=== PATIENT | female | born 1985 | race Caucasian/White ===

== ENCOUNTER 2016-10-17 20:14 | Emergency (ER) | payer OTHER ==
[~2016-10-17] VITALS: Ht 160 cm; Wt 82.0 kg
[~2016-10-17 20:14] MED LIST: ALBU1.25 NEB; DIGO0.25 PO; DUONI INH; FIORINAL2 PO; IBUP-232 PO; LORA-474 PO; MONT10TA2 PO; NORC5TAB PO; OMEP20TA PO; OXYC15TA PO; ZYRT10CA PO
[2016-10-17] MEDS ORDERED: SODIUM CHLOR 0.9% 1000 ML INJ 1,000 ML IV ONE (20:17)
[2016-10-17] MEDS ORDERED: MONT10TA2 PO (20:24)
[2016-10-17] MEDS ORDERED: LORA-474 PO (20:24)
[2016-10-17] MEDS ORDERED: ALBU1.25 NEB (20:24)
[2016-10-17] MEDS ORDERED: ZANA4CAP PO (20:25)
[2016-10-17 20:30] VITALS: BP 140/74; PULSE 115; RESP 16; TEMP 98.2; O2SAT 96
[2016-10-17] MEDS ORDERED: SODIUM CHLORIDE 0.9% FLUSH 5 ML FLUSH IVF PRN ×2 (20:30)
[2016-10-17] MEDS ORDERED: ONDANSETRON HCL 4 MG/2 ML VIAL IV PUSH ONE (20:30)
[2016-10-17] MEDS ORDERED: ACETAMINOPHEN 325 MG TAB PO ONE (20:30)
--- NOTE | 2016-10-17 21:04 | PD ---
HPI Chief Complaint: Head Injury Time Seen by Provider: 20:17 Travel History International Travel<30 days: No Contact w/Intl Traveler<30days: No History of Present Illness HPI The patient is 31 years old. She suffers with history of SVT evidently a TIA, endometriosis with ablations, thoracic outlet syndrome of the left first rib, asthma as well as anxiety. Patient has a history of left knee meniscus surgery. Earlier today in the morning she experienced a "buckle" type mechanism and fell striking her left temporoparietal scalp against a railway a stairway. She did not fall to the ground or lose consciousness. Throughout the course of the day she states she felt somewhat weak. While walking home tonight she experienced a another "buckle" type mechanism and again fell forward striking her left temporoparietal scalp against the same railway. No loss of consciousness occurred. She then ambulated down 3 flights of stairs. On scene EMS was advised by the patient that she had neck pain and they applied a cervical collar. In the ER the patient complains of cephalgia along the left jose-convexity as well as midline spinal pain. She reports feeling somewhat lightheaded. She endorses a history of tachycardia and has worn a Holter monitor previously. She has no chest pain or shortness of breath ER. PFSH Past Medical History Asthma: Yes Anxiety: Yes Heart Rhythm Problems: Yes (SVT) Cardiovascular Problems: Yes (SVT) Cerebrovascular Accident: Yes (TIA) Diabetes: Yes (HYPO) Endocrine: Yes (HYPERPARATHYROID) GERD: Yes Reproductive: Yes (endometriosis) Respiratory: Yes (ASTHMA) Migraines: Yes Past Surgical History Abdominal Surgery: Yes Appendectomy: Yes Cardiac Surgery: Yes (ATRIAL SEPTIAL DEFECT REPAIR) Cholecystectomy: Yes Genitourinary Surgery: Yes ("2-3 ABLASIONS RELATED TO ENDOMETRIOSIS") Gynecologic Surgery: Yes (LAP ) Thoracic Surgery: Yes (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) Social History Alcohol Use: Yes (RARE) Tobacco Use: No Substance Use: No Allergies-Medications (Allergen,Severity, Reaction): Coded Allergies: Compazine (Verified Allergy, Severe, Shortness of Breath, 10/17/16) Contrast Media (Verified Allergy, Severe, Anaphylaxis, 10/17/16) Dilaudid (Verified Allergy, Severe, Itching, 10/17/16) Latex (Verified Allergy, Severe, Anaphylaxis, 10/17/16) Reglan (Verified Allergy, Severe, Shortness of Breath, 10/17/16) Succinylcholine (Verified Allergy, Severe, 10/17/16) Cephalosporins (Verified Allergy, Mild, HIVES, 10/17/16) Reported Meds & Prescriptions Reported Meds & Active Scripts Active Ibuprofen 600 Mg Tab 600 Mg PO Q6H PRN Reported Zanaflex (Tizanidine HCl) 4 Mg Cap 4 Mg PO QID Singulair (Montelukast Sodium) 10 Mg Tab 10 Mg PO HS Ativan (Lorazepam) 1 Mg Tab 1 Mg PO DAILY PRN Albuterol Neb (Albuterol Sulfate) 1.25 Mg/3 Ml Neb 1.25 Mg NEB Q4HR NEB PRN Digoxin 0.25 Mg Tab 0.25 Mg PO DAILY Fiorinal (Butalbital/Aspirin/Caffeine) 50-325-40 Mg Cap 1 Cap PO Q4H PRN Do not exceed 6 capsules/day. Zyrtec Allergy (Cetirizine HCl) 10 Mg Cap 10 Mg PO DAILY Oxycodone (Oxycodone HCl) 15 Mg Tab 15 Mg PO Q6H PRN Omeprazole 20 Mg Tab 20 Mg PO BID Review of Systems Except as stated in HPI: all other systems reviewed are Neg General / Constitutional: No: Fever, Chills Gastrointestinal: No: Nausea, Vomiting Physical Exam Narrative GENERAL: 31 yo F, WNWD, C-collar present, AOx3 SKIN: Warm and dry. HEAD: Atraumatic. Normocephalic. No evidence of trauma about the left jose- convexity. No evidence skull base fracture. EYES: Pupils equal and round. No scleral icterus. No injection or drainage. ENT: No nasal bleeding or discharge. Mucous membranes pink and moist. NECK: Trachea midline. No JVD. CARDIOVASCULAR: Regular rate and rhythm. No murmur appreciated. RESPIRATORY: No accessory muscle use. Clear to auscultation. Breath sounds equal bilaterally. GASTROINTESTINAL: Abdomen soft, non-tender, nondistended. Hepatic and splenic margins not palpable. MUSCULOSKELETAL: No obvious deformities. No clubbing. No cyanosis. No edema. NEUROLOGICAL: Awake and alert. No obvious cranial nerve deficits. Motor grossly within normal limits. Normal speech. PSYCHIATRIC: Appropriate mood and affect; insight and judgment normal. Data Data Last Documented VS Vital Signs Date Time Temp Pulse Resp B/P Pulse Ox O2 Delivery O2 Flow Rate FiO2 10/17/16 20:30 98.2 115 16 140/74 96 10/17/16 20:25 Nasal Cannula 2 Orders Electrocardiogram (10/17/16 20:17) Basic Metabolic Panel (Bmp) (10/17/16 20:17) Complete Blood Count With Diff (10/17/16 20:17) Ecg Monitoring (10/17/16 20:17) Iv Access Insert/Monitor (10/17/16 20:17) Oximetry (10/17/16 20:17) Oxygen Administration (10/17/16 20:17) Sodium Chloride 0.9% Flush (Ns Flush) (10/17/16 20:30) Ct Brain W/O Iv Contrast(Rout) (10/17/16 20:17) Sodium Chloride 0.9% Flush (Ns Flush) (10/17/16 20:30) Acetaminophen (Tylenol) (10/17/16 20:30) Sodium Chlor 0.9% 1000 Ml Inj (Ns 1000 M (10/17/16 20:17) Ct Cerv Spine W/O Contrast (10/17/16 20:17) Ondansetron Inj (Zofran Inj) (10/17/16 20:30) Magnesium (Mg) (10/17/16 20:17) B-Type Natriuretic Peptide (10/17/16 21:27) Troponin I (10/17/16 21:27) Promethazine Inj (Phenergan Inj) (10/17/16 22:15) Ventilation & Perfusion Scan (10/17/16 ) Ed Urine Pregnancytest Poc (10/17/16 22:21) Chest, Single Ap (10/17/16 ) Labs Laboratory Tests Test 10/17/16 10/17/16 21:07 21:35 Sodium Level 136 MEQ/L Potassium Level 4.6 MEQ/L Chloride Level 104 MEQ/L Carbon Dioxide Level 20.8 MEQ/L Anion Gap 11 MEQ/L Blood Urea Nitrogen 18 MG/DL Creatinine 1.18 MG/DL Estimat Glomerular Filtration 54 ML/MIN Rate Random Glucose 109 MG/DL Calcium Level 9.6 MG/DL Magnesium Level 2.3 MG/DL White Blood Count 15.7 TH/MM3 Red Blood Count 4.38 MIL/MM3 Hemoglobin 12.1 GM/DL Hematocrit 36.3 % Mean Corpuscular Volume 82.8 FL Mean Corpuscular Hemoglobin 27.6 PG Mean Corpuscular Hemoglobin 33.3 % Concent Red Cell Distribution Width 14.9 % Platelet Count 272 TH/MM3 Mean Platelet Volume 8.5 FL Neutrophils (%) (Auto) 91.9 % Lymphocytes (%) (Auto) 6.0 % Monocytes (%) (Auto) 1.8 % Eosinophils (%) (Auto) 0.0 % Basophils (%) (Auto) 0.3 % Neutrophils # (Auto) 14.4 TH/MM3 Lymphocytes # (Auto) 0.9 TH/MM3 Monocytes # (Auto) 0.3 TH/MM3 Eosinophils # (Auto) 0.0 TH/MM3 Basophils # (Auto) 0.0 TH/MM3 CBC Comment DIFF FINAL Differential Comment Troponin I LESS THAN 0.02 NG/ML B-Type Natriuretic Peptide 9 PG/ML MDM Medical Decision Making Medical Screen Exam Complete: Yes Emergency Medical Condition: Yes Medical Record Reviewed: Yes Differential Diagnosis Intracranial hemorrhage, contusion, skull fracture Narrative Course EKG reveals a sinus tachycardia with a rate of 121. Right axis deviation and Q waves. Last [address] 10/17/162016 Signed Impressions: Service Date/Time: Monday, October 17, 2016 23:02 - CONCLUSION: Normal examination. Jhon Monahan MD Cervical Spine CT 10/17/162016 Signed Impressions: Service Date/Time: Monday, October 17, 2016 23:02 - CONCLUSION: Normal examination. Jhon Monahan MD CBC & BMP Diagram 10/17/16 21:07 10/17/16 21:35 Troponin is undetectable BNP 9 VQ scan: No PE The pulse has improved to about the 90s. The patient received a liter of saline. No evidence of PE. Much of her initial presentation seemed to be vague constellation of somatic apparent signs including falling asleep during the initial interview which seemed to be fairly obviously intentional. Nonetheless in the setting of tachycardia a thorough workup was initiated. In this scenario the leukocytosis is considered nonspecific. She reports feeling much better upon reassessment at 12:45 AM. Phenergan and Zofran helped with the initial nausea complains. The patient has agreed to follow up with her primary care provider and [facility] on Wednesday. Return precautions were discussed. She is ready for discharge. Diagnosis Primary Impression: CHI (closed head injury) Qualified Code: S09.90XA - CHI (closed head injury), initial encounter Additional Impression: Nausea & vomiting Qualified Code: R11.2 - Nausea and vomiting, intractability of vomiting not specified, unspecified vomiting type Referrals: Primary Care Physician call for appointment Additional Instructions: You have a choice when it comes to health care, and we are glad that you chose [facility]. Hopefully, we have met your expectations on today's visit. You are welcome to return to [facility] at any time, as we are committed to meeting the health care needs of our community. Med/Other Pt SpecificInfo: Prescription(s) given Scripts Promethazine (Phenergan)25 Mg Tab25 Mg PO Q6H PRN (Nausea/Vomiting) #10 TAB Ref 0 Prov:Willard Cotto MD 10/18/16 Disposition: 01 DISCHARGE HOME Condition: Stable Willard Cotto MD Oct 17, 2016 21:04
[2016-10-17 21:47] LABS: BICARBONATE 20.8 MEQ/L (21.0-32.0); MAGNESIUM 2.3 MG/DL (1.5-2.5)
[2016-10-17 21:50] LABS: POTASSIUM 4.6 MEQ/L (3.5-5.1)
[2016-10-17 22:03] LABS: AUTOMATED NEUTROPHIL # 14.4 TH/MM3 (1.8-7.7); BASOPHIL % 0.3 % (0.0-2.0); HEMATOCRIT 36.3 % (35.0-46.0); HEMO FLAGS DIFF FINAL; LYMPHOCYTE # 0.9 TH/MM3 (1.0-4.8); MEAN CELL VOLUME 82.8 FL (80.0-100.0); MEAN CORPUSCULAR HEMOGLOBIN 27.6 PG (27.0-34.0); MEAN CORPUSCULAR HGB CONC 33.3 % (32.0-36.0); MONO % 1.8 % (0.0-8.0); NEUT % 91.9 % (16.0-70.0); PLATELET COUNT 272 TH/MM3 (150-450); RED BLOOD COUNT 4.38 MIL/MM3 (4.00-5.30); RED CELL DISTRIBUTION WIDTH 14.9 % (11.6-17.2); WHITE BLOOD COUNT 15.7 TH/MM3 (4.0-11.0)
[2016-10-17] MEDS ORDERED: PROMETHAZINE INJ 25 MG/ML VIAL IM ONE (22:15)
--- NOTE | 2016-10-17 23:24 | RADRPT ---
EXAM DATE/TIME: 10/17/2016 23:02 [facility] COMPARISON: No previous studies available for comparison. INDICATIONS : Trauma; fall. RADIATION DOSE: 32.84 CTDIvol (mGy) MEDICAL HISTORY : Cardiovascular disease. Gastroesophageal reflux disease. SURGICAL HISTORY : Appendectomy. Cholecystectomy. ENCOUNTER: Initial ACUITY: 1 day PAIN SCALE: 3/10 LOCATION: cranial TECHNIQUE: Multiple contiguous axial images were obtained of the head. Using automated exposure control and adj ustment of the mA and/or kV according to patient size, radiation dose was kept as low as reasonably a chievable to obtain optimal diagnostic quality images. FINDINGS: CEREBRUM: The ventricles are normal for age. No evidence of midline shift, mass lesion, hemorrhage or acute in farction. No extra-axial fluid collections are seen. POSTERIOR FOSSA: The cerebellum and brainstem are intact. The 4th ventricle is midline. The cerebellopontine angle i s unremarkable. EXTRACRANIAL: The visualized portion of the orbits is intact. SKULL: The calvaria is intact. No evidence of skull fracture. CONCLUSION: Normal examination. Jhon Monahan MD on October 17, 2016 at 23:22 Board Certified Radiologist. This report was verified electronically.
--- NOTE | 2016-10-17 23:27 | RADRPT ---
EXAM DATE/TIME: 10/17/2016 23:02 [facility] COMPARISON: No previous studies available for comparison. INDICATIONS : Trauma; fall. RADIATION DOSE: 32.84CTDIvol (mGy) MEDICAL HISTORY : Cardiovascular disease. Gastroesophageal reflux disease. SURGICAL HISTORY : Appendectomy. Cholecystectomy. ENCOUNTER: Initial ACUITY: 1 day PAIN SCALE: 2/10 LOCATION: neck TECHNIQUE: Volumetric scanning of the cervical spine was performed. Multiplanar reconstructions in the sagittal, coronal and oblique axial planes were performed. Using automated exposure control and adjustment o f the mA and/or kV according to patient size, radiation dose was kept as low as reasonably achievable to obtain optimal diagnostic quality images. FINDINGS: VERTEBRAE: Normal vertebral body height. ALIGNMENT: No evidence of subluxation. C2-C3: The bony spinal canal is normal in size. No evidence of disc bulge or herniation. The neural forami na are bilaterally patent. C3-C4: The bony spinal canal is normal in size. No evidence of disc bulge or herniation. The neural forami na are bilaterally patent. C4-C5: The bony spinal canal is normal in size. No evidence of disc bulge or herniation. The neural forami na are bilaterally patent. C5-C6: The bony spinal canal is normal in size. No evidence of disc bulge or herniation. The neural forami na are bilaterally patent. C6-C7: The bony spinal canal is normal in size. No evidence of disc bulge or herniation. The neural forami na are bilaterally patent. C7-T1: The bony spinal canal is normal in size. No evidence of disc bulge or herniation. The neural forami na are bilaterally patent. CONCLUSION: Normal examination. Jhon Monahan MD on October 17, 2016 at 23:24 Board Certified Radiologist. This report was verified electronically.
[2016-10-18] VITALS: BP 138/78; PULSE 70; RESP 16; O2SAT 98
--- NOTE | 2016-10-18 00:32 | RADRPT ---
EXAM DATE/TIME: 10/17/2016 23:57 [facility] COMPARISON: No previous studies available for comparison. INDICATIONS : Shortness of breath and weakness for one day. DOSE: 8.7 mCi Tc99m MAA IV 1.2 mCi Tc99m DTPA aerosol MEDICAL HISTORY : Stroke. Asthma. SURGICAL HISTORY : Appendectomy. Cholecystectomy. ENCOUNTER: Initial ACUITY: 1 day PAIN SCALE: 1/10 LOCATION: chest TECHNIQUE: Following five minutes of tidal breathing of DTPA aerosol, planar images of the lungs were performed in eight projections. The patient was then injected with MAA, and eight-view perfusion scan was perf ormed. FINDINGS: There is a homogeneous pattern of aerosol delivery to the periphery of both lungs. No focal ventilat ory defects are seen. The perfusion lung scan demonstrates a homogenous pattern of uptake in both lungs. No segmental or s ubsegmental defects are seen. CONCLUSION: Normal examination. Jhon Monahan MD on October 18, 2016 at 0:31 Board Certified Radiologist. This report was verified electronically.
[2016-10-18] MEDS ORDERED: PROM25TA5 PO (01:01)
--- NOTE | 2016-10-18 01:20 | RADRPT ---
EXAM DATE/TIME: 10/18/2016 00:21 [facility] COMPARISON: CHEST PA & LAT, July 02, 2016, 10:07. INDICATIONS : Fall. Palpitations. Shortness of breath. MEDICAL HISTORY : None. SURGICAL HISTORY : CABG. Left chest tube. ENCOUNTER: Initial ACUITY: 1 day PAIN SCORE: 110 LOCATION: Bilateral chest FINDINGS: A single view of the chest demonstrates the lungs to be symmetrically aerated without evidence of mas s, infiltrate or effusion. The cardiomediastinal contours are unremarkable. Osseous structures are intact. Numerous sternal wires. Left hemidiaphragm remains tented laterally CONCLUSION: Normal examination. Left first rib has been resected Jhon Monahan MD on October 18, 2016 at 1:18 Board Certified Radiologist. This report was verified electronically.
--- NOTE | 2016-10-18 13:38 | EKG ---
Date Performed: 10/17/2016 Time Performed: 20:40:55 PTAGE: 31 years EKG: SINUS TACHYCARDIA MARKED RIGHT AXIS DEVIATION POSSIBLE ANTERIOR MYOCARDIAL INFARCTION ABNOR MAL ECG Compared to PREVIOUS TRACING , sinus tachycardia is new. There has been some loss of lateral R-wave f orces but that is a nonspecific finding. Clinical correlation is advised. PREVIOUS TRACIN 6 02.56 DOCTOR: Caroline Plata Interpretating Date/Time 10/18/2016 13:34:35
[2017-01-27] MEDS ORDERED: ORPH100T PO (17:24)
== END 2016-10-18 02:07 | disposition home or self-care (01) ==
LOC: NEPC 20:14
DX: S09.90XA Unspecified injury of head, initial encounter (principal); M54.2 Cervicalgia; E21.3 Hyperparathyroidism, unspecified; J45.909 Unspecified asthma, uncomplicated; R11.2 Nausea with vomiting, unspecified; D72.829 Elevated white blood cell count, unspecified; R00.0 Tachycardia, unspecified; W19.XXXA Unspecified fall, initial encounter; Z86.73 Personal history of transient ischemic attack (TIA), and cerebral infarction without residual deficits
CPT/HCPCS: 70450; 71010; 72125; 78582; 80048; 83735; 83880; 84484; 84703; 85025; 93005; 96372; 96374; 99284; A9540; A9567; J2405; J2550; J7030

== ENCOUNTER 2016-11-11 23:33 | Emergency (ER) | payer OTHER ==
[~2016-11-11 23:33] MED LIST changes: -DUONI INH; -NORC5TAB PO; +PROM25TA5 PO; +ZANA4CAP PO
[2016-11-11 23:34] VITALS: BP 139/76; PULSE 115; RESP 16; TEMP 97.3; O2SAT 97
[2016-11-12] MEDS ORDERED: XOPEAER4 INH ×2 (01:23)
[2016-11-12] MEDS ORDERED: LEVA.63I NEB ×2 (01:23)
== END 2016-11-11 23:48 | disposition left against medical advice (07) ==
LOC: NED 23:33
DX: R10.2 Pelvic and perineal pain (principal); N83.209 Unspecified ovarian cyst, unspecified side
CPT/HCPCS: 99281

== ENCOUNTER 2016-11-12 01:03 | Inpatient (IN) | payer OTHER ==
[~2016-11-12] VITALS: Ht 157.5 cm; Wt 79.0 kg
[2016-11-12] VITALS (12 sets, daily range): BP systolic 114–147; BP diastolic 61–93; PULSE 65–120; RESP 16–26; TEMP 96.9–98.3; O2SAT 95–98
[2016-11-12] MEDS ORDERED: LEVA.63I NEB (01:23)
[2016-11-12] MEDS ORDERED: XOPEAER4 INH (01:23)
[2016-11-12 02:03] LABS: BLOOD, URINE LARGE (NEG); GLUCOSE,URINE NEG (NEG); KETONE, URINE TRACE mg/dL (NEG); NITRITE,URINE NEG (NEG); PH, URINE 5.5 (5.0-8.5)
[2016-11-12 02:05] LABS: URINE COLOR YELLOW (YELLW/STRAW)
[2016-11-12 02:08] LABS: BACTERIA, URINE FEW /hpf; COMMENT (UR) CULTURE INDICATED; CULTURE IF INDICATED CULTURE INDICATED; SQUAMOUS EPITHELIAL CELL URINE > 8 /hpf (0-5)
--- NOTE | 2016-11-12 02:35 | PD ---
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 She does have nausea and vomiting. She states she gets alternating Depo-Provera and Lupron on an alternating yearly basis. She gets this because she has stage IV endometriosis. She has a doctor in [place] but states she has a hard time making an appointment with her and has not seen her in approximately one year. She saw her one year ago and got a Pap smear at that time. She denies any fever, dysuria, frequency or urgency. The patient had some initial vaginal bleeding when her problems started at 6:30 but this has resolved. PFSH Past Medical History Asthma: Yes Anxiety: Yes Heart Rhythm Problems: Yes (SVT) Cardiovascular Problems: Yes Cerebrovascular Accident: Yes (TIA) Diminished Hearing: No Endocrine: Yes (HYPERPARATHYROID) GERD: Yes Reproductive: Yes (endometriosis) Respiratory: Yes Immunizations Current: Yes Migraines: Yes Tetanus Vaccination: > 5 Years Influenza Vaccination: No ?: Not LMP: 2 YEARS ON DEPO SHOT Past Surgical History Abdominal Surgery: Yes Appendectomy: Yes Cardiac Surgery: Yes (ATRIAL SEPTIAL DEFECT REPAIR) Cholecystectomy: Yes Genitourinary Surgery: Yes ("2-3 ABLASIONS RELATED TO ENDOMETRIOSIS") Gynecologic Surgery: Yes (LAP ) Thoracic Surgery: Yes (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) Social History Alcohol Use: Yes (RARE) Tobacco Use: No Substance Use: No Allergies-Medications (Allergen,Severity, Reaction): Coded Allergies: Compazine (Verified Allergy, Severe, Shortness of Breath, 11/12/16) Contrast Media (Verified Allergy, Severe, Anaphylaxis, 11/12/16) Dilaudid (Verified Allergy, Severe, Itching, 11/12/16) Latex (Verified Allergy, Severe, Anaphylaxis, 11/12/16) Reglan (Verified Allergy, Severe, Shortness of Breath, 11/12/16) Succinylcholine (Verified Allergy, Severe, 11/12/16) Cephalosporins (Verified Allergy, Mild, HIVES, 11/12/16) Reported Meds & Prescriptions Reported Meds & Active Scripts Active Phenergan (Promethazine HCl) 25 Mg Tab 25 Mg PO Q6H PRN Ibuprofen 600 Mg Tab 600 Mg PO Q6H PRN Reported Xopenex Neb (Levalbuterol HCl) 0.63 Mg/3 Ml Neb 0.63 Mg NEB QID Xopenex Hfa 15 GM Inh (Levalbuterol 15 GM Inh) 45 Mcg/Act Aer 45 Mcg INH Q4HR Shake well before using. (1 puff = 45 mcg) Zanaflex (Tizanidine HCl) 4 Mg Cap 4 Mg PO QID Singulair (Montelukast Sodium) 10 Mg Tab 10 Mg PO HS Ativan (Lorazepam) 1 Mg Tab 1 Mg PO DAILY PRN Digoxin 0.25 Mg Tab 0.25 Mg PO DAILY Fiorinal (Butalbital/Aspirin/Caffeine) 50-325-40 Mg Cap 1 Cap PO Q4H PRN Do not exceed 6 capsules/day. Omeprazole 20 Mg Tab 20 Mg PO BID Review of Systems Except as stated in HPI: all other systems reviewed are Neg Physical Exam Narrative GENERAL: The patient is obese, alert, oriented 3 in moderate to severe distress with her bilateral pelvic pain. Her vital signs repeated show blood pressure 136/93 with heart rate of 110 but the rest the vital signs are normal. SKIN: Warm and dry. HEAD: Atraumatic. Normocephalic. EYES: Pupils equal and round. No scleral icterus. No injection or drainage. ENT: No nasal bleeding or discharge. Mucous membranes pink and moist. NECK: Trachea midline. No JVD. CARDIOVASCULAR: Regular rate and rhythm. No murmur appreciated. RESPIRATORY: No accessory muscle use. Clear to auscultation. Breath sounds equal bilaterally. GASTROINTESTINAL: Abdomen soft, non-tender, nondistended. Hepatic and splenic margins not palpable. MUSCULOSKELETAL: No obvious deformities. No clubbing. No cyanosis. No edema. NEUROLOGICAL: Awake and alert. No obvious cranial nerve deficits. Motor grossly within normal limits. Normal speech. PSYCHIATRIC: Appropriate mood and affect; insight and judgment normal. GENITOURINARY: Normal external genitalia without lesions or erythema. Vaginal vault without blood or drainage. Cervical os was open with a protruding mass that may be a polyp versus a uterine cast. There is exquisite cervical motion tenderness. Uterus tender and nonenlarged. Bilateral adnexa nontender without masses. Data Data Last Documented VS Vital Signs Date Time Temp Pulse Resp B/P Pulse Ox O2 Delivery O2 Flow Rate FiO2 11/12/16 04:19 100 18 139/73 96 Room Air 11/12/16 01:10 98.3 Orders Urinalysis - C+S If Indicated (11/12/16 01:53) Ed Urine Pregnancytest Poc (11/12/16 01:53) Urine Culture (11/12/16 01:55) Beta Hcg (Quant/Titer) (11/12/16 02:45) Complete Blood Count With Diff (11/12/16 02:45) Basic Metabolic Panel (Bmp) (11/12/16 02:45) Sodium Chloride 0.9% Flush (Ns Flush) (11/12/16 02:45) Ondansetron Inj (Zofran Inj) (11/12/16 02:45) Morphine Inj (Morphine Inj) (11/12/16 02:45) Us Pelvis Comp W Dop Transvag (11/12/16 ) Labs Laboratory Tests Test 11/12/16 11/12/16 01:55 03:45 Urine Color YELLOW Urine Turbidity CLEAR Urine pH 5.5 Urine Specific [place] 1.026 Urine Protein TRACE mg/dL Urine Glucose (UA) NEG mg/dL Urine Ketones TRACE mg/dL Urine Occult Blood LARGE Urine Nitrite NEG Urine Bilirubin NEG Urine Leukocyte Esterase SMALL Urine RBC 4-9 /hpf Urine WBC 25-49 /hpf Urine Squamous Epithelial > 8 /hpf Cells Urine Bacteria FEW /hpf Microscopic Urinalysis Comment CULTURE INDICATED White Blood Count 14.4 TH/MM3 Red Blood Count 4.99 MIL/MM3 Hemoglobin 13.5 GM/DL Hematocrit 42.5 % Mean Corpuscular Volume 85.0 FL Mean Corpuscular Hemoglobin 27.1 PG Mean Corpuscular Hemoglobin 31.9 % Concent Red Cell Distribution Width 15.3 % Platelet Count 253 TH/MM3 Mean Platelet Volume 8.4 FL Neutrophils (%) (Auto) 92.3 % Lymphocytes (%) (Auto) 5.9 % Monocytes (%) (Auto) 0.9 % Eosinophils (%) (Auto) 0.1 % Basophils (%) (Auto) 0.8 % Neutrophils # (Auto) 13.4 TH/MM3 Lymphocytes # (Auto) 0.8 TH/MM3 Monocytes # (Auto) 0.1 TH/MM3 Eosinophils # (Auto) 0.0 TH/MM3 Basophils # (Auto) 0.1 TH/MM3 CBC Comment DIFF FINAL Differential Comment Sodium Level 143 MEQ/L Potassium Level 4.1 MEQ/L Chloride Level 111 MEQ/L Carbon Dioxide Level 22.1 MEQ/L Anion Gap 10 MEQ/L Blood Urea Nitrogen 21 MG/DL Creatinine 1.20 MG/DL Estimat Glomerular Filtration 53 ML/MIN Rate Random Glucose 111 MG/DL Calcium Level 9.7 MG/DL Human Chorionic Gonadotropin, LESS THAN 1 Quant MIU/ML MDM Medical Decision Making Medical Screen Exam Complete: Yes Emergency Medical Condition: Yes Medical Record Reviewed: Yes Differential Diagnosis Cervical polyp, uterine cast, endometriosis, pelvic pain etiology undetermined. Narrative Course The patient has pelvic pain etiology undetermined. I discussed the patient with Dr. Lloyd and she wants to examine the patient at [facility] under anesthesia. The patient is in excruciating pain. For morphine did not touch her pain and I am giving [address] Lloyd will come in around 6:30 in the morning to meet the patient in the emergency department. Procedures EKG Prior to Arrival: No EKG Not Completed: EKG Not Medically Necessary Physician Communication Physician Communication I discussed the patient with Dr. Lloyd. Diagnosis Primary Impression: Pelvic pain in female Kermit Diaz MD Nov 12, 2016 02:35
[2016-11-12] MEDS ORDERED: MORPHINE SULFATE 4 MG/ML INJ IV PUSH ONE ×2 (02:45→06:45)
[2016-11-12] MEDS ORDERED: ONDANSETRON HCL 4 MG/2 ML VIAL IVP ONE (02:45)
[2016-11-12] MEDS: SODIUM CHLORIDE 0.9% FLUSH 5 ML FLUSH IVF PRN ×2 (03:50→06:48)
[2016-11-12 03:51] LABS: AUTOMATED NEUTROPHIL # 13.4 TH/MM3 (1.8-7.7); BASOPHIL # 0.1 TH/MM3 (0-0.2); BASOPHIL % 0.8 % (0.0-2.0); EOSINOPHIL % 0.1 % (0.0-4.0); HEMATOCRIT 42.5 % (35.0-46.0); LYMPH % 5.9 % (9.0-44.0); LYMPHOCYTE # 0.8 TH/MM3 (1.0-4.8); MEAN CORPUSCULAR HEMOGLOBIN 27.1 PG (27.0-34.0); MEAN CORPUSCULAR HGB CONC 31.9 % (32.0-36.0); MONO % 0.9 % (0.0-8.0); NEUT % 92.3 % (16.0-70.0); PLATELET COUNT 253 TH/MM3 (150-450); RED BLOOD COUNT 4.99 MIL/MM3 (4.00-5.30); RED CELL DISTRIBUTION WIDTH 15.3 % (11.6-17.2); WHITE BLOOD COUNT 14.4 TH/MM3 (4.0-11.0)
[2016-11-12 03:54] LABS: HEMO FLAGS DIFF FINAL
[2016-11-12 03:57] LABS: CHLORIDE 111 MEQ/L (98-107); POTASSIUM 4.1 MEQ/L (3.5-5.1); SODIUM (NA) 143 MEQ/L (136-145)
[2016-11-12 04:00] LABS: ANION GAP 10 MEQ/L (5-15); BICARBONATE 22.1 MEQ/L (21.0-32.0); BLOOD UREA NITROGEN 21 MG/DL (7-18)
[2016-11-12 04:03] LABS: GLOMERULAR FILTRATION RATE 53 ML/MIN (>89)
[2016-11-12 04:08] LABS: BETA HCG QUANT LESS THAN 1 MIU/ML (0-5)
--- NOTE | 2016-11-12 04:08 | RADHPO ---
EXAM DATE/TIME: 11/12/2016 03:17 [facility] COMPARISON: No previous studies available for comparison. INDICATIONS : Pelvic pain. MEDICAL HISTORY : Hyperparathyroidism. TIA. Migriane. Thoracic outlet syndrome. Endometriosis. SURGICAL HISTORY : Appendectomy. Cholecystectomy. Atrial septal defect repair. Rib resection. Ablations. Left knee mariam dolores. ENCOUNTER: Initial ACUITY: 1 day PAIN SCORE: 10/10 LOCATION: Bilateral pelvis MEASUREMENTS: UTERUS: 5.7 x 2.7 x 3.7 cm ENDOMETRIAL STRIPE: 6 mm RIGHT OVARY: 2.8 x 1.6 x 2.0 cm LEFT OVARY: Non-visualized. FINDINGS: UTERUS: The myometrium has homogeneous echotexture without mass.There is a small amount of fluid in the endom etrial cavity. There is echogenic foci in the endometrium. RIGHT OVARY: Ovary contains no mass or significant cystic lesion. There is evidence of blood flow. LEFT OVARY: Left ovary was not visualized. MISCELLANEOUS: There is a trace of fluid in the cul-de-sac. CONCLUSION: 1. There is some echogenic foci in the endometrial cavity along with some fluid. This may be related to patient's menstrual cycle. 2. There is a trace of fluid in the cul-de-sac. 3. The right ovary is unremarkable. The left ovary was not visualized. Matthew Osman MD on November 12, 2016 at 3:49 Board Certified Radiologist. This report was verified electronically.
[2016-11-12] MEDS ORDERED: MORPHINE SULFATE 8 MG/ML INJ IV PUSH ONE (04:45)
[2016-11-12] MEDS ORDERED: ONDANSETRON HCL 4 MG/2 ML VIAL IV ONE ×2 (04:45→06:45)
[2016-11-12] MEDS ORDERED: LACTATED RINGER'S 1000 ML INJ 1,000 ML IV ONE (09:54)
--- NOTE | 2016-11-12 09:54 | PD.CONS ---
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 Sates 10/10. Mild bleeding. severl Lscope and "ablation of endometriosis" reported. TOld by her critical care cns she needs to get pregant. Her mom who is present states it is stage 4 but ultrasound fairly benign exept for echogeniv foci in endometrium. She is in semi flowlers and visibly distressed. Has had GB out Has had heart surgery. appendectomy Nothing to eat since yesterday. Para: 0 : 0 Allergies-Medications (Allergen,Severity, Reaction): Coded Allergies: Compazine (Verified Allergy, Severe, Shortness of Breath, 11/12/16) Contrast Media (Verified Allergy, Severe, Anaphylaxis, 11/12/16) Dilaudid (Verified Allergy, Severe, Itching, 11/12/16) Latex (Verified Allergy, Severe, Anaphylaxis, 11/12/16) Reglan (Verified Allergy, Severe, Shortness of Breath, 11/12/16) Succinylcholine (Verified Allergy, Severe, 11/12/16) Cephalosporins (Verified Allergy, Mild, HIVES, 11/12/16) Home Meds Active Scripts Promethazine (Phenergan)25 Mg Tab25 Mg PO Q6H PRN (Nausea/Vomiting) #10 TAB Ref 0 Prov:Willard Cotto MD 10/18/16 Ibuprofen 600 Mg [id number] Mg PO Q6H PRN (Pain/Inflammation) #20 TAB Ref 0 Prov:Michel Reynoso MD 09/03/16 Reported Medications Levalbuterol Neb (Xopenex Neb)0.63 Mg/3 Ml Neb0.63 Mg NEB QID #120 NEBULE Ref 0 11/12/16 Levalbuterol 15 GM Inh (Xopenex Hfa 15 GM Inh)45 Mcg/Act Aer45 Mcg INH Q4HR #1 INHALER Ref 0 Shake well before using. (1 puff = 45 mcg) 11/12/16 Tizanidine (Zanaflex)4 Mg Cap4 Mg PO QID Ref 0 10/17/16 Montelukast (Singulair)10 Mg Tab10 Mg PO HS #30 TAB Ref 0 10/17/16 Lorazepam (Ativan)1 Mg Tab1 Mg PO DAILY PRN (ANXIETY AND/OR AGITATION) Ref 0 10/17/16 Digoxin 0.25 Mg Tab0.25 Mg PO DAILY #30 TAB Ref 0 09/03/16 Olfaobgols-Scztvdt-Ugwfwwqi (Fiorinal)50-325-40 Mg Cap1 Cap PO Q4H PRN (HEADACHE ) Ref 0 Do not exceed 6 capsules/day. 09/03/16 Omeprazole 20 Mg Tab20 Mg PO BID #30 TAB Ref 0 09/03/16 Discontinued Reported Medications Albuterol Neb 1.25 Mg/3 Ml Neb1.25 Mg NEB Q4HR NEB PRN (SHORTNESS OF BREATH) # 50 NEBULE Ref 0 10/17/16 Cetirizine (Zyrtec Allergy)10 Mg Cap10 Mg PO DAILY Ref 0 09/03/16 Oxycodone 15 Mg Tab15 Mg PO Q6H PRN (pain) Ref 0 09/03/16 Physical Exam Narrative GENERAL: Well-nourished, well-developed patient. appears in pain SKIN: Warm and dry. HEAD: Normocephalic and atraumatic. EYES: No scleral icterus. No injection or drainage. ENT: No nasal drainage noted. Mucous membranes pink. Airway patent. NECK: Supple, trachea midline. No JVD. CARDIOVASCULAR: Regular rate and rhythm without murmurs, gallops, or rubs. RESPIRATORY: Breath sounds equal bilaterally. No accessory muscle use. BREASTS: Bilateral exam showed no masses , no retractions, no nipple discharge. ABDOMEN/GI: Abdomen soft, non-tender, bowel sounds present, no rebound, no guarding Gravid to [-] weeks size Fundal Height: [-] GENITOURINARY: abdomen without guarding or rebound pelvic exam-spec deferred irregular tissue at os exquisitely painful. Narrow virginal introitus and highly painful EXTREMITIES: No cyanosis or edema. BACK: Nontender without obvious deformity. No CVA tenderness. NEUROLOGICAL: Awake and alert. Motor and sensory grossly within normal limits. Five out of 5 muscle strength in all muscle groups. Normal speech. Data Data Orders Urinalysis - C+S If Indicated (11/12/16 01:53) Ed Urine Pregnancytest Poc (11/12/16 01:53) Urine Culture (11/12/16 01:55) Beta Hcg (Quant/Titer) (11/12/16 02:45) Complete Blood Count With Diff (11/12/16 02:45) Basic Metabolic Panel (Bmp) (11/12/16 02:45) Sodium Chloride 0.9% Flush (Ns Flush) (11/12/16 02:45) Ondansetron Inj (Zofran Inj) (11/12/16 02:45) Morphine Inj (Morphine Inj) (11/12/16 02:45) Us Pelvis Comp W Dop Transvag (11/12/16 ) Morphine Inj (Morphine Inj) (11/12/16 04:45) Ondansetron Inj (Zofran Inj) (11/12/16 04:45) Admit Order (Ed Use Only) (11/12/16 04:48) Morphine Inj (Morphine Inj) (11/12/16 06:45) Ondansetron Inj (Zofran Inj) (11/12/16 06:45) Labs Laboratory Tests Test 11/12/16 11/12/16 01:55 03:45 Urine Color YELLOW Urine Turbidity CLEAR Urine pH 5.5 Urine Specific [place] 1.026 Urine Protein TRACE Urine Glucose (UA) NEG Urine Ketones TRACE Urine Occult Blood LARGE Urine Nitrite NEG Urine Bilirubin NEG Urine Leukocyte Esterase SMALL Urine RBC 4-9 Urine WBC 25-49 Urine Squamous Epithelial > 8 Cells Urine Bacteria FEW Microscopic Urinalysis Comment CULTURE INDICATED White Blood Count 14.4 Red Blood Count 4.99 Hemoglobin 13.5 Hematocrit 42.5 Mean Corpuscular Volume 85.0 Mean Corpuscular Hemoglobin 27.1 Mean Corpuscular Hemoglobin 31.9 Concent Red Cell Distribution Width 15.3 Platelet Count 253 Mean Platelet Volume 8.4 Neutrophils (%) (Auto) 92.3 Lymphocytes (%) (Auto) 5.9 Monocytes (%) (Auto) 0.9 Eosinophils (%) (Auto) 0.1 Basophils (%) (Auto) 0.8 Neutrophils # (Auto) 13.4 Lymphocytes # (Auto) 0.8 Monocytes # (Auto) 0.1 Eosinophils # (Auto) 0.0 Basophils # (Auto) 0.1 CBC Comment DIFF FINAL Differential Comment Sodium Level 143 Potassium Level 4.1 Chloride Level 111 Carbon Dioxide Level 22.1 Anion Gap 10 Blood Urea Nitrogen 21 Creatinine 1.20 Estimat Glomerular Filtration 53 Rate Random Glucose 111 Calcium Level 9.7 Human Chorionic Gonadotropin, LESS THAN 1 Quant Date/Time Procedure Status Source Growth 11/12/16 01:55 Urine Culture Received Urine Clean Catch Pending MDM Interpretation(s) need EUA with HScope and Lscope will schedule at end day. Admitting diagnosis: intractable pelvic pain Tiffanie Lloyd MD Nov 12, 2016 09:54
[2016-11-12] MEDS ORDERED: CLINDAMYCIN PHOS 900 MG/6 ML VIAL IM ONE (10:00)
[2016-11-12] MEDS ORDERED: diphenhydrAMINE HCL 50 MG/ML VIAL IV PUSH PRN ×2 (10:15→17:11)
[2016-11-12] MEDS ORDERED: ONDANSETRON HCL 4 MG/2 ML VIAL IV PUSH PRN (10:15)
[2016-11-12] MEDS: HYDROmorphone HCL PF 1 MG/ML VIAL IV PUSH PRN ×2 (11:05→14:58)
[2016-11-12] MEDS: LACTATED RINGER'S 1000 ML INJ 1,000 ML IV SCH ×3 (11:05→23:44)
[2016-11-12] MEDS ORDERED: CITRIC ACID-SODIUM CITRATE LIQ 30 ML UDC PO SCH (11:30)
[2016-11-12 11:34] LABS: AUTOMATED NEUTROPHIL # 12.8 TH/MM3 (1.8-7.7); BASOPHIL % 0.2 % (0.0-2.0); HEMO FLAGS DIFF FINAL; LYMPH % 10.9 % (9.0-44.0); LYMPHOCYTE # 1.6 TH/MM3 (1.0-4.8); MEAN CELL VOLUME 85.2 FL (80.0-100.0); MEAN CORPUSCULAR HEMOGLOBIN 28.1 PG (27.0-34.0); MONO % 4.5 % (0.0-8.0); NEUT % 84.4 % (16.0-70.0); PLATELET COUNT 260 TH/MM3 (150-450); RED BLOOD COUNT 4.34 MIL/MM3 (4.00-5.30); RED CELL DISTRIBUTION WIDTH 15.7 % (11.6-17.2); WHITE BLOOD COUNT 15.2 TH/MM3 (4.0-11.0)
--- NOTE | 2016-11-12 14:25 | MH ---
cc: JAYMIE LLOYD DATE OF ADMISSION: 11/12/2016 E59. HISTORY OF PRESENT ILLNESS She is a patient who was transported from [place] to [place] ED early this morning about 4 or 5 o'clock for intractable lower pelvic pain 10 out of 10 since the previous night at 06:30. 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 Babb. She and her mother state that she has been told she has stage IV endometriosis. She was in her normal state of health until 06:30 when she developed acute unremitting lower quadrant pain that almost sounds as if it was a torsion. She is in semi-Crook's position and cannot do straight leg. She has no rebound or guarding and she basically wants definitive therapy. She has no fever, chills, nausea, vomiting or diarrhea. She has had multiple surgical procedures include an appendectomy, a cholecystectomy, several laparoscopies where apparently endometriosis had been identified and ablated. She has also had cardiac surgery for an atrial septal defect. She is single, nulliparous, in fact she has never had intercourse and has a virginal introitus. She does not smoke, drink or use illicit drugs. She is in the emergency room with her mom. REVIEW OF SYSTEMS Review of systems is otherwise negative. FAMILY HISTORY Family history is essentially noncontributory. PHYSICAL EXAMINATION GENERAL: On physical she is a moderately overweight white female who is in obvious distress in semi-Crook's position. NECK: She has no thyroid enlargement. LUNGS: Lungs are clear. HEART: Heart is regular. ABDOMEN: Abdomen is soft. There is no hepatosplenomegaly. No CVA tenderness. I do not get rebound or guarding but she feels better in a curled up position and cannot lay flat or sit up straight. A speculum exam performed by Dr. España suggests that there was some type of polypoid material extruding from the cervical os. It was exceptionally painful for her and I did not repeat the speculum exam but did careful digital exam and do feel some unusual tissue at the os. She has a deep narrow virginal introitus. She has cervical motion tenderness that is exquisite. An ultrasound showed some material in the intrauterine cavity, some fluid in the cul-de-sac but the ovaries appear unremarkable and the uterus is of normal size and contour. There is no obvious endometrioma seen. EXTREMITIES: Unremarkable. IMPRESSION Impression at this point is a severe pelvic pain with a history of endometriosis, multiple laparoscopies, possible adhesions, possible torsion of an ovary that is intermittent, possible endometrioma, possible pathology inside the intrauterine cavity that needs to be evaluated. I do not feel that this can be done with the patient awake and so she is scheduled for an EUA, hysteroscopy and laparoscopy at the end of today. She and her mom have asked that I do a hysterectomy and remove ovaries if I find any pathology at all. At 31 I really would like to avoid that if possible, so I told them that I would consider it should there be serious pathology that looks like it needs that degree of intervention. She has been told about the risks, benefits, expectations including perforation of bowel, bladder, blood vessels, complications of medication, anesthesia up to and including and she will be signing consents and is scheduled for at the end of the day. Jaymie Lloyd MD PPC/TLL /1:17 PM /2:16 PM
[2016-11-12] MEDS ORDERED: HEPARIN SODIUM - SQ 10,000 UNITS/ML VIAL ONE (20:51)
[2016-11-12] MEDS ORDERED: HEPARIN SODIUM - IV 10,000 UNITS/10 ML VIAL ONE (20:51)
[2016-11-12] MEDS ORDERED: METHYLENE BLUE 10 MG/ML VIAL ONE (20:51)
[2016-11-12] MEDS ORDERED: KETAMINE HCL 500 MG/5 ML VIAL ONE (21:11)
--- NOTE | 2016-11-12 21:49 | PD.CONS ---
HPI Chief Complaint severe pelvic pain with known endometriosis and vaginal mass Date Seen: Nov 12, 2016 Time Seen: 21:45 Travel History International Travel<30 Days: No Contact w/Intl Traveler<30Days: No Known Affected Area: No History of Present Illness HPI 31 yo swf G0 virginal femal with known endometriosis per picker in [place] transferring care to our area began intractable pain around 6 :30 last night not touched by significant opioids and analgesics. Sates 10/10. Mild bleeding. severl Lscope and "ablation of endometriosis" reported. 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 Her mom who is present states it is stage 4 but ultrasound fairly benign exept for echogeniv foci in endometrium. She is in semi flowlers and visibly distressed. Has had GB out Has had heart surgery. appendectomy Nothing to eat since yesterday. AT 9;30 PM ANESTHESIA EVALUATION IN [facility] HISTORY OF SEVERE REACTION TO SUCCINYLCHOLINE AND RISK FOR MH. RECORDS FROM [facility] AND DISCUSSION WITH PATIENT REVEAL DIFFICULT AIRWAY. THIS HAS BEEN DISCUSSED IN DETAIL WITH ROSALBA, HER MOM AND THE POST OFFICE MANAGER OR ANESTHESIA TEAM. ALL IN AGREEMENT THAT PAIN SHOULD BE MANAGED TONIGHT AND CASE POSTPONED UNTIL TOMORROW WITH FULL TEAM AVAILABLE. Patient re examined and she does not have signs or torsion, incarceration, rupture or sepsis. She rates her pain as 8/10 but she also would "rather be safe than sorry" and opts for am surgery with aggressive pain control tonight. She reiterates she wants a hysterectomy if warranted, despite nulliparity. Case has been postponed until morning. Allergies-Medications (Allergen,Severity, Reaction): Coded Allergies: Compazine (Verified Allergy, Severe, Shortness of Breath, 11/12/16) Contrast Media (Verified Allergy, Severe, Anaphylaxis, 11/12/16) Dilaudid (Verified Allergy, Severe, Itching, 11/12/16) Latex (Verified Allergy, Severe, Anaphylaxis, 11/12/16) Reglan (Verified Allergy, Severe, Shortness of Breath, 11/12/16) Succinylcholine (Verified Allergy, Severe, 11/12/16) Cephalosporins (Verified Allergy, Mild, HIVES, 11/12/16) Home Meds Active Scripts Promethazine (Phenergan)25 Mg Tab25 Mg PO Q6H PRN (Nausea/Vomiting) #10 TAB Ref 0 Prov:Willard Cotto MD 10/18/16 Ibuprofen 600 Mg [id number] Mg PO Q6H PRN (Pain/Inflammation) #20 TAB Ref 0 Prov:Michel Reynoso MD 09/03/16 Reported Medications Levalbuterol Neb (Xopenex Neb)0.63 Mg/3 Ml Neb0.63 Mg NEB QID #120 NEBULE Ref 0 11/12/16 Levalbuterol 15 GM Inh (Xopenex Hfa 15 GM Inh)45 Mcg/Act Aer45 Mcg INH Q4HR #1 INHALER Ref 0 Shake well before using. (1 puff = 45 mcg) 11/12/16 Tizanidine (Zanaflex)4 Mg Cap4 Mg PO QID Ref 0 10/17/16 Montelukast (Singulair)10 Mg Tab10 Mg PO HS #30 TAB Ref 0 10/17/16 Lorazepam (Ativan)1 Mg Tab1 Mg PO DAILY PRN (ANXIETY AND/OR AGITATION) Ref 0 10/17/16 Digoxin 0.25 Mg Tab0.25 Mg PO DAILY #30 TAB Ref 0 09/03/16 Jqqublneql-Yxwowwm-Clmpfawp (Fiorinal)50-325-40 Mg Cap1 Cap PO Q4H PRN (HEADACHE ) Ref 0 Do not exceed 6 capsules/day. 09/03/16 Omeprazole 20 Mg Tab20 Mg PO BID #30 TAB Ref 0 09/03/16 Discontinued Reported Medications Albuterol Neb 1.25 Mg/3 Ml Neb1.25 Mg NEB Q4HR NEB PRN (SHORTNESS OF BREATH) # 50 NEBULE Ref 0 10/17/16 Cetirizine (Zyrtec Allergy)10 Mg Cap10 Mg PO DAILY Ref 0 09/03/16 Oxycodone 15 Mg Tab15 Mg PO Q6H PRN (pain) Ref 0 09/03/16 Physical Exam Narrative GENERAL: Well-nourished, well-developed patient. SKIN: Warm and dry. HEAD: Normocephalic and atraumatic. EYES: No scleral icterus. No injection or drainage. ENT: No nasal drainage noted. Mucous membranes pink. Airway patent. NECK: Supple, trachea midline. No JVD. CARDIOVASCULAR: Regular rate and rhythm without murmurs, gallops, or rubs. RESPIRATORY: Breath sounds equal bilaterally. No accessory muscle use. BREASTS: Bilateral exam showed no masses , no retractions, no nipple discharge. ABDOMEN/GI: Abdomen soft, non-tender, bowel sounds present, no rebound, no guarding Gravid to [-] weeks size Fundal Height: [-] GENITOURINARY: External Genitalia: intact and normal in appearance BUS glands: [-] Cervix: [-] Dilatation: [-] Effacement: [-] Station: [-] Presentation: [-] Membranes: [intact or ruptured] Uterine Contractions: [-] FHT's: Category: [-] Baseline: [-] Reactive: [-] Variability: [-] Decels: [-] EXTREMITIES: No cyanosis or edema. BACK: Nontender without obvious deformity. No CVA tenderness. NEUROLOGICAL: Awake and alert. Motor and sensory grossly within normal limits. Five out of 5 muscle strength in all muscle groups. Normal speech. Data Data Orders Urinalysis - C+S If Indicated (11/12/16 01:53) Ed Urine Pregnancytest Poc (11/12/16 01:53) Urine Culture (11/12/16 01:55) Beta Hcg (Quant/Titer) (11/12/16 02:45) Complete Blood Count With Diff (11/12/16 02:45) Basic Metabolic Panel (Bmp) (11/12/16 02:45) Sodium Chloride 0.9% Flush (Ns Flush) (11/12/16 02:45) Ondansetron Inj (Zofran Inj) (11/12/16 02:45) Morphine Inj (Morphine Inj) (11/12/16 02:45) Us Pelvis Comp W Dop Transvag (11/12/16 ) Morphine Inj (Morphine Inj) (11/12/16 04:45) Ondansetron Inj (Zofran Inj) (11/12/16 04:45) Admit Order (Ed Use Only) (11/12/16 04:48) Morphine Inj (Morphine Inj) (11/12/16 06:45) Ondansetron Inj (Zofran Inj) (11/12/16 06:45) Admit To Inpatient (11/12/16 ) Code Status (11/12/16 09:54) Vital Signs (Adult) .ON ADMISSION (11/12/16 09:54) Activity Oob Ad Marry (11/12/16 09:54) ^ Heart (11/12/16 09:54) Urinary Catheter Management GASPER.Q8H (11/12/16 09:54) ^ Preps (11/12/16 09:54) Scd / Dale / Foot Pump GASPER.QSHIFT (11/12/16 09:54) Diet Npo (11/12/16 Breakfast) Lactated Ringer's 1000 Ml Inj (Lr 1000 M (11/12/16 09:54) Lactated Ringer's 1000 Ml Inj (Lr 1000 M (11/12/16 10:24) Citric Acid-Sodium Citrate Liq (Bicitra (11/12/16 11:30) Type And Screen (11/12/16 09:54) Complete Blood Count With Diff (11/12/16 09:54) Inpatient Certification (11/12/16 ) Clindamycin Inj (Cleocin Inj) (11/12/16 10:00) ^ Other Nursing Orders (11/12/16 09:57) Ondansetron Inj (Zofran Inj) (11/12/16 10:15) Hydromorphone Pf Inj (Dilaudid Pf Inj) (11/12/16 10:15) Diphenhydramine Inj (Benadryl Inj) (11/12/16 10:15) Diphenhydramine Inj (Benadryl Inj) (11/12/16 17:11) Ondansetron Inj (Zofran Inj) (11/12/16 17:11) Heparin Inj (Heparin Inj) (11/12/16 20:51) Methylene Blue Inj (Methylene Blue Inj) (11/12/16 20:51) Heparin Inj (Heparin Inj) (11/12/16 20:51) Ketamine Inj (Ketalar Inj) (11/12/16 21:11) Labs Laboratory Tests Test 11/12/16 11/12/16 11/12/16 01:55 03:45 11:10 Urine Color YELLOW Urine Turbidity CLEAR Urine pH 5.5 Urine Specific [place] 1.026 Urine Protein TRACE Urine Glucose (UA) NEG Urine Ketones TRACE Urine Occult Blood LARGE Urine Nitrite NEG Urine Bilirubin NEG Urine Leukocyte Esterase SMALL Urine RBC 4-9 Urine WBC 25-49 Urine Squamous Epithelial > 8 Cells Urine Bacteria FEW Microscopic Urinalysis Comment CULTURE INDICATED White Blood Count 14.4 15.2 Red Blood Count 4.99 4.34 Hemoglobin 13.5 12.2 Hematocrit 42.5 37.0 Mean Corpuscular Volume 85.0 85.2 Mean Corpuscular Hemoglobin 27.1 28.1 Mean Corpuscular Hemoglobin 31.9 33.0 Concent Red Cell Distribution Width 15.3 15.7 Platelet Count 253 260 Mean Platelet Volume 8.4 8.2 Neutrophils (%) (Auto) 92.3 84.4 Lymphocytes (%) (Auto) 5.9 10.9 Monocytes (%) (Auto) 0.9 4.5 Eosinophils (%) (Auto) 0.1 0.0 Basophils (%) (Auto) 0.8 0.2 Neutrophils # (Auto) 13.4 12.8 Lymphocytes # (Auto) 0.8 1.6 Monocytes # (Auto) 0.1 0.7 Eosinophils # (Auto) 0.0 0.0 Basophils # (Auto) 0.1 0.0 CBC Comment DIFF FINAL DIFF FINAL Differential Comment Sodium Level 143 Potassium Level 4.1 Chloride Level 111 Carbon Dioxide Level 22.1 Anion Gap 10 Blood Urea Nitrogen 21 Creatinine 1.20 Estimat Glomerular Filtration 53 Rate Random Glucose 111 Calcium Level 9.7 Human Chorionic Gonadotropin, LESS THAN 1 Quant Blood Type A POSITIVE Antibody Screen NEGATIVE Blood Bank Comment Date/Time Procedure Status Source Growth 11/12/16 01:55 Urine Culture Received Urine Clean Catch Pending MDM Admitting diagnosis: intractable pelvic pain Tiffanie Lloyd MD Nov 12, 2016 21:49
[2016-11-12] MEDS ORDERED: HYDROmorphone HCL PCA 6 MG/30 ML IV SCH (22:00)
[2016-11-12] MEDS: PCA - TOTAL MG DILAUDID DELIVERED PER SHIFT OTHER SCH (22:00)
[2016-11-12] MEDS ORDERED: NALOXONE HCL 0.4 MG/ML AMP IV PRN (22:00)
[2016-11-12] MEDS: diphenhydrAMINE HCL 25 MG CAP PO PRN (22:14)
[2016-11-12] MEDS: ONDANSETRON HCL 4 MG/2 ML VIAL IV PUSH PRN (23:36)
[2016-11-12] MEDS: LORazepam 2 MG/ML VIAL IV PUSH PRN (23:39)
[2016-11-13] VITALS (7 sets, daily range): BP systolic 100–116; BP diastolic 55–83; PULSE 80–95; RESP 16–20; TEMP 96.3–97.2; O2SAT 98–100
[2016-11-13] MEDS: diphenhydrAMINE HCL 25 MG CAP PO PRN ×3 (02:58→15:43)
[2016-11-13] MEDS: ONDANSETRON HCL 4 MG/2 ML VIAL IV PUSH PRN ×2 (05:50→10:50)
[2016-11-13] MEDS: LORazepam 2 MG/ML VIAL IV PUSH PRN (05:50)
[2016-11-13] MEDS: PCA - TOTAL MG DILAUDID DELIVERED PER SHIFT OTHER SCH (05:55)
[2016-11-13] MEDS ORDERED: SUGAMMADEX SODIUM 200 MG/2 ML VIAL IV PUSH ONE ×4 (06:58→08:43)
[2016-11-13] MEDS ORDERED: KETAMINE HCL 500 MG/5 ML VIAL ONE (06:58)
[2016-11-13] MEDS ORDERED: SUFentanil INJ 250 MCG/5 ML AMP ONE (07:05)
[2016-11-13] MEDS ORDERED: RESP: IPRATROPIUM 0.5 MG/2.5 ML NEB ONE (07:15)
[2016-11-13] MEDS ORDERED: BUPIVACAINE/EPINEPHRINE 0.25% PF 10 ML VIAL INFIL ONE (08:03)
[2016-11-13] MEDS ORDERED: ONDANSETRON HCL 4 MG/2 ML VIAL IV PUSH ONE (08:11)
[2016-11-13] MEDS ORDERED: PROPOFOL 200 MG/20 ML AMP IV ONE (08:11)
[2016-11-13] MEDS ORDERED: HYDROmorphone HCL 2 MG TAB PO PRN (09:30)
[2016-11-13] MEDS ORDERED: ONDANSETRON ODT 4 MG TAB PO PRN (09:30)
[2016-11-13] MEDS ORDERED: IBUPROFEN 600 MG TAB PO PRN (09:30)
[2016-11-13] MEDS ORDERED: *morphine SULFATE 8 MG/ML PERIprocedure ONLY ONE (10:04)
[2016-11-13] MEDS: HYDROmorphone HCL 2 MG TAB PO PRN ×3 (10:50→19:54)
[2016-11-13 13:21] LABS: AUTOMATED NEUTROPHIL # 9.7 TH/MM3 (1.8-7.7); BASOPHIL # 0.1 TH/MM3 (0-0.2); BASOPHIL % 0.5 % (0.0-2.0); EOSINOPHIL # 0.1 TH/MM3 (0-0.4); EOSINOPHIL % 0.9 % (0.0-4.0); HEMO FLAGS DIFF FINAL; LYMPH % 20.2 % (9.0-44.0); LYMPHOCYTE # 2.6 TH/MM3 (1.0-4.8); MEAN CELL VOLUME 85.9 FL (80.0-100.0); MEAN CORPUSCULAR HGB CONC 32.6 % (32.0-36.0); MONO % 4.5 % (0.0-8.0); NEUT % 73.9 % (16.0-70.0); PLATELET COUNT 214 TH/MM3 (150-450); RED BLOOD COUNT 4.19 MIL/MM3 (4.00-5.30); RED CELL DISTRIBUTION WIDTH 16.1 % (11.6-17.2); WHITE BLOOD COUNT 13.1 TH/MM3 (4.0-11.0)
--- NOTE | 2016-11-13 14:16 | HHI.DCPOC ---
Discharge Care Plan Report Symptoms to Your Doctor -Temperate above 100.5 degrees -Redness, of incision or excessive or foul smelling drainage -Unusual pain or calf pain -Increased vaginal bleeding -Painful or difficulty urinating -Feelings of extreme sadness or anxiety after 2 weeks Goals to Promote Your Health * To prevent worsening of your condition and complications * To maintain your health at the optimal level Directions to Meet Your Goals Take your medications as prescribed Follow your dietary instruction Follow activity as directed Ensure plenty of rest for recovery Drink fluids for hydration Keep your appointments as scheduled Take your immunizations and boosters as scheduled If your symptoms worsen call your PCP, if no PCP go to Urgent Care Center or Emergency Room Smoking is Dangerous to Your Health. Avoid second hand smoke Call the 24-hour crisis hotline for domestic abuse at Tiffanie Lloyd MD Nov 13, 2016 14:16
[2016-11-13] MEDS: LACTATED RINGER'S 1000 ML INJ 1,000 ML IV SCH (19:44)
[2016-11-14] VITALS: BP 116/60; PULSE 95; RESP 18; TEMP 96.2; O2SAT 95
[2016-11-14] MEDS: HYDROmorphone HCL 2 MG TAB PO PRN ×3 (02:17→12:19)
[2016-11-14] MEDS: LACTATED RINGER'S 1000 ML INJ 1,000 ML IV SCH ×2 (02:24→09:04)
[2016-11-14 04:00] VITALS: BP 113/59; PULSE 88; RESP 17; TEMP 96.4; O2SAT 95
[2016-11-14 08:00] VITALS: BP 107/62; PULSE 91; RESP 20; TEMP 96.5; O2SAT 97
--- NOTE | 2016-11-14 09:35 | HHI.PR ---
Subjective Remarks Doing well, pain is controlled objectively, eating well. states it was sharp around her belly button last night denies uterine cramping Objective Vital Signs Vital Signs Date Time Temp Pulse Resp B/P Pulse Ox O2 Delivery O2 Flow Rate FiO2 11/14/16 08:00 96.5 91 20 107/62 97 11/14/16 04:00 96.4 88 17 113/59 95 11/14/16 03:17 16 11/14/16 00:00 96.2 95 18 116/60 95 11/13/16 20:00 96.3 95 18 105/55 100 11/13/16 16:00 96.8 83 16 100/60 98 11/13/16 12:00 96.7 82 16 116/80 100 11/13/16 11:15 Nasal Cannula 2.00 11/13/16 10:40 96.5 80 20 114/83 100 11/13/16 10:15 97.8 71 15 104/68 96 Nasal Cannula 3 11/13/16 10:00 71 15 122/65 97 Nasal Cannula 3 11/13/16 09:45 68 14 110/68 96 Nasal Cannula 3 11/13/16 09:30 74 14 117/65 95 Nasal Cannula 4 I/O 11/13/16 11/13/16 11/13/16 11/14/16 11/14/16 11/14/16 07:00 15:00 23:00 07:00 15:00 23:00 Intake Total 1250 ml 720 ml 480 ml Output Total 650 ml 1525 ml 650 ml Balance -650 ml -275 ml 70 ml 480 ml Intake Oral 0 ml 720 ml 480 ml IV Total 250 ml Other 1000 ml Output Urine Total 650 ml 1475 ml 650 ml Estimated Blood Loss 50 ml # Voids 1 # Bowel Movements 0 Result Diagram: 11/13/16 1255 11/12/16 0345 Objective Remarks Chest is clear, regular rate and rhythm. Abdomen is soft and non-distended. Incisions clean and dry. Ext no CCE. A/P Assessment and Plan Post Op Day 1 Her general health is not completely clear to me at this time Her creatinine is 1.2 she may have an unrealistic expectation of being pain free. or have some secondary gain from frequent assessments for pain. Contrary to her family's description, she does not have stage IV endometriosis. I only saw a minimal amount and some fibrosis in cul de sac (tho this can cause severe pain) Despite her multiple surgeries, she is remarkable free of adhesions and those found were lysed with no difficulty. We have discussed non opioid pain regimens. I don't want to use opioids or NSAID (her creatinine) so will begin gabapentin and duloxetine. She has used gabapentin before. She will come to office after Nov 23 for lupron discussion. Counsled on watching for signs of infection, or late lscope complications. home today Tiffanie Lloyd MD Nov 14, 2016 09:35
[2016-11-14] MEDS ORDERED: DULO1CAP2 PO (09:36)
[2016-11-14] MEDS ORDERED: GABA300C5 PO (09:37)
--- NOTE | 2016-11-14 09:37 | HHI.DCPOC ---
Discharge Care Plan Report Symptoms to Your Doctor -Temperate above 100.5 degrees -Redness, of incision or excessive or foul smelling drainage -Unusual pain or calf pain -Increased vaginal bleeding -Painful or difficulty urinating -Feelings of extreme sadness or anxiety after 2 weeks Goals to Promote Your Health * To prevent worsening of your condition and complications * To maintain your health at the optimal level Directions to Meet Your Goals Take your medications as prescribed Follow your dietary instruction Follow activity as directed Ensure plenty of rest for recovery Drink fluids for hydration Keep your appointments as scheduled Take your immunizations and boosters as scheduled If your symptoms worsen call your PCP, if no PCP go to Urgent Care Center or Emergency Room Smoking is Dangerous to Your Health. Avoid second hand smoke Call the 24-hour crisis hotline for domestic abuse at Tiffanie Lloyd MD Nov 14, 2016 09:37
[2016-11-14 11:50] VITALS: BP 101/72; PULSE 94; RESP 20; TEMP 97; O2SAT 97
--- NOTE | 2016-11-18 13:19 | MP ---
cc: PRASADTIFFANIE DATE OF SURGERY 11/13/2016 DATE OF 1985 PREOPERATIVE DIAGNOSIS Intractable lower pelvic pain, history of documented endometriosis, multiple laparoscopies and abdominal procedures. A question of cervical mass. SECONDARY DIAGNOSES A difficult airway, severe asthma, questionable history of succinylcholine allergy and malignant hyperthermia POSTOPERATIVE DIAGNOSIS Significant amount of tissue in the intrauterine cavity, rule out endometrial hyperplasia or cancer, minimal to mild endometriosis on laparoscopy, mild pelvic adhesions as addressed with enterolysis and incidental perforation of the uterus during D&C that was not bleeding at the time of the end of the case. PROCEDURE Fractional D&C, examination under anesthesia, diagnostic laparoscopy, enterolysis. SURGEON Tiffanie Lloyd MD IRONER OR PRESSER OR staff ANESTHESIA General endotracheal, very difficult intubation. This needs to be noted for any future procedures that should be planned ahead of time with the [facility]. FINDINGS A copious amount of tissue from the endometrial cavity appearing both necrotic and viable. She was inspected and confirmed perforation of the fundus. Upon evaluation laparoscopically, the liver edge appeared unremarkable. There was a significant degree of filmy pelvic adhesion likely due to her previous surgery. The uterus itself was hypoplastic, had two small areas of perforation right in the midline with no bleeding. The tubes appeared unremarkable. Ovaries were normal. There was what appeared to be fibrous scarring and some blue domed classic endometriosis mild to moderate, minimal to mild in staging. There was no evidence of neoplasm, other iatrogenic injury or other intrinsic pathology. ESTIMATED BLOOD LOSS Minimal COUNTS Sponge, instrument, needle count were correct. CONDITION She tolerated the procedure well and went to te recovery room stable. PROCEDURE The patient was identified as Iris Alfaro. Her permit was reviewed with her in holding. She was given an asthma treatment prior to going back. She was intubated by Dr. Berry with significant difficulty, trismus possible, but succinylcholine was avoided and overall it was an uneventful intubation and induction. Time-out was performed with all in attendance. She received 2 grams of Ancef. Please note that most of the chart recorded no Ancef allergy, yet in one plus Ancef allergy was documented. This was not found until after she had been given the two grams of Ancef. She showed no allergic reaction. She was prepped and draped in the usual sterile fashion. A latex Pryor catheter was placed. As mentioned, a time-out was done with all in attendance. Examination under anesthesia found a very narrowed virginal introitus with a friable cervix with a visible ectropion, but this was not a mass extruding from the cervix as described by the ER physician. An endocervical curettage was done and then the uterus was carefully dilated and curetted rigorously with a small banjo curette. It was apparent that the curettes extended father than the sounding and there was likely perforation. There was no excessive bleeding. The instrumentation was removed vaginally and attention was directed the abdominally. A 5 mm incision was made above the umbilicus and the trocar and sleeve were placed under direct visualization. The correct placement and then pneumoperitoneum was created with carbon dioxide and then systematic evaluation of the abdominal and pelvic contents was performed with the findings as noted above. This was utilizing two additional 5-mm trocar and sleeve placements in the right and left lower quadrants with care to avoid the branches of the inferior epigastric. Adhesions were noted that was taken down with scissors. The areas of perforation of the uterus were completely hemostatic, but Coco was placed against this. The tubes and ovaries were carefully evaluated. The cul-de-sacs was evaluated. Minimal to mild endometriosis was noted. She is good candidate for Lupron. The pneumoperitoneum was released. No bleeding was seen from the uterus. The incisions were closed with a single Monocryl at all three incisions. The vaginal instrumentation was removed. She was placed in the dorsal supine position, awoken and taken to the recovery room in stable condition. Due to her complicated history, we will watch her throughout the abdomen and repeat a CA-125 and CBC. MD ABHILASH Rosales/JONELLE /9:02 AM /1:07 PM
[2017-01-27] MEDS ORDERED: ORPH100T PO (17:24)
== END 2016-11-14 13:56 | disposition home or self-care (01) | DRG 744 ==
LOC: PHED 01:03 → PHEDA 04:51 → NEDA 06:39 → OBSVTOIN 09:57 → HOCB 12:40
PROVIDERS: ADMIT Obstetrics & Gynecology; ATTEND Obstetrics & Gynecology
PROC: 0WJJ4ZZ Inspection of Pelvic Cavity, Percutaneous Endoscopic Approach (ICD-10-PCS; 2016-11-13)
PROC: 0UDB7ZX Extraction of Endometrium, Via Natural or Artificial Opening, Diagnostic (ICD-10-PCS; principal; 2016-11-13 07:31)
DX: N85.8 Other specified noninflammatory disorders of uterus (principal); N99.71 Accidental puncture and laceration of a genitourinary system organ or structure during a genitourinary system procedure; E21.3 Hyperparathyroidism, unspecified; J45.909 Unspecified asthma, uncomplicated; K21.9 Gastro-esophageal reflux disease without esophagitis; Z86.73 Personal history of transient ischemic attack (TIA), and cerebral infarction without residual deficits; Y83.9 Surgical procedure, unspecified as the cause of abnormal reaction of the patient, or of later complication, without mention of misadventure at the time of the procedure; Y76.8 Miscellaneous obstetric and gynecological devices associated with adverse incidents, not elsewhere classified; Y92.234 Operating room of hospital as the place of occurrence of the external cause
CPT/HCPCS: 76830; 76856; 80048; 81001; 84702; 84703; 85025; 86304; 86850; 86900; 86901; 87086; 88305; 93975; 94664; 94762; 96374; 96375; 96376; J1170; J1200; J1644; J2060; J2270; J2405; J7120; J7644

== ENCOUNTER 2016-11-24 20:18 | Emergency (ER) | payer OTHER ==
[~2016-11-24] VITALS: Ht 157.5 cm; Wt 79.0 kg
[~2016-11-24 20:18] MED LIST changes: -ALBU1.25 NEB; +DULO1CAP2 PO; +GABA300C5 PO; +LEVA.63I NEB; -OXYC15TA PO; +XOPEAER4 INH; -ZYRT10CA PO
[2016-11-24 20:20] VITALS: BP 117/59; PULSE 108; RESP 16; TEMP 97.8; O2SAT 97
[2017-01-27] MEDS ORDERED: ORPH100T PO (17:24)
== END 2016-11-24 22:26 | disposition left against medical advice (07) ==
LOC: NED 20:18
DX: Z09 Encounter for follow-up examination after completed treatment for conditions other than malignant neoplasm (principal)
CPT/HCPCS: 99281

== ENCOUNTER 2016-11-26 19:15 | Emergency (ER) | payer OTHER ==
[~2016-11-26] VITALS: Ht 157.5 cm; Wt 78.2 kg
[2016-11-26 19:16] VITALS: BP 135/75; PULSE 98; RESP 16; TEMP 98.2; O2SAT 96
[2016-11-26] MEDS ORDERED: SODIUM CHLOR 0.9% 1000 ML INJ 1,000 ML IV SCH (19:27)
[2016-11-26] MEDS ORDERED: MORPHINE SULFATE 4 MG/ML INJ IV PUSH ONE ×2 (19:30→21:15)
[2016-11-26] MEDS ORDERED: ONDANSETRON HCL 4 MG/2 ML VIAL IVP ONE (19:30)
--- NOTE | 2016-11-26 19:57 | PD ---
HPI Chief Complaint: Bleeding Time Seen by Provider: 19:52 Travel History International Travel<30 days: No Contact w/Intl Traveler<30days: No Traveled to known affect area: No History of Present Illness HPI 31-year-old female that presents to the ED for evaluation of pain and discharge from surgical wound. Per patient she had surgery on 13 November for endometriosis. Patient was admitted during that time at this hospital for evaluation of intractable pelvic pain. Patient had laparoscopic surgery done help remove some of the endometriosis. Patient states that ever since she's been having some discomfort and she is having some bleeding/discharge coming from the surgical site on the umbilicus. Per patient she went to see her surgeon Dr. Deleon today who was not too concerned about it and cauterize the wound. She denies any fevers chills or sweats. Per patient the pain is 8 out of 10 and gets worse with touch. She believes that there is something growing in the same area. She denies any chest pain or shortness of breath. She states been compliant with postop care of the wound. She denies any vaginal discharge. The possibility of . No radiation of the pain. Per patient the bleeding and the drainage had been worsening for the past 2 days. Discharge is brown in color. She does tell me that she feels somewhat weak. PFSH Past Medical History Asthma: Yes Anxiety: Yes Heart Rhythm Problems: Yes (SVT) Cardiovascular Problems: Yes (SVT) Cerebrovascular Accident: Yes (TIA) Diminished Hearing: No Endocrine: Yes (HYPERPARATHYROID) GERD: Yes Reproductive: Yes (endometriosis) Respiratory: Yes (ASTHMA) Immunizations Current: Yes Migraines: Yes Tetanus Vaccination: > 5 Years Influenza Vaccination: Yes ?: Not Past Surgical History Abdominal Surgery: Yes Appendectomy: Yes Cardiac Surgery: Yes (ATRIAL SEPTIAL DEFECT REPAIR) Cholecystectomy: Yes Genitourinary Surgery: Yes ("2-3 ABLASIONS RELATED TO ENDOMETRIOSIS") Gynecologic Surgery: Yes (LAP ) Thoracic Surgery: Yes (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) Social History Alcohol Use: Yes (RARE) Tobacco Use: No Substance Use: No Allergies-Medications (Allergen,Severity, Reaction): Coded Allergies: Compazine (Verified Allergy, Severe, Shortness of Breath, 11/26/16) Contrast Media (Verified Allergy, Severe, Anaphylaxis, 11/26/16) Dilaudid (Verified Allergy, Severe, Itching, 11/26/16) Latex (Verified Allergy, Severe, Anaphylaxis, 11/26/16) Reglan (Verified Allergy, Severe, Shortness of Breath, 11/26/16) Succinylcholine (Verified Allergy, Severe, 11/26/16) Cephalosporins (Verified Allergy, Mild, HIVES, 11/26/16) Reported Meds & Prescriptions Reported Meds & Active Scripts Active Percocet (Oxycodone-Acetaminophen) 5-325 mg Tab 1 Tab PO Q6H PRN Clindamycin (Clindamycin HCl) 150 Mg Cap 300 Mg PO Q6H 10 Days Gabapentin 300 Mg Cap 300 Mg PO TID Duloxetine DR (Duloxetine HCl) 30 Mg Capdr 30 Mg PO DAILY Phenergan (Promethazine HCl) 25 Mg Tab 25 Mg PO Q6H PRN Ibuprofen 600 Mg Tab 600 Mg PO Q6H PRN Reported Xopenex Neb (Levalbuterol HCl) 0.63 Mg/3 Ml Neb 0.63 Mg NEB QID Xopenex Hfa 15 GM Inh (Levalbuterol 15 GM Inh) 45 Mcg/Act Aer 45 Mcg INH Q4HR Shake well before using. (1 puff = 45 mcg) Zanaflex (Tizanidine HCl) 4 Mg Cap 4 Mg PO QID Singulair (Montelukast Sodium) 10 Mg Tab 10 Mg PO HS Ativan (Lorazepam) 1 Mg Tab 1 Mg PO DAILY PRN Digoxin 0.25 Mg Tab 0.25 Mg PO DAILY Fiorinal (Butalbital/Aspirin/Caffeine) 50-325-40 Mg Cap 1 Cap PO Q4H PRN Do not exceed 6 capsules/day. Omeprazole 20 Mg Tab 20 Mg PO BID Review of Systems General / Constitutional: No: Fever, Chills, Weight Gain, Weight Loss, Other Eyes: No: Diploplia, Blurred Vision, Photophobia, Drainage, Redness, Foreign Body Sensation, Pain, Tearing, Blind Spots, Visual changes, Blindness, Other HENT: No: Headaches, Vertigo, Lightheadedness, Sore Throat, Rhinitis, Rhinorrhea, Congestion, Nosebleed, Neck Stiffness, Neck Pain, Masses, Gingival Bleeding, Dental Difficulties, Ear Discharge, Earache, Other Cardiovascular: No: Chest Pain or Discomfort, Palpitations, Irregular Rhythm, Tachycardia, Diaphoresis, Syncope, Dyspnea on exertion, Varicosities, Edema, Cyanosis, Varicosities, Phlebitis, Claudication, Other Respiratory: No: Cough, Shortness of Breath, Wheezing, Sneezing, Orthopnea, Hemoptysis, Stridor, Night Sweats, Pleuritic Pain, Other Gastrointestinal: Positive: Abdominal Pain, Other (surgical scar), No: Nausea , Vomiting, Diarrhea, Hematemesis, Hematochezia, Constipation, Changes in Bowel Habits, Indigestion, Dysphagia, Loss of Appetite Genitourinary: No: Urgency, Frequency, Dysuria, Nocturia, Hematuria, Decreased Urinary Output, Oliguria, Hesitancy, Dribbling, Incontinence, Pelvic Pain, Flank Pain, Dyspareunia, Discharge, Dysmenorrhea, Menorrhagia, Metorrhagia, Vaginal Bleeding, Other Musculoskeletal: No: Myalgias, Arthralgias, Limited ROM, Weakness, Cramping, Edema, Pain, Atrophy, Other Skin: Positive Rash, Positive Lesions, No Itching, No Dryness, No Lumps, No Hives, No Change in Pigmentation, No Change in nails, No Alopecia, No Breast Lumps, No Breast Tenderness, No Breast Swelling, No Other Neurologic: Positive: Weakness, No: Dizziness, Syncope, Focal Abnormalities, Coordination Problem, Tremor, Ataxia, Headache, Change in Mentation, Slurred Speech, Paresthesia, Incontinence, Seizures, Sensory Disturbance, Other Psychiatric: No: Anxiety, Depression, Suicidal Ideations, Disorder of Thought, Mood Disorder, Substance Abuse, Homicidal Ideation, Other Endocrine: No: Heat Intolerance, Cold Intolerance, Polyuria, Polydipsia, Other Physical Exam Narrative GENERAL: SKIN: Warm and dry. HEAD: Atraumatic. Normocephalic. EYES: Pupils equal and round. No scleral icterus. No injection or drainage. ENT: No nasal bleeding or discharge. Mucous membranes pink and moist. Tongue is midline. No uvula deviation. NECK: Trachea midline. No JVD. CARDIOVASCULAR: Regular rate and rhythm. No murmurs, S3, S4. RESPIRATORY: No accessory muscle use. Clear to auscultation. Breath sounds equal bilaterally. GASTROINTESTINAL: Abdomen soft, non-tender, nondistended. Hepatic and splenic margins not palpable. Patient does have a surgical scar on the superior aspect of the umbilicus that appears to be draining brownish liquid. Patient does have what appears to be an area of induration doesn't top of it which is tender to touch and erythematous. MUSCULOSKELETAL: Extremities without clubbing, cyanosis, or edema. No obvious deformities. Full range of motion of the upper and lower extremities bilaterally. Pupils pulses bilaterally. NEUROLOGICAL: Awake and alert. No obvious cranial nerve deficits. Motor grossly within normal limits. Five out of 5 muscle strength in the arms and legs. Normal speech. PSYCHIATRIC: Appropriate mood and affect; insight and judgment normal. Data Data Last Documented VS Vital Signs Date Time Temp Pulse Resp B/P Pulse Ox O2 Delivery O2 Flow Rate FiO2 11/26/16 20:21 18 97 Room Air 11/26/16 19:16 98.2 98 135/75 Orders Basic Metabolic Panel (Bmp) (11/26/16 19:27) Complete Blood Count With Diff (11/26/16 19:27) Lactic Acid (11/26/16 19:27) Prothrombin Time / Inr (Pt) (11/26/16 19:27) Act Partial Throm Time (Ptt) (11/26/16 19:27) Urinalysis - C+S If Indicated (11/26/16 19:27) Iv Access Insert/Monitor (11/26/16 19:27) Oximetry (11/26/16 19:27) Morphine Inj (Morphine Inj) (11/26/16 19:30) Ondansetron Inj (Zofran Inj) (11/26/16 19:30) Sodium Chlor 0.9% 1000 Ml Inj (Ns 1000 M (11/26/16 19:27) Ed Urine Pregnancytest Poc (11/26/16 19:27) Ct Abd/Pel W/O Iv Contrast (11/26/16 ) Wound Culture And Gram Stain (11/26/16 19:27) Urine Culture (11/26/16 20:17) Morphine Inj (Morphine Inj) (11/26/16 21:15) Ketorolac Inj (Toradol Inj) (11/26/16 21:15) Labs Laboratory Tests Test 11/26/16 11/26/16 20:10 20:17 White Blood Count 13.4 TH/MM3 Red Blood Count 4.41 MIL/MM3 Hemoglobin 12.7 GM/DL Hematocrit 37.8 % Mean Corpuscular Volume 85.9 FL Mean Corpuscular Hemoglobin 28.8 PG Mean Corpuscular Hemoglobin 33.5 % Concent Red Cell Distribution Width 15.3 % Platelet Count 279 TH/MM3 Mean Platelet Volume 8.5 FL Neutrophils (%) (Auto) 76.4 % Lymphocytes (%) (Auto) 15.5 % Monocytes (%) (Auto) 6.1 % Eosinophils (%) (Auto) 1.2 % Basophils (%) (Auto) 0.8 % Neutrophils # (Auto) 10.2 TH/MM3 Lymphocytes # (Auto) 2.1 TH/MM3 Monocytes # (Auto) 0.8 TH/MM3 Eosinophils # (Auto) 0.2 TH/MM3 Basophils # (Auto) 0.1 TH/MM3 CBC Comment DIFF FINAL Differential Comment Prothrombin Time 11.5 SEC Prothromb Time International 1.0 RATIO Ratio Activated Partial 30.8 SEC Thromboplast Time Sodium Level 140 MEQ/L Potassium Level 3.8 MEQ/L Chloride Level 104 MEQ/L Carbon Dioxide Level 25.7 MEQ/L Anion Gap 10 MEQ/L Blood Urea Nitrogen 18 MG/DL Creatinine 1.19 MG/DL Estimat Glomerular Filtration 54 ML/MIN Rate Random Glucose 78 MG/DL Lactic Acid Level 0.8 mmol/L Calcium Level 9.5 MG/DL Urine Color YELLOW Urine Turbidity CLOUDY Urine pH 5.5 Urine Specific [place] 1.020 Urine Protein TRACE mg/dL Urine Glucose (UA) NEG mg/dL Urine Ketones NEG mg/dL Urine Occult Blood SMALL Urine Nitrite NEG Urine Bilirubin NEG Urine Urobilinogen LESS THAN 2.0 MG/DL Urine Leukocyte Esterase LARGE Urine RBC 16 /hpf Urine WBC 43 /hpf Urine Squamous Epithelial 17 /hpf Cells Urine Bacteria MANY /hpf Urine Hyaline Casts 3 /lpf Urine Mucus FEW /lpf Microscopic Urinalysis Comment CULTURE INDICATED MDM Medical Decision Making Medical Screen Exam Complete: Yes Emergency Medical Condition: Yes Medical Record Reviewed: Yes Interpretation(s) CBC & BMP Diagram 11/26/16 20:10 Last Impressions Abdomen/Pelvis CT 11/26/16 0000 Signed Impressions: Service Date/Time: November 21:21 - CONCLUSION: 1. Stranding of fat with some presumed calcification in the subcutaneous area near the umbilicus which may represent some subcutaneous hemorrhage. Within the abdomen and pelvis there is no free fluid or free air. No acute findings. Previous cholecystectomy. Bautista Jackson MD lactic acid negative UA shows signs of UTI Differential Diagnosis Abscesses versus cellulitis versus infected wound versus postsurgical complaining versus acute on chronic versus chronic pain Narrative Course 31-year-old female that presents to the ED for evaluation of bleeding and pain on the surgical scar. Patient was properly examined and was found to have signs and symptoms which are concerning for infection. Case was discussed in my attending who agrees with plan. Labs and imaging ordered. Culture of the fluid was taken. Labs and imaging showed possible and WBC. CT did show possible hemorrhage but no sign of other disease. Case was discussed with Dr. Ramirez who is on-call for the patient's ELECTRICAL ENGINEERING PROFESSOR recommends starting patient on antibiotics and follow-up in the office. This was discussed with my attending who agrees with plan. patient was given prescriptions for percocet, macrobid and clindamycin. F/u with ELECTRICAL ENGINEERING PROFESSOR. See ED if worst. Diagnosis Primary Impression: Cellulitis Qualified Code: L03.90 - Cellulitis, unspecified cellulitis site Additional Impression: UTI (urinary tract infection) Qualified Code: N30.00 - Acute cystitis without hematuria Patient Instructions: General Instructions Additional Instructions: Take medications as prescribed. Follow-up with your surgeon tomorrow or wednesday See ED for any worsening symptoms. Do not drink or drive while taking pain medication. Apply ice or heat as needed for pain Med/Other Pt SpecificInfo: Prescription(s) given Scripts Sulfamethoxazole-Trimethoprim (Bactrim DS)800-160 Mg Tab1 Tab PO BID 5 Days Prov:Patricia Vazquez MD 11/26/16 Oxycodone-Acetaminophen (Percocet)5-325 mg Tab1 Tab PO Q6H PRN (PAIN) #15 TAB Ref 0 Prov:Patricia Vazquez MD 11/26/16 Clindamycin 150 Mg [id number] Mg PO Q6H 10 Days Prov:Patricia Vazquez MD 11/26/16 Disposition: 01 DISCHARGE HOME Condition: Stable Carter Adame Nov 26, 2016 19:57
[2016-11-26 20:21] VITALS: RESP 18; O2SAT 97
[2016-11-26 20:21] LABS: AUTOMATED NEUTROPHIL # 10.2 TH/MM3 (1.8-7.7); BASOPHIL # 0.1 TH/MM3 (0-0.2); BASOPHIL % 0.8 % (0.0-2.0); EOSINOPHIL # 0.2 TH/MM3 (0-0.4); EOSINOPHIL % 1.2 % (0.0-4.0); HEMATOCRIT 37.8 % (35.0-46.0); HEMO FLAGS DIFF FINAL; LYMPH % 15.5 % (9.0-44.0); LYMPHOCYTE # 2.1 TH/MM3 (1.0-4.8); MEAN CELL VOLUME 85.9 FL (80.0-100.0); MEAN CORPUSCULAR HEMOGLOBIN 28.8 PG (27.0-34.0); MEAN CORPUSCULAR HGB CONC 33.5 % (32.0-36.0); MONO % 6.1 % (0.0-8.0); NEUT % 76.4 % (16.0-70.0); PLATELET COUNT 279 TH/MM3 (150-450); RED BLOOD COUNT 4.41 MIL/MM3 (4.00-5.30); RED CELL DISTRIBUTION WIDTH 15.3 % (11.6-17.2); WHITE BLOOD COUNT 13.4 TH/MM3 (4.0-11.0)
[2016-11-26 20:33] LABS: BICARBONATE 25.7 MEQ/L (21.0-32.0); POTASSIUM 3.8 MEQ/L (3.5-5.1)
[2016-11-26 20:39] LABS: APTT (PATIENT) 30.8 SEC (24.3-30.1); PROTHROMBIN TIME - PATIENT 11.5 SEC (9.8-11.6)
[2016-11-26 20:57] LABS: BACTERIA, URINE MANY /hpf; BLOOD, URINE SMALL (NEG); COMMENT (UR) CULTURE INDICATED; CULTURE IF INDICATED CULTURE INDICATED; GLUCOSE,URINE NEG (NEG); HYALINE CAST, URINE 3 /lpf (RARE); KETONE, URINE NEG (NEG); MUCUS URINE FEW /lpf (OCC); NITRITE,URINE NEG (NEG); PH, URINE 5.5 (5.0-8.5); SQUAMOUS EPITHELIAL CELL URINE 17 /hpf (0-5); URINE COLOR YELLOW (YELLW/STRAW)
[2016-11-26] MEDS ORDERED: KETOROLAC TROMETHAMINE 30 MG/ML (IVP) VIAL IV PUSH ONE (21:15)
--- NOTE | 2016-11-26 21:53 | RADRPT ---
EXAM DATE/TIME: 11/26/2016 21:21 [facility] COMPARISON: No previous studies available for comparison. INDICATIONS : Recent surgery, now bleeding at surgical site; possible infection. ORAL CONTRAST: No oral contrast ingested. RADIATION DOSE: 13.90 CTDIvol (mGy) MEDICAL HISTORY : Cardiovascular disease. Gastroesophageal reflux disease. Endometriosis. SURGICAL HISTORY : Appendectomy. Cholecystectomy. ENCOUNTER: Initial ACUITY: 2 weeks PAIN SCALE: 3/10 LOCATION: Abdomen/pelvis TECHNIQUE: Volumetric scanning of the abdomen and pelvis was performed. Using automated exposure control and ad justment of the mA and/or kV according to patient size, radiation dose was kept as low as reasonably achievable to obtain optimal diagnostic quality images. FINDINGS: There is minimal linear atelectasis or scarring at the lung bases. No acute bony abnormalities. No ac [place] findings in the liver, spleen adrenals, kidneys or pancreas. Previous cholecystectomy. No bowel obstruction. No free air or free fluid. There is some stranding in the fat of the anterior a bdominal wall near the umbilicus possibly some subcutaneous hemorrhage. No ventral hernia identified. CONCLUSION: 1. Stranding of fat with some presumed calcification in the subcutaneous area near the umbilicus whic h may represent some subcutaneous hemorrhage. Within the abdomen and pelvis there is no free fluid or free air. No acute findings. Previous cholecystectomy. Bautista Jackson MD on November 26, 2016 at 21:48 Board Certified Radiologist. This report was verified electronically.
[2016-11-26] MEDS ORDERED: PERC5TAB12 PO ×2 (22:04→22:27)
[2016-11-26] MEDS ORDERED: CLIN1CAP5 PO (22:04)
[2016-11-26] MEDS ORDERED: BACT800T5 PO (22:10)
[2016-11-26] MEDS ORDERED: MACR100C2 PO (22:24)
[2016-11-26 22:28] VITALS: BP 134/80; PULSE 100; RESP 22; O2SAT 96
[2016-11-26 22:29] VITALS: RESP 16
--- NOTE | 2016-11-27 04:34 | PD ---
Data Data Last Documented VS Vital Signs Date Time Temp Pulse Resp B/P Pulse Ox O2 Delivery O2 Flow Rate FiO2 11/26/16 22:29 16 11/26/16 22:28 100 134/80 96 Room Air 11/26/16 19:16 98.2 Orders Basic Metabolic Panel (Bmp) (11/26/16 19:27) Complete Blood Count With Diff (11/26/16 19:27) Lactic Acid (11/26/16 19:27) Prothrombin Time / Inr (Pt) (11/26/16 19:27) Act Partial Throm Time (Ptt) (11/26/16 19:27) Urinalysis - C+S If Indicated (11/26/16 19:27) Iv Access Insert/Monitor (11/26/16 19:27) Oximetry (11/26/16 19:27) Morphine Inj (Morphine Inj) (11/26/16 19:30) Ondansetron Inj (Zofran Inj) (11/26/16 19:30) Sodium Chlor 0.9% 1000 Ml Inj (Ns 1000 M (11/26/16 19:27) Ed Urine Pregnancytest Poc (11/26/16 19:27) Ct Abd/Pel W/O Iv Contrast (11/26/16 ) Wound Culture And Gram Stain (11/26/16 19:27) Urine Culture (11/26/16 20:17) Morphine Inj (Morphine Inj) (11/26/16 21:15) Ketorolac Inj (Toradol Inj) (11/26/16 21:15) Labs Laboratory Tests Test 11/26/16 11/26/16 20:10 20:17 White Blood Count 13.4 TH/MM3 Red Blood Count 4.41 MIL/MM3 Hemoglobin 12.7 GM/DL Hematocrit 37.8 % Mean Corpuscular Volume 85.9 FL Mean Corpuscular Hemoglobin 28.8 PG Mean Corpuscular Hemoglobin 33.5 % Concent Red Cell Distribution Width 15.3 % Platelet Count 279 TH/MM3 Mean Platelet Volume 8.5 FL Neutrophils (%) (Auto) 76.4 % Lymphocytes (%) (Auto) 15.5 % Monocytes (%) (Auto) 6.1 % Eosinophils (%) (Auto) 1.2 % Basophils (%) (Auto) 0.8 % Neutrophils # (Auto) 10.2 TH/MM3 Lymphocytes # (Auto) 2.1 TH/MM3 Monocytes # (Auto) 0.8 TH/MM3 Eosinophils # (Auto) 0.2 TH/MM3 Basophils # (Auto) 0.1 TH/MM3 CBC Comment DIFF FINAL Differential Comment Prothrombin Time 11.5 SEC Prothromb Time International 1.0 RATIO Ratio Activated Partial 30.8 SEC Thromboplast Time Sodium Level 140 MEQ/L Potassium Level 3.8 MEQ/L Chloride Level 104 MEQ/L Carbon Dioxide Level 25.7 MEQ/L Anion Gap 10 MEQ/L Blood Urea Nitrogen 18 MG/DL Creatinine 1.19 MG/DL Estimat Glomerular Filtration 54 ML/MIN Rate Random Glucose 78 MG/DL Lactic Acid Level 0.8 mmol/L Calcium Level 9.5 MG/DL Urine Color YELLOW Urine Turbidity CLOUDY Urine pH 5.5 Urine Specific [place] 1.020 Urine Protein TRACE mg/dL Urine Glucose (UA) NEG mg/dL Urine Ketones NEG mg/dL Urine Occult Blood SMALL Urine Nitrite NEG Urine Bilirubin NEG Urine Urobilinogen LESS THAN 2.0 MG/DL Urine Leukocyte Esterase LARGE Urine RBC 16 /hpf Urine WBC 43 /hpf Urine Squamous Epithelial 17 /hpf Cells Urine Bacteria MANY /hpf Urine Hyaline Casts 3 /lpf Urine Mucus FEW /lpf Microscopic Urinalysis Comment CULTURE INDICATED MDM Supervised Visit with JARETT: Yes Narrative Course The history, exam, and medical decision-making in the associated midlevel provider note were completed with my assistance. I reviewed and agree with the findings presented. I attest that I had a [id number] encounter with the patient on the same day, and personally performed and documented my assessment and findings in the medical record. *My assessment and Findings: This is a 31-year-old female who presents to the emergency department having recently had a laparoscopy by Dr. Lloyd in the setting of endometriosis. Patient has been having drainage from her wound and pain involving her pelvis and abdomen. On exam she has a 6 cm area of erythema and warmth surrounding the umbilicus with some dark brown drainage from her wound. CT was obtained which was reassuring. She has a leukocytosis of 13. Patient will be discharged on antibiotics and will follow-up in clinic. Diagnosis Primary Impression: Cellulitis Qualified Code: L03.90 - Cellulitis, unspecified cellulitis site Additional Impression: UTI (urinary tract infection) Qualified Code: N30.00 - Acute cystitis without hematuria Patient Instructions: General Instructions, Narcotic given in the ED, Cellulitis (ED) Departure Forms: Work Release, Enter return to work date: Nov 30, 2016 Special Instructions: NO HEAVY LIFTING Tests/Procedures Additional Instruction: Take medications as prescribed. Follow-up with your surgeon tomorrow or wednesday See ED for any worsening symptoms. Do not drink or drive while taking pain medication. Apply ice or heat as needed for pain Scripts Oxycodone-Acetaminophen (Percocet)5-325 mg Tab1 Tab PO Q6H PRN (PAIN) #15 TAB Ref 0 Prov:Patricia Vazquez MD 11/26/16 Nitrofurantoin Monohydrate Macrocrystals (Macrobid)100 Mg [id number] Mg PO BID 7 Days Ref 0 Prov:Patricia Vazquez MD 11/26/16 Clindamycin 150 Mg [id number] Mg PO Q6H 10 Days Prov:Patricia Vazquez MD 11/26/16 Disposition: 01 DISCHARGE HOME Condition: Stable Patricia Vazquez MD Nov 27, 2016 04:34
[2017-01-27] MEDS ORDERED: ORPH100T PO (17:24)
== END 2016-11-26 22:30 | disposition home or self-care (01) ==
LOC: NEPE 19:15
DX: L03.90 Cellulitis, unspecified (principal); N39.0 Urinary tract infection, site not specified; J45.909 Unspecified asthma, uncomplicated; Z86.73 Personal history of transient ischemic attack (TIA), and cerebral infarction without residual deficits; E21.3 Hyperparathyroidism, unspecified; N80.9 Endometriosis, unspecified
CPT/HCPCS: 74176; 80048; 81001; 83605; 84703; 85025; 85610; 85730; 86403; 87070; 87086; 96361; 96374; 96375; 96376; 99284; J1885; J2270; J2405; J7030; 87205

== ENCOUNTER 2016-12-22 12:12 | Emergency (ER) | payer OTHER ==
[~2016-12-22] VITALS: Ht 157.5 cm; Wt 80.0 kg
[~2016-12-22 12:12] MED LIST changes: +CLIN1CAP5 PO; +MACR100C2 PO; +PERC5TAB12 PO
[2016-12-22 12:13] VITALS: BP 107/67; PULSE 93; RESP 20; TEMP 98; O2SAT 98
--- NOTE | 2016-12-22 16:02 | PD ---
HPI Chief Complaint: Headache Time Seen by Provider: 15:45 Travel History International Travel<30 days: No Contact w/Intl Traveler<30days: No Traveled to known affect area: No History of Present Illness HPI Patient is a 31-year-old female presenting to emergency room for evaluation of a headache. Patient reports pain is a 10 out of 10. She states the pain started this morning however she reports a head injury on 12/04/16. Patient states that she tripped and hit her head on the edge of a cabinet. She has been evaluated at [facility] for this injury. Patient went into [facility] last week for neck pain related to that injury and had an MRI performed per her report. Patient states that after the initial injury she had imaging performed as well. Today she reports blurry vision, 10 out of 10 headache like a knife pick to the back of her head. She went to [facility] today for her scheduled follow-up visit and was sent to the emergency room to rule out a delayed bleed. Additionally patient reports left lower leg numbness. She states this started today as well. Patient has been ambulating for the last 3 weeks since the injury occurred. [facility] Past Medical History Asthma: Yes Anxiety: Yes Heart Rhythm Problems: Yes (SVT) Cardiovascular Problems: Yes (SVT) Cerebrovascular Accident: Yes (TIA) Diminished Hearing: No Endocrine: Yes (HYPERPARATHYROID) GERD: Yes Reproductive: Yes (endometriosis) Respiratory: Yes (ASTHMA) Immunizations Current: Yes Migraines: Yes Past Surgical History Abdominal Surgery: Yes Appendectomy: Yes Cardiac Surgery: Yes (ATRIAL SEPTIAL DEFECT REPAIR) Cholecystectomy: Yes Genitourinary Surgery: Yes ("2-3 ABLASIONS RELATED TO ENDOMETRIOSIS") Gynecologic Surgery: Yes (LAP ) Thoracic Surgery: Yes (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) Social History Alcohol Use: Yes (RARE) Tobacco Use: No Substance Use: No Allergies-Medications (Allergen,Severity, Reaction): Coded Allergies: Compazine (Verified Allergy, Severe, Shortness of Breath, 12/22/16) Contrast Media (Verified Allergy, Severe, Anaphylaxis, 12/22/16) Dilaudid (Verified Allergy, Severe, Itching, 12/22/16) Latex (Verified Allergy, Severe, Anaphylaxis, 12/22/16) Reglan (Verified Allergy, Severe, Shortness of Breath, 12/22/16) Succinylcholine (Verified Allergy, Severe, 12/22/16) Cephalosporins (Verified Allergy, Mild, HIVES, 12/22/16) Reported Meds & Prescriptions Reported Meds & Active Scripts Active Prednisone 50 Mg Tab 50 Mg PO DAILY 5 Days Ibuprofen 800 Mg Tab 800 Mg PO Q8H PRN Flexeril (Cyclobenzaprine HCl) 10 Mg Tab 10 Mg PO TID PRN 10 Days Percocet (Oxycodone-Acetaminophen) 5-325 mg Tab 1 Tab PO Q6H PRN Macrobid (Nitrofurantoin Monoh/Nitrofur Macro) 100 Mg Cap 100 Mg PO BID 7 Days Gabapentin 300 Mg Cap 300 Mg PO TID Duloxetine DR (Duloxetine HCl) 30 Mg Capdr 30 Mg PO DAILY Phenergan (Promethazine HCl) 25 Mg Tab 25 Mg PO Q6H PRN Ibuprofen 600 Mg Tab 600 Mg PO Q6H PRN Reported Xopenex Neb (Levalbuterol HCl) 0.63 Mg/3 Ml Neb 0.63 Mg NEB QID Xopenex Hfa 15 GM Inh (Levalbuterol 15 GM Inh) 45 Mcg/Act Aer 45 Mcg INH Q4HR Shake well before using. (1 puff = 45 mcg) Zanaflex (Tizanidine HCl) 4 Mg Cap 4 Mg PO QID Singulair (Montelukast Sodium) 10 Mg Tab 10 Mg PO HS Ativan (Lorazepam) 1 Mg Tab 1 Mg PO DAILY PRN Digoxin 0.25 Mg Tab 0.25 Mg PO DAILY Fiorinal (Butalbital/Aspirin/Caffeine) 50-325-40 Mg Cap 1 Cap PO Q4H PRN Do not exceed 6 capsules/day. Omeprazole 20 Mg Tab 20 Mg PO BID Review of Systems Except as stated in HPI: all other systems reviewed are Neg Eyes: Positive: Blurred Vision HENT: Positive: Headaches Cardiovascular: No: Chest Pain or Discomfort Respiratory: No: Shortness of Breath Gastrointestinal: No: Nausea, Abdominal Pain Neurologic: Positive: Headache, Sensory Disturbance, No: Weakness, Focal Abnormalities, Change in Mentation Physical Exam Narrative GENERAL: Well-developed, well-nourished, alert female. Resting comfortably in no acute distress. SKIN: Warm and dry. HEAD: Atraumatic. Normocephalic. EYES: Pupils equal and round. No scleral icterus. No injection or drainage. ENT: No nasal bleeding or discharge. Mucous membranes pink and moist. NECK: Trachea midline. No JVD. CARDIOVASCULAR: Regular rate and rhythm. No murmur appreciated. RESPIRATORY: No accessory muscle use. Clear to auscultation. Breath sounds equal bilaterally. GASTROINTESTINAL: Abdomen soft, non-tender, nondistended. Hepatic and splenic margins not palpable. MUSCULOSKELETAL: No obvious deformities. No clubbing. No cyanosis. No edema. 5/5 muscle strength in all 4 extremities. No weakness noted. No spinal tenderness on exam. NEUROLOGICAL: Awake and alert. No obvious cranial nerve deficits. Motor grossly within normal limits. Normal speech. PSYCHIATRIC: Appropriate mood and affect; insight and judgment normal. Data Data Last Documented VS Vital Signs Date Time Temp Pulse Resp B/P Pulse Ox O2 Delivery O2 Flow Rate FiO2 12/22/16 17:50 76 20 106/60 98 12/22/16 [address] Brain W/O Iv Contrast(Rout) (12/22/16 ) Ed Urine Pregnancytest Poc (12/22/16 15:28) Spine, Lumbar - Ltd (Ap & Lat) (12/22/16 ) Dexamethasone Inj (Decadron Inj) (12/22/16 17:30) Orphenadrine Inj (Norflex Inj) (12/22/16 17:30) Ketorolac Inj (Toradol Inj) (12/22/16 17:30) MDM Medical Decision Making Medical Screen Exam Complete: Yes Emergency Medical Condition: Yes Interpretation(s) Last Impressions Lumbar Spine X-Ray 12/22/16 0000 Signed Impressions: Service Date/Time: Thursday, December 22, 2016 16:04 - CONCLUSION: Unremarkable limited examination of the lumbar spine. Dean Crowley MD Head CT 12/22/16 0000 Signed Impressions: Service Date/Time: Thursday, December 22, 2016 15:53 - CONCLUSION: No acute intracranial disease. Dean Crowley MD Vital Signs Date Time Temp Pulse Resp B/P Pulse Ox O2 Delivery O2 Flow Rate FiO2 12/22/16 12:13 98.0 93 20 107/67 98 Differential Diagnosis Tension headache versus cluster headache versus hemorrhage versus strain versus other Narrative Course Patient is a 31-year-old female presenting to the emergency room for evaluation of a headache, blurry vision and left lower leg numbness. Patient had initial injury on 12/04/16 hitting her head on a cabinet. She denies any loss of consciousness related to that accident. She has been evaluated several times over the course of last 3 weeks. She presents today with a 10 out of 10 headache [address] blurry vision. CT scan, x-ray of the lumbar spine ordered and pending. Urine test was negative. Workup initiated in triage, care patient will be transferred to provider with a medical bed is available. Patient moved to fast track. CT scan of the brain and x-ray of the lumbar spine are both negative. After review of imaging reports patient was given an injection of Toradol, dexamethasone, and Norflex. She was observed in the emergency department for an additional hour. Patient reports significant improvement in her pain after administration of medications. Patient will be prescribed Flexeril, ibuprofen, and prednisone. She is encouraged follow-up with her primary doctor. She is encouraged to return to emergency department for any new or worsening symptoms. Patient verbalized understanding of these instructions. Patient is stable for discharge. Diagnosis Primary Impression: Headache Qualified Code: R51 - Nonintractable headache, unspecified chronicity pattern , unspecified headache type Additional Impressions: Cervical strain Qualified Code: S16.1XXA - Cervical strain, initial encounter Left leg pain Referrals: Primary Care Physician Patient Instructions: Cervical Neck Strain Exercises (GEN), Cervical Strain (DC ), General Instructions, Muscle Spasm (ED), Muscle Strain (ED) Additional Instructions: Follow-up with her primary doctor Take medications as directed Continue range of motion exercises, apply warm heat to the affected area, avoid exacerbating activities, avoid bed rest. Return to emergency department for any new or worsening symptoms Med/Other Pt SpecificInfo: Prescription(s) given Scripts Prednisone 50 Mg Tab50 Mg PO DAILY 5 Days Ref 0 Prov:Julissa Spencer 12/22/16 Ibuprofen 800 Mg [id number] Mg PO Q8H PRN (Pain/Inflammation) #60 TAB Ref 0 Prov:Julissa Spencer 12/22/16 Cyclobenzaprine (Flexeril)10 Mg Tab10 Mg PO TID PRN (MUSCLE SPASM) 10 Days Ref 0 Prov:Julissa Spencer 12/22/16 Disposition: 01 DISCHARGE HOME Condition: Stable Julissa Spencer Dec 22, 2016 16:02
--- NOTE | 2016-12-22 16:14 | RADRPT ---
EXAM DATE/TIME: 12/22/2016 15:53 [facility] COMPARISON: CT BRAIN W/O CONTRAST, October 17, 2016, 23:02. INDICATIONS : Posterior cephalgia with blurry and double vision. RADIATION DOSE: 38.27 CTDIvol (mGy) MEDICAL HISTORY : Cerebrovascular disease. Cardiovascular disease SURGICAL HISTORY : None. ENCOUNTER: Initial ACUITY: 1 day PAIN SCALE: 6/10 LOCATION: cranial Posterior TECHNIQUE: Multiple contiguous axial images were obtained of the head. Using automated exposure control and adj ustment of the mA and/or kV according to patient size, radiation dose was kept as low as reasonably a chievable to obtain optimal diagnostic quality images. FINDINGS: CEREBRUM: The ventricles are normal for age. No evidence of midline shift, mass lesion, hemorrhage or acute in farction. No extra-axial fluid collections are seen. POSTERIOR FOSSA: The cerebellum and brainstem are intact. The 4th ventricle is midline. The cerebellopontine angle i s unremarkable. EXTRACRANIAL: The visualized portion of the orbits is intact. SKULL: The calvaria is intact. No evidence of skull fracture. CONCLUSION: No acute intracranial disease. Dean Crowley MD on December 22, 2016 at 16:10 Board Certified Radiologist. This report was verified electronically.
--- NOTE | 2016-12-22 16:28 | RADRPT ---
EXAM DATE/TIME: 12/22/2016 16:04 [facility] COMPARISON: No previous studies available for comparison. INDICATIONS : Tingling in left leg. MEDICAL HISTORY : None. SURGICAL HISTORY : None. ENCOUNTER: Initial ACUITY: 1 day PAIN SCORE: 5/10 LOCATION: Left L-spine FINDINGS: Two view examination was performed. There are five non-rib bearing vertebral bodies. The vertebral bodies are in normal alignment without evidence of subluxation or scoliosis. The disc spaces are raquel ntained. The pedicles are intact. Bony mineralization is normal. No fracture is identified. CONCLUSION: Unremarkable limited examination of the lumbar spine. Dean Crowley MD on December 22, 2016 at 16:25 Board Certified Radiologist. This report was verified electronically.
[2016-12-22] MEDS ORDERED: DEXAMETHASONE SOD PHOS 20 MG/5 ML VIAL IM ONE (17:30)
[2016-12-22] MEDS ORDERED: ORPHENADRINE INJ 60 MG/2 ML AMP IM ONE (17:30)
[2016-12-22] MEDS ORDERED: KETOROLAC TROMETHAMINE 60 MG/2 ML (IM) VIAL IM ONE (17:30)
[2016-12-22 17:50] VITALS: BP 106/60; PULSE 76; RESP 20; O2SAT 98
[2016-12-22] MEDS ORDERED: CYCL1TAB29 PO (18:29)
[2016-12-22] MEDS ORDERED: PRED50 PO (18:29)
[2016-12-22] MEDS ORDERED: IBUP800T23 PO (18:29)
[2017-01-27] MEDS ORDERED: ORPH100T PO (17:24)
== END 2016-12-22 18:56 | disposition home or self-care (01) ==
LOC: NEPB 12:12
DX: R51 Headache (principal); S16.1XXD Strain of muscle, fascia and tendon at neck level, subsequent encounter; M79.605 Pain in left leg; S09.90XD Unspecified injury of head, subsequent encounter; W01.190D Fall on same level from slipping, tripping and stumbling with subsequent striking against furniture, subsequent encounter; Y92.000 Kitchen of unspecified non-institutional (private) residence as the place of occurrence of the external cause; Y99.0 Civilian activity done for income or pay
CPT/HCPCS: 70450; 72100; 84703; 96372; 99284; J1100; J1885; J2360

== ENCOUNTER 2017-01-27 15:57 | Observation (INO) | payer OTHER ==
[~2017-01-27] VITALS: Ht 157.5 cm; Wt 78.0 kg
[~2017-01-27 15:57] MED LIST changes: +ALBU1.25 NEB; +BACT800T5 PO; +CYCL1TAB29 PO; +IBUP800T23 PO; +OXYC15TA PO; +PRED50 PO; +ZYRT10CA PO
[2017-01-27 16:05] VITALS: BP 131/78; PULSE 103; RESP 18; O2SAT 99
[2017-01-27] MEDS ORDERED: methylPREDNISolone SOD SUCC 125 MG/2 ML VIAL IV PUSH ONE ×2 (16:15→19:15)
[2017-01-27] MEDS ORDERED: diphenhydrAMINE HCL 50 MG/ML VIAL IV PUSH ONE (16:15)
--- NOTE | 2017-01-27 16:25 | PD ---
HPI Chief Complaint: Back/ Neck Pain or Injury Time Seen by Provider: 16:19 Travel History International Travel<30 days: No Contact w/Intl Traveler<30days: No Traveled to known affect area: No History of Present Illness HPI Patient comes emergency Department from physical therapy by EMS following a popping sensation in her neck while doing stretches physical therapy. Patient reports she was doing physical therapy after "spraining" her neck in November. Patient states she was stretching when she felt/heard the pop in her neck, causing pain, and decreased sensation in her left upper extremity. Pain is more on the left side of her cervical spine. Pain is stabbing like in nature. Patient denies doing anything for this prior to coming to the emergency department. Patient reports she is allergic to Dilaudid, but is able to take morphine without any issues. She denies any fevers, , or history of IV drug use. Patient states she is allergic to IV contrast dye, but does fine as long she gets premedicated with Solu-Medrol and Benadryl prior to having it injected. PFSH Past Medical History Asthma: Yes Anxiety: Yes Heart Rhythm Problems: Yes (SVT) Cardiovascular Problems: Yes (SVT) Cerebrovascular Accident: Yes (TIA) Diminished Hearing: No Endocrine: Yes (HYPERPARATHYROID) GERD: Yes Reproductive: Yes (endometriosis) Respiratory: Yes (ASTHMA) Immunizations Current: Yes Migraines: Yes ?: Not LMP: 2 YEARS, ON SHOTS Past Surgical History Abdominal Surgery: Yes Appendectomy: Yes Cardiac Surgery: Yes (ATRIAL SEPTIAL DEFECT REPAIR) Cholecystectomy: Yes Genitourinary Surgery: Yes ("2-3 ABLASIONS RELATED TO ENDOMETRIOSIS") Gynecologic Surgery: Yes (LAP ) Thoracic Surgery: Yes (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) Social History Alcohol Use: Yes (RARE) Tobacco Use: No Substance Use: No Allergies-Medications (Allergen,Severity, Reaction): Coded Allergies: Compazine (Verified Allergy, Severe, Shortness of Breath, 01/27/17) Contrast Media (Verified Allergy, Severe, Anaphylaxis, 01/27/17) Dilaudid (Verified Allergy, Severe, Itching, 01/27/17) Latex (Verified Allergy, Severe, Anaphylaxis, 01/27/17) Reglan (Verified Allergy, Severe, Shortness of Breath, 01/27/17) Succinylcholine (Verified Allergy, Severe, 01/27/17) Cephalosporins (Verified Allergy, Mild, HIVES, 01/27/17) Reported Meds & Prescriptions Reported Meds & Active Scripts Active Ibuprofen 800 Mg Tab 800 Mg PO Q8H PRN Phenergan (Promethazine HCl) 25 Mg Tab 25 Mg PO Q6H PRN Reported Orphenadrine ER 12 HR (Orphenadrine Citrate) 100 Mg Tab 100 Mg PO Q12HR Xopenex Neb (Levalbuterol HCl) 0.63 Mg/3 Ml Neb 0.63 Mg NEB QID Xopenex Hfa 15 GM Inh (Levalbuterol 15 GM Inh) 45 Mcg/Act Aer 1 Puff INH Q4HR PRN Shake well before using. (1 puff = 45 mcg) Singulair (Montelukast Sodium) 10 Mg Tab 10 Mg PO HS Digoxin 0.25 Mg Tab 0.25 Mg PO DAILY Fiorinal (Butalbital/Aspirin/Caffeine) 50-325-40 Mg Cap 1 Cap PO Q4H PRN Do not exceed 6 capsules/day. Omeprazole 20 Mg Tab 20 Mg PO BID Review of Systems Except as stated in HPI: all other systems reviewed are Neg Physical Exam Narrative GENERAL: Well-developed, overly nourished, in no acute distress, and non-ill appearing. SKIN: Focused skin assessment warm and dry. HEAD: Atraumatic. Normocephalic. EYES: Pupils equal and round. EOMI. No scleral icterus. No injection or drainage. ENT: No nasal bleeding or discharge. Mucous membranes pink and moist. NECK: Trachea midline. C-collar in place. Patient reports tenderness to palpation over the lower cervical spine and paravertebral spinal muscles. CARDIOVASCULAR: Radial pulses 2+, intact, and equal bilaterally. Capillary refill is 2 seconds. RESPIRATORY: No accessory muscle use. No respiratory distress. MUSCULOSKELETAL: No obvious deformities. No clubbing. No cyanosis. No edema. Decreased range of motion left upper extremity. Patient states she is unable to squeeze with her left hand. Reports a decreased sensation in her left upper extremity. NEUROLOGICAL: Awake and alert. No obvious cranial nerve deficits. Motor grossly within normal limits. Normal speech. PSYCHIATRIC: Appropriate mood and affect; insight and judgment normal. Data Data Last Documented VS Vital Signs Date Time Temp Pulse Resp B/P Pulse Ox O2 Delivery O2 Flow Rate FiO2 01/27/17 19:24 108 22 170/101 98 Nasal Cannula 2 Orders Complete Blood Count With Diff (01/27/17 16:13) Basic Metabolic Panel (Bmp) (01/27/17 16:13) Methylprednisolone So Succ Inj (Solumedr (01/27/17 16:15) Diphenhydramine Inj (Benadryl Inj) (01/27/17 16:15) Iv Access Insert/Monitor (01/27/17 16:16) Ecg Monitoring (01/27/17 16:16) Oximetry (01/27/17 16:16) Morphine Inj (Morphine Inj) (01/27/17 16:30) Ondansetron Inj (Zofran Inj) (01/27/17 16:30) Sodium Chloride 0.9% Flush (Ns Flush) (01/27/17 16:30) Morphine Inj (Morphine Inj) (01/27/17 17:15) Orphenadrine Inj (Norflex Inj) (01/27/17 17:15) Morphine Inj (Morphine Inj) (01/27/17 17:15) Methocarbamol Inj (Robaxin Inj) (01/27/17 17:15) Mri C Spine W/O Contrast (01/27/17 ) Methylprednisolone So Succ Inj (Solumedr (01/27/17 19:15) Morphine Inj (Morphine Inj) (01/27/17 19:15) Admit Order (Ed Use Only) (01/27/17 19:41) Consult Neurology (01/27/17 ) Labs Laboratory Tests Test 01/27/17 16:50 White Blood Count 8.6 TH/MM3 Red Blood Count 4.77 MIL/MM3 Hemoglobin 14.2 GM/DL Hematocrit 41.8 % Mean Corpuscular Volume 87.5 FL Mean Corpuscular Hemoglobin 29.7 PG Mean Corpuscular Hemoglobin 33.9 % Concent Red Cell Distribution Width 13.9 % Platelet Count 256 TH/MM3 Mean Platelet Volume 8.7 FL Neutrophils (%) (Auto) 67.7 % Lymphocytes (%) (Auto) 21.9 % Monocytes (%) (Auto) 6.9 % Eosinophils (%) (Auto) 2.5 % Basophils (%) (Auto) 1.0 % Neutrophils # (Auto) 5.8 TH/MM3 Lymphocytes # (Auto) 1.9 TH/MM3 Monocytes # (Auto) 0.6 TH/MM3 Eosinophils # (Auto) 0.2 TH/MM3 Basophils # (Auto) 0.1 TH/MM3 CBC Comment DIFF FINAL Differential Comment Sodium Level 141 MEQ/L Potassium Level 4.1 MEQ/L Chloride Level 108 MEQ/L Carbon Dioxide Level 25.9 MEQ/L Anion Gap 7 MEQ/L Blood Urea Nitrogen 18 MG/DL Creatinine 1.24 MG/DL Estimat Glomerular Filtration 51 ML/MIN Rate Random Glucose 90 MG/DL Calcium Level 9.2 MG/DL MDM Medical Decision Making Medical Screen Exam Complete: Yes Emergency Medical Condition: Yes Differential Diagnosis Cord compression, fracture, ruptured disc, abscess, other Narrative Course Patient was seen and exam. Initial laboratory and radiological studies were obtained and reviewed. Patient was reassessed change of decreased sensation left left foot. Sensation was reevaluated at 16-gauge needle with no reaction from the patient. Discussed patient with Dr. Schulte, who recommends discussing patient with neurosurgery. Discussed all findings and plan care of patient, who is agreeable for admission. All questions were answered. Physician Communication Physician Communication [address] Cerrato, neurosurgeon on-call does not feel as though there is surgically this be done, however recommends patient admitted for observation with consult to neurology. 1934 discussed patient with , who is agreeable to admit patient. 1939 discussed the patient with Dr. Okeefe, who is agreeable to consult. Diagnosis Primary Impression: Cervical pain Additional Impression: Weakness of extremity Admitting Information Admitting Physician Requests: Observation Condition: Stable Flex Castro Jan 27, 2017 16:25
[2017-01-27] MEDS ORDERED: ONDANSETRON HCL 4 MG/2 ML VIAL IVP ONE (16:30)
[2017-01-27] MEDS ORDERED: MORPHINE SULFATE 4 MG/ML INJ IV PUSH ONE ×3 (16:30→19:15)
[2017-01-27] MEDS ORDERED: SODIUM CHLORIDE 0.9% FLUSH 10 ML FLUSH IV FLUSH PRN ×2 (16:30→19:45)
[2017-01-27 17:04] VITALS: RESP 18; O2SAT 97
[2017-01-27] MEDS ORDERED: METHOCARBAMOL INJ 1,000 MG in SODIUM CHLOR 0.9% 250 ML INJ 250 ML IV ONE (17:15)
[2017-01-27] MEDS ORDERED: MORPHINE SULFATE 4 MG/ML INJ IM ONE (17:15)
[2017-01-27] MEDS ORDERED: ORPHENADRINE INJ 60 MG/2 ML AMP IM ONE (17:15)
[2017-01-27 17:17] LABS: AUTOMATED NEUTROPHIL # 5.8 TH/MM3 (1.8-7.7); BASOPHIL # 0.1 TH/MM3 (0-0.2); EOSINOPHIL # 0.2 TH/MM3 (0-0.4); EOSINOPHIL % 2.5 % (0.0-4.0); HEMATOCRIT 41.8 % (35.0-46.0); HEMO FLAGS DIFF FINAL; LYMPH % 21.9 % (9.0-44.0); LYMPHOCYTE # 1.9 TH/MM3 (1.0-4.8); MEAN CELL VOLUME 87.5 FL (80.0-100.0); MEAN CORPUSCULAR HEMOGLOBIN 29.7 PG (27.0-34.0); MEAN CORPUSCULAR HGB CONC 33.9 % (32.0-36.0); MONO % 6.9 % (0.0-8.0); NEUT % 67.7 % (16.0-70.0); PLATELET COUNT 256 TH/MM3 (150-450); RED BLOOD COUNT 4.77 MIL/MM3 (4.00-5.30); RED CELL DISTRIBUTION WIDTH 13.9 % (11.6-17.2); WHITE BLOOD COUNT 8.6 TH/MM3 (4.0-11.0)
[2017-01-27] MEDS ORDERED: ORPH100T PO ×2 (17:24)
[2017-01-27 17:39] LABS: BICARBONATE 25.9 MEQ/L (21.0-32.0); POTASSIUM 4.1 MEQ/L (3.5-5.1)
--- NOTE | 2017-01-27 18:49 | RADRPT ---
EXAM DATE/TIME: 01/27/2017 18:00 [facility] COMPARISON: CT CERVICAL SPINE W/O CONTRAST, October 17, 2016, 23:02. INDICATIONS : Pain. Left arm numbness. MEDICAL HISTORY : Diabetes mellitus type 2. SURGICAL HISTORY : Appendectomy. Cholecystectomy. Atrial septal defect. Left knee surgery. ENCOUNTER: Initial ACUITY: 1 day PAIN SCORE: 7/10 LOCATION: neck. TECHNIQUE: Multiplanar, multisequence MRI examination of the cervical spine was performed. FINDINGS: VERTEBRAE: Normal vertebral body height. Homogeneous marrow signal. ALIGNMENT: No evidence of subluxation. CORD: Normal configuration and signal. POST FOSSA: The cerebellar tonsils are normal in position. C2-C3: Disc height and hydration within normal limits. Mild uncovertebral and facet osteoarthritis on the ri ght without significant foraminal or spinal stenosis. C3-C4: Normal disc. Mild bilateral uncovertebral and facet osteoarthritis. No foraminal or spinal stenosis. C4-C5: Normal disc. Mild bilateral facet osteoarthritis. No foraminal or spinal stenosis. C5-C6: Normal disc. Mild bilateral uncovertebral and facet osteoarthritis with mild bilateral foraminal encr oachment. C6-C7: The disc is slightly desiccated. Minimal loss of height. There is bulging of the disc annulus and mil d bilateral uncovertebral and facet osteoarthritis. There is mild effacement of the anterior aspect o f the thecal sac without cord compression or cord signal abnormality. No significant spinal stenosis. C7-T1: Normal. CONCLUSION: Very mild cervical spine degenerative changes as detailed above. No significant foraminal or spinal s tenosis demonstrated at any level. There is no fracture or subluxation. Bogdan Hatch MD on January 27, 2017 at 18:45 Board Certified Radiologist. This report was verified electronically.
[2017-01-27 19:24] VITALS: BP 170/101; PULSE 108; RESP 22; O2SAT 98
[2017-01-27] MEDS ORDERED: NALOXONE HCL 0.4 MG/ML AMP IV PRN (19:45)
[2017-01-27] MEDS ORDERED: ACETAMINOPHEN 325 MG TAB PO PRN (19:45)
[2017-01-27] MEDS ORDERED: RESP: ALBUTEROL 2.5 MG/IPRATROPIUM 0.5 MG NEB (PRN) NEB (20:00)
[2017-01-27 20:41] VITALS: BP 119/72; PULSE 102; RESP 20; O2SAT 99
[2017-01-27] MEDS: SODIUM CHLORIDE 0.9% FLUSH 10 ML FLUSH IV FLUSH SCH (20:53)
[2017-01-27] MEDS: ONDANSETRON HCL 4 MG/2 ML VIAL IVP PRN (21:18)
[2017-01-27 23:15] VITALS: BP 120/78; PULSE 78; RESP 18; TEMP 98.8; O2SAT 97
[2017-01-27 23:39] VITALS: BP 137/60; PULSE 112; RESP 18; TEMP 98.7; O2SAT 96
[2017-01-28] VITALS (7 sets, daily range): BP systolic 104–178; BP diastolic 54–79; PULSE 82–104; RESP 18–19; TEMP 96.3–98; O2SAT 94–97
[2017-01-28] MEDS: ONDANSETRON HCL 4 MG/2 ML VIAL IVP PRN (05:23)
[2017-01-28 05:51] LABS: AUTOMATED NEUTROPHIL # 7.8 TH/MM3 (1.8-7.7); BASOPHIL % 0.5 % (0.0-2.0); EOSINOPHIL % 0.1 % (0.0-4.0); HEMATOCRIT 39.1 % (35.0-46.0); HEMO FLAGS DIFF FINAL; LYMPH % 11.5 % (9.0-44.0); LYMPHOCYTE # 1.1 TH/MM3 (1.0-4.8); MEAN CELL VOLUME 87.1 FL (80.0-100.0); MEAN CORPUSCULAR HEMOGLOBIN 29.9 PG (27.0-34.0); MEAN CORPUSCULAR HGB CONC 34.3 % (32.0-36.0); MONO % 2.6 % (0.0-8.0); NEUT % 85.3 % (16.0-70.0); PLATELET COUNT 258 TH/MM3 (150-450); RED BLOOD COUNT 4.49 MIL/MM3 (4.00-5.30); WHITE BLOOD COUNT 9.1 TH/MM3 (4.0-11.0)
[2017-01-28 06:15] LABS: BICARBONATE 22.4 MEQ/L (21.0-32.0); POTASSIUM 4.2 MEQ/L (3.5-5.1)
[2017-01-28] MEDS: SODIUM CHLORIDE 0.9% FLUSH 10 ML FLUSH IV FLUSH SCH ×2 (08:40→22:10)
--- NOTE | 2017-01-28 08:47 | HHI.HP ---
[facility] Non-Staff Admission Diagnosis cervical neck pain with left-sided neuropathy Diagnoses: Chief Complaint: neck pain with radiculopathy Travel History International Travel<30 Days: No Contact w/Intl Traveler <30 Da: No Traveled to Known Affected Are: No History of Present Illness 31-year-old female with history of asthma, anxiety, SVT, TIA, hyperparathyroid, GERD, endometriosis, migraines, presents with acute onset of neck pain yesterday 01/27. The patient reports back in November she fell, hit her head, sprained her neck, and has been dealing with "post-concussive syndrome" with headaches and blurred vision. Then she was doing physical therapy exercises last night, stretching her neck to the left, when she all of a sudden felt a pop in the neck and experienced immediate pain. She locates the pain to the center of the cervical spine with radiation to the left side of the neck up into the occipital region, described as stabbing pains, with associated numbness of the left hand and the left leg. She denies any weakness and has been able to ambulate despite the numbness. She states her head was immediately "stuck" to the left because of the pain. She placed a heating pad and after 30minutes was finally able to get her head into neutral position. She also took her Norflex with no relief. Denies any incontinence. She called her neurologist in [place] who recommended she come to the hospital. She was transported via [facility] from physical therapy. The patient has no other medical complaints at this time. Review of Systems Except as stated in HPI: all other systems reviewed are Neg Past Family Social History Past Medical History asthma, hx of intubation anxiety SVT TIA hyperparathyroid GERD endometriosis migraines Past Surgical History atrial septal defect repair appendectomy cholecystectomy endometriosis ablations x3 left 1st rib resection secondary to thoracic outlet syndrome in 2012 Reported Medications Orphenadrine ER 12 HR (Orphenadrine Citrate) 100 Mg Tab 100 Mg PO Q12HR Xopenex Neb (Levalbuterol HCl) 0.63 Mg/3 Ml Neb 0.63 Mg NEB QID Xopenex Hfa 15 GM Inh (Levalbuterol 15 GM Inh) 45 Mcg/Act Aer 1 Puff INH Q4HR PRN Shake well before using. (1 puff = 45 mcg) Singulair (Montelukast Sodium) 10 Mg Tab 10 Mg PO HS Digoxin 0.25 Mg Tab 0.25 Mg PO DAILY Fiorinal (Butalbital/Aspirin/Caffeine) 50-325-40 Mg Cap 1 Cap PO Q4H PRN Do not exceed 6 capsules/day. Omeprazole 20 Mg Tab 20 Mg PO BID Allergies: Coded Allergies: Compazine (Verified Allergy, Severe, Shortness of Breath, 01/27/17) Contrast Media (Verified Allergy, Severe, Anaphylaxis, 01/27/17) Dilaudid (Verified Allergy, Severe, Itching, 01/27/17) Gadolinium Derivatives (Verified Allergy, Severe, 01/28/17) Per patient when given MRI contrast it becomes hard to swallow and she feels burning in her throat. EG 01/28/2017 Latex (Verified Allergy, Severe, Anaphylaxis, 01/27/17) Reglan (Verified Allergy, Severe, Shortness of Breath, 01/27/17) Succinylcholine (Verified Allergy, Severe, 01/27/17) Cephalosporins (Verified Allergy, Mild, HIVES, 01/27/17) Active Ordered Medications Current Medications Medications (Trade) Dose Ordered Sig/Toshia Route Start Time Stop Time Status Last Admin (NS Flush) 2 ml UNSCH PRN IV FLUSH 01/27/17 19:45 (NS Flush) 2 ml BID IV FLUSH 01/27/17 21:00 01/27/17 20:53 (Tylenol) 650 mg Q4H PRN PO 01/27/17 19:45 (Zofran Inj) 4 mg Q6H PRN IVP 01/27/17 19:45 01/28/17 05:23 (Narcan Inj) 0.4 mg UNSCH PRN IV 01/27/17 19:45 Family History Mother with hypertension Father fairly healthy Maternal and Paternal Grandparents with heart disease Social History Denies any tobacco use Occasional alcohol use, maybe once a year Denies any illicit drug use Physical Exam Vital Signs Vital Signs Date Time Temp Pulse Resp B/P Pulse Ox O2 Delivery O2 Flow Rate FiO2 01/28/17 05:16 98.0 96 18 137/70 95 01/27/17 23:39 98.7 112 18 137/60 96 01/27/17 23:15 98.8 78 18 120/78 97 01/27/17 20:41 102 20 119/72 99 Nasal Cannula 2 01/27/17 19:24 108 22 170/101 98 Nasal Cannula 2 01/27/17 18:01 18 01/27/17 17:04 18 97 Room Air 01/27/17 16:05 103 18 131/78 99 Physical Exam GENERAL: Well-nourished, well-developed young female patient in [facility]. SKIN: Warm and dry. No rash. HEAD: Normocephalic. Atraumatic. EYES: Pupils equal and round. No scleral icterus. No injection or drainage. ENT: No nasal bleeding or discharge. Mucous membranes pink and moist. NECK: Supple. Trachea midline. CARDIOVASCULAR: Regular rate and rhythm. S1, S2 noted. No murmur appreciated. RESPIRATORY: No accessory muscle use. Clear to auscultation. Breath sounds equal bilaterally. GASTROINTESTINAL: Abdomen soft, non-tender, nondistended. Normoactive bowel sounds x4. MUSCULOSKELETAL: No obvious deformities. Extremities without clubbing, cyanosis , or edema. Left cervical paraspinous muscle tenderness to palpation. Decreased ROM of the neck. NEUROLOGICAL: Awake and alert. No obvious cranial nerve deficits. Motor grossly within normal limits. 5/5 muscle strength in bilateral upper and lower extremities. Subjective diminished sensation to the LUE/LLE. Normal speech. PSYCHIATRIC: Appropriate mood and affect; insight and judgment normal. Laboratory Laboratory Tests Test 01/27/17 01/28/17 16:50 05:31 White Blood Count 8.6 9.1 Red Blood Count 4.77 4.49 Hemoglobin 14.2 13.4 Hematocrit 41.8 39.1 Mean Corpuscular Volume 87.5 87.1 Mean Corpuscular Hemoglobin 29.7 29.9 Mean Corpuscular Hemoglobin 33.9 34.3 Concent Red Cell Distribution Width 13.9 14.0 Platelet Count 256 258 Mean Platelet Volume 8.7 7.9 Neutrophils (%) (Auto) 67.7 85.3 Lymphocytes (%) (Auto) 21.9 11.5 Monocytes (%) (Auto) 6.9 2.6 Eosinophils (%) (Auto) 2.5 0.1 Basophils (%) (Auto) 1.0 0.5 Neutrophils # (Auto) 5.8 7.8 Lymphocytes # (Auto) 1.9 1.1 Monocytes # (Auto) 0.6 0.2 Eosinophils # (Auto) 0.2 0.0 Basophils # (Auto) 0.1 0.0 CBC Comment DIFF FINAL DIFF FINAL Differential Comment Sodium Level 141 141 Potassium Level 4.1 4.2 Chloride Level 108 109 Carbon Dioxide Level 25.9 22.4 Anion Gap 7 10 Blood Urea Nitrogen 18 13 Creatinine 1.24 1.01 Estimat Glomerular Filtration 51 65 Rate Random Glucose 90 106 Calcium Level 9.2 9.6 Result Diagram: 01/28/17 0531 01/28/17 0531 Imaging Last Impressions Cervical Spine MRI 01/27/17 0000 Signed Impressions: Service Date/Time: Wednesday, January 27, 2017 18:00 - CONCLUSION: Very mild cervical spine degenerative changes as detailed above. No significant foraminal or spinal stenosis demonstrated at any level. There is no fracture or subluxation. Bogdan Hatch MD Assessment and Plan Problem List: (1) Cervical strain ICD Code: S16.1XXA Status: Acute Assessment and Plan 31-year-old female with history of asthma, anxiety, SVT, TIA, hyperparathyroid, GERD, endometriosis, migraines, presents with acute onset of neck pain yesterday 01/27. Cervical Spine Radiculopathy: C-spine MRI images reviewed, shows C6-7 disc slightly desiccated, minimal loss of height, bulging of disc and mild effacement of the anterior thecal sac without cord compression or significant spinal stenosis. ER contacted environmental services technician neurosurgeon Dr. Cerrato who recommended neurology consultation. Neurology consulted, appreciate recommendations. Check Brain MRI/MRA to rule out vertebral dissection or brain stem infarct. Consult PT. Flexeril prn spasms, Bay prn pain JAMAL: Cr 1.24 upon arrival, previously 0.9 in . Give IVF. Repeat BMP with improvement, Cr 1.01. Avoid nephrotoxins. Recent Fall with Concussion/Headache: patient reports fall back in November, still experience "post-concussive" symptoms with headaches, dizziness, weakness , blurred vision. Continue outpatient f/up with her neurologist in [place] Hx of SVT: chronic, continue patient's digoxin. Asthma: chronic, continue patient's Xopenex inhaler prn. DVT Prophylaxis: teds/SCDs Written by Della Tovar, acting as scribe for Dr. Veras on 01/28/17 at 13:05 Discussed Condition With Patient, CDU RN Attending Statement This note was transcribed by scribe Della Tovar. I, Dr. Kelsey Veras personally performed the history, physical exam, and medical decision making; and confirmed the accuracy of the information in the transcribed note. Authenticated by Dr. Kelsey Veras on 01/28/17 at 20:15. Della Tovar PA-C Jan 28, 2017 08:46 Kelsey Veras MD Jan 28, 2017 20:16
--- NOTE | 2017-01-28 10:26 | MB ---
cc: BRY BERNAL DATE OF CONSULTATION 01/28/2017 REASON FOR CONSULTATION This is a 31-year-old right-handed woman with a history of atrial septal defect repair at 5-years old, asthma and ammonia in May of this past year. She was actually on a ventilator and had some tachycardia at that time. 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 In November of this year, she tripped over a scale and hit the top of her head on a sharp corner of a cabinet and had some neck pain up in the very high cervical low occipital region. She has had but she says is post-concussive syndrome. She has evidently had an MRI of her brain and neck in the past, nevertheless, she has been doing some physical therapy and some stretching exercises and yesterday she was stretching her head over back and forth to the right left and her pop in her neck and then felt like her left arm was numb and her left foot was numb. No vertigo or double vision. She has had some blurry vision with her post-concussive syndrome she tells me. She has a headache just in the back where she usually has the neck and head pain. She says her neck, however, hurts all over both sides. REVIEW OF SYSTEMS Denies any hypertension, diabetes, hypercholesterolemia, VT, stent, angioplasty, A. fib, Coumadin, renal, hepatic disease, thyroid disease lupus, ulcer cancer seizure, or stroke. SOCIAL HISTORY She is not a smoker or a drinker and lives by herself. FAMILY HISTORY Negative cancer, positive seizure from traumatic brain injury in her sister, negative for stroke. ALLERGIES SHE IS ALLERGIC TO COMPAZINE, CONTRAST MEDIA, DILAUDID, LATEX, REGLAN, SUCCINYLCHOLINE AND CEPHALOSPORINS. MEDICATIONS 1. Ibuprofen 2. Phenergan 3. Orphenadrine 4. Some inhalers. 5. Singulair 6. Digoxin 7. Fiorinal 8. Omeprazole PHYSICAL EXAM VITAL SIGNS: Blood pressure initially 131/78, highest 170/101, but generally normal blood pressures, afebrile, 18, 96-112. NECK: There are no carotid bruits. HEART: Regular rhythm. I did not detect a murmur. NEUROLOGIC: The disks are not particularly deep, but I do not see where there was any definite papilledema. They appear somewhat shallow. The pupils are equal, visual casey are full. Extraocular movements are intact. She has some rotatory nystagmus, a little bit more on the right lateral far lateral gaze the left, but no vertical nystagmus. Face is symmetric with normal sensation. Tongue was midline. There is no drift. She had normal strength in the upper and lower extremities bilaterally including the left deltoid, biceps. She had give away weakness in left triceps, but best testing was normal. She initially had some give away weakness in the left finger extensors, but she was able to overcome that and have normal testing on finger extensors, FDI and ADM an APB. In the lower extremity, normal strength in the iliopsoas, hamstring, quad, tibialis anterior, and gastrocs. DTRs are 2+ and symmetric throughout. Toes were downgoing bilaterally. There is no ankle clonus. Pinprick was diminished up to the ankle bilaterally in the lateral, medial, top and bottom of her foot, otherwise intact in the left lower extremity. Right lower extremity, right upper extremity normal. Pinprick was diminished to the elbow crease on the left side, but normal above there. There was no pin level on her back. Pinprick was normal in the face and the occiput bilaterally and the posterior aspect of her neck. She is not ataxic on [id number] or [id number]. Vibratory sense was diminished on the left foot. Proprioception was absent at the left toe and slightly diminished on the left ankle, normal on the right. Speech is fluent. She is not aphasic. LABORATORY DATA MRI of the cervical spine showed some mild DJD but no cord compression. CBC was normal. Hepatitis screen has been negative in the past. I will check. UA of last month large amount of leukoesterase, 43 white cells. Basic metabolic profile essentially normal. She has had some increased LFTs in May of last year. Albumin was low at that time, thyroid was normal in May of last year. Ammonia level normal at that time. CT scan of the brain last month was read as negative. She also had a cervical spine CT done in September of last year that was read as normal. IMPRESSION I thought she had some give-way weakness on the left and some of her numbness is not particularly anatomical. Initially on her gait, she limped somewhat, but then after talking with her, she could stand on her toes well. She had negative Romberg, normal tandem and normal gait. RECOMMENDATIONS My recommendation, however with the nystagmus, is to check an MRI of the brain and an MRA of the neck to make sure there is no vertebral dissection or brain stem infarct. Check some of the labs that were abnormal in the past and I will be following her with you in the hospital, although I thought she looked fairly well neurologically. As far as her tachycardia, I defer to the med team on that. If her workup is negative, some Zanaflex could be prescribed for the neck discomfort. MD TEQUILA Castle/JONELLE /9:24 AM /9:52 AM
[2017-01-28] MEDS ORDERED: MORPHINE SULFATE 4 MG/ML INJ IV PUSH PRN (10:30)
[2017-01-28] MEDS ORDERED: CYCLOBENZAPRINE HCL 10 MG TAB PO PRN (10:45)
[2017-01-28 10:50] LABS: ALT (GPT) 36 U/L (10-53); AST (GOT) 13 U/L (15-37)
[2017-01-28 10:54] LABS: RHEUMATOID FACTOR TRIGGER 11.4 IU/ML (0.0-14.9)
[2017-01-28] MEDS: ACETAMINOPHEN/HYDROcodone 325 MG/5 MG TAB PO PRN ×3 (10:58→22:10)
[2017-01-28] MEDS ORDERED: methylPREDNISolone SOD SUCC 125 MG/2 ML VIAL IV PUSH ONE (11:00)
[2017-01-28] MEDS ORDERED: SODIUM CHLOR 0.9% 1000 ML INJ 1,000 ML IV SCH (11:00)
[2017-01-28] MEDS ORDERED: diphenhydrAMINE HCL 50 MG CAP PO ONE (11:00)
[2017-01-28 11:14] LABS: BETA HCG QUANT LESS THAN 1 MIU/ML (0-5)
[2017-01-28 11:16] LABS: CREATINE KINASE 73 U/L (26-192)
[2017-01-28 11:45] LABS: BACTERIA, URINE RARE /hpf; BLOOD, URINE NEG (NEG); COMMENT (UR) CULT NOT INDICATED; CULTURE IF INDICATED CULT NOT INDICATED; GLUCOSE,URINE NEG (NEG); KETONE, URINE TRACE mg/dL (NEG); MUCUS URINE MOD /lpf (OCC); NITRITE,URINE NEG (NEG); PH, URINE 5.5 (5.0-8.5); SQUAMOUS EPITHELIAL CELL URINE 5 /hpf (0-5); URINE COLOR YELLOW (YELLW/STRAW)
[2017-01-28] MEDS ORDERED: diphenhydrAMINE HCL 50 MG/ML VIAL IV PUSH ONE (14:00)
[2017-01-28] MEDS ORDERED: DIGOXIN 0.25 MG TAB PO ONE (14:30)
[2017-01-28] MEDS ORDERED: LEVALBUTEROL INH PRN (15:00)
[2017-01-28] MEDS ORDERED: GADODIAMIDE PF 287 MG/ML 20 ML VIAL (for RAD MRI) IV ONE (16:44)
--- NOTE | 2017-01-28 17:02 | RADRPT ---
EXAM DATE/TIME: 01/28/2017 16:35 [facility] COMPARISON: No previous studies available for comparison. INDICATIONS : CVA. MEDICAL HISTORY : Diabetes mellitus type 2. Hyperparathyroidism. Gastroesophageal reflux disease. Asthma. SURGICAL HISTORY : Appendectomy. Cholecystectomy. Cardiac ablation. ENCOUNTER: Initial ACUITY: 1 day PAIN SCORE: 0/10 LOCATION: Head. Patient was premedicated per protocol for underlying contrast media allergy. Please note a normal MRA of the brain does not entirely exclude the possibility of a small aneurysm, nor the possibility of distal intracranial vessel disease. TECHNIQUE: 3D time of flight MRA was performed. Source images, multiplanar STS MIP, and 3D volume MIP reconstru ctions were reviewed. FINDINGS: There is excellent visualization of the major intracranial arteries out to the second-order branch ve ssels. There is no evidence for aneurysm, vessel truncation or stenosis, and no evidence for vascula r malformation. CONCLUSION: Normal examination. Bogdan Braga MD on January 28, 2017 at 16:59 Board Certified Radiologist. This report was verified electronically.
--- NOTE | 2017-01-28 17:12 | RADRPT ---
EXAM DATE/TIME: 01/28/2017 16:35 [facility] COMPARISON: No previous studies available for comparison. INDICATIONS : CVA. CONTRAST: 20 cc Omniscan (gadodiamide) IV MEDICAL HISTORY : Diabetes mellitus type 2. Hyperparathyroidism. Gastroesophageal reflux disease. Asthma. SURGICAL HISTORY : Appendectomy. Cholecystectomy. Cardiac ablation. ENCOUNTER: Initial ACUITY: 1 day PAIN SCORE: 0/10 LOCATION: Head. Patient was premedicated per protocol for underlying contrast media allergy. TECHNIQUE: Multiplanar, multisequence MRI of the brain was performed both prior to and following the administrat ion of paramagnetic contrast. FINDINGS: The susceptibility weighted sequence reveals several punctate areas of presumed hemosiderin depositio n from microhemorrhage, most conspicuously in the mid and high convexity right frontal region. There is no significant abnormal signal intensity on other sequences in these areas. There is no evidence o f intracranial mass or macroscopic hemorrhage. There is nothing to suggest acute infarction. The vent ricles and extra-axial sulcal spaces are symmetric and normal. There is no abnormal parenchymal enhan cement identified. Normal contrast enhancement is present in the intracranial vascular structures. Th e extracranial structures are benign and intact. CONCLUSION: No acute intracranial findings Bogdan Braga MD on January 28, 2017 at 17:04 Board Certified Radiologist. This report was verified electronically.
--- NOTE | 2017-01-28 17:28 | RADRPT ---
EXAM DATE/TIME: 01/28/2017 16:35 [facility] COMPARISON: No previous studies available for comparison. INDICATIONS : Stroke. Vertebral artery dissection. CONTRAST: 20 cc Omniscan (gadodiamide) IV MEDICAL HISTORY : Diabetes mellitus type 2. Hyperparathyroidism. Gastroesophageal reflux disease. Asthma. SURGICAL HISTORY : Appendectomy. Cholecystectomy. Cardiac ablation. ENCOUNTER: Initial ACUITY: 1 day PAIN SCORE: 0/10 LOCATION: Head. Patient was premedicated per protocol for underlying contrast media allergy. Percent stenosis is calculated using the diameter of the stenotic region over the diameter of the nor mal distal internal carotid artery. TECHNIQUE: Bolus infused MRA of the extracranial circulation was performed using a neurovascular coil. Post pro cessing was performed including rotating subvolume maximum intensity projections of each carotid saritha ry, rotating full volume maximum intensity projections of both carotid arteries, sagittal and coronal sliding thin slab reformations of each carotid artery, and left oblique sliding thin slab reformatio n through the aortic arch to include the origin of the arch branch vessels. FINDINGS: AORTIC ARCH: There is a three vessel origin of the great vessels from the aorta. No evidence of ostial narrowing. RIGHT CAROTID: The common carotid artery is intact. The carotid bulb has a normal configuration without ulceration or narrowing. The internal carotid artery lumen is smooth without stenosis. The external carotid ar krys is intact. LEFT CAROTID: The common carotid artery is intact. The carotid bulb has a normal configuration without ulceration or narrowing. The internal carotid artery lumen is smooth without stenosis. The external carotid ar krys is intact. VERTEBRALS: The vertebral arteries have a symmetric diameter. No stenotic lesions are seen. CONCLUSION: Normal examination. Bogdan Braga MD on January 28, 2017 at 17:23 Board Certified Radiologist. This report was verified electronically.
[2017-01-28] MEDS ORDERED: MONTELUKAST SODIUM 10 MG TAB PO SCH (21:00)
[2017-01-28] MEDS: PANTOPRAZOLE SOD 20 MG DELAYED RELEASE TAB PO SCH (22:09)
[2017-01-29 04:14] VITALS: BP 121/72; PULSE 86; RESP 18; TEMP 97.8; O2SAT 97
[2017-01-29 08:03] VITALS: BP 111/60; PULSE 90; RESP 18; TEMP 98.1; O2SAT 95
[2017-01-29 08:30] VITALS: PULSE 79
[2017-01-29] MEDS: ACETAMINOPHEN/HYDROcodone 325 MG/5 MG TAB PO PRN (08:38)
[2017-01-29] MEDS: PANTOPRAZOLE SOD 20 MG DELAYED RELEASE TAB PO SCH (08:38)
[2017-01-29] MEDS: SODIUM CHLORIDE 0.9% FLUSH 10 ML FLUSH IV FLUSH SCH (08:38)
[2017-01-29] MEDS ORDERED: DIGOXIN 0.25 MG TAB PO SCH (09:00)
--- NOTE | 2017-01-29 09:09 | HHI.PR ---
Objective Vital Signs Date Time Temp Pulse Resp B/P Pulse Ox O2 Delivery O2 Flow Rate FiO2 01/29/17 08:03 98.1 90 18 111/60 95 01/29/17 04:14 97.8 86 18 121/72 97 01/28/17 22:47 96 01/28/17 19:13 97.8 104 18 117/71 97 01/28/17 16:04 96.3 82 19 178/79 94 01/28/17 12:04 97.1 88 18 104/54 95 I/O 01/28/17 01/28/17 01/28/17 01/29/17 01/29/17 01/29/17 07:00 15:00 23:00 07:00 15:00 23:00 Intake Total 380 ml Balance 380 ml Intake Oral 380 ml # Voids 4 # Bowel Movements 1 Result Diagram: 01/28/17 0531 01/28/17 0531 Objective Remarks nl gait 5/5 left tricep and finger ext nl speech Assessment and Plan Assessment and Plan imp labs and mri c sspine and mrax2 and mri brain neg no cva orellana neg ok dc on asa 81 mg we have not found anything wrong with her FuentesJared MD Jan 29, 2017 09:09
[2017-01-29] MEDS ORDERED: ROBA500T PO (09:26)
[2017-01-29] MEDS ORDERED: MOBI15TA PO (09:26)
--- NOTE | 2017-01-29 09:38 | HHI.PR ---
Subjective Remarks Follow up cervical neck pain with left sided neuropathy. Patient states left upper extremity and left foot numbness continued. Neck pain still present. Continued headache with nausea, no vomiting. Denies any fever, chills, cough, chest pain or vomiting. Currently doing PT. Been ambulatory. Tolerating diet. Tried Flexiril and [place] with minimal pain relief, agreeable to trying a new regimen of Mobic and Meloxicam upon discharge. Objective Vitals Vital Signs Date Time Temp Pulse Resp B/P Pulse Ox O2 Delivery O2 Flow Rate FiO2 01/29/17 08:03 98.1 90 18 111/60 95 01/29/17 04:14 97.8 86 18 121/72 97 01/28/17 22:47 96 01/28/17 19:13 97.8 104 18 117/71 97 01/28/17 16:04 96.3 82 19 178/79 94 01/28/17 12:04 97.1 88 18 104/54 95 I/O 01/28/17 01/28/17 01/28/17 01/29/17 01/29/17 01/29/17 07:00 15:00 23:00 07:00 15:00 23:00 Intake Total 380 ml Balance 380 ml Intake Oral 380 ml # Voids 4 # Bowel Movements 1 Result Diagram: 01/28/17 0531 01/28/17 0531 Imaging Last Impressions Neck Magnetic Resonance Angiography 01/28/17927 Signed Impressions: Service Date/Time: January 16:35 - CONCLUSION: Normal examination. Bogdan Braga MD Head Magnetic Resonance Angiography 01/28/17927 Signed Impressions: Service Date/Time: January 16:35 - CONCLUSION: Normal examination. Bogdan Braga MD Brain MRI 01/28/1728 Signed Impressions: Service Date/Time: January 16:35 - CONCLUSION: No acute intracranial findings Bogdan Braga MD Cervical Spine MRI 01/27/17 0000 Signed Impressions: Service Date/Time: Friday, January 27, 2017 18:00 - CONCLUSION: Very mild cervical spine degenerative changes as detailed above. No significant foraminal or spinal stenosis demonstrated at any level. There is no fracture or subluxation. Bogdan Hatch MD Objective Remarks GENERAL: Well-nourished, well-developed patient in [facility]. SKIN: Warm and dry. No rash. HEENT: Normocephalic. Atraumatic. Pupils equal and round. No scleral icterus. Mucous membranes pink and moist. NECK: Supple. Trachea midline. CARDIOVASCULAR: Regular rate and rhythm. S1, S2 noted. No murmur appreciated. RESPIRATORY: No accessory muscle use. Clear to auscultation. Breath sounds equal bilaterally. GASTROINTESTINAL: Abdomen soft, non-tender, nondistended. Normoactive bowel sounds x4. MUSCULOSKELETAL: No obvious deformities. Extremities without clubbing, cyanosis , or edema. NEUROLOGICAL: Awake and alert. No obvious cranial nerve deficits. Motor grossly within normal limits. 5/5 muscle strength in bilateral upper and lower extremities. Normal speech. Still subjectively complains of numbness in left upper extremity and left foot with diminished sensation. PSYCHIATRIC: Appropriate mood and affect; insight and judgment normal. Urinary Catheter: No Vascular Central Line Catheter: No A/P Assessment and Plan 31-year-old female with history of asthma, anxiety, SVT, TIA, hyperparathyroid, GERD, endometriosis, migraines, presents with acute onset of neck pain yesterday 01/27. Cervical Spine Radiculopathy: C-spine MRI images reviewed, shows C6-7 disc slightly desiccated, minimal loss of height, bulging of disc and mild effacement of the anterior thecal sac without cord compression or significant spinal stenosis. ER contacted home companion neurosurgeon Dr. Cerrato who recommended neurology consultation. Neurology report reviewed, OK to discharge from their standpoint; brain MRI/MRA report reviewed, no acute intracranial findings. Cancel PT consult, patient ambulatory. Will send patient home on mobic 15 mg PO daily and robaxin 500 mg PO QID, patient agreeable to trying a different regimen. JAMAL, resolved: Cr 1.24 upon arrival, previously 0.9 in . IVF given. Repeat BMP with improvement, Cr 1.01. Avoid nephrotoxins. Recent Fall with Concussion/Headache: patient reports fall back in November, still experience "post-concussive" symptoms with headaches, dizziness, weakness , blurred vision. Follow up with neurologist in [place] after discharge, patient agreeable. Hx of SVT: chronic, continue patient's digoxin. Asthma: chronic, continue patient's Xopenex inhaler prn. Written by Aida Negro, acting as scribe for Dr. Veras on 01/29/17 at 09: 56. This note was transcribed by scribe []. I, Dr. Kelsey Veras personally performed the history, physical exam, and medical decision making; and confirmed the accuracy of the information in the transcribed note. Authenticated by Dr. Kelsey Veras on 01/29/17 at 20:29. Discharge Planning Discharge patient to home Condition on discharge: Stable Regular Diet as tolerated Ad Marry activity, as tolerated. Rx written: Meloxicam 15 mg by mouth daily when necessary pain scale 4-10; Robaxin 500 mg by mouth 4 times a day. Follow-up with primary care physician in one week. Follow-up with neurology in ten days. Aida Negro Jan 29, 2017 09:38 Kelsey Veras MD Jan 29, 2017 20:29
[2017-01-29 09:44] VITALS: RESP 20
[2017-01-29 10:07] LABS: RAPID PLASMA REAGIN SCREEN NON-REACTIVE (NON-REACTVE)
[2017-01-29 13:12] LABS: ANA SCREEN POS (NEG)
[2017-02-01 17:30] LABS: ANA TITER QUANT 1:40 (NEG)
== END 2017-01-29 10:37 | disposition home or self-care (01) ==
LOC: NEPC 15:57 → NEDA 19:44 → NEPGCP 21:04
PROVIDERS: ADMIT Family Medicine; ATTEND Family Medicine
DX: M54.12 Radiculopathy, cervical region (principal); R53.1 Weakness; J45.909 Unspecified asthma, uncomplicated; N17.9 Acute kidney failure, unspecified; F41.9 Anxiety disorder, unspecified; K21.9 Gastro-esophageal reflux disease without esophagitis; I47.1 Supraventricular tachycardia; Z88.4 Allergy status to anesthetic agent; Z88.1 Allergy status to other antibiotic agents; Z91.041 Radiographic dye allergy status; Z91.040 Latex allergy status; Z88.5 Allergy status to narcotic agent; Z86.73 Personal history of transient ischemic attack (TIA), and cerebral infarction without residual deficits
CPT/HCPCS: 70544; 70548; 70553; 72141; 76937; 80048; 81001; 82550; 82607; 83921; 84425; 84450; 84460; 84702; 85025; 85652; 86038; 86039; 86430; 86592; 96365; 96375; 96376; 97161; 99285; A9579; G0378; G8987; G8988; J1200; J2270; J2405; J2800; J2930; J7030; J7050

== ENCOUNTER 2017-02-14 17:18 | Emergency (ER) | payer OTHER ==
[~2017-02-14] VITALS: Ht 157.5 cm; Wt 80.0 kg
[~2017-02-14 17:18] MED LIST changes: -ALBU1.25 NEB; -BACT800T5 PO; -CLIN1CAP5 PO; -CYCL1TAB29 PO; -DULO1CAP2 PO; -GABA300C5 PO; -IBUP-232 PO; -LORA-474 PO; -MACR100C2 PO; +MOBI15TA PO; -OXYC15TA PO; -PERC5TAB12 PO; -PRED50 PO; +ROBA500T PO; -ZANA4CAP PO; -ZYRT10CA PO
[2017-02-14 17:22] VITALS: BP 176/89; PULSE 122; RESP 26; TEMP 97.8; O2SAT 100
[2017-02-14] MEDS ORDERED: SODIUM CHLORID 0.9% 500 ML INJ 500 ML IV ONE (17:30)
[2017-02-14] MEDS ORDERED: ASPIRIN 81 MG CHEW TAB PO ONE (17:30)
[2017-02-14] MEDS ORDERED: SODIUM CHLORIDE 0.9% FLUSH 10 ML FLUSH IVF PRN (17:30)
--- NOTE | 2017-02-14 17:32 | PD ---
HPI Chief Complaint: Chest Pain Time Seen by Provider: 17:32 Travel History International Travel<30 days: No Contact w/Intl Traveler<30days: No Traveled to known affect area: No History of Present Illness HPI 31 year-old female history of SVT, hyperparathyroidism, GERD, anxiety, presents to the emergency department for evaluation of acute onset substernal pain. Patient describes it as pressure and crushing for the last 10-15 minutes. Patient states she's never had anything like this in the past. Denies any history DVT or PE. No significant cardiac history. Patient denies any recent illnesses, fever, or chills. She reports mild nausea without vomiting. She has no other symptoms to report. PFSH Past Medical History Asthma: Yes Anxiety: Yes Heart Rhythm Problems: Yes (SVT) Cardiovascular Problems: Yes (SVT) Cerebrovascular Accident: Yes (TIA) Diminished Hearing: No Endocrine: Yes (HYPERPARATHYROID) GERD: Yes Reproductive: Yes (endometriosis) Respiratory: Yes (ASTHMA) Immunizations Current: Yes Migraines: Yes ?: Not Past Surgical History Abdominal Surgery: Yes Appendectomy: Yes Cardiac Surgery: Yes (ATRIAL SEPTIAL DEFECT REPAIR) Cholecystectomy: Yes Genitourinary Surgery: Yes ("2-3 ABLASIONS RELATED TO ENDOMETRIOSIS") Gynecologic Surgery: Yes (LAP ) Thoracic Surgery: Yes (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) Social History Alcohol Use: Yes (RARE) Tobacco Use: No Substance Use: No Allergies-Medications (Allergen,Severity, Reaction): Coded Allergies: Compazine (Verified Allergy, Severe, Shortness of Breath, 02/14/17) Contrast Media (Verified Allergy, Severe, Anaphylaxis, 02/14/17) Dilaudid (Verified Allergy, Severe, Itching, 02/14/17) Gadolinium Derivatives (Verified Allergy, Severe, 02/14/17) Per patient when given MRI contrast it becomes hard to swallow and she feels burning in her throat. EG 01/28/2017 Latex (Verified Allergy, Severe, Anaphylaxis, 02/14/17) Reglan (Verified Allergy, Severe, Shortness of Breath, 02/14/17) Succinylcholine (Verified Allergy, Severe, 02/14/17) Cephalosporins (Verified Allergy, Mild, HIVES, 02/14/17) Reported Meds & Prescriptions Reported Meds & Active Scripts Active Macrobid (Nitrofurantoin Monoh/Nitrofur Macro) 100 Mg Cap 100 Mg PO BID 10 Days Ibuprofen 800 Mg Tab 800 Mg PO Q8H PRN Phenergan (Promethazine HCl) 25 Mg Tab 25 Mg PO Q6H PRN Reported Xopenex Neb (Levalbuterol HCl) 0.63 Mg/3 Ml Neb 0.63 Mg NEB QID Xopenex Hfa 15 GM Inh (Levalbuterol 15 GM Inh) 45 Mcg/Act Aer 1 Puff INH Q4HR PRN Shake well before using. (1 puff = 45 mcg) Singulair (Montelukast Sodium) 10 Mg Tab 10 Mg PO HS Digoxin 0.25 Mg Tab 0.25 Mg PO DAILY Fiorinal (Butalbital/Aspirin/Caffeine) 50-325-40 Mg Cap 1 Cap PO Q4H PRN Do not exceed 6 capsules/day. Omeprazole 20 Mg Tab 20 Mg PO BID Review of Systems Except as stated in HPI: all other systems reviewed are Neg Physical Exam Narrative GENERAL: Well-nourished female patient, sitting up in bed, in mild distress secondary to pain. SKIN: Focused skin assessment warm/dry. HEAD: Atraumatic. Normocephalic. EYES: Pupils equal and round. No scleral icterus. No injection or drainage. ENT: No nasal bleeding or discharge. Mucous membranes pink and moist. NECK: Trachea midline. No JVD. CARDIOVASCULAR: Tachycardic rate and rhythm. No murmur appreciated. RESPIRATORY: No accessory muscle use. Clear to auscultation. Breath sounds equal bilaterally. GASTROINTESTINAL: Abdomen soft, non-tender, nondistended. Hepatic and splenic margins not palpable. MUSCULOSKELETAL: No obvious deformities. No clubbing. No cyanosis. No edema. NEUROLOGICAL: Awake and alert. No obvious cranial nerve deficits. Motor grossly within normal limits. Normal speech. Data Data Last Documented VS Vital Signs Date Time Temp Pulse Resp B/P Pulse Ox O2 Delivery O2 Flow Rate FiO2 02/14/17 20:25 93 18 123/71 99 Room Air 02/14/17 19:26 2 02/14/17 17:22 97.8 Orders Electrocardiogram (02/14/17 17:29) Basic Metabolic Panel (Bmp) (02/14/17 17:29) Ckmb (Isoenzyme) Profile (02/14/17 17:29) Complete Blood Count With Diff (02/14/17 17:29) D-Dimer (02/14/17 17:29) Magnesium (Mg) (02/14/17 17:29) Prothrombin Time / Inr (Pt) (02/14/17 17:29) Act Partial Throm Time (Ptt) (02/14/17 17:29) Troponin I (02/14/17 17:29) Lipase (02/14/17 17:29) Chest, Single Ap (02/14/17 17:29) Ecg Monitoring (02/14/17 17:29) Bilateral Bp Monitoring (02/14/17 17:29) Iv Access Insert/Monitor (02/14/17 17:29) Oximetry (02/14/17 17:29) Oxygen Administration (02/14/17 17:29) Aspirin Chew (Aspirin Chew) (02/14/17 17:30) Sodium Chloride 0.9% Flush (Ns Flush) (02/14/17 17:30) Sodium Chlorid 0.9% 500 Ml Inj (Ns 500 M (02/14/17 17:30) Urinalysis - C+S If Indicated (02/14/17 17:29) Ed Urine Pregnancytest Poc (02/14/17 17:29) Ondansetron Inj (Zofran Inj) (02/14/17 17:45) Ketorolac Inj (Toradol Inj) (02/14/17 18:00) Urine Culture (02/14/17 17:52) Albuterol Neb (Albuterol Neb) (02/14/17 18:45) Ondansetron Inj (Zofran Inj) (02/14/17 18:45) Al-Mag Hy-Si 40-40-4 Mg/Ml Liq (Mag-Al P (02/14/17 18:45) Lidocaine 2% Viscous (Xylocaine 2% Visco (02/14/17 18:45) Ventilation & Perfusion Scan (02/14/17 ) Levofloxacin (Levaquin) (02/14/17 21:00) Labs Laboratory Tests Test 02/14/17 02/14/17 17:52 18:17 Urine Color YELLOW Urine Turbidity HAZY Urine pH 5.5 Urine Specific [place] 1.031 Urine Protein 30 mg/dL Urine Glucose (UA) NEG mg/dL Urine Ketones NEG mg/dL Urine Occult Blood TRACE Urine Nitrite NEG Urine Bilirubin NEG Urine Urobilinogen LESS THAN 2.0 MG/DL Urine Leukocyte Esterase LARGE Urine RBC 7 /hpf Urine WBC 93 /hpf Urine Squamous Epithelial 15 /hpf Cells Urine Bacteria FEW /hpf Urine Mucus MANY /lpf Microscopic Urinalysis Comment CULTURE INDICATED White Blood Count 14.9 TH/MM3 Red Blood Count 4.63 MIL/MM3 Hemoglobin 13.3 GM/DL Hematocrit 40.5 % Mean Corpuscular Volume 87.5 FL Mean Corpuscular Hemoglobin 28.6 PG Mean Corpuscular Hemoglobin 32.7 % Concent Red Cell Distribution Width 14.2 % Platelet Count 279 TH/MM3 Mean Platelet Volume 8.1 FL Neutrophils (%) (Auto) 72.3 % Lymphocytes (%) (Auto) 19.1 % Monocytes (%) (Auto) 6.4 % Eosinophils (%) (Auto) 1.3 % Basophils (%) (Auto) 0.9 % Neutrophils # (Auto) 10.8 TH/MM3 Lymphocytes # (Auto) 2.9 TH/MM3 Monocytes # (Auto) 1.0 TH/MM3 Eosinophils # (Auto) 0.2 TH/MM3 Basophils # (Auto) 0.1 TH/MM3 CBC Comment DIFF FINAL Differential Comment Prothrombin Time 10.8 SEC Prothromb Time International 1.0 RATIO Ratio Activated Partial 27.6 SEC Thromboplast Time D-Dimer Quantitative (PE/DVT) 1.58 MG/L FEU Sodium Level 140 MEQ/L Potassium Level 3.6 MEQ/L Chloride Level 106 MEQ/L Carbon Dioxide Level 26.7 MEQ/L Anion Gap 7 MEQ/L Blood Urea Nitrogen 19 MG/DL Creatinine 1.33 MG/DL Estimat Glomerular Filtration 47 ML/MIN Rate Random Glucose 100 MG/DL Calcium Level 9.0 MG/DL Magnesium Level 2.1 MG/DL Total Creatine Kinase 51 U/L Troponin I LESS THAN 0.02 NG/ML Lipase 184 U/L [facility] Medical Decision Making Medical Screen Exam Complete: Yes Emergency Medical Condition: Yes Medical Record Reviewed: Yes Differential Diagnosis Costochondritis versus pleurisy versus anxiety versus chest wall pain versus less likely PE versus ACS Narrative Course 31 year-old female presents to the emergency department for evaluation of chest pressure and pain for the last 15 minutes. Patient is mildly tachycardic without any ST elevation or depression noted on EKG. Is as reviewed by my attending physician. Patient is given aspirin. Patient is placed on tug master. He is given Toradol for pain. Chest x-ray is with slight linear atelectasis at the left lung base. CBC is a mild leukocytosis of 14.9 with neutrophilia of 10.8. BMP is with urine and 19, creatinine 1.33, GFR 47 otherwise without acute concern. Troponin is less than 0.02. Lipase is 184. Urinalysis is hazy with 30 proteinuria, trace occult blood, large leukocyte esterase, 7 RBC, 93 WBC, few bacteria, many mucus. Patient is given oral antibiotic here in the emergency department while further tests pending. D- dimer is 1.58. Patient is allergic to contrast media therefore a VQ scan is ordered. We're informed that it will be an hour and a half until the VQ scan be completed. Once this is complete it is determined as a normal examination. I have discussed these with my attending physician Dr. Rg who is also assessed the patient and reviewed the chart. I go and discuss the findings with the patient who asks me what am I going to do about her pain. I stated we had treated her pain and after GI cocktail. I explained that this was a good thing the VQ scan was normal examination. I did offer chest pain center observation for further evaluation of this chest pain despite a negative workup and the patient be low risk. She tells me "Just get me the fuck out of here if you aren't going to do anything for my pain." I reminded the patient of her extensive list of allergies and she tells me "Well I can have morphine, but just get me out of here." Again I offered the chest pain center however the patient chooses to leave at this time. Diagnosis Primary Impression: Chest pain Qualified Code: R07.9 - Chest pain, unspecified type Additional Impression: UTI (urinary tract infection) Qualified Code: N39.0 - Urinary tract infection without hematuria, site unspecified Referrals: Primary Care Physician Patient Instructions: Chest Wall Pain (ED), General Instructions Additional Instructions: Follow-up with your primary care provider Tylenol and/or ibuprofen as instructed on the package as needed for pain Return immediately with any acute worsening of symptoms Med/Other Pt SpecificInfo: Prescription(s) given Scripts Nitrofurantoin Monohydrate Macrocrystals (Macrobid)100 Mg [id number] Mg PO BID 10 Days Ref 0 Prov:Angie Guillen 02/14/17 Disposition: 01 DISCHARGE HOME Condition: Stable Angie Guillen Feb 14, 2017 17:32
[2017-02-14] MEDS ORDERED: ONDANSETRON HCL 4 MG/2 ML VIAL IV PUSH ONE ×2 (17:45→18:45)
[2017-02-14 17:49] VITALS: RESP 18; O2SAT 98
--- NOTE | 2017-02-14 17:58 | RADRPT ---
EXAM DATE/TIME: 02/14/2017 17:29 [facility] COMPARISON: CHEST SINGLE AP, October 18, 2016, 0:21. INDICATIONS : Chest pain. MEDICAL HISTORY : None. SURGICAL HISTORY : None. ENCOUNTER: Initial ACUITY: 1 day PAIN SCORE: 0/10 LOCATION: Bilateral chest FINDINGS: The lungs are clear without infiltrate, nodule, or mass except for slight linear atelectasis left fang g base. There is no appreciable pleural effusion for technique. Heart and mediastinum are unremarka ble. There is evidence for prior median sternotomy. CONCLUSION: Slight linear atelectasis left lung base. Noemy Rivero MD on February 14, 2017 at 17:55 Board Certified Radiologist. This report was verified electronically.
[2017-02-14 18:00] VITALS: BP_SYST 148; BP_SYST 154; BP_DIAS 61; BP_DIAS 70; PULSE 102
[2017-02-14] MEDS ORDERED: KETOROLAC TROMETHAMINE 30 MG/ML (IVP) VIAL IV PUSH ONE (18:00)
[2017-02-14 18:31] LABS: AUTOMATED NEUTROPHIL # 10.8 TH/MM3 (1.8-7.7); BASOPHIL # 0.1 TH/MM3 (0-0.2); BASOPHIL % 0.9 % (0.0-2.0); EOSINOPHIL # 0.2 TH/MM3 (0-0.4); EOSINOPHIL % 1.3 % (0.0-4.0); HEMATOCRIT 40.5 % (35.0-46.0); HEMO FLAGS DIFF FINAL; LYMPH % 19.1 % (9.0-44.0); LYMPHOCYTE # 2.9 TH/MM3 (1.0-4.8); MEAN CELL VOLUME 87.5 FL (80.0-100.0); MEAN CORPUSCULAR HEMOGLOBIN 28.6 PG (27.0-34.0); MEAN CORPUSCULAR HGB CONC 32.7 % (32.0-36.0); MONO % 6.4 % (0.0-8.0); NEUT % 72.3 % (16.0-70.0); PLATELET COUNT 279 TH/MM3 (150-450); RED BLOOD COUNT 4.63 MIL/MM3 (4.00-5.30); RED CELL DISTRIBUTION WIDTH 14.2 % (11.6-17.2); WHITE BLOOD COUNT 14.9 TH/MM3 (4.0-11.0)
[2017-02-14 18:35] LABS: BACTERIA, URINE FEW /hpf; BLOOD, URINE TRACE (NEG); COMMENT (UR) CULTURE INDICATED; CULTURE IF INDICATED CULTURE INDICATED; GLUCOSE,URINE NEG (NEG); KETONE, URINE NEG (NEG); MUCUS URINE MANY /lpf (OCC); NITRITE,URINE NEG (NEG); PH, URINE 5.5 (5.0-8.5); SQUAMOUS EPITHELIAL CELL URINE 15 /hpf (0-5); URINE COLOR YELLOW (YELLW/STRAW)
[2017-02-14 18:44] LABS: APTT (PATIENT) 27.6 SEC (24.3-30.1); PROTHROMBIN TIME - PATIENT 10.8 SEC (9.8-11.6)
[2017-02-14] MEDS ORDERED: LIDOCAINE VISCOUS 2% SOLN 15 ML UDC PO ONE (18:45)
[2017-02-14] MEDS ORDERED: ALUMINUM/MAGNESIUM/SIMETH 30 ML CUP PO ONE (18:45)
[2017-02-14] MEDS ORDERED: RESP: ALBUTEROL 1.25 MG/3 ML NEB (SCH) NEB ONE (18:45)
[2017-02-14 19:09] LABS: ANION GAP 7 MEQ/L (5-15); BICARBONATE 26.7 MEQ/L (21.0-32.0); BLOOD UREA NITROGEN 19 MG/DL (7-18); CHLORIDE 106 MEQ/L (98-107); GLOMERULAR FILTRATION RATE 47 ML/MIN (>89); MAGNESIUM 2.1 MG/DL (1.5-2.5); POTASSIUM 3.6 MEQ/L (3.5-5.1); SODIUM (NA) 140 MEQ/L (136-145)
[2017-02-14 19:16] LABS: CREATINE KINASE 51 U/L (26-192)
[2017-02-14 19:26] VITALS: BP 112/75; PULSE 84; RESP 18; O2SAT 98
[2017-02-14 20:25] VITALS: BP 123/71; PULSE 93; RESP 18; O2SAT 99
[2017-02-14] MEDS ORDERED: LEVOFLOXACIN 500 MG TAB PO ONE (21:00)
--- NOTE | 2017-02-14 21:16 | RADRPT ---
EXAM DATE/TIME: 02/14/2017 20:41 [facility] COMPARISON: CHEST SINGLE AP, February 14, 2017, 17:29. INDICATIONS : Substernal chest pain. Asthma. DOSE: 8.1 mCi Tc99m MAA IV 0.9 mCi Tc99m DTPA aerosol MEDICAL HISTORY : Hyperparathyroidism. SURGICAL HISTORY : Appendectomy. Cholecystectomy. Atrial septal defect repair. ENCOUNTER: Initial ACUITY: 1 day PAIN SCALE: 1/10 LOCATION: Bilateral chest TECHNIQUE: Following five minutes of tidal breathing of DTPA aerosol, planar images of the lungs were performed in eight projections. The patient was then injected with MAA, and eight-view perfusion scan was perf ormed. FINDINGS: There is a homogeneous pattern of aerosol delivery to the periphery of both lungs. No focal ventilat ory defects are seen. The perfusion lung scan demonstrates a homogenous pattern of uptake in both lungs. No segmental or s ubsegmental defects are seen. CONCLUSION: Normal examination. Noemy Rivero MD on February 14, 2017 at 21:14 Board Certified Radiologist. This report was verified electronically.
[2017-02-14] MEDS ORDERED: MACR100C2 PO (21:28)
--- NOTE | 2017-02-15 22:59 | EKG ---
Date Performed: 02/14/2017 Time Performed: 17:32:56 PTAGE: 31 years EKG: SINUS TACHYCARDIA MARKED RIGHT AXIS DEVIATION ABNORMAL ECG PREVIOUS TRACING : 10/17/2016 20.40 Compared to prior tracing no significant change DOCTOR: Jose Odom Interpretating Date/Time 02/15/2017 22:59:26
== END 2017-02-14 22:14 | disposition home or self-care (01) ==
LOC: NEPE 17:18
DX: R07.89 Other chest pain (principal); E21.3 Hyperparathyroidism, unspecified; K21.9 Gastro-esophageal reflux disease without esophagitis; F41.9 Anxiety disorder, unspecified; I47.1 Supraventricular tachycardia; J45.909 Unspecified asthma, uncomplicated; R94.31 Abnormal electrocardiogram [ECG] [EKG]; Z86.73 Personal history of transient ischemic attack (TIA), and cerebral infarction without residual deficits
CPT/HCPCS: 71010; 78582; 80048; 81001; 82550; 83690; 83735; 84484; 84703; 85025; 85379; 85610; 85730; 87086; 93005; 96374; 96375; 99285; A9540; A9567; J1885; J2405; J7040

== ENCOUNTER 2018-01-08 16:57 | Inpatient (IN) | payer SELFPAY ==
[~2018-01-08] VITALS: Ht 167.6 cm; Wt 76.6 kg
[~2018-01-08 16:57] MED LIST changes: +IBUP1TAB7 PO; -IBUP800T23 PO; +MACR100C2 PO; -MOBI15TA PO; -OMEP20TA PO; +OMEP20TA93 PO; +PROPOFOL 200 MG/20 ML AMP IV ONE; -ROBA500T PO; +VECURONIUM BROMIDE 20 MG VIAL IV ONE
--- NOTE | 2018-01-08 19:05 | HHI.HP ---
HPI Service Critical Care Medicine Primary Care Physician Non-Staff Admission Diagnosis Diagnosis: Travel History International Travel<30 Days: No Contact w/Intl Traveler <30 Da: No Traveled to Known Affected Are: No History of Present Illness 32-year-old female with the history of multiple allergies and severe anaphylactic reactions requiring intubation multiple times and previous tracheostomy suffered from another anaphylactic reaction after she took some [place] off medicine. She presented to [facility] in severe respiratory distress, was nasally intubated and transferred here for higher level of care and better airway. She was taken emergently to operating room and tracheostomy was placed by surgeon. Review of Systems ROS Unobtainable patient is sedated and intubated Past Family Social History Allergies: Coded Allergies: diatrizoate meglumine (Unverified Allergy, Severe, Anaphylaxis, 06/02/17) gadobenic acid (Unverified Allergy, Severe, 06/02/17) Per patient when given MRI contrast it becomes hard to swallow and she feels burning in her throat. EG 01/28/2017 gadodiamide (Unverified Allergy, Severe, 06/02/17) Per patient when given MRI contrast it becomes hard to swallow and she feels burning in her throat. EG 01/28/2017 gadoteridol (Unverified Allergy, Severe, 06/02/17) Per patient when given MRI contrast it becomes hard to swallow and she feels burning in her throat. EG 01/28/2017 hydromorphone (Unverified Allergy, Severe, Itching, 06/02/17) iodixanol (Unverified Allergy, Severe, Anaphylaxis, 06/02/17) iohexol (Unverified Allergy, Severe, Anaphylaxis, 06/02/17) latex (Unverified Allergy, Severe, Anaphylaxis, 06/02/17) metoclopramide (Unverified Allergy, Severe, Shortness of Breath, 06/02/17) prochlorperazine (Unverified Allergy, Severe, Shortness of Breath, 06/02/17 ) succinylcholine (Unverified Allergy, Severe, 06/02/17) cefepime (Unverified Allergy, Mild, HIVES, 06/02/17) ceftaroline fosamil (Unverified Allergy, Mild, HIVES, 06/02/17) Past Medical History asthma, hx of intubation anxiety SVT TIA hyperparathyroid GERD endometriosis migraines Past Surgical History atrial septal defect repair appendectomy cholecystectomy endometriosis ablations x3 left 1st rib resection secondary to thoracic outlet syndrome in 2012 Reported Medications Reported Meds & Active Scripts Active Macrobid (Nitrofurantoin Monoh/Nitrofur Macro) 100 Mg Cap 100 Mg PO BID 10 Days Ibuprofen 800 Mg Tab 800 Mg PO Q8H PRN Phenergan (Promethazine HCl) 25 Mg Tab 25 Mg PO Q6H PRN Reported Xopenex Neb (Levalbuterol HCl) 0.63 Mg/3 Ml Neb 0.63 Mg NEB QID Xopenex Hfa 15 GM Inh (Levalbuterol 15 GM Inh) 45 Mcg/Act Aer 1 Puff INH Q4HR PRN Shake well before using. (1 puff = 45 mcg) Singulair (Montelukast Sodium) 10 Mg Tab 10 Mg PO HS Digoxin 0.25 Mg Tab 0.25 Mg PO DAILY Fiorinal (Butalbital/Aspirin/Caffeine) 50-325-40 Mg Cap 1 Cap PO Q4H PRN Do not exceed 6 capsules/day. Omeprazole 20 Mg Tab 20 Mg PO BID Active Ordered Medications Current Medications Medications (Trade) Dose Ordered Sig/Toshia Route PRN Reason Start Time Stop Time Status Last Admin Dose Admin Butalbital/ Aspirin/Caffeine (Fiorinal 325-40-50) 1 cap Q4H PRN PO HEADACHE 01/08/18 19:15 Digoxin (Lanoxin) 0.25 mg DAILY PO 01/09/18 09:00 Ibuprofen (Motrin) 800 mg Q8H PRN PO Inflammation 01/08/18 19:15 Montelukast Sodium (Singulair) 10 mg HS PO 01/08/18 21:00 Nitrofurantoin Macrocrystals (Macrobid) 100 mg BID PO 01/08/18 21:00 Promethazine HCl (Phenergan) 25 mg Q6H PRN PO Nausea/Vomiting 01/08/18 19:15 Patient Own Medication PT OWN MED: (Levalbuterol 15 GM ... Q4H PRN INH SHORTNESS OF BREATH 01/08/18 19:45 Future Hold Albuterol Sulfate (Albuterol Neb) 1.25 mg QID NEB NEB 01/08/18 20:00 Future Hold Cisatracurium Besylate 100 mg/ Sodium Chloride 260 ml @ 10.92 mls/ hr TITRATE PRN IV TOF 1/4 01/08/18 19:15 Sodium Chloride 1,000 ml @ 84 mls/hr [id number] IV 01/08/18 20:00 01/08/18 20:48 Sodium Chloride (NS Flush) 2 ml UNSCH PRN IV FLUSH FLUSH AFTER USING IV ACCESS 01/08/18 19:15 Sodium Chloride (NS Flush) 2 ml BID IV FLUSH 01/08/18 21:00 01/08/18 20:44 Acetaminophen (Tylenol) 650 mg Q6H PRN PO PAIN 1-5 AND/OR FEVER >101F 01/08/18 19:15 Morphine Sulfate (Morphine Inj) 2 mg Q2H PRN IV PAIN SCALE 6 TO 10 01/08/18 19:30 Midazolam HCl (Versed Inj) 2 mg Q1H PRN IV PUSH SEDATION 01/08/18 19:15 Enoxaparin Sodium (Lovenox Inj) 40 mg Q24H SQ 01/08/18 20:00 01/08/18 20:41 Senna/Docusate Sodium (Annette-Colace) 1 tab BID PO 01/08/18 21:00 Magnesium Hydroxide (Milk Of Magnesia Liq) 30 ml Q12H PRN PO Mild constipation 01/08/18 19:15 Sennosides (Senokot) 17.2 mg Q12H PRN PO Moderate constipation 01/08/18 19:15 Bisacodyl (Dulcolax Supp) 10 mg DAILY PRN RECTAL SEVERE CONSITIPATION 01/08/18 19:15 Lactulose (Lactulose Liq) 30 ml DAILY PRN PO SEVERE CONSITIPATION 01/08/18 19:15 Propofol 100 ml @ 2.1 mls/hr TITRATE PRN IV SEDATION 01/08/18 19:15 01/09/18 00:09 Diphenhydramine HCl (Benadryl Inj) 25 mg Q6H IM 01/08/18 19:15 Epinephrine HCl 2 mg/Dextrose 250 ml @ 30 mls/hr TITRATE PRN IV Blood Pressure Management 01/08/18 19:30 Albuterol/ Ipratropium (Duoneb Neb) 1 ampule Q4HR NEB INH 01/08/18 20:00 01/08/18 23:23 Albuterol/ Ipratropium (Duoneb Neb) 1 ampule Q2HR NEB PRN INH WHEEZING 01/08/18 19:15 Labetalol HCl (Trandate Inj) 20 mg Q15M PRN IV PUSH sbp > 160 01/08/18 19:15 Hydralazine HCl (Apresoline Inj) 10 mg Q30M PRN IV PUSH sbp > 160 01/08/18 19:15 Potassium Chloride 100 ml @ 50 mls/hr Q2H PRN IV For Potassium 2.8 - 3.2 mEq/L 01/08/18 19:15 Potassium Chloride 100 ml @ 50 mls/hr Q2H PRN IV For Potassium 2.8 - 3.2 mEq/L 01/08/18 19:15 Potassium Bicarb/ Potassium Chloride (K-Lyte Cl Eff) 50 meq UNSCH PRN PO For Potassium 3.3 - 3.5 mEq/L 01/08/18 19:15 Potassium Chloride 100 ml @ 25 mls/hr UNSCH PRN IV For Potassium 3.3 - 3.5 mEq/L 01/08/18 19:15 Potassium Chloride 100 ml @ 50 mls/hr Q2H PRN IV For Potassium 3.3 - 3.5 mEq/L 01/08/18 19:15 Magnesium Sulfate 4 gm/Sodium Chloride 100 ml @ 50 mls/hr UNSCH PRN IV For Magnesium 0.9 - 1.1 mg/dL 01/08/18 19:15 Magnesium Oxide (Mag-Ox) 800 mg UNSCH PRN PO For Magnesium 1.2 - 1.6 mg/dL 01/08/18 19:15 Magnesium Sulfate 2 gm/Sodium Chloride 100 ml @ 50 mls/hr UNSCH PRN IV For Magnesium 1.2 - 1.6 mg/dL 01/08/18 19:15 Potassium Phosphate (K-Phos) 2,000 mg Q4H PRN PO For Phosphorus < 2.5 mg/dL 01/08/18 19:15 Sodium Phosphate 30 mmol/Sodium Chloride 250 ml @ 42 mls/hr UNSCH PRN IV For Phosphorus < 2.5 mg/dL 01/08/18 19:15 Potassium Phosphate (K-Phos) 2,000 mg UNSCH PRN PO/TUBE SEE LABEL COMMENTS 01/08/18 19:15 Potassium Phosphate 30 mmol/ Sodium Chloride 260 ml @ 42 mls/hr UNSCH PRN IV SEE LABEL COMMENTS 01/08/18 19:15 Chlorhexidine Gluconate (Peridex 0.12% Liq) 15 ml BID@08,20 MT 01/08/18 20:00 01/08/18 20:45 Dextrose (D50w (Vial) Inj) 25 ml UNSCH PRN IV PUSH HYPOGLYCEMIA-SEE COMMENTS 01/08/18 19:15 Insulin Human Regular (NovoLIN R SUPPLEMENTAL SCALE) 1 Q6HR SQ 01/09/18 00:00 01/09/18 00:19 Famotidine (Pepcid Inj) 20 mg Q12HR IV PUSH 01/08/18 21:00 01/08/18 20:42 Ondansetron HCl (Zofran Inj) 4 mg Q6H PRN IV PUSH NAUSEA OR VOMITING 01/08/18 19:15 Miscellaneous Information 1 [id number] XX 01/08/18 19:15 Chlorhexidine Gluconate (Chlorhexidine 2% Cloth) 3 pack Taper DAILY@04 TOP 01/09/18 04:00 01/05/19 03:59 Chlorhexidine Gluconate (Chlorhexidine 2% Cloth) 3 pack UNSCH PRN TOP HYGIENIC CARE 01/08/18 19:15 Dexamethasone Sodium Phosphate (Decadron Inj) 4 mg Q6H IV PUSH 01/08/18 20:00 01/08/18 20:41 Family History Mother with hypertension Father fairly healthy Maternal and Paternal Grandparents with heart disease Social History Denies any tobacco use Occasional alcohol use No history of illicit drug use Physical Exam Vital Signs Vital Signs Date Time Temp Pulse Resp B/P (MAP) Pulse Ox O2 Delivery O2 Flow Rate FiO2 01/08/18 23:24 99 60 01/08/18 22:00 109 01/08/18 20:00 97.8 16 114/57 (76) Physical Exam GENERAL: Well-nourished, well-developed patient. Sedated and intubated SKIN: Warm and dry. HEAD: Normocephalic. EYES: No scleral icterus. No injection or drainage. NECK: Supple, tracheostomy in midline without signs of infection or inflammation or bleeding. No JVD or lymphadenopathy. CARDIOVASCULAR: Regular rate and rhythm without murmurs, gallops, or rubs. RESPIRATORY: Breath sounds equal bilaterally. No accessory muscle use. GASTROINTESTINAL: Abdomen soft, non-tender, nondistended. MUSCULOSKELETAL: No cyanosis, or edema. BACK: Nontender without obvious deformity. NEURO EXAM: Mental Status: The patient is sedated and intubated. Caprini VTE Risk Assessment Caprini VTE Risk Assessment: Mod/High Risk (score >= 2) Caprini Risk Assessment Model Point Value = 1 Point Value = 2 Point Value = 3 Point Value = 5 Age 41-60 Minor surgery BMI > 25 kg/m2 Swollen legs Varicose veins or History of unexplained or recurrent spontaneous Oral contraceptives or hormone replacement Sepsis (< 1 month) Serious lung disease, including pneumonia (< 1 month) Abnormal pulmonary function Acute myocardial infarction Congestive heart failure (< 1 month) History of inflammatory bowel disease Medical patient at bed rest Age 61-74 Arthroscopic surgery Major open surgery (> 45 min) Laparoscopic surgery (> 45 min) Malignancy Confined to bed (> 72 hours) Immobilizing plaster cast Central venous access Age >= 75 History of VTE Family history of VTE Factor V Leiden Prothrombin [id number] Lupus anticoagulant Anticardiolipin antibodies Elevated serum homocysteine Heparin-induced thrombocytopenia Other congenital or acquired thrombophilia Stroke (< 1 month) Elective arthroplasty Hip, pelvis, or leg fracture Acute spinal cord injury (< 1 month) Prophylaxis Regimen Total Risk Factor Score Risk Level Prophylaxis Regimen 0-1 Low Early ambulation 2 Moderate Order ONE of the following: *Sequential Compression Device (SCD) *Heparin 5000 units SQ BID 3-4 Higher Order ONE of the following medications: *Heparin 5000 units SQ TID *Enoxaparin/Lovenox 40 mg SQ daily (WT < 150 kg, CrCl > 30 mL/min) *Enoxaparin/Lovenox 30 mg SQ daily (WT < 150 kg, CrCl > 10-29 mL/min) *Enoxaparin/Lovenox 30 mg SQ BID (WT < 150 kg, CrCl > 30 mL/min) AND/OR *Sequential Compression Device (SCD) 5 or more Highest Order ONE of the following medications: *Heparin 5000 units SQ TID (Preferred with Epidurals) *Enoxaparin/Lovenox 40 mg SQ daily (WT < 150 kg, CrCl > 30 mL/min) *Enoxaparin/Lovenox 30 mg SQ daily (WT < 150 kg, CrCl > 10-29 mL/min) *Enoxaparin/Lovenox 30 mg SQ BID (WT < 150 kg, CrCl > 30 mL/min) AND *Sequential Compression Device (SCD) Assessment and Plan Assessment and Plan Respiratory failure - Severe anaphylactic reaction - Emergent tracheostomy placed by surgeon - Mechanical ventilation - SBT daily - Vent bundle - Wean as tolerated Anaphylaxis - IV steroids - H1 H2 antagonists Asthma - Continue LABA GERD - IV Pepcid DVT GI prophylax - Teds SCDs - Lovenox - Pepcid Critical Care: The total critical care time was 35 minutes. Time to perform other separately billable procedures was not included in the critical care time. Rory Talley MD Jan 08, 2018 19:05
[2018-01-08] MEDS ORDERED: MISCELLANEOUS NURSING INFORMATION XX SCH ×2 (19:15)
[2018-01-08] MEDS ORDERED: CISATRACURIUM INJ 100 MG in SODIUM CHLOR 0.9% 250 ML INJ 250 ML IV PRN ×4 (19:15)
[2018-01-08] MEDS ORDERED: MAGNESIUM SULFATE INJ 2 GM in SODIUM CHLORIDE 0.9% INJ 96 ML IV PRN (19:15)
[2018-01-08] MEDS ORDERED: PROPOFOL 1000 MG/100 ML INJ 100 ML IV PRN (19:15)
[2018-01-08] MEDS ORDERED: POTASSIUM PHOSPHATE MONOBASIC 500 MG TAB PO PRN (19:15)
[2018-01-08] MEDS ORDERED: IBUPROFEN 800 MG TAB PO PRN (19:15)
[2018-01-08] MEDS ORDERED: ONDANSETRON HCL 4 MG/2 ML VIAL IV PUSH PRN (19:15)
[2018-01-08] MEDS ORDERED: ASPIRIN 325 MG/CAFFEINE 40 MG/BUTALBITAL 50 MG CAP PO PRN (19:15)
[2018-01-08] MEDS ORDERED: POTASSIUM CHLORIDE 25 MEQ EFFERVESCENT TAB PO PRN (19:15)
[2018-01-08] MEDS ORDERED: POTASSIUM CHLOR 40 MEQ PREMIX 100 ML IV PRN ×2 (19:15)
[2018-01-08] MEDS ORDERED: POTASSIUM PHOSPHATE INJ 30 MMOL in SODIUM CHLOR 0.9% 250 ML INJ 250 ML IV PRN (19:15)
[2018-01-08] MEDS ORDERED: MAGNESIUM SULFATE INJ 4 GM in SODIUM CHLORIDE 0.9% INJ 92 ML IV PRN (19:15)
[2018-01-08] MEDS ORDERED: LABETALOL HCL 100 MG/20 ML VIAL IV PUSH PRN (19:15)
[2018-01-08] MEDS ORDERED: SODIUM CHLORIDE 0.9% FLUSH 10 ML FLUSH IV FLUSH PRN (19:15)
[2018-01-08] MEDS ORDERED: LACTULOSE SYRUP 20 GM/30 ML CUP PO PRN (19:15)
[2018-01-08] MEDS ORDERED: MAGNESIUM HYDROXIDE SUSP 30 ML CUP PO PRN (19:15)
[2018-01-08] MEDS ORDERED: BISACODYL 10 MG SUPP RECTAL PRN (19:15)
[2018-01-08] MEDS ORDERED: POTASSIUM PHOSPHATE MONOBASIC 500 MG TAB PO/TUBE PRN (19:15)
[2018-01-08] MEDS ORDERED: SENNOSIDES 8.6 MG TAB PO PRN (19:15)
[2018-01-08] MEDS ORDERED: ACETAMINOPHEN 325 MG TAB PO PRN (19:15)
[2018-01-08] MEDS ORDERED: SODIUM PHOSPHATE INJ 30 MMOL in SODIUM CHLOR 0.9% 250 ML INJ 240 ML IV PRN (19:15)
[2018-01-08] MEDS: diphenhydrAMINE HCL 50 MG/ML VIAL IM SCH (19:15)
[2018-01-08] MEDS ORDERED: MIDAZOLAM HCL 2 MG/2 ML VIAL IV PUSH PRN (19:15)
[2018-01-08] MEDS ORDERED: POTASSIUM CHLOR 20 MEQ PREMIX 100 ML IV PRN ×2 (19:15)
[2018-01-08] MEDS ORDERED: diphenhydrAMINE HCL 50 MG/ML VIAL IV PUSH ONE (19:15)
[2018-01-08] MEDS ORDERED: hydrALAZINE HCL 20 MG/ML VIAL IV PUSH PRN (19:15)
[2018-01-08] MEDS ORDERED: EPINEPHrine (1:1000) INJ 2 MG in DEXTROSE 5% IN WATER INJ 250 ML IV PRN ×2 (19:15)
[2018-01-08] MEDS ORDERED: CHLORHEXIDINE GLUCONATE 2 % 1 PACK (2 CLOTHS) TOP PRN ×2 (19:15)
[2018-01-08] MEDS ORDERED: RESP: ALBUTEROL 2.5 MG/IPRATROPIUM 0.5 MG NEB (PRN) INH ×2 (19:15)
[2018-01-08] MEDS ORDERED: PROMETHAZINE HCL 25 MG TAB PO PRN (19:15)
[2018-01-08] MEDS ORDERED: DEXTROSE 50% IN WATER 50 ML VIAL(D50) IV PUSH PRN (19:15)
[2018-01-08] MEDS ORDERED: MAGNESIUM OXIDE 400 MG TAB PO PRN (19:15)
[2018-01-08] MEDS ORDERED: EPINEPHrine 2 MG/D5W 250 ML IV PRN ×2 (19:30)
[2018-01-08] MEDS ORDERED: MORPHINE SULFATE 2 MG/ML INJ IV PRN (19:30)
[2018-01-08 19:45] VITALS: O2SAT 100
[2018-01-08] MEDS ORDERED: LEVALBUTEROL INH PRN (19:45)
[2018-01-08] MEDS: RESP: ALBUTEROL 2.5 MG/IPRATROPIUM 0.5 MG NEB (SCH) INH ×2 (19:48→23:23)
[2018-01-08 20:00] VITALS: BP 114/57; PULSE 103; RESP 16; TEMP 97.8; O2SAT 100
[2018-01-08] MEDS ORDERED: RESP: ALBUTEROL 2.5 MG/IPRATROPIUM 0.5 MG NEB (SCH) INH (20:00)
[2018-01-08] MEDS ORDERED: RESP: ALBUTEROL 1.25 MG/3 ML NEB (SCH) NEB (20:00)
[2018-01-08] MEDS ORDERED: methylPREDNISolone SOD SUCC 40 MG/1 ML VIAL IV PUSH SCH (20:00)
[2018-01-08] MEDS ORDERED: CHLORHEXIDINE 0.12% (ORAL KIT) 15 ML CUP MT SCH (20:00)
[2018-01-08] MEDS: PROPOFOL 1000 MG/100 ML INJ 100 ML IV PRN (20:14)
[2018-01-08] MEDS: DEXAMETHASONE SOD PHOS 4 MG/ML VIAL IV PUSH SCH (20:41)
[2018-01-08] MEDS: ENOXAPARIN SODIUM 40 MG/0.4 ML SYRINGE SQ SCH (20:41)
[2018-01-08] MEDS: FAMOTIDINE 20 MG/2 ML VIAL IV PUSH SCH (20:42)
[2018-01-08] MEDS: SODIUM CHLORIDE 0.9% FLUSH 10 ML FLUSH IV FLUSH SCH (20:44)
[2018-01-08] MEDS: CHLORHEXIDINE 0.12% (ORAL KIT) 15 ML CUP MT SCH (20:45)
[2018-01-08] MEDS: SODIUM CHLOR 0.9% 1000 ML INJ 1,000 ML IV SCH (20:48)
[2018-01-08] MEDS: DOCUSATE SODIUM 50 MG/SENNA 8.6 MG TAB PO SCH (21:00)
[2018-01-08] MEDS ORDERED: FAMOTIDINE 20 MG/2 ML VIAL IV PUSH SCH (21:00)
[2018-01-08] MEDS: MONTELUKAST SODIUM 10 MG TAB PO SCH (21:00)
[2018-01-08] MEDS: NITROFURANTOIN MONOHYD MACROCR 100 MG CAP PO SCH (21:00)
[2018-01-08 22:00] VITALS: PULSE 109
[2018-01-08 23:24] VITALS: O2SAT 99
[2018-01-09] VITALS (21 sets, daily range): BP systolic 107–141; BP diastolic 56–75; PULSE 104–123; RESP 12–24; TEMP 98.2–99.1; O2SAT 94–98
[2018-01-09] MEDS: PROPOFOL 1000 MG/100 ML INJ 100 ML IV PRN ×2 (00:09→05:09)
[2018-01-09] MEDS: INSULIN NovoLIN REGULAR SUPPLEMENTAL SCALE SQ SCH ×2 (00:19→05:29)
[2018-01-09] MEDS: diphenhydrAMINE HCL 50 MG/ML VIAL IM SCH ×3 (02:29→12:43)
[2018-01-09] MEDS: DEXAMETHASONE SOD PHOS 4 MG/ML VIAL IV PUSH SCH ×3 (02:30→12:42)
[2018-01-09] MEDS: RESP: ALBUTEROL 2.5 MG/IPRATROPIUM 0.5 MG NEB (SCH) INH ×2 (03:25→07:29)
[2018-01-09] MEDS ORDERED: CHLORHEXIDINE GLUCONATE 2 % 1 PACK (2 CLOTHS) TOP SCH ×2 (04:00)
[2018-01-09 04:35] LABS: AUTOMATED NEUTROPHIL # 26.3 TH/MM3 (1.8-7.7); BASOPHIL % 0.1 % (0.0-2.0); HEMATOCRIT 30.9 % (35.0-46.0); HEMOGLOBIN 9.7 GM/DL (11.6-15.3); LYMPH % 2.5 % (9.0-44.0); LYMPHOCYTE # 0.7 TH/MM3 (1.0-4.8); MEAN CELL VOLUME 80.9 FL (80.0-100.0); MEAN CORPUSCULAR HEMOGLOBIN 25.4 PG (27.0-34.0); MEAN CORPUSCULAR HGB CONC 31.4 % (32.0-36.0); MEAN PLATELET VOLUME 8.3 FL (7.0-11.0); MONO % 2.1 % (0.0-8.0); MONOCYTE # 0.6 TH/MM3 (0-0.9); NEUT % 95.3 % (16.0-70.0); PLATELET COUNT 397 TH/MM3 (150-450); RED BLOOD COUNT 3.83 MIL/MM3 (4.00-5.30); RED CELL DISTRIBUTION WIDTH 17.4 % (11.6-17.2); WHITE BLOOD COUNT 27.6 TH/MM3 (4.0-11.0)
[2018-01-09 04:52] LABS: ALBUMIN 3.5 GM/DL (3.4-5.0); AST (GOT) 45 U/L (15-37); BICARBONATE 22.1 MEQ/L (21.0-32.0); BLOOD UREA NITROGEN 21 MG/DL (7-18); CALCIUM 8.8 MG/DL (8.5-10.1); CHLORIDE 106 MEQ/L (98-107); CREATININE 1.38 MG/DL (0.50-1.00); GLOMERULAR FILTRATION RATE 45 ML/MIN (>89); GLUCOSE,RANDOM 312 MG/DL (74-106); MAGNESIUM 2.3 MG/DL (1.5-2.5); SODIUM (NA) 140 MEQ/L (136-145)
[2018-01-09 04:55] LABS: ALKALINE PHOSPHATASE 101 U/L (45-117); ALT (GPT) 61 U/L (10-53); TOTAL BILIRUBIN ADULT 0.4 MG/DL (0.2-1.0); TOTAL PROTEIN 8.2 GM/DL (6.4-8.2)
[2018-01-09] MEDS ORDERED: HYDROmorphone HCL PF 1 MG/ML VIAL IV PUSH PRN (08:00)
[2018-01-09] MEDS ORDERED: HYDROmorphone HCL PF 1 MG/ML VIAL IV PUSH ONE (08:00)
[2018-01-09] MEDS ORDERED: HYDROmorphone HCL PF 2 MG/ML VIAL IV PUSH ONE (08:15)
[2018-01-09] MEDS ORDERED: HYDROmorphone HCL PF 2 MG/ML VIAL IV PRN (08:15)
[2018-01-09] MEDS: FAMOTIDINE 20 MG/2 ML VIAL IV PUSH SCH (08:28)
[2018-01-09] MEDS: SODIUM CHLORIDE 0.9% FLUSH 10 ML FLUSH IV FLUSH SCH ×2 (08:29→20:11)
[2018-01-09] MEDS: SODIUM CHLOR 0.9% 1000 ML INJ 1,000 ML IV SCH (08:30)
[2018-01-09] MEDS ORDERED: LORazepam 2 MG/ML VIAL ONE (08:41)
[2018-01-09] MEDS ORDERED: LORazepam 2 MG/ML VIAL IV ONE (08:45)
[2018-01-09] MEDS: DIGOXIN 0.25 MG TAB PO SCH (09:00)
[2018-01-09] MEDS ORDERED: MORPHINE SULFATE 4 MG/ML INJ IV ONE (09:00)
[2018-01-09] MEDS: DOCUSATE SODIUM 50 MG/SENNA 8.6 MG TAB PO SCH ×2 (09:00→20:11)
[2018-01-09] MEDS ORDERED: DEXTROSE 50% IN WATER 50 ML VIAL(D50) IV PUSH PRN (10:30)
[2018-01-09] MEDS ORDERED: GLUCAGON 1 MG/ML VIAL OTHER PRN (10:30)
[2018-01-09] MEDS ORDERED: PLEASE DISCONTINUE PREVIOUS SUPPLEMENTAL SCALE INSULIN ORDERS ONE (10:30)
[2018-01-09] MEDS: LOW DOSE INSULIN NOVOLIN REGULAR SUPPLEMENTAL SCALE SQ SCH ×3 (12:00→20:24)
[2018-01-09 12:09] LABS: HEMATOCRIT 29.9 % (35.0-46.0); HEMOGLOBIN 9.5 GM/DL (11.6-15.3); MEAN CELL VOLUME 80.2 FL (80.0-100.0); MEAN CORPUSCULAR HEMOGLOBIN 25.5 PG (27.0-34.0); MEAN CORPUSCULAR HGB CONC 31.7 % (32.0-36.0); MEAN PLATELET VOLUME 8.4 FL (7.0-11.0); PLATELET COUNT 347 TH/MM3 (150-450); RED BLOOD COUNT 3.72 MIL/MM3 (4.00-5.30); RED CELL DISTRIBUTION WIDTH 16.9 % (11.6-17.2)
--- NOTE | 2018-01-09 12:12 | RADRPT ---
EXAM DATE/TIME: 01/09/2018 11:32 [facility] COMPARISON: CHEST SINGLE AP, February 14, 2017, 17:29. INDICATIONS : Trach placement. MEDICAL HISTORY : Hyperparathyroidism. SURGICAL HISTORY : Appendectomy. Cholecystectomy. Atrial septal defect repair. ENCOUNTER: Subsequent ACUITY: 1 day PAIN SCORE: 10/10 LOCATION: Bilateral chest FINDINGS: There is a Tracheostomy tube in good position. The patient is status post sternotomy. The heart size is normal. There is increased density at the left base. The right lung is grossly clear. Surgical cli ps are seen at the left supraclavicular region. There is a catheter or drain over the left supraclavi cular region. This could be related to the tracheostomy. CONCLUSION: 1. Tracheostomy in good position. 2. Increased density at the left base related to atelectasis or consolidation. Bogdan Way MD on January 09, 2018 at 12:05 Board Certified Radiologist. This report was verified electronically.
[2018-01-09 12:43] LABS: BICARBONATE 25.5 MEQ/L (21.0-32.0); CREATININE 1.09 MG/DL (0.50-1.00)
[2018-01-09] MEDS: MORPHINE SULFATE 8 MG/ML INJ IV PUSH PRN ×4 (13:42→23:38)
--- NOTE | 2018-01-09 14:23 | HHI.CCPN ---
Subjective Remarks/Hospital Course Hospital Courses: 32-year-old female with the history of multiple allergies and severe anaphylactic reactions requiring intubation multiple times and previous tracheostomy suffered from another anaphylactic reaction after she took some [place] off medicine. She presented to [facility] in severe respiratory distress, was nasally intubated and transferred here for higher level of care and better airway. She was taken emergently to operating room and tracheostomy was placed by surgeon. 01/09: Clinically improving. awake, following commands. weaned down to trach collar. very anxious. stable off epinephrine. Objective Vital Signs Date Time Temp Pulse Resp B/P (MAP) Pulse Ox O2 Delivery O2 Flow Rate FiO2 01/09/18 07:31 98 40 01/09/18 06:00 114 01/09/18 04:00 98.2 16 136/67 (90) Intake and Output 01/09/18 01/09/18 01/09/18 07:59 15:59 23:59 Intake Total 1091 ml Output Total 2000 ml Balance -909 ml Result Diagram: 01/09/18 1040 01/09/18 1040 Objective Remarks GENERAL: young-female, lying in bed. awake. SKIN: Warm and dry. HEAD: Normocephalic. EYES: No scleral icterus. No injection or drainage. NECK: moderately edematous, but improved from yesterday. tracheostomy in place, minimal bleeding. no JVD. CARDIOVASCULAR: Regular rate and rhythm. sinus. RESPIRATORY: equal chest rise. No accessory muscle use. trach collar. GASTROINTESTINAL: Abdomen soft, non-tender, nondistended. MUSCULOSKELETAL: No cyanosis, or edema. NEURO EXAM: RASS 0. GCS 15. follows commands. A/P Assessment and Plan Assessment: 32yF with recurrent anaphylaxis now s/p emergent tracheostomy for anaphyalctic shock. clinically improving. off ventilator. out of shock. can transfer out of ICU. will need swallow eval. unlikely to need PEG as her swelling should go down and she has had 2 prior trachs, so should be able to eat around trach without difficulty. Acute hypoxic and hypercarbic Respiratory failure - resolved. - Severe anaphylactic reaction - Emergent tracheostomy placed by surgeon 01/08: Jazarevic - t-piece/trach collar as tolerated. Anaphylactic shock- resolved - IV steroids - H1 H2 antagonists - s/p epi drip. Asthma - Continue LABA GERD - IV Pepcid DVT GI prophylax - Teds SCDs - Lovenox - Pepcid place NGT for feeds and meds PT consult OOB speech consult for passy yahir valve. Dispo: transfer out of icu Benny Guevara MD Jan 09, 2018 14:23
[2018-01-09] MEDS ORDERED: DEXTROSE 5%-LACTATED RING INJ 1,000 ML IV SCH (15:00)
--- NOTE | 2018-01-09 15:36 | MP ---
cc: Efren Rivera MD DATE OF OPERATION: 01/08/2018 PREOPERATIVE DIAGNOSIS: Respiratory failure, anaphylactic shock, loss of airway. POSTOPERATIVE DIAGNOSIS: Respiratory failure, anaphylactic shock, loss of airway. OPERATIVE PROCEDURE: Emergent redo tracheostomy and bronchoscopy. SURGEON: Efren Rivera MD ANESTHESIA: General. ESTIMATED BLOOD LOSS: 50 mL INDICATION FOR PROCEDURE: This 32-year-old female apparently was transferred from another institution to us with anaphylactic shock. On the way, airway could not be obtained and at this point, patient has some sort of an endotracheal tube that is sitting in the back of throat and is sort of ventilating her, but there was no stable airway. The patient had a previous 2 tracheostomies done and I was called in emergently into hospital by the anesthesiologist, Dr. Estevez, to perform tracheostomy. The patient at this point is in the medical ICU. Requested patient to be transferred to the OR immediately with maintenance of the airway the best they can. DESCRIPTION OF PROCEDURE: The patient was transferred to the OR, prepped and draped in the usual fashion. A transverse neck incision was made by somebody previously today, so packing is removed, which is associated with some bleeding. Incision is a little high, but so be it. It is deepened down to the level of the trachea. The [employer] retractors were placed and trachea exposed. It is pulled up with a stay stitch around the second tracheal ring using 2-0 Prolene and then a combination of open and Blue Rhino tracheostomy is performed. I placed the Angiocath under direct vision into the trachea. Through this, guidewire is passed. Over the guidewire, a punch dilator and over the punch dilator, a Blue Rhino dilator. Next follows the extra long 8 Shiley cannula, which is secured with 2-0 Prolene. It is connected to the ventilator and end tidal CO2 checked. Cannula is in great position. A bronchoscopy is performed and the massive amount of debris is removed from the trachea, including blood and mucus. The patient tolerated the procedure well. MD KAIA Benjamin/STACI , 03:09 PM , 03:35 PM
[2018-01-09] MEDS: ONDANSETRON HCL 4 MG/2 ML VIAL IV PUSH PRN ×2 (15:42→23:38)
[2018-01-09] MEDS: NITROFURANTOIN MONOHYD MACROCR 100 MG CAP PO SCH ×2 (15:42→20:11)
[2018-01-09] MEDS ORDERED: LORazepam 2 MG/ML VIAL IV PUSH ONE (15:45)
[2018-01-09] MEDS ORDERED: RESP: LEVALBUTEROL HYDROCHLORIDE 0.63 MG/3 ML NEB (PRN) NEB (16:00)
[2018-01-09] MEDS: ESCITALOPRAM OXALATE 20 MG TAB PO SCH (17:41)
[2018-01-09] MEDS: diphenhydrAMINE HCL ELIXIR 12.5 MG/5 ML CUP PO PRN ×2 (18:44→23:39)
[2018-01-09] MEDS: CHLORHEXIDINE 0.12% (ORAL KIT) 15 ML CUP MT SCH (20:00)
[2018-01-09] MEDS: ENOXAPARIN SODIUM 40 MG/0.4 ML SYRINGE SQ SCH (20:10)
[2018-01-09] MEDS: FAMOTIDINE 20 MG TAB NG SCH (20:11)
[2018-01-09] MEDS: MONTELUKAST SODIUM 10 MG TAB PO SCH (20:11)
[2018-01-09] MEDS: DILTIAZEM-CD 180 MG CAP ER PO SCH (23:39)
[2018-01-10] VITALS (16 sets, daily range): BP systolic 108–141; BP diastolic 53–68; PULSE 82–118; RESP 14–24; TEMP 98.3–98.9; O2SAT 92–100
[2018-01-10] MEDS: MORPHINE SULFATE 8 MG/ML INJ IV PUSH PRN ×3 (02:44→21:55)
[2018-01-10] MEDS: DEXAMETHASONE SOD PHOS 4 MG/ML VIAL IV PUSH SCH ×4 (02:45→21:05)
[2018-01-10] MEDS: LORazepam 2 MG/ML VIAL IV PUSH PRN ×2 (02:45→13:25)
[2018-01-10] MEDS: LOW DOSE INSULIN NOVOLIN REGULAR SUPPLEMENTAL SCALE SQ SCH ×4 (08:00→21:00)
[2018-01-10] MEDS: CHLORHEXIDINE 0.12% (ORAL KIT) 15 ML CUP MT SCH ×2 (08:00→20:00)
--- NOTE | 2018-01-10 08:08 | HHI.CCPN ---
Subjective Remarks I was called to patients bedside around 2 AM on 01/10/17 after reportedly patient had dislodged her tracheostomy. She had nasotracheal intubation at outside hospital and had an successful attempt at tracheostomy in ED there and then was transferred to [facility]. Upon arrival her nasotracheal tube had dislodged and she underwent emergent redo tracheostomy by Dr. Rivera 01/08/17. Tonight she was transferred from [facility] to [address] [place] [address]. Reportedly she was not compliant with nurses encouragement to remain still and avoid touching her trach and they answered her call rebollar and found the trach dislodged and she was tachypneic and complaining of difficulty breathing.. The trach was being held in place by RT with tip within the stoma, however it appeared that it was not within the trachea. End tidal confirmed it was not longer in trachea and was removed. She was then able to breath more easily and calmly and she was also able to phonate. A single stay suture remained in place and this was removed. She is breathing comfortably on simple mask with sats in 90s. Does not require emergent tracheostomy replacement at this time. Will be transferred to [facility] for observation overnight. Dr. Rivera updated. [facility] charge nurse updated. Discussed with [facility] and bedside RN. Patient updated. Patient was critically ill with respiratory distress from compromised airway. Improved following evaluation and removal of dislodged trach. Will be transferred to [facility] for observation as she is at risk for airway compromise. Resumed decadron. CCT 30 minutes exclusive of separately billable procedures Objective - Vital Signs Date Time Temp Pulse Resp B/P (MAP) Pulse Ox O2 Delivery O2 Flow Rate FiO2 01/10/18 06:00 94 01/10/18 04:00 98.4 19 109/53 (71) 98 01/10/18 02:15 Simple Mask 13.00 01/09/18 08:00 40 Result Diagram: 01/09/18 1040 01/09/18 1040 Lisette Pickett MD Jan 10, 2018 08:08
[2018-01-10] MEDS: DOCUSATE SODIUM 50 MG/SENNA 8.6 MG TAB PO SCH ×2 (08:33→21:07)
[2018-01-10] MEDS: DILTIAZEM-CD 180 MG CAP ER PO SCH (08:33)
[2018-01-10] MEDS: DIGOXIN 0.25 MG TAB PO SCH (08:33)
[2018-01-10] MEDS: SODIUM CHLORIDE 0.9% FLUSH 10 ML FLUSH IV FLUSH SCH ×2 (08:34→21:06)
[2018-01-10] MEDS: FAMOTIDINE 20 MG TAB NG SCH ×2 (08:34→21:44)
[2018-01-10] MEDS: NITROFURANTOIN MONOHYD MACROCR 100 MG CAP PO SCH ×2 (09:00→21:44)
[2018-01-10] MEDS: ESCITALOPRAM OXALATE 20 MG TAB PO SCH (09:00)
[2018-01-10 10:42] LABS: HEMATOCRIT 25.3 % (35.0-46.0); HEMOGLOBIN 8.2 GM/DL (11.6-15.3); MEAN CELL VOLUME 79.6 FL (80.0-100.0); MEAN CORPUSCULAR HEMOGLOBIN 25.7 PG (27.0-34.0); MEAN CORPUSCULAR HGB CONC 32.3 % (32.0-36.0); MEAN PLATELET VOLUME 8.1 FL (7.0-11.0); PLATELET COUNT 247 TH/MM3 (150-450); RED BLOOD COUNT 3.18 MIL/MM3 (4.00-5.30); WHITE BLOOD COUNT 18.4 TH/MM3 (4.0-11.0)
[2018-01-10 11:06] LABS: CALCIUM 9.3 MG/DL (8.5-10.1); CREATININE 1.11 MG/DL (0.50-1.00)
--- NOTE | 2018-01-10 11:49 | HHI.PR ---
Subjective Remarks Follow-up for respiratory failure secondary to anaphylaxis Last night patient pulled her trach. She asked me if another wants can be replaced. She stated her breathing is okay. Denies any shortness of breathing or cough. She is asking for pain medication. Discussed case with patient's nurse Lui. Objective Vitals Vital Signs Date Time Temp Pulse Resp B/P (MAP) Pulse Ox O2 Delivery O2 Flow Rate FiO2 01/10/18 10:00 86 01/10/18 09:54 18 01/10/18 08:56 100 Non-Rebreather 15.00 01/10/18 08:00 98.8 84 14 109/55 (73) 97 01/10/18 08:00 84 01/10/18 06:00 94 01/10/18 04:00 104 01/10/18 04:00 98.4 100 19 109/53 (71) 98 01/10/18 02:15 98 Simple Mask 13.00 01/10/18 02:00 118 01/10/18 02:00 99 10.00 01/10/18 01:40 98.7 114 24 141/68 (92) 92 01/10/18 01:30 99 10.00 01/09/18 22:30 120 01/09/18 22:15 98.9 108 21 112/56 (74) 96 01/09/18 20:15 24 01/09/18 20:00 99.1 121 24 108/57 94 01/09/18 20:00 121 01/09/18 18:00 104 01/09/18 17:00 117 01/09/18 16:00 119 01/09/18 16:00 98.6 119 16 107/58 (74) 97 01/09/18 15:00 122 01/09/18 14:00 123 01/09/18 13:00 111 01/09/18 12:00 99.0 117 15 117/56 (76) 98 01/09/18 12:00 117 I/O 01/09/18 01/09/18 01/09/18 01/10/18 01/10/18 01/10/18 07:00 15:00 23:00 07:00 15:00 23:00 Intake Total 1091 ml 1480 ml Output Total 2000 ml 1700 ml Balance -909 ml -220 ml Intake Oral 480 ml IV Total 1091 ml 1000 ml Output Urine Total 2000 ml 1700 ml # Voids 1 2 # Bowel Movements 0 Result Diagram: 01/10/18 1023 01/10/18 1023 Objective Remarks GENERAL: In no acute distress on nonrebreather SKIN: Warm and dry. HEAD: Normocephalic. EYES: No scleral icterus. No injection or drainage. NECK: Supple, trachea midline. No JVD or lymphadenopathy. Stoma in place CARDIOVASCULAR: Regular rate and rhythm without murmurs, gallops, or rubs. RESPIRATORY: Breath sounds equal bilaterally. No accessory muscle use. GASTROINTESTINAL: Abdomen soft, non-tender, nondistended. MUSCULOSKELETAL: No cyanosis, or edema. BACK: Nontender without obvious deformity. No CVA tenderness. Medications and IVs Current Medications Cisatracurium Besylate 100 mg/ Sodium Chloride 260 ml @ 0 mls/hr TITRATE PRN IV TOF 1/4; Start 01/08/18 at 19:15; Status Cancel Epinephrine HCl 2 mg/Dextrose 252 ml @ 30.24 mls/ hr TITRATE PRN IV Blood Pressure Management; Start 01/08/18 at 19:15; Status UNV Propofol 100 ml @ 0 mls/hr TITRATE PRN IV SEDATION; Start 01/08/18 at 19:15; Status UNV Butalbital/ Aspirin/Caffeine (Fiorinal 325-40-50) 1 cap Q4H PRN PO HEADACHE; Start 01/08/18 at 19:15; Stop 01/09/18 at 15:36; Status DC Digoxin (Lanoxin) 0.25 mg DAILY PO Last administered on 01/10/18at 08:33; Start 01/09/18 at 09:00 Ibuprofen (Motrin) 800 mg Q8H PRN PO Inflammation; Start 01/08/18 at 19:15; Stop 01/10/18 at 00:41; Status DC Montelukast Sodium (Singulair) 10 mg HS PO Last administered on 01/09/18at 20:11 ; Start 01/08/18 at 21:00 Nitrofurantoin Macrocrystals (Macrobid) 100 mg BID PO Last administered on 01/09at 20:11; Start 01/08/18 at 21:00 Promethazine HCl (Phenergan) 25 mg Q6H PRN PO Nausea/Vomiting; Start 01/08/18 at 19:15 Patient Own Medication PT OWN MED: (Levalbuterol 15 GM ... Q4H PRN INH SHORTNESS OF BREATH; Start 01/08/18 at 19:45; Status Future Hold Albuterol Sulfate (Albuterol Neb) 1.25 mg QID NEB NEB ; Start 01/08/18 at 20:00 ; Status Future Hold Cisatracurium Besylate 100 mg/ Sodium Chloride 260 ml @ 10.92 mls/ hr TITRATE PRN IV TOF 1/4 Last administered on 01/09/18at 00:46; Start 01/08/18 at 19:15; Stop 01/09/18 at 07:53; Status DC Sodium Chloride 1,000 ml @ 84 mls/hr [id number] IV Last administered on at 08:30; Start 01/08/18 at 20:00; Stop 01/09/18 at 07:53; Status DC Sodium Chloride (NS Flush) 2 ml UNSCH PRN IV FLUSH FLUSH AFTER USING IV ACCESS ; Start 01/08/18 at 19:15 Sodium Chloride (NS Flush) 2 ml BID IV FLUSH Last administered on 01/09/18at 20: 11; Start 01/08/18 at 21:00 Acetaminophen (Tylenol) 650 mg Q6H PRN PO PAIN 1-5 AND/OR FEVER >101F; Start at 19:15; Stop 01/09/18 at 15:36; Status DC Morphine Sulfate (Morphine Inj) 2 mg Q2H PRN IV PAIN SCALE 6 TO 10; Start 01/08 at 19:30; Stop 01/09/18 at 07:53; Status DC Famotidine (Pepcid Inj) 20 mg Q12HR IV PUSH ; Start 01/08/18 at 21:00; Stop at 21:00; Status DC Midazolam HCl (Versed Inj) 2 mg Q1H PRN IV PUSH SEDATION; Start 01/08/18 at 19: 15; Stop 01/09/18 at 14:16; Status DC Ondansetron HCl (Zofran Inj) 4 mg Q6H PRN IV PUSH NAUSEA OR VOMITING; Start at 19:15; Stop 01/08/18 at 19:34; Status DC Albuterol/ Ipratropium (Duoneb Neb) 1 ampule Q4HR NEB INH ; Start 01/08/18 at 20:00; Stop 01/08/18 at 20:00; Status DC Albuterol/ Ipratropium (Duoneb Neb) 1 ampule Q2HR NEB PRN INH WHEEZING; Start 01/08/18 at 19:15; Stop 01/08/18 at 19:34; Status DC Enoxaparin Sodium (Lovenox Inj) 40 mg Q24H SQ Last administered on 01/09/18at 20 :10; Start 01/08/18 at 20:00 Miscellaneous Information 1 Q361D XX ; Start 01/08/18 at 19:15; Stop 01/08/18 at 19:34; Status DC Chlorhexidine Gluconate (Chlorhexidine 2% Cloth) 3 pack Taper DAILY@04 TOP ; Start 01/09/18 at 04:00; Stop 01/09/18 at 04:00; Status DC Chlorhexidine Gluconate (Chlorhexidine 2% Cloth) 3 pack UNSCH PRN TOP HYGIENIC CARE; Start 01/08/18 at 19:15; Stop 01/08/18 at 19:34; Status DC Senna/Docusate Sodium (Annette-Colace) 1 tab BID PO Last administered on at 08:33; Start 01/08/18 at 21:00 Magnesium Hydroxide (Milk Of Magnesia Liq) 30 ml Q12H PRN PO Mild constipation ; Start 01/08/18 at 19:15 Sennosides (Senokot) 17.2 mg Q12H PRN PO Moderate constipation; Start 01/08/18 at 19:15 Bisacodyl (Dulcolax Supp) 10 mg DAILY PRN RECTAL SEVERE CONSITIPATION; Start at 19:15; Stop 01/09/18 at 15:37; Status DC Lactulose (Lactulose Liq) 30 ml DAILY PRN PO SEVERE CONSITIPATION; Start at 19:15 Chlorhexidine Gluconate (Peridex 0.12% Liq) 15 ml BID@08,20 MT ; Start 01/08/18 at 20:00; Stop 01/08/18 at 20:00; Status DC Propofol 100 ml @ 2.1 mls/hr TITRATE PRN IV SEDATION Last administered on 01/09at 05:09; Start 01/08/18 at 19:15; Stop 01/09/18 at 07:53; Status DC Methylprednisolone Sodium Succinate (SoluMEDROL INJ) 40 mg Q6H IV PUSH ; Start 01/08/18 at 20:00; Stop 01/08/18 at 20:00; Status DC Diphenhydramine HCl (Benadryl Inj) 25 mg Q6H IM Last administered on 01/09/18at 12:43; Start 01/08/18 at 19:15; Stop 01/09/18 at 15:37; Status DC Epinephrine HCl 2 mg/Dextrose 250 ml @ 30 mls/hr TITRATE PRN IV Blood Pressure Management; Start 01/08/18 at 19:30; Stop 01/09/18 at 14:16; Status DC Albuterol/ Ipratropium (Duoneb Neb) 1 ampule Q4HR NEB INH Last administered on 01/09/18at 07:29; Start 01/08/18 at 20:00; Stop 01/09/18 at 15:36; Status DC Albuterol/ Ipratropium (Duoneb Neb) 1 ampule Q2HR NEB PRN INH WHEEZING; Start 01/08/18 at 19:15; Stop 01/09/18 at 15:36; Status DC Labetalol HCl (Trandate Inj) 20 mg Q15M PRN IV PUSH sbp > 160; Start 01/08/18 at 19:15 Hydralazine HCl (Apresoline Inj) 10 mg Q30M PRN IV PUSH sbp > 160; Start at 19:15 Potassium Chloride 100 ml @ 50 mls/hr Q2H PRN IV For Potassium 2.8 - 3.2 mEq/L ; Start 01/08/18 at 19:15; Stop 01/10/18 at 00:36; Status DC Potassium Chloride 100 ml @ 50 mls/hr Q2H PRN IV For Potassium 2.8 - 3.2 mEq/L ; Start 01/08/18 at 19:15; Stop 01/10/18 at 00:36; Status DC Potassium Bicarb/ Potassium Chloride (K-Lyte Cl Eff) 50 meq UNSCH PRN PO For Potassium 3.3 - 3.5 mEq/L; Start 01/08/18 at 19:15; Stop 01/10/18 at 00:36; Status DC Potassium Chloride 100 ml @ 25 mls/hr UNSCH PRN IV For Potassium 3.3 - 3.5 mEq /L; Start 01/08/18 at 19:15; Stop 01/10/18 at 00:36; Status DC Potassium Chloride 100 ml @ 50 mls/hr Q2H PRN IV For Potassium 3.3 - 3.5 mEq/L ; Start 01/08/18 at 19:15; Stop 01/10/18 at 00:36; Status DC Magnesium Sulfate 4 gm/Sodium Chloride 100 ml @ 50 mls/hr UNSCH PRN IV For Magnesium 0.9 - 1.1 mg/dL; Start 01/08/18 at 19:15; Stop 01/10/18 at 00:36; Status DC Magnesium Oxide (Mag-Ox) 800 mg UNSCH PRN PO For Magnesium 1.2 - 1.6 mg/dL; Start 01/08/18 at 19:15; Stop 01/10/18 at 00:36; Status DC Magnesium Sulfate 2 gm/Sodium Chloride 100 ml @ 50 mls/hr UNSCH PRN IV For Magnesium 1.2 - 1.6 mg/dL; Start 01/08/18 at 19:15; Stop 01/10/18 at 00:36; Status DC Potassium Phosphate (K-Phos) 2,000 mg Q4H PRN PO For Phosphorus < 2.5 mg/dL; Start 01/08/18 at 19:15; Stop 01/10/18 at 00:36; Status DC Sodium Phosphate 30 mmol/Sodium Chloride 250 ml @ 42 mls/hr UNSCH PRN IV For Phosphorus < 2.5 mg/dL; Start 01/08/18 at 19:15; Stop 01/10/18 at 00:36; Status DC Potassium Phosphate (K-Phos) 2,000 mg UNSCH PRN PO/TUBE SEE LABEL COMMENTS; Start 01/08/18 at 19:15; Stop 01/10/18 at 00:36; Status DC Potassium Phosphate 30 mmol/ Sodium Chloride 260 ml @ 42 mls/hr UNSCH PRN IV SEE LABEL COMMENTS; Start 01/08/18 at 19:15; Stop 01/10/18 at 00:36; Status DC Chlorhexidine Gluconate (Peridex 0.12% Liq) 15 ml BID@08,20 MT Last administered on 01/08/18at 20:45; Start 01/08/18 at 20:00 Dextrose (D50w (Vial) Inj) 25 ml UNSCH PRN IV PUSH HYPOGLYCEMIA-SEE COMMENTS; Start 01/08/18 at 19:15 Insulin Human Regular (NovoLIN R SUPPLEMENTAL SCALE) 1 Q6HR SQ Last administered on 01/09/18at 05:29; Start 01/09/18 at 00:00; Stop 01/09/18 at 10:15 ; Status DC Famotidine (Pepcid Inj) 20 mg Q12HR IV PUSH Last administered on 01/09/18at 08: 28; Start 01/08/18 at 21:00; Stop 01/09/18 at 15:37; Status DC Ondansetron HCl (Zofran Inj) 4 mg Q6H PRN IV PUSH NAUSEA OR VOMITING Last administered on 01/09/18at 23:38; Start 01/08/18 at 19:15 Miscellaneous Information 1 Q361D XX Last administered on 01/08/18at 19:15; Start 01/08/18 at 19:15; Stop 01/10/18 at 00:41; Status DC Chlorhexidine Gluconate (Chlorhexidine 2% Cloth) 3 pack Taper DAILY@04 TOP Last administered on 01/09/18at 04:00; Start 01/09/18 at 04:00; Stop 01/10/18 at 00:41; Status DC Chlorhexidine Gluconate (Chlorhexidine 2% Cloth) 3 pack UNSCH PRN TOP HYGIENIC CARE; Start 01/08/18 at 19:15; Stop 01/10/18 at 00:41; Status DC Diphenhydramine HCl (Benadryl Inj) 50 mg STAT ONCE IV PUSH Last administered on 01/08/18at 20:43; Start 01/08/18 at 19:15; Stop 01/08/18 at 19:28; Status DC Dexamethasone Sodium Phosphate (Decadron Inj) 4 mg Q6H IV PUSH Last administered on 01/09/18at 12:42; Start 01/08/18 at 20:00; Stop 01/09/18 at 15:37 ; Status DC Hydromorphone HCl (Dilaudid Pf Inj) 1 mg STAT ONCE IV PUSH ; Start 01/09/18 at 08:00; Stop 01/09/18 at 08:01; Status DC Hydromorphone HCl (Dilaudid Pf Inj) 0.5 mg Q4H PRN IV PUSH pain 8-10; Start at 08:00; Stop 01/09/18 at 08:03; Status DC Hydromorphone HCl (Dilaudid Pf Inj) 0.5 mg Q4H PRN IV pain 8-10; Start at 08:15; Stop 01/09/18 at 14:07; Status DC Hydromorphone HCl (Dilaudid Pf Inj) 1 mg STAT ONCE IV PUSH ; Start 01/09/18 at 08:15; Stop 01/09/18 at 08:16; Status DC Morphine Sulfate (Morphine Inj) 10 mg NOW ONCE IV Last administered on at 08:30; Start 01/09/18 at 09:00; Stop 01/09/18 at 09:01; Status DC Lorazepam (Ativan Inj) 1 mg NOW ONCE IV Last administered on 01/09/18at 09:30; Start 01/09/18 at 08:45; Stop 01/09/18 at 08:46; Status DC Lorazepam (Ativan Inj) 2 mg STK-MED ONCE .ROUTE ; Start 01/09/18 at 08:41; Stop 01/09/18 at 08:42; Status DC Miscellaneous Medication ([facility] Information) Please discontinue previ... ONCE ONCE .XX ; Start 01/09/18 at 10:30; Stop 01/09/18 at 10:31; Status DC Dextrose (D50w (Vial) Inj) 50 ml UNSCH PRN IV PUSH HYPOGLYCEMIA - SEE COMMENTS Last administered on 01/09/18at 13:08; Start 01/09/18 at 10:30 Glucagon (Glucagon Inj) 1 mg UNSCH PRN OTHER HYPOGLYCEMIA-SEE COMMENTS; Start 01/09/18 at 10:30 Insulin Human Regular (NovoLIN R SUPPLEMENTAL SCALE) 1 ACHS SLIDING SCALE SQ ; Start 01/09/18 at 12:00 Morphine Sulfate (Morphine Inj) 10 mg Q3H PRN IV PUSH PAIN SCALE 6 TO 10 Last administered on 01/09/18at 23:38; Start 01/09/18 at 13:45 Dextrose/Lactated Ringer's 1,000 ml @ 42 mls/hr [id number] IV ; Start 01/09/18 at 15:00; Stop 01/09/18 at 15:36; Status DC Escitalopram Oxalate (Lexapro) 20 mg DAILY PO Last administered on 01/09/18at 17 :41; Start 01/09/18 at 15:45 Famotidine (Pepcid) 40 mg BID NG Last administered on 01/10/18at 08:34; Start at 21:00 Diphenhydramine HCl (Benadryl Liq) 25 mg Q4H PRN PO itching Last administered on 01/09/18at 23:39; Start 01/09/18 at 15:45 Lorazepam (Ativan) 1 mg Q8H PRN PO anxiety; Start 01/09/18 at 15:45 Lorazepam (Ativan Inj) 1 mg ONCE ONCE IV PUSH Last administered on 01/09/18at 17:07; Start 01/09/18 at 15:45; Stop 01/09/18 at 15:47; Status DC Oxycodone HCl (Roxicodone) 10 mg Q4H PRN PO pain 1-5 Last administered on at 08:54; Start 01/09/18 at 15:45 Levalbuterol HCl (Xopenex Neb) 0.63 mg Q4HR NEB PRN NEB SHORTNESS OF BREATH; Start 01/09/18 at 16:00 Diltiazem HCl (Cardizem Cd) 180 mg DAILY PO Last administered on 01/10/18at 08: 33; Start 01/09/18 at 23:30 Morphine Sulfate (Morphine Inj) 5 mg Q3H PRN IV PUSH PAIN 1-5 AND UNABLE TO TAKE PO Last administered on 01/10/18at 02:44; Start 01/10/18 at 02:00 Dexamethasone Sodium Phosphate (Decadron Inj) 4 mg Q6H IV PUSH Last administered on 01/10/18at 08:34; Start 01/10/18 at 02:00 Lorazepam (Ativan Inj) 1 mg Q8H PRN IV PUSH ANXIETY AND UNABLE TO TAKE PO Last administered on 01/10/18at 02:45; Start 3/26/18 at 02:00 A/P Assessment and Plan 32yF with recurrent anaphylaxis s/p emergent tracheostomy for anaphylactic shock. Acute hypoxic and hypercarbic Respiratory failure - resolved. - Severe anaphylactic reaction -Status post wean off ventilator. - Emergent tracheostomy placed by surgeon 01/08: Nicole -Patient pulled trach out last night. -Discussed case with Dr. Rivera and he stated he will discuss with patient her options. -Patient currently on nonrebreather in no acute distress. Will try to wean as tolerated. Willy's case patient's nurse. Anaphylactic shock- resolved - s/p epi drip. -On IV Decadron, Pepcid and as needed Benadryl. Asthma - Continue LABA GERD - IV Pepcid DVT GI prophylax - Teds SCDs - Lovenox - Pepcid Discharge Planning Patient currently on nonrebreather she will be reevaluated for possible replacement of trach. Will need to remain and ISC until stabilization. Sylvia Leos MD Jan 10, 2018 11:48
[2018-01-10] MEDS: ONDANSETRON HCL 4 MG/2 ML VIAL IV PUSH PRN (14:04)
[2018-01-10] MEDS: LORazepam 1 MG TAB PO PRN (17:44)
[2018-01-10] MEDS: diphenhydrAMINE HCL ELIXIR 12.5 MG/5 ML CUP PO PRN ×2 (18:02→21:43)
[2018-01-10] MEDS: ENOXAPARIN SODIUM 40 MG/0.4 ML SYRINGE SQ SCH (21:06)
[2018-01-10] MEDS: MONTELUKAST SODIUM 10 MG TAB PO SCH (21:06)
[2018-01-11] VITALS (14 sets, daily range): BP systolic 113–135; BP diastolic 56–75; PULSE 75–103; RESP 16–23; TEMP 98.3–99.1; O2SAT 94–99
--- NOTE | 2018-01-11 00:35 | EKG ---
Date Performed: 01/09/2018 Time Performed: 11:08:40 PTAGE: 32 years EKG: Sinus tachycardia. Poor R wave progression - probable normal variant Inferior and anterior T wave changes are nonspecific Low QRS voltages in precordial leads Borderline ECG PREVIOUS TRACING : 02/14/2017 17.32 DOCTOR: Michael Fraser Interpretating Date/Time 01/11/2018 00:20:13
[2018-01-11] MEDS: LORazepam 1 MG TAB PO PRN ×2 (01:23→20:03)
[2018-01-11] MEDS: DEXAMETHASONE SOD PHOS 4 MG/ML VIAL IV PUSH SCH ×4 (01:23→20:03)
[2018-01-11] MEDS: MORPHINE SULFATE 8 MG/ML INJ IV PUSH PRN ×5 (01:24→20:05)
[2018-01-11 04:27] LABS: HEMATOCRIT 25.7 % (35.0-46.0); HEMOGLOBIN 8.3 GM/DL (11.6-15.3); MEAN CELL VOLUME 79.3 FL (80.0-100.0); MEAN CORPUSCULAR HEMOGLOBIN 25.6 PG (27.0-34.0); MEAN CORPUSCULAR HGB CONC 32.3 % (32.0-36.0); MEAN PLATELET VOLUME 8.5 FL (7.0-11.0); PLATELET COUNT 261 TH/MM3 (150-450); RED BLOOD COUNT 3.23 MIL/MM3 (4.00-5.30); WHITE BLOOD COUNT 14.7 TH/MM3 (4.0-11.0)
[2018-01-11 04:50] LABS: BICARBONATE 30.5 MEQ/L (21.0-32.0); CALCIUM 9.6 MG/DL (8.5-10.1); CREATININE 1.03 MG/DL (0.50-1.00)
[2018-01-11] MEDS: LOW DOSE INSULIN NOVOLIN REGULAR SUPPLEMENTAL SCALE SQ SCH ×4 (07:35→20:05)
[2018-01-11] MEDS: CHLORHEXIDINE 0.12% (ORAL KIT) 15 ML CUP MT SCH ×2 (08:00→20:00)
[2018-01-11] MEDS: NITROFURANTOIN MONOHYD MACROCR 100 MG CAP PO SCH ×2 (08:03→20:03)
[2018-01-11] MEDS: DILTIAZEM-CD 180 MG CAP ER PO SCH (08:04)
[2018-01-11] MEDS: DOCUSATE SODIUM 50 MG/SENNA 8.6 MG TAB PO SCH ×2 (08:04→20:03)
[2018-01-11] MEDS: ESCITALOPRAM OXALATE 20 MG TAB PO SCH (08:04)
[2018-01-11] MEDS: DIGOXIN 0.25 MG TAB PO SCH (08:04)
[2018-01-11] MEDS: FAMOTIDINE 20 MG TAB NG SCH ×2 (08:04→20:03)
[2018-01-11] MEDS: SODIUM CHLORIDE 0.9% FLUSH 10 ML FLUSH IV FLUSH SCH ×2 (08:04→20:04)
[2018-01-11] MEDS: diphenhydrAMINE HCL ELIXIR 12.5 MG/5 ML CUP PO PRN ×3 (12:06→21:34)
--- NOTE | 2018-01-11 13:27 | HHI.PR ---
Subjective Remarks in no acute distress. has occasional cough. mother at the bedside. d/w the RN and no acute issues over night. Objective Vitals Vital Signs Date Time Temp Pulse Resp B/P (MAP) Pulse Ox O2 Delivery O2 Flow Rate FiO2 01/11/18 11:05 16 01/11/18 10:00 87 01/11/18 08:00 81 01/11/18 08:00 98.6 83 18 125/75 (92) 96 01/11/18 06:00 81 01/11/18 05:56 99 Non-Rebreather 12.00 01/11/18 04:00 98.3 80 16 119/59 (79) 97 01/11/18 04:00 84 01/11/18 02:00 95 01/11/18 00:00 98.9 87 16 135/61 (85) 97 01/11/18 00:00 87 01/10/18 22:00 82 01/10/18 20:39 96 Nasal Cannula 4.00 01/10/18 20:00 98.9 111 16 122/60 (80) 97 01/10/18 20:00 111 01/10/18 18:00 112 01/10/18 16:00 90 01/10/18 16:00 98.7 90 16 118/59 (78) 96 01/10/18 14:00 82 01/10/18 13:46 18 I/O 01/10/18 01/10/18 01/10/18 01/11/18 01/11/18 01/11/18 07:00 15:00 23:00 07:00 15:00 23:00 Intake Total 640 ml 720 ml Balance 640 ml 720 ml Intake Oral 640 ml 720 ml # Voids 2 4 10 # Bowel Movements 1 Result Diagram: 01/11/18 0359 01/11/18 0359 Imaging Last Impressions Chest X-Ray 01/09/18 0000 Signed Impressions: Service Date/Time: Tuesday, January 09, 2018 11:32 - CONCLUSION: 1. Tracheostomy in good position. 2. Increased density at the left base related to atelectasis or consolidation. Bogdan Way MD Objective Remarks GENERAL: This is a well-nourished, well-developed patient, in no apparent distress. CARDIOVASCULAR: Regular rate and regular rhythm without murmurs, gallops, or rubs. RESPIRATORY: Clear to auscultation. Breath sounds equal bilaterally. No wheezes , rales, or rhonchi. GASTROINTESTINAL: Abdomen soft, non-tender, nondistended. Normal, active bowel sounds MUSCULOSKELETAL: Extremities without clubbing, cyanosis, or edema. NEURO: Alert & Oriented x4 to person, place, time, situation. Moves all ext x4 Medications and IVs Inpatient Medications Acetaminophen (Tylenol) 650 mg Q6H PRN PO PAIN 1-5 AND/OR FEVER >101F; Start at 19:15; Stop 01/09/18 at 15:36; Status DC Albuterol Sulfate (Albuterol Neb) 1.25 mg QID NEB NEB ; Start 01/08/18 at 20:00 ; Status Future Hold Albuterol/ Ipratropium (Duoneb Neb) 1 ampule Q2HR NEB PRN INH WHEEZING; Start 01/08/18 at 19:15; Stop 01/09/18 at 15:36; Status DC Bisacodyl (Dulcolax Supp) 10 mg DAILY PRN RECTAL SEVERE CONSITIPATION; Start at 19:15; Stop 01/09/18 at 15:37; Status DC Butalbital/ Aspirin/Caffeine (Fiorinal 325-40-50) 1 cap Q4H PRN PO HEADACHE; Start 01/08/18 at 19:15; Stop 01/09/18 at 15:36; Status DC Chlorhexidine Gluconate (Chlorhexidine 2% Cloth) 3 pack UNSCH PRN TOP HYGIENIC CARE; Start 01/08/18 at 19:15; Stop 01/10/18 at 00:41; Status DC Chlorhexidine Gluconate (Peridex 0.12% Liq) 15 ml BID@08,20 MT Last administered on 01/08/18at 20:45; Start 01/08/18 at 20:00 Cisatracurium Besylate 100 mg/ Sodium Chloride 260 ml @ 10.92 mls/ hr TITRATE PRN IV TOF 1/4 Last administered on 01/09/18at 00:46; Start 01/08/18 at 19:15; Stop 01/09/18 at 07:53; Status DC Dexamethasone Sodium Phosphate (Decadron Inj) 4 mg Q6H IV PUSH Last administered on 01/11/18 08:03; Start 01/10/18 at 02:00 Dextrose (D50w (Vial) Inj) 50 ml UNSCH PRN IV PUSH HYPOGLYCEMIA - SEE COMMENTS Last administered on 01/09/18at 13:08; Start 01/09/18 at 10:30 Dextrose/Lactated Ringer's 1,000 ml @ 42 mls/hr [id number] IV ; Start 01/09/18 at 15:00; Stop 01/09/18 at 15:36; Status DC Digoxin (Lanoxin) 0.25 mg DAILY PO Last administered on 01/11/18 08:04; Start 01/09/18 at 09:00 Diltiazem HCl (Cardizem Cd) 180 mg DAILY PO Last administered on 01/11/18 08: 04; Start 01/09/18 at 23:30 Diphenhydramine HCl (Benadryl Liq) 25 mg Q4H PRN PO itching Last administered on 01/11/18 12:06; Start 01/09/18 at 15:45 Diphenhydramine HCl (Benadryl Inj) 50 mg STAT ONCE IV PUSH Last administered on 01/08/18at 20:43; Start 01/08/18 at 19:15; Stop 01/08/18 at 19:28; Status DC Enoxaparin Sodium (Lovenox Inj) 40 mg Q24H SQ Last administered on 01/10/18at 21 :06; Start 01/08/18 at 20:00 Epinephrine HCl 2 mg/Dextrose 250 ml @ 30 mls/hr TITRATE PRN IV Blood Pressure Management; Start 01/08/18 at 19:30; Stop 01/09/18 at 14:16; Status DC Escitalopram Oxalate (Lexapro) 20 mg DAILY PO Last administered on 01/11/18 08 :04; Start 01/09/18 at 15:45 Famotidine (Pepcid Inj) 20 mg Q12HR IV PUSH Last administered on 01/09/18 08: 28; Start 01/08/18 at 21:00; Stop 01/09/18 at 15:37; Status DC Famotidine (Pepcid) 40 mg BID NG Last administered on 01/11/18at 08:04; Start at 21:00 Glucagon (Glucagon Inj) 1 mg UNSCH PRN OTHER HYPOGLYCEMIA-SEE COMMENTS; Start 01/09/18 at 10:30 Hydralazine HCl (Apresoline Inj) 10 mg Q30M PRN IV PUSH sbp > 160; Start at 19:15 Hydromorphone HCl (Dilaudid Pf Inj) 1 mg STAT ONCE IV PUSH ; Start 01/09/18 at 08:15; Stop 01/09/18 at 08:16; Status DC Ibuprofen (Motrin) 800 mg Q8H PRN PO Inflammation; Start 01/08/18 at 19:15; Stop 01/10/18 at 00:41; Status DC Insulin Human Regular (NovoLIN R SUPPLEMENTAL SCALE) 1 ACHS SLIDING SCALE SQ Last administered on 01/10/18at 17:28; Start 01/09/18 at 12:00 Labetalol HCl (Trandate Inj) 20 mg Q15M PRN IV PUSH sbp > 160; Start 01/08/18 at 19:15 Lactulose (Lactulose Liq) 30 ml DAILY PRN PO SEVERE CONSITIPATION; Start at 19:15 Levalbuterol HCl (Xopenex Neb) 0.63 mg Q4HR NEB PRN NEB SHORTNESS OF BREATH; Start 01/09/18 at 16:00 Lorazepam (Ativan Inj) 1 mg Q8H PRN IV PUSH ANXIETY AND UNABLE TO TAKE PO Last administered on 01/10/18at 13:25; Start 01/10/18 at 02:00 Lorazepam (Ativan) 1 mg Q8H PRN PO anxiety Last administered on 01/11/18at 01:23 ; Start 01/09/18 at 15:45 Magnesium Hydroxide (Milk Of Magnesia Liq) 30 ml Q12H PRN PO Mild constipation ; Start 01/08/18 at 19:15 Magnesium Oxide (Mag-Ox) 800 mg UNSCH PRN PO For Magnesium 1.2 - 1.6 mg/dL; Start 01/08/18 at 19:15; Stop 01/10/18 at 00:36; Status DC Magnesium Sulfate 2 gm/Sodium Chloride 100 ml @ 50 mls/hr UNSCH PRN IV For Magnesium 1.2 - 1.6 mg/dL; Start 01/08/18 at 19:15; Stop 01/10/18 at 00:36; Status DC Magnesium Sulfate 4 gm/Sodium Chloride 100 ml @ 50 mls/hr UNSCH PRN IV For Magnesium 0.9 - 1.1 mg/dL; Start 01/08/18 at 19:15; Stop 01/10/18 at 00:36; Status DC Methylprednisolone Sodium Succinate (SoluMEDROL INJ) 40 mg Q6H IV PUSH ; Start 01/08/18 at 20:00; Stop 01/08/18 at 20:00; Status DC Midazolam HCl (Versed Inj) 2 mg Q1H PRN IV PUSH SEDATION; Start 01/08/18 at 19: 15; Stop 01/09/18 at 14:16; Status DC Miscellaneous Information 1 Q361D XX Last administered on 01/08/18at 19:15; Start 01/08/18 at 19:15; Stop 01/10/18 at 00:41; Status DC Miscellaneous Medication ([facility] [place] [facility] Information) Please discontinue previ... ONCE ONCE .XX ; Start 01/09/18 at 10:30; Stop 01/09/18 at 10:31; Status DC Montelukast Sodium (Singulair) 10 mg HS PO Last administered on 01/10/18at 21:06 ; Start 01/08/18 at 21:00 Morphine Sulfate (Morphine Inj) 5 mg Q3H PRN IV PUSH PAIN 1-5 AND UNABLE TO TAKE PO Last administered on 01/11/18at 11:00; Start 01/10/18 at 02:00 Nitrofurantoin Macrocrystals (Macrobid) 100 mg BID PO Last administered on 01/11at 08:03; Start 01/08/18 at 21:00 Ondansetron HCl (Zofran Inj) 4 mg Q6H PRN IV PUSH NAUSEA OR VOMITING Last administered on 01/10/18at 14:04; Start 01/08/18 at 19:15 Oxycodone HCl (Roxicodone) 10 mg Q4H PRN PO pain 1-5 Last administered on at 21:07; Start 01/09/18 at 15:45 Patient Own Medication PT OWN MED: (Levalbuterol 15 GM ... Q4H PRN INH SHORTNESS OF BREATH; Start 01/08/18 at 19:45; Status Future Hold Potassium Phosphate (K-Phos) 2,000 mg UNSCH PRN PO/TUBE SEE LABEL COMMENTS; Start 01/08/18 at 19:15; Stop 01/10/18 at 00:36; Status DC Potassium Phosphate 30 mmol/ Sodium Chloride 260 ml @ 42 mls/hr UNSCH PRN IV SEE LABEL COMMENTS; Start 01/08/18 at 19:15; Stop 01/10/18 at 00:36; Status DC Potassium Bicarb/ Potassium Chloride (K-Lyte Cl Eff) 50 meq UNSCH PRN PO For Potassium 3.3 - 3.5 mEq/L; Start 01/08/18 at 19:15; Stop 01/10/18 at 00:36; Status DC Potassium Chloride 100 ml @ 50 mls/hr Q2H PRN IV For Potassium 3.3 - 3.5 mEq/L ; Start 01/08/18 at 19:15; Stop 01/10/18 at 00:36; Status DC Promethazine HCl (Phenergan) 25 mg Q6H PRN PO Nausea/Vomiting; Start 01/08/18 at 19:15 Propofol 100 ml @ 2.1 mls/hr TITRATE PRN IV SEDATION Last administered on 01/09at 05:09; Start 01/08/18 at 19:15; Stop 01/09/18 at 07:53; Status DC Senna/Docusate Sodium (Annette-Colace) 1 tab BID PO Last administered on at 08:04; Start 01/08/18 at 21:00 Sennosides (Senokot) 17.2 mg Q12H PRN PO Moderate constipation; Start 01/08/18 at 19:15 Sodium Chloride (NS Flush) 2 ml BID IV FLUSH Last administered on 01/10/18at 21: 06; Start 01/08/18 at 21:00 Sodium Phosphate 30 mmol/Sodium Chloride 250 ml @ 42 mls/hr UNSCH PRN IV For Phosphorus < 2.5 mg/dL; Start 01/08/18 at 19:15; Stop 01/10/18 at 00:36; Status DC A/P Assessment and Plan Acute hypoxic and hypercarbic Respiratory failure - resolved. - Severe anaphylactic reaction -Status post wean off ventilator. - Emergent tracheostomy placed by surgeon 01/08: Nicole -Patient pulled trach out the night before. -the trach to be replaced today. Anaphylactic shock- resolved - s/p epi drip. -On IV Decadron, Pepcid and as needed Benadryl. Asthma - Continue LABA GERD - IV Pepcid DVT GI prophylax - Teds SCDs - Lovenox - Pepcid Discharge Planning waiting trach replacement. Glenna Reid MD Jan 11, 2018 13:27
[2018-01-11] MEDS: LORazepam 2 MG/ML VIAL IV PUSH PRN (13:32)
[2018-01-11] MEDS: ONDANSETRON HCL 4 MG/2 ML VIAL IV PUSH PRN (14:11)
[2018-01-11] MEDS: ENOXAPARIN SODIUM 40 MG/0.4 ML SYRINGE SQ SCH (20:04)
[2018-01-11] MEDS: MONTELUKAST SODIUM 10 MG TAB PO SCH (21:00)
[2018-01-12] VITALS (12 sets, daily range): BP systolic 110–131; BP diastolic 58–78; PULSE 67–112; RESP 15–21; TEMP 98–99; O2SAT 97–100
[2018-01-12] MEDS: DEXAMETHASONE SOD PHOS 4 MG/ML VIAL IV PUSH SCH ×3 (02:07→22:04)
[2018-01-12 05:18] LABS: HEMATOCRIT 31.7 % (35.0-46.0); HEMOGLOBIN 10.2 GM/DL (11.6-15.3); MEAN CELL VOLUME 80.3 FL (80.0-100.0); MEAN CORPUSCULAR HEMOGLOBIN 25.8 PG (27.0-34.0); MEAN CORPUSCULAR HGB CONC 32.1 % (32.0-36.0); MEAN PLATELET VOLUME 8.3 FL (7.0-11.0); PLATELET COUNT 322 TH/MM3 (150-450); RED BLOOD COUNT 3.95 MIL/MM3 (4.00-5.30); RED CELL DISTRIBUTION WIDTH 16.6 % (11.6-17.2); WHITE BLOOD COUNT 15.1 TH/MM3 (4.0-11.0)
[2018-01-12 05:43] LABS: BICARBONATE 30.9 MEQ/L (21.0-32.0); CALCIUM 9.7 MG/DL (8.5-10.1); CREATININE 1.13 MG/DL (0.50-1.00)
[2018-01-12] MEDS: LOW DOSE INSULIN NOVOLIN REGULAR SUPPLEMENTAL SCALE SQ SCH ×4 (08:00→21:00)
[2018-01-12] MEDS: SODIUM CHLORIDE 0.9% FLUSH 10 ML FLUSH IV FLUSH SCH ×2 (08:12→19:57)
[2018-01-12] MEDS: CHLORHEXIDINE 0.12% (ORAL KIT) 15 ML CUP MT SCH ×2 (08:12→20:00)
[2018-01-12] MEDS: LORazepam 1 MG TAB PO PRN (08:13)
[2018-01-12] MEDS: ESCITALOPRAM OXALATE 20 MG TAB PO SCH (08:13)
[2018-01-12] MEDS: DOCUSATE SODIUM 50 MG/SENNA 8.6 MG TAB PO SCH ×2 (08:13→21:00)
[2018-01-12] MEDS: FAMOTIDINE 20 MG TAB NG SCH ×2 (08:13→21:00)
[2018-01-12] MEDS: DILTIAZEM-CD 180 MG CAP ER PO SCH (08:13)
[2018-01-12] MEDS: NITROFURANTOIN MONOHYD MACROCR 100 MG CAP PO SCH ×2 (08:13→21:00)
[2018-01-12] MEDS: DIGOXIN 0.25 MG TAB PO SCH (08:14)
[2018-01-12] MEDS: MORPHINE SULFATE 8 MG/ML INJ IV PUSH PRN ×3 (08:18→23:33)
[2018-01-12] MEDS ORDERED: LIDOCAINE 1%/EPINEPHrine 1:100,000 SOLN 30 ML VIAL ONE ×2 (10:26→10:40)
[2018-01-12] MEDS ORDERED: MIDAZOLAM HCL 2 MG/2 ML VIAL ONE (10:57)
[2018-01-12] MEDS ORDERED: diphenhydrAMINE HCL 50 MG/ML VIAL ONE (11:07)
[2018-01-12] MEDS ORDERED: KETAMINE HCL 10 MG/5 ML SYRINGE IV PUSH ONE (11:10)
--- NOTE | 2018-01-12 11:51 | HHI.PR ---
Subjective Remarks in no acute distress. awaiting trach placement. d/w the RN and no acute issues over night. mother at the bedside. Objective Vitals Vital Signs Date Time Temp Pulse Resp B/P (MAP) Pulse Ox O2 Delivery O2 Flow Rate FiO2 01/12/18 10:55 98.5 92 14 131/92 (105) 93 01/12/18 10:55 Nasal Cannula 2 01/12/18 06:00 80 01/12/18 04:00 69 01/12/18 04:00 98.1 68 18 110/58 (75) 98 01/12/18 02:00 87 01/12/18 00:00 70 01/12/18 00:00 98.7 88 18 120/63 (82) 98 01/11/18 22:00 75 01/11/18 21:03 96 Nasal Cannula 4.00 01/11/18 20:00 99.1 87 18 113/57 (75) 94 01/11/18 20:00 87 01/11/18 18:19 20 01/11/18 18:00 100 01/11/18 16:00 98.7 83 22 121/60 (80) 96 01/11/18 16:00 83 01/11/18 14:00 89 01/11/18 12:00 99.1 89 23 114/56 (75) 95 01/11/18 12:00 103 I/O 01/11/18 01/11/18 01/11/18 01/12/18 01/12/18 01/12/18 07:00 15:00 23:00 07:00 15:00 23:00 Intake Total 720 ml 480 ml 200 ml Balance 720 ml 480 ml 200 ml Intake Oral 720 ml 480 ml 200 ml # Voids 10 5 3 # Bowel Movements 0 Result Diagram: 01/12/18 0427 01/12/18 0427 Imaging Last Impressions Chest X-Ray 01/09/18 0000 Signed Impressions: Service Date/Time: Tuesday, January 09, 2018 11:32 - CONCLUSION: 1. Tracheostomy in good position. 2. Increased density at the left base related to atelectasis or consolidation. Bogdan Way MD Objective Remarks GENERAL: This is a well-nourished, well-developed patient, in no apparent distress. CARDIOVASCULAR: Regular rate and regular rhythm without murmurs, gallops, or rubs. RESPIRATORY: Clear to auscultation. Breath sounds equal bilaterally. No wheezes , rales, or rhonchi. GASTROINTESTINAL: Abdomen soft, non-tender, nondistended. Normal, active bowel sounds MUSCULOSKELETAL: Extremities without clubbing, cyanosis, or edema. NEURO: Alert & Oriented x4 to person, place, time, situation. Moves all ext x4 Medications and IVs Inpatient Medications Acetaminophen (Tylenol) 650 mg Q6H PRN PO PAIN 1-5 AND/OR FEVER >101F; Start at 19:15; Stop 01/09/18 at 15:36; Status DC Albuterol Sulfate (Albuterol Neb) 1.25 mg QID NEB NEB ; Start 01/08/18 at 20:00 ; Status Future Hold Albuterol/ Ipratropium (Duoneb Neb) 1 ampule Q2HR NEB PRN INH WHEEZING; Start 01/08/18 at 19:15; Stop 01/09/18 at 15:36; Status DC Bisacodyl (Dulcolax Supp) 10 mg DAILY PRN RECTAL SEVERE CONSITIPATION; Start at 19:15; Stop 01/09/18 at 15:37; Status DC Butalbital/ Aspirin/Caffeine (Fiorinal 325-40-50) 1 cap Q4H PRN PO HEADACHE; Start 01/08/18 at 19:15; Stop 01/09/18 at 15:36; Status DC Chlorhexidine Gluconate (Chlorhexidine 2% Cloth) 3 pack UNSCH PRN TOP HYGIENIC CARE; Start 01/08/18 at 19:15; Stop 01/10/18 at 00:41; Status DC Chlorhexidine Gluconate (Peridex 0.12% Liq) 15 ml BID@08,20 MT Last administered on 01/12/18at 08:12; Start 01/08/18 at 20:00 Cisatracurium Besylate 100 mg/ Sodium Chloride 260 ml @ 10.92 mls/ hr TITRATE PRN IV TOF 1/4 Last administered on 01/09/18at 00:46; Start 01/08/18 at 19:15; Stop 01/09/18 at 07:53; Status DC Dexamethasone Sodium Phosphate (Decadron Inj) 4 mg Q6H IV PUSH Last administered on 01/12/18 08:13; Start 01/10/18 at 02:00 Dextrose (D50w (Vial) Inj) 50 ml UNSCH PRN IV PUSH HYPOGLYCEMIA - SEE COMMENTS Last administered on 01/09/18 13:08; Start 01/09/18 at 10:30 Dextrose/Lactated Ringer's 1,000 ml @ 42 mls/hr [id number] IV ; Start 01/09/18 at 15:00; Stop 01/09/18 at 15:36; Status DC Digoxin (Lanoxin) 0.25 mg DAILY PO Last administered on 01/12/18 08:14; Start 01/09/18 at 09:00 Diltiazem HCl (Cardizem Cd) 180 mg DAILY PO Last administered on 01/12/18 08: 13; Start 01/09/18 at 23:30 Diphenhydramine HCl (Benadryl Liq) 25 mg Q4H PRN PO itching Last administered on 01/11/18at 21:34; Start 01/09/18 at 15:45 Diphenhydramine HCl (Benadryl Inj) 50 mg STAT ONCE IV PUSH Last administered on 01/08/18at 20:43; Start 01/08/18 at 19:15; Stop 01/08/18 at 19:28; Status DC Enoxaparin Sodium (Lovenox Inj) 40 mg Q24H SQ Last administered on 01/11/18at 20 :04; Start 01/08/18 at 20:00 Epinephrine HCl 2 mg/Dextrose 250 ml @ 30 mls/hr TITRATE PRN IV Blood Pressure Management; Start 01/08/18 at 19:30; Stop 01/09/18 at 14:16; Status DC Escitalopram Oxalate (Lexapro) 20 mg DAILY PO Last administered on 01/12/18 08 :13; Start 01/09/18 at 15:45 Famotidine (Pepcid Inj) 20 mg Q12HR IV PUSH Last administered on 01/09/18 08: 28; Start 01/08/18 at 21:00; Stop 01/09/18 at 15:37; Status DC Famotidine (Pepcid) 40 mg BID NG Last administered on 01/12/18at 08:13; Start at 21:00 Glucagon (Glucagon Inj) 1 mg UNSCH PRN OTHER HYPOGLYCEMIA-SEE COMMENTS; Start 01/09/18 at 10:30 Hydralazine HCl (Apresoline Inj) 10 mg Q30M PRN IV PUSH sbp > 160; Start at 19:15 Hydromorphone HCl (Dilaudid Pf Inj) 1 mg STAT ONCE IV PUSH ; Start 01/09/18 at 08:15; Stop 01/09/18 at 08:16; Status DC Ibuprofen (Motrin) 800 mg Q8H PRN PO Inflammation; Start 01/08/18 at 19:15; Stop 01/10/18 at 00:41; Status DC Insulin Human Regular (NovoLIN R SUPPLEMENTAL SCALE) 1 ACHS SLIDING SCALE SQ Last administered on 01/10/18at 17:28; Start 01/09/18 at 12:00 Labetalol HCl (Trandate Inj) 20 mg Q15M PRN IV PUSH sbp > 160; Start 01/08/18 at 19:15 Lactulose (Lactulose Liq) 30 ml DAILY PRN PO SEVERE CONSITIPATION; Start at 19:15 Levalbuterol HCl (Xopenex Neb) 0.63 mg Q4HR NEB PRN NEB SHORTNESS OF BREATH; Start 01/09/18 at 16:00 Lorazepam (Ativan Inj) 1 mg Q8H PRN IV PUSH ANXIETY AND UNABLE TO TAKE PO Last administered on 01/11/18at 13:32; Start 01/10/18 at 02:00 Lorazepam (Ativan) 1 mg Q8H PRN PO anxiety Last administered on 01/12/18at 08:13 ; Start 01/09/18 at 15:45 Magnesium Hydroxide (Milk Of Magnesia Liq) 30 ml Q12H PRN PO Mild constipation ; Start 01/08/18 at 19:15 Magnesium Oxide (Mag-Ox) 800 mg UNSCH PRN PO For Magnesium 1.2 - 1.6 mg/dL; Start 01/08/18 at 19:15; Stop 01/10/18 at 00:36; Status DC Magnesium Sulfate 2 gm/Sodium Chloride 100 ml @ 50 mls/hr UNSCH PRN IV For Magnesium 1.2 - 1.6 mg/dL; Start 01/08/18 at 19:15; Stop 01/10/18 at 00:36; Status DC Magnesium Sulfate 4 gm/Sodium Chloride 100 ml @ 50 mls/hr UNSCH PRN IV For Magnesium 0.9 - 1.1 mg/dL; Start 01/08/18 at 19:15; Stop 01/10/18 at 00:36; Status DC Methylprednisolone Sodium Succinate (SoluMEDROL INJ) 40 mg Q6H IV PUSH ; Start 01/08/18 at 20:00; Stop 01/08/18 at 20:00; Status DC Midazolam HCl (Versed Inj) 2 mg Q1H PRN IV PUSH SEDATION; Start 01/08/18 at 19: 15; Stop 01/09/18 at 14:16; Status DC Miscellaneous Information 1 Q361D XX Last administered on 01/08/18at 19:15; Start 01/08/18 at 19:15; Stop 01/10/18 at 00:41; Status DC Miscellaneous Medication ([facility] [place] [facility] Information) Please discontinue previ... ONCE ONCE .XX ; Start 01/09/18 at 10:30; Stop 01/09/18 at 10:31; Status DC Montelukast Sodium (Singulair) 10 mg HS PO Last administered on 01/11/18at 21:00 ; Start 01/08/18 at 21:00 Morphine Sulfate (Morphine Inj) 5 mg Q3H PRN IV PUSH PAIN 1-5 AND UNABLE TO TAKE PO Last administered on 01/11/18at 20:05; Start 01/10/18 at 02:00 Nitrofurantoin Macrocrystals (Macrobid) 100 mg BID PO Last administered on 01/12at 08:13; Start 01/08/18 at 21:00 Ondansetron HCl (Zofran Inj) 4 mg Q6H PRN IV PUSH NAUSEA OR VOMITING Last administered on 01/11/18at 14:11; Start 01/08/18 at 19:15 Oxycodone HCl (Roxicodone) 10 mg Q4H PRN PO pain 1-5 Last administered on at 21:07; Start 01/09/18 at 15:45 Patient Own Medication PT OWN MED: (Levalbuterol 15 GM ... Q4H PRN INH SHORTNESS OF BREATH; Start 01/08/18 at 19:45; Status Future Hold Potassium Phosphate (K-Phos) 2,000 mg UNSCH PRN PO/TUBE SEE LABEL COMMENTS; Start 01/08/18 at 19:15; Stop 01/10/18 at 00:36; Status DC Potassium Phosphate 30 mmol/ Sodium Chloride 260 ml @ 42 mls/hr UNSCH PRN IV SEE LABEL COMMENTS; Start 01/08/18 at 19:15; Stop 01/10/18 at 00:36; Status DC Potassium Bicarb/ Potassium Chloride (K-Lyte Cl Eff) 50 meq UNSCH PRN PO For Potassium 3.3 - 3.5 mEq/L; Start 01/08/18 at 19:15; Stop 01/10/18 at 00:36; Status DC Potassium Chloride 100 ml @ 50 mls/hr Q2H PRN IV For Potassium 3.3 - 3.5 mEq/L ; Start 01/08/18 at 19:15; Stop 01/10/18 at 00:36; Status DC Promethazine HCl (Phenergan) 25 mg Q6H PRN PO Nausea/Vomiting; Start 01/08/18 at 19:15 Propofol 100 ml @ 2.1 mls/hr TITRATE PRN IV SEDATION Last administered on 01/09at 05:09; Start 01/08/18 at 19:15; Stop 01/09/18 at 07:53; Status DC Senna/Docusate Sodium (Annette-Colace) 1 tab BID PO Last administered on at 08:13; Start 01/08/18 at 21:00 Sennosides (Senokot) 17.2 mg Q12H PRN PO Moderate constipation; Start 01/08/18 at 19:15 Sodium Chloride (NS Flush) 2 ml BID IV FLUSH Last administered on 01/12/18at 08: 12; Start 01/08/18 at 21:00 Sodium Phosphate 30 mmol/Sodium Chloride 250 ml @ 42 mls/hr UNSCH PRN IV For Phosphorus < 2.5 mg/dL; Start 01/08/18 at 19:15; Stop 01/10/18 at 00:36; Status DC A/P Assessment and Plan Acute hypoxic and hypercarbic Respiratory failure - resolved. - Severe anaphylactic reaction -Status post wean off ventilator. - Emergent tracheostomy placed by surgeon 01/08:Dr. Rivera -Patient pulled trach out . -the trach to be replaced today. Anaphylactic shock- resolved - s/p epi drip. -On IV Decadron; will taper down-continue Pepcid and as needed Benadryl. Asthma - Continue LABA GERD - IV Pepcid DVT GI prophylax - Teds SCDs - Lovenox - Pepcid Discharge Planning awaiting trach replacement. Glenna Reid MD Jan 12, 2018 11:51
[2018-01-12] MEDS ORDERED: PROPOFOL 200 MG/20 ML AMP IV ONE (12:00)
[2018-01-12] MEDS ORDERED: LIDOCAINE HCL 1% PF 5 ML SYRINGE OTHER ONE (12:00)
[2018-01-12] MEDS ORDERED: NORMOSOL R INJ 1,000 ML IV ONE (12:00)
[2018-01-12] MEDS ORDERED: diphenhydrAMINE HCL 50 MG/ML VIAL IV PUSH PRN (12:00)
[2018-01-12] MEDS ORDERED: DO NOT ADM ANY ANTICOAGULANT DRUGS PRN (12:09)
[2018-01-12] MEDS ORDERED: *morphine SULFATE 8 MG/ML PERIprocedure ONLY ONE ×3 (12:12→12:38)
[2018-01-12] MEDS ORDERED: *diphenhydrAMINE HCL 50 MG/ML VIAL PERIprocedural Use ONLY ONE (12:16)
--- NOTE | 2018-01-12 12:38 | RADRPT ---
EXAM DATE/TIME: 01/12/2018 12:24 [place] COMPARISON: CHEST SINGLE AP, January 09, 2018, 11:32. INDICATIONS : Evaluate central line. MEDICAL HISTORY : Hyperparathyroidism. SURGICAL HISTORY : Appendectomy. Cholecystectomy. Atrial septal defect repair ENCOUNTER: Initial ACUITY: 1 day PAIN SCORE: 0/10 LOCATION: Bilateral chest FINDINGS: Left subclavian central line has its tip in the superior vena cava. There is no pneumothorax. A trach eostomy tube is noted in good position with its tip above the karly. Scattered bibasilar atelectasis and/or infiltrates are stable. The heart is stable. Median sternotomy wires are noted status post ca rdiac surgery. CONCLUSION: No pneumothorax status post placement of left subclavian central line which has its tip in the superi or vena cava. Cardiomegaly. Bibasilar infiltrates and/or atelectasis. Ayaz Weaver MD on January 12, 2018 at 12:34 Board Certified Radiologist. This report was verified electronically.
--- NOTE | 2018-01-12 13:39 | MP ---
cc: Efren Rivera MD DATE OF OPERATION: 01/12/2018 DATE OF SURGERY: 01/12/2018. PREOPERATIVE DIAGNOSIS: Anaphylactic shock, status post repeated respiratory failure episodes and obstruction of the upper airway. POSTOPERATIVE DIAGNOSIS: Anaphylactic shock, status post repeated respiratory failure episodes and obstruction of the upper airway. OPERATIVE PROCEDURE: Re-do tracheostomy. SURGEON: MD Nicole ANESTHESIA: General. ESTIMATED BLOOD LOSS: 10 mL. INDICATIONS FOR PROCEDURE: This 32-year-old female who was admitted initially Wednesday night with anaphylactic shock and respiratory distress with no possible airway from the top and inability to intubate. The patient underwent an emergency tracheostomy which in this case was a re-do, over a re-do, over a re-do tracheostomy from the past, so this was quite complex operation. The patient did well in the ICU. The next day, she was extubated and by then she ripped her tracheostomy cannula out. After discussion with her mother and the patient by cosmetic maker and by myself, decision was made that the patient should have this cannula in place considering that the upper airway seems to be stenosed and very hard and intubation is nearly impossible should the patient have another episode. Therefore, the patient was taken to the operating room for revision and replacement of tracheostomy. PROCEDURE: The patient is prepped and draped in the usual fashion and intubated. Once intubated, the incision in the neck is observed. This one is dilated with a tracheal dilator and then very carefully under direct vision of the guidewire is inserted through this into the trachea. The patient starts coughing, which is a good sign obviously. At that point, the Blue Rhino is inserted over the wire and then an extra large #8 Shiley cannula. This one fits perfectly. Balloon is inflated and this is then sutured with 0 Prolene and then secured with tie around the neck. End-tidal CO2 is checked. The patient is ventilating well. The procedure is completed. MD KAIA Benjamin/STACI , 01:16 PM , 01:38 PM
[2018-01-12] MEDS: ENOXAPARIN SODIUM 40 MG/0.4 ML SYRINGE SQ SCH (19:57)
[2018-01-12] MEDS: LORazepam 2 MG/ML VIAL IV PUSH PRN (20:12)
[2018-01-12] MEDS: MONTELUKAST SODIUM 10 MG TAB PO SCH (21:00)
[2018-01-13] VITALS (7 sets, daily range): BP systolic 102–120; BP diastolic 52–66; PULSE 66–76; RESP 12–17; TEMP 97.9–98.4; O2SAT 95–100
[2018-01-13] MEDS: MORPHINE SULFATE 8 MG/ML INJ IV PUSH PRN ×3 (03:12→10:30)
[2018-01-13] MEDS: LORazepam 2 MG/ML VIAL IV PUSH PRN (05:52)
[2018-01-13 06:14] LABS: HEMATOCRIT 27.8 % (35.0-46.0); HEMOGLOBIN 8.9 GM/DL (11.6-15.3); MEAN CELL VOLUME 80.2 FL (80.0-100.0); MEAN CORPUSCULAR HEMOGLOBIN 25.7 PG (27.0-34.0); MEAN CORPUSCULAR HGB CONC 32.1 % (32.0-36.0); PLATELET COUNT 295 TH/MM3 (150-450); RED BLOOD COUNT 3.47 MIL/MM3 (4.00-5.30); RED CELL DISTRIBUTION WIDTH 16.2 % (11.6-17.2); WHITE BLOOD COUNT 13.4 TH/MM3 (4.0-11.0)
[2018-01-13 06:55] LABS: BICARBONATE 33.2 MEQ/L (21.0-32.0); CALCIUM 8.8 MG/DL (8.5-10.1); CREATININE 1.07 MG/DL (0.50-1.00)
[2018-01-13] MEDS: DIGOXIN 0.25 MG TAB PO SCH (10:31)
[2018-01-13] MEDS: FAMOTIDINE 20 MG TAB NG SCH (10:31)
[2018-01-13] MEDS: NITROFURANTOIN MONOHYD MACROCR 100 MG CAP PO SCH (10:31)
[2018-01-13] MEDS: DEXAMETHASONE SOD PHOS 4 MG/ML VIAL IV PUSH SCH (10:31)
[2018-01-13] MEDS: DILTIAZEM-CD 180 MG CAP ER PO SCH (10:32)
--- NOTE | 2018-01-13 10:50 | HHI.PR ---
Subjective Remarks in no acute distress. tracheostomy in place. has mild sore throat. no other complaints. d/w the RN and no acute issues over night. Objective Vitals Vital Signs Date Time Temp Pulse Resp B/P (MAP) Pulse Ox O2 Delivery O2 Flow Rate FiO2 01/13/18 06:00 71 01/13/18 04:00 97.9 72 16 113/56 (75) 99 01/13/18 04:00 72 01/13/18 02:00 66 01/13/18 00:00 66 01/13/18 00:00 98.4 66 17 102/52 (69) 100 01/12/18 22:00 82 01/12/18 21:00 99 T-piece 5.00 28 01/12/18 20:00 99.0 78 15 131/78 (95) 100 01/12/18 20:00 78 01/12/18 16:00 67 01/12/18 16:00 98.6 98 15 127/67 (87) 98 01/12/18 14:00 72 01/12/18 12:42 95 14 125/58 (80) 95 Trach Collar 8 T-Piece 01/12/18 12:30 83 14 124/58 (80) 99 Trach Collar 8 T-Piece 01/12/18 12:10 98.5 104 14 144/82 (102) 97 Trach Collar 8 T-Piece 01/12/18 12:00 98.0 112 21 129/62 (84) 99 01/12/18 10:55 98.5 92 14 131/92 (105) 93 01/12/18 10:55 Nasal Cannula 2 I/O 01/12/18 01/12/18 01/12/18 01/13/18 01/13/18 01/13/18 07:00 15:00 23:00 07:00 15:00 23:00 Intake Total 200 ml 500 ml 0 ml Output Total 450 ml 300 ml Balance 200 ml 500 ml -450 ml -300 ml Intake Oral 200 ml 0 ml IV Total 0 ml Other 500 ml Output Urine Total 450 ml 300 ml # Voids 3 # Bowel Movements 0 Result Diagram: 01/13/18 0550 01/13/18 0550 Imaging Last Impressions Chest X-Ray 01/12/18 0000 Signed Impressions: Service Date/Time: Friday, January 12, 2018 12:24 - CONCLUSION: No pneumothorax status post placement of left subclavian central line which has its tip in the superior vena cava. Cardiomegaly. Bibasilar infiltrates and/or atelectasis. Ayaz Weaver MD Objective Remarks GENERAL: This is a well-nourished, well-developed patient, in no apparent distress. CARDIOVASCULAR: Regular rate and regular rhythm without murmurs, gallops, or rubs. RESPIRATORY: Clear to auscultation. Breath sounds equal bilaterally. No wheezes , rales, or rhonchi. GASTROINTESTINAL: Abdomen soft, non-tender, nondistended. Normal, active bowel sounds MUSCULOSKELETAL: Extremities without clubbing, cyanosis, or edema. NEURO: Alert & Oriented x4 to person, place, time, situation. Moves all ext x4 Procedures central line placement/ redo tracheostomy. Medications and IVs Inpatient Medications Acetaminophen (Tylenol) 650 mg Q6H PRN PO PAIN 1-5 AND/OR FEVER >101F; Start at 19:15; Stop 01/09/18 at 15:36; Status DC Albuterol Sulfate (Albuterol Neb) 1.25 mg QID NEB NEB ; Start 01/08/18 at 20:00 ; Status Future Hold Albuterol/ Ipratropium (Duoneb Neb) 1 ampule Q2HR NEB PRN INH WHEEZING; Start 01/08/18 at 19:15; Stop 01/09/18 at 15:36; Status DC Bisacodyl (Dulcolax Supp) 10 mg DAILY PRN RECTAL SEVERE CONSITIPATION; Start at 19:15; Stop 01/09/18 at 15:37; Status DC Butalbital/ Aspirin/Caffeine (Fiorinal 325-40-50) 1 cap Q4H PRN PO HEADACHE; Start 01/08/18 at 19:15; Stop 01/09/18 at 15:36; Status DC Chlorhexidine Gluconate (Chlorhexidine 2% Cloth) 3 pack UNSCH PRN TOP HYGIENIC CARE; Start 01/08/18 at 19:15; Stop 01/10/18 at 00:41; Status DC Chlorhexidine Gluconate (Peridex 0.12% Liq) 15 ml BID@08,20 MT Last administered on 01/12/18at 08:12; Start 01/08/18 at 20:00 Cisatracurium Besylate 100 mg/ Sodium Chloride 260 ml @ 10.92 mls/ hr TITRATE PRN IV TOF 1/4 Last administered on 01/09/18at 00:46; Start 01/08/18 at 19:15; Stop 01/09/18 at 07:53; Status DC Dexamethasone Sodium Phosphate (Decadron Inj) 4 mg Q12HR IV PUSH Last administered on 01/13/18at 10:31; Start 01/12/18 at 21:00 Dextrose (D50w (Vial) Inj) 50 ml UNSCH PRN IV PUSH HYPOGLYCEMIA - SEE COMMENTS Last administered on 01/09/18 13:08; Start 01/09/18 at 10:30 Dextrose/Lactated Ringer's 1,000 ml @ 42 mls/hr [id number] IV ; Start 01/09/18 at 15:00; Stop 01/09/18 at 15:36; Status DC Digoxin (Lanoxin) 0.25 mg DAILY PO Last administered on 01/13/18at 10:31; Start 01/09/18 at 09:00 Diltiazem HCl (Cardizem Cd) 180 mg DAILY PO Last administered on 01/13/18 10: 32; Start 01/09/18 at 23:30 Diphenhydramine HCl (Benadryl Liq) 25 mg Q4H PRN PO itching Last administered on 01/11/18 21:34; Start 01/09/18 at 15:45; Stop 01/12/18 at 11:52; Status DC Diphenhydramine HCl (Benadryl Inj) 25 mg Q6H PRN IV PUSH ITCHING; Start at 12:00 Enoxaparin Sodium (Lovenox Inj) 40 mg Q24H SQ Last administered on 01/12/18at 19 :57; Start 01/08/18 at 20:00 Epinephrine HCl 2 mg/Dextrose 250 ml @ 30 mls/hr TITRATE PRN IV Blood Pressure Management; Start 01/08/18 at 19:30; Stop 01/09/18 at 14:16; Status DC Escitalopram Oxalate (Lexapro) 20 mg DAILY PO Last administered on 01/12/18at 08 :13; Start 01/09/18 at 15:45 Famotidine (Pepcid Inj) 20 mg Q12HR IV PUSH Last administered on 01/09/18at 08: 28; Start 01/08/18 at 21:00; Stop 01/09/18 at 15:37; Status DC Famotidine (Pepcid) 40 mg BID NG Last administered on 01/13/18at 10:31; Start at 21:00 Glucagon (Glucagon Inj) 1 mg UNSCH PRN OTHER HYPOGLYCEMIA-SEE COMMENTS; Start 01/09/18 at 10:30 Hydralazine HCl (Apresoline Inj) 10 mg Q30M PRN IV PUSH sbp > 160; Start at 19:15 Hydromorphone HCl (Dilaudid Pf Inj) 1 mg STAT ONCE IV PUSH ; Start 01/09/18 at 08:15; Stop 01/09/18 at 08:16; Status DC Ibuprofen (Motrin) 800 mg Q8H PRN PO Inflammation; Start 01/08/18 at 19:15; Stop 01/10/18 at 00:41; Status DC Insulin Human Regular (NovoLIN R SUPPLEMENTAL SCALE) 1 ACHS SLIDING SCALE SQ Last administered on 01/10/18at 17:28; Start 01/09/18 at 12:00 Labetalol HCl (Trandate Inj) 20 mg Q15M PRN IV PUSH sbp > 160; Start 01/08/18 at 19:15 Lactulose (Lactulose Liq) 30 ml DAILY PRN PO SEVERE CONSITIPATION; Start at 19:15 Levalbuterol HCl (Xopenex Neb) 0.63 mg Q4HR NEB PRN NEB SHORTNESS OF BREATH Last administered on 01/12/18at 21:00; Start 01/09/18 at 16:00 Lorazepam (Ativan Inj) 1 mg Q8H PRN IV PUSH ANXIETY AND UNABLE TO TAKE PO Last administered on 01/13/18at 05:52; Start 01/10/18 at 02:00 Lorazepam (Ativan) 1 mg Q8H PRN PO anxiety Last administered on 01/12/18at 08:13 ; Start 01/09/18 at 15:45 Magnesium Hydroxide (Milk Of Magnesia Liq) 30 ml Q12H PRN PO Mild constipation ; Start 01/08/18 at 19:15 Magnesium Oxide (Mag-Ox) 800 mg UNSCH PRN PO For Magnesium 1.2 - 1.6 mg/dL; Start 01/08/18 at 19:15; Stop 01/10/18 at 00:36; Status DC Magnesium Sulfate 2 gm/Sodium Chloride 100 ml @ 50 mls/hr UNSCH PRN IV For Magnesium 1.2 - 1.6 mg/dL; Start 01/08/18 at 19:15; Stop 01/10/18 at 00:36; Status DC Magnesium Sulfate 4 gm/Sodium Chloride 100 ml @ 50 mls/hr UNSCH PRN IV For Magnesium 0.9 - 1.1 mg/dL; Start 01/08/18 at 19:15; Stop 01/10/18 at 00:36; Status DC Methylprednisolone Sodium Succinate (SoluMEDROL INJ) 40 mg Q6H IV PUSH ; Start 01/08/18 at 20:00; Stop 01/08/18 at 20:00; Status DC Midazolam HCl (Versed Inj) 2 mg Q1H PRN IV PUSH SEDATION; Start 01/08/18 at 19: 15; Stop 01/09/18 at 14:16; Status DC Miscellaneous Information ALL NURSING DEPARTME... UNSCH PRN .XX SEE LABEL COMMENTS; Start 01/12/18 at 12:09; Stop 01/13/18 at 12:08 Miscellaneous Medication ([facility] [place] [facility] Information) Please discontinue previ... ONCE ONCE .XX ; Start 01/09/18 at 10:30; Stop 01/09/18 at 10:31; Status DC Montelukast Sodium (Singulair) 10 mg HS PO Last administered on 01/11/18at 21:00 ; Start 01/08/18 at 21:00 Morphine Sulfate (Morphine Inj) 5 mg Q3H PRN IV PUSH PAIN 1-5 AND UNABLE TO TAKE PO Last administered on 01/13/18at 10:30; Start 01/10/18 at 02:00 Nitrofurantoin Macrocrystals (Macrobid) 100 mg BID PO Last administered on 01/13at 10:31; Start 01/08/18 at 21:00 Ondansetron HCl (Zofran Inj) 4 mg Q6H PRN IV PUSH NAUSEA OR VOMITING Last administered on 01/11/18at 14:11; Start 01/08/18 at 19:15 Oxycodone HCl (Roxicodone) 10 mg Q4H PRN PO pain 1-5 Last administered on at 21:07; Start 01/09/18 at 15:45 Patient Own Medication PT OWN MED: (Levalbuterol 15 GM ... Q4H PRN INH SHORTNESS OF BREATH; Start 01/08/18 at 19:45; Status Future Hold Potassium Phosphate (K-Phos) 2,000 mg UNSCH PRN PO/TUBE SEE LABEL COMMENTS; Start 01/08/18 at 19:15; Stop 01/10/18 at 00:36; Status DC Potassium Phosphate 30 mmol/ Sodium Chloride 260 ml @ 42 mls/hr UNSCH PRN IV SEE LABEL COMMENTS; Start 01/08/18 at 19:15; Stop 01/10/18 at 00:36; Status DC Potassium Bicarb/ Potassium Chloride (K-Lyte Cl Eff) 50 meq UNSCH PRN PO For Potassium 3.3 - 3.5 mEq/L; Start 01/08/18 at 19:15; Stop 01/10/18 at 00:36; Status DC Potassium Chloride 100 ml @ 50 mls/hr Q2H PRN IV For Potassium 3.3 - 3.5 mEq/L ; Start 01/08/18 at 19:15; Stop 01/10/18 at 00:36; Status DC Promethazine HCl (Phenergan) 25 mg Q6H PRN PO Nausea/Vomiting; Start 01/08/18 at 19:15 Propofol 100 ml @ 2.1 mls/hr TITRATE PRN IV SEDATION Last administered on 01/09at 05:09; Start 01/08/18 at 19:15; Stop 01/09/18 at 07:53; Status DC Senna/Docusate Sodium (Annette-Colace) 1 tab BID PO Last administered on at 08:13; Start 01/08/18 at 21:00 Sennosides (Senokot) 17.2 mg Q12H PRN PO Moderate constipation; Start 01/08/18 at 19:15 Sodium Chloride (NS Flush) 2 ml BID IV FLUSH Last administered on 01/12/18at 19: 57; Start 01/08/18 at 21:00 Sodium Phosphate 30 mmol/Sodium Chloride 250 ml @ 42 mls/hr UNSCH PRN IV For Phosphorus < 2.5 mg/dL; Start 01/08/18 at 19:15; Stop 01/10/18 at 00:36; Status DC A/P Assessment and Plan Acute hypoxic and hypercarbic Respiratory failure - resolved. - Severe anaphylactic reaction -Status post wean off ventilator. - Emergent tracheostomy placed by surgeon 01/08:Dr. Rivera -Patient pulled trach out - now s/p redo tracheostomy. -f/u with her ENT as outpatient. Anaphylactic shock- resolved - s/p epi drip. -continue with prednisone as outpatient. Asthma - Continue LABA GERD - IV Pepcid DVT GI prophylax - Teds SCDs - Lovenox - Pepcid Discharge Planning dc home after seen by case management to address the dc needs. see med list. d/w the patient and RN. f/u; pcp, and ENT. time spent 35 min. Glenna Reid MD Jan 13, 2018 10:50
[2018-01-13] MEDS ORDERED: CARD180C5 PO (10:57)
[2018-01-13] MEDS ORDERED: OXYC-395 PO (10:57)
[2018-01-13] MEDS ORDERED: FAMO20TA2 NG (10:57)
[2018-01-13] MEDS ORDERED: PRED5TAB PO (10:57)
--- NOTE | 2018-01-13 10:58 | HHI.DS ---
Discharge Summary Admission Date Jan 08, 2018 at 17:54 Discharge Date: Jan 13, 2018 Admitting Diagnosis respiratory failure (1) Anaphylactic reaction ICD Code: T78.2XXA - Anaphylactic shock, unspecified, initial encounter Diagnosis: Principal Procedures central line placement/ redo tracheostomy. Brief History - From Admission 32-year-old female with the history of multiple allergies and severe anaphylactic reactions requiring intubation multiple times and previous tracheostomy suffered from another anaphylactic reaction after she took some Bacova off medicine. She presented to [facility] in severe respiratory distress, was nasally intubated and transferred here for higher level of care and better airway. She was taken emergently to operating room and tracheostomy was placed by surgeon. CBC/BMP: 01/13/18 0550 01/13/18 0550 Significant Findings Laboratory Tests Test 01/11/18 03:59 01/12/18 04:27 01/13/18 05:50 White Blood Count 14.7 TH/MM3 (4.0-11.0) 15.1 TH/MM3 (4.0-11.0) 13.4 TH/MM3 (4.0-11.0) Red Blood Count 3.23 MIL/MM3 (4.00-5.30) 3.95 MIL/MM3 (4.00-5.30) 3.47 MIL/MM3 (4.00-5.30) Hemoglobin 8.3 GM/DL (11.6-15.3) 10.2 GM/DL (11.6-15.3) 8.9 GM/DL (11.6-15.3) Hematocrit 25.7 % (35.0-46.0) 31.7 % (35.0-46.0) 27.8 % (35.0-46.0) Mean Corpuscular Volume 79.3 FL (80.0-100.0) Mean Corpuscular Hemoglobin 25.6 PG (27.0-34.0) 25.8 PG (27.0-34.0) 25.7 PG (27.0-34.0) Blood Urea Nitrogen 23 MG/DL (7-18) 25 MG/DL (7-18) 29 MG/DL (7-18) Creatinine 1.03 MG/DL (0.50-1.00) 1.13 MG/DL (0.50-1.00) 1.07 MG/DL (0.50-1.00) Random Glucose 145 MG/DL (74-106) 121 MG/DL (74-106) Estimat Glomerular Filtration Rate 63 ML/MIN (>89) 57 ML/MIN (>89) 60 ML/MIN (>89) Carbon Dioxide Level 33.2 MEQ/L (21.0-32.0) Imaging Last Impressions Chest X-Ray 01/12/18 0000 Signed Impressions: Service Date/Time: Friday, January 12, 2018 12:24 - CONCLUSION: No pneumothorax status post placement of left subclavian central line which has its tip in the superior vena cava. Cardiomegaly. Bibasilar infiltrates and/or atelectasis. Ayaz Weaver MD PE at Discharge GENERAL: This is a well-nourished, well-developed patient, in no apparent distress. CARDIOVASCULAR: Regular rate and regular rhythm without murmurs, gallops, or rubs. RESPIRATORY: Clear to auscultation. Breath sounds equal bilaterally. No wheezes , rales, or rhonchi. GASTROINTESTINAL: Abdomen soft, non-tender, nondistended. Normal, active bowel sounds MUSCULOSKELETAL: Extremities without clubbing, cyanosis, or edema. NEURO: Alert & Oriented x4 to person, place, time, situation. Moves all ext x4 Hospital Course Acute hypoxic and hypercarbic Respiratory failure - resolved. - Severe anaphylactic reaction -Status post wean off ventilator. - Emergent tracheostomy placed by surgeon 01/08:Dr. Rivera -Patient pulled trach out - now s/p redo tracheostomy. -f/u with her ENT as outpatient. Anaphylactic shock- resolved - s/p epi drip. -continue with prednisone as outpatient. Asthma - Continue LABA GERD - IV Pepcid DVT GI prophylax - Teds SCDs - Lovenox - Pepcid Pt Condition on Discharge: Fair Discharge Disposition: Discharge Home Discharge Time: > 30 minutes Discharge Instructions DIET: Follow Instructions for: Heart Healthy Diet Speech Therapy-Diet Recommends: Mechanical Soft Activities you can perform: Regular-No Restrictions Glenna Reid MD Jan 13, 2018 10:58
--- NOTE | 2018-01-13 12:11 | HHI.PR ---
Addendum To [facility] Progress Not Reason for addendum: Additonal documentation (d/w the case management; patient has an appointment with her ENT this afternoon and the mother wants to take her directly to the ENT office. patient will be discharged home.) Glenna Reid MD Jan 13, 2018 12:11
== END 2018-01-13 13:16 | disposition home or self-care (01) | DRG 3 ==
LOC: HIMW 17:54 → N04A 01-09 22:03 → N03B 01-10 02:02
PROVIDERS: ADMIT Internal Medicine; ATTEND Internal Medicine
PROC: 0B918ZZ Drainage of Trachea, Via Natural or Artificial Opening Endoscopic (ICD-10-PCS; 2018-01-08)
PROC: 5A1935Z Respiratory Ventilation, Less than 24 Consecutive Hours (ICD-10-PCS; 2018-01-08)
PROC: 0B113F4 Bypass Trachea to Cutaneous with Tracheostomy Device, Percutaneous Approach (ICD-10-PCS; principal; 2018-01-08 18:32)
PROC: 0BW Respiratory System, Revision (ICD-10-PCS; 2018-01-12)
DX: T88.6XXA Anaphylactic reaction due to adverse effect of correct drug or medicament properly administered, initial encounter (principal); J96.01 Acute respiratory failure with hypoxia; J96.02 Acute respiratory failure with hypercapnia; T48.4X5A Adverse effect of expectorants, initial encounter; J45.909 Unspecified asthma, uncomplicated; K21.9 Gastro-esophageal reflux disease without esophagitis; E21.3 Hyperparathyroidism, unspecified; F41.9 Anxiety disorder, unspecified; Z86.73 Personal history of transient ischemic attack (TIA), and cerebral infarction without residual deficits; Z87.74 Personal history of (corrected) congenital malformations of heart and circulatory system; Z88.1 Allergy status to other antibiotic agents; Z88.5 Allergy status to narcotic agent; Z91.040 Latex allergy status
CPT/HCPCS: 71045; 76937; 80048; 80053; 82948; 83735; 84100; 85025; 85027; 87641; 93005; 94002; 94003; 94640; 94664; A7521; J1100; J1200; J1650; J2060; J2250; J2270; J2405; J3010; J7030; J7050; J7614

== ENCOUNTER 2018-03-01 20:24 | Inpatient (IN) | payer BC ==
[~2018-03-01] VITALS: Ht 160 cm; Wt 74.5 kg
[~2018-03-01 20:24] MED LIST changes: +CARD180C5 PO; +FAMO20TA2 NG; -FIORINAL2 PO; -IBUP1TAB7 PO; +OXYC-395 PO; +PRED5TAB PO; -PROPOFOL 200 MG/20 ML AMP IV ONE; -VECURONIUM BROMIDE 20 MG VIAL IV ONE
[2018-03-01 20:30] VITALS: BP 124/66; PULSE 118; RESP 26; TEMP 98.6; O2SAT 98
[2018-03-01] MEDS ORDERED: MAGNESIUM HYDROXIDE SUSP 30 ML CUP PO PRN (20:45)
[2018-03-01] MEDS ORDERED: TEMAZEPAM 15 MG CAP PO PRN (20:45)
[2018-03-01] MEDS ORDERED: SODIUM CHLORIDE 0.9% FLUSH 10 ML FLUSH IV FLUSH PRN (20:45)
[2018-03-01] MEDS ORDERED: NURSING INFORMATION XX SCH (20:45)
[2018-03-01] MEDS ORDERED: SENNOSIDES 8.6 MG TAB PO PRN (20:45)
[2018-03-01] MEDS ORDERED: CHLORHEXIDINE GLUCONATE 2 % 1 PACK (2 CLOTHS) TOP PRN (20:45)
[2018-03-01] MEDS ORDERED: RESP: ALBUTEROL 2.5 MG/IPRATROPIUM 0.5 MG NEB (PRN) INH (20:45)
[2018-03-01] MEDS ORDERED: BISACODYL 10 MG SUPP RECTAL PRN (20:45)
[2018-03-01] MEDS ORDERED: LACTULOSE SYRUP 20 GM/30 ML CUP PO PRN (20:45)
[2018-03-01] MEDS ORDERED: TIZA4 PO (20:59)
[2018-03-01] MEDS ORDERED: LORA-474 PO (20:59)
[2018-03-01] MEDS ORDERED: OXYC15TA PO (20:59)
[2018-03-01] MEDS ORDERED: GABA300C5 PO (20:59)
[2018-03-01] MEDS ORDERED: PROT40TA PO (20:59)
[2018-03-01] MEDS ORDERED: LEVA.63I NEB (20:59)
[2018-03-01] MEDS ORDERED: AMIT10TA6 PO (20:59)
[2018-03-01] MEDS: SODIUM CHLORIDE 0.9% FLUSH 10 ML FLUSH IV FLUSH SCH (21:00)
[2018-03-01] MEDS ORDERED: NON-FORMULARY DRUG (Levalbuterol Neb (Xopenex Neb) 0.63 MG) NEB SCH (21:00)
[2018-03-01] MEDS: DOCUSATE SODIUM 50 MG/SENNA 8.6 MG TAB PO SCH (21:00)
[2018-03-01] MEDS ORDERED: DEXMEDETOMIDINE INJ 200 MCG in SODIUM CHLORIDE 0.9% INJ 50 ML IV PRN (21:00)
[2018-03-01] MEDS ORDERED: PROMETHAZINE HCL 25 MG TAB PO PRN (21:00)
[2018-03-01] MEDS ORDERED: LEVALBUTEROL INH PRN ×2 (21:00→21:45)
[2018-03-01] MEDS ORDERED: RESP: RACEPINEPHRINE 2.25% 0.5 ML NEB NEB PRN (21:00)
--- NOTE | 2018-03-01 21:00 | HHI.HP ---
[facility] Service Critical Care Medicine Primary Care Physician Non-Staff Admission Diagnosis Diagnosis: Travel History International Travel<30 Days: No Contact w/Intl Traveler <30 Da: No Traveled to Known Affected Are: No History of Present Illness 32-year-old very pleasant but very anxious female presented to emergency department at [facility] via EMS complaining of allergic reaction. The patient reports shortness of breath. She stated that she is allergic to multiple medications and substances including sulfites. Per EMS patient received albuterol, Benadryl, received epinephrine and Versed. The patient reports she has recently had a tracheostomy tube removed. She denies any other symptoms. Review of Systems ROS Unable to obtain due to patient's anxiety and respiratory distress Past Family Social History Allergies: Coded Allergies: diatrizoate meglumine (Unverified Allergy, Severe, Anaphylaxis, 06/02/17) gadobenic acid (Unverified Allergy, Severe, 06/02/17) Per patient when given MRI contrast it becomes hard to swallow and she feels burning in her throat. EG 01/28/2017 gadodiamide (Unverified Allergy, Severe, 06/02/17) Per patient when given MRI contrast it becomes hard to swallow and she feels burning in her throat. EG 01/28/2017 gadoteridol (Unverified Allergy, Severe, 06/02/17) Per patient when given MRI contrast it becomes hard to swallow and she feels burning in her throat. EG 01/28/2017 hydromorphone (Unverified Allergy, Severe, Itching, 06/02/17) ibuprofen (Verified Allergy, Severe, Anaphylaxis, 01/09/18) iodixanol (Unverified Allergy, Severe, Anaphylaxis, 06/02/17) iohexol (Unverified Allergy, Severe, Anaphylaxis, 06/02/17) latex (Unverified Allergy, Severe, Anaphylaxis, 06/02/17) metoclopramide (Unverified Allergy, Severe, Shortness of Breath, 06/02/17) prochlorperazine (Unverified Allergy, Severe, Shortness of Breath, 06/02/17 ) succinylcholine (Unverified Allergy, Severe, 06/02/17) cefepime (Unverified Allergy, Mild, HIVES, 06/02/17) ceftaroline fosamil (Unverified Allergy, Mild, HIVES, 06/02/17) Past Medical History asthma, hx of intubation May 2016 and emergent tracheostomy in December 2017 anxiety SVT TIA hyperparathyroid GERD endometriosis migraines Past Surgical History atrial septal defect repair appendectomy cholecystectomy endometriosis ablations x3 left 1st rib resection secondary to thoracic outlet syndrome in 2013 Emergent tracheostomy in December 2017 Reported Medications Reported Meds & Active Scripts Active Famotidine 20 Mg Tab 40 Mg NG BID 10 Days Prednisone 5 Mg Tab 5 Mg PO DIRECTED 10 Days 40 mg po daily for two days then 30 mg po daily for two days then 20 mg po daily for two days then 10 mg po daily for two days then 5 mg po daily for two days then stop. Cardizem CD 24 HR (Diltiazem CD 24 HR) 180 Mg Caper 180 Mg PO DAILY 30 Days Oxycodone (Oxycodone HCl) 10 Mg Tab 10 Mg PO Q4H PRN Macrobid (Nitrofurantoin Monoh/Nitrofur Macro) 100 Mg Cap 100 Mg PO BID 10 Days Phenergan (Promethazine HCl) 25 Mg Tab 25 Mg PO Q6H PRN Reported Oxycodone (Oxycodone HCl) 15 Mg Tab 15 Mg PO Q6H PRN Amitriptyline (Amitriptyline HCl) 10 Mg Tab 30 Mg PO HS Xopenex Neb (Levalbuterol HCl) 0.63 Mg/3 Ml Neb 0.63 Mg NEB QID Zanaflex (Tizanidine HCl) 4 Mg Tab 4 Mg PO HS Gabapentin 300 Mg Cap 300 Mg PO TID Protonix (Pantoprazole Sodium) 40 Mg Tab 40 Mg PO BID Ativan (Lorazepam) 1 Mg Tab 1 Mg PO Q6H PRN Xopenex Neb (Levalbuterol HCl) 0.63 Mg/3 Ml Neb 0.63 Mg NEB QID Xopenex Hfa 15 GM Inh (Levalbuterol 15 GM Inh) 45 Mcg/Act Aer 1 Puff INH Q4HR PRN Shake well before using. (1 puff = 45 mcg) Singulair (Montelukast Sodium) 10 Mg Tab 10 Mg PO HS Digoxin 0.25 Mg Tab 0.25 Mg PO DAILY Omeprazole 20 Mg Tab 20 Mg PO BID Active Ordered Medications Current Medications Medications (Trade) Dose Ordered Sig/Toshia Route PRN Reason Start Time Stop Time Status Last Admin Dose Admin Sodium Chloride 1,000 ml @ 84 mls/hr [id number] IV 03/01/18 20:41 UNV Sodium Chloride (NS Flush) 2 ml UNSCH PRN IV FLUSH FLUSH AFTER USING IV ACCESS 03/01/18 20:45 UNV Sodium Chloride (NS Flush) 2 ml BID IV FLUSH 03/01/18 21:00 UNV Acetaminophen (Tylenol) 650 mg Q6H PRN PO PAIN 1-5 AND/OR FEVER >101F 03/01/18 20:45 UNV Morphine Sulfate (Morphine Inj) 2 mg Q2H PRN IV PUSH PAIN SCALE 6 TO 10 03/01/18 20:45 UNV Famotidine (Pepcid Inj) 20 mg Q12HR IV PUSH 03/01/18 21:00 UNV Ondansetron HCl (Zofran Inj) 4 mg Q6H PRN IV PUSH NAUSEA OR VOMITING 03/01/18 20:45 UNV Temazepam (Restoril) 15 mg HS PRN PO INSOMNIA 03/01/18 20:45 UNV Albuterol/ Ipratropium (Duoneb Neb) 1 ampule Q4HR NEB INH 03/02/18 00:00 UNV Albuterol/ Ipratropium (Duoneb Neb) 1 ampule Q2HR NEB PRN INH WHEEZING 03/01/18 20:45 UNV Heparin Sodium (Porcine) (Heparin Inj) 5,000 units Q8H SQ 03/01/18 20:45 UNV Miscellaneous Information ([facility] Information) 1 [id number] XX 03/01/18 20:45 UNV Chlorhexidine Gluconate (Chlorhexidine 2% Cloth) 3 pack Taper DAILY@04 TOP 03/02/18 04:00 02/26/19 03:59 UNV Chlorhexidine Gluconate (Chlorhexidine 2% Cloth) 3 pack UNSCH PRN TOP HYGIENIC CARE 03/01/18 20:45 UNV Senna/Docusate Sodium (Annette-Colace) 1 tab BID PO 03/01/18 21:00 UNV Magnesium Hydroxide (Milk Of Magnesia Liq) 30 ml Q12H PRN PO Mild constipation 03/01/18 20:45 UNV Sennosides (Senokot) 17.2 mg Q12H PRN PO Moderate constipation 03/01/18 20:45 UNV Bisacodyl (Dulcolax Supp) 10 mg DAILY PRN RECTAL SEVERE CONSITIPATION 03/01/18 20:45 UNV Lactulose (Lactulose Liq) 30 ml DAILY PRN PO SEVERE CONSITIPATION 03/01/18 20:45 UNV Dexmedetomidine HCl 200 mcg/ Sodium Chloride 52 ml @ 0 mls/hr TITRATE PRN IV SEDATION 03/01/18 21:00 UNV Dexamethasone Sodium Phosphate (Decadron Inj) 8 mg Q6H IV PUSH 03/01/18 21:00 UNV Racepinephrine (Racepinephrine 2.25% Neb) 0.5 ml Q3HR NEB PRN NEB stridor 03/01/18 21:00 UNV Family History Mother with hypertension Father fairly healthy Maternal and Paternal Grandparents with heart disease Social History Denies any tobacco use Occasional alcohol use No history of illicit drug use Physical Exam Physical Exam GENERAL: Well-nourished, well-developed patient. Anxious SKIN: Warm and dry. HEAD: Normocephalic. EYES: No scleral icterus. No injection or drainage. NECK: Supple, trachea midline. No JVD or lymphadenopathy. Scar post tracheostomy in the midline CARDIOVASCULAR: Regular rate and rhythm without murmurs, gallops, or rubs. RESPIRATORY: Breath sounds equal bilaterally. No accessory muscle use. No stridor or wheezing GASTROINTESTINAL: Abdomen soft, non-tender, nondistended. MUSCULOSKELETAL: No cyanosis, or edema. BACK: Nontender without obvious deformity. NEURO EXAM: GCS: 15 Mental Status: The patient is alert and oriented to person, place, and time with normal speech. Cranial Nerves: Visual acuity intact bilaterally. Visual casey normal in all quadrants. Pupils are round, reactive to light. Extraocular movements are intact without ptosis. Hearing is normal bilaterally. Voice is normal. Tongue protrudes midline and moves symmetrically. Reflexes: Biceps, patellar, and Achilles are 2/4 bilaterally. No clonus. Sensation: Sensation is intact bilaterally to pain and light touch. Two-point discrimination is intact. Motor: Good muscle tone. Strength is 5/5 bilaterally. Cerebellar: [id number] and [id number] test normal bilaterally. Caprini VTE Risk Assessment Caprini VTE Risk Assessment: Mod/High Risk (score >= 2) Caprini Risk Assessment Model Point Value = 1 Point Value = 2 Point Value = 3 Point Value = 5 Age 41-60 Minor surgery BMI > 25 kg/m2 Swollen legs Varicose veins or History of unexplained or recurrent spontaneous Oral contraceptives or hormone replacement Sepsis (< 1 month) Serious lung disease, including pneumonia (< 1 month) Abnormal pulmonary function Acute myocardial infarction Congestive heart failure (< 1 month) History of inflammatory bowel disease Medical patient at bed rest Age 61-74 Arthroscopic surgery Major open surgery (> 45 min) Laparoscopic surgery (> 45 min) Malignancy Confined to bed (> 72 hours) Immobilizing plaster cast Central venous access Age >= 75 History of VTE Family history of VTE Factor V Leiden Prothrombin [id number] Lupus anticoagulant Anticardiolipin antibodies Elevated serum homocysteine Heparin-induced thrombocytopenia Other congenital or acquired thrombophilia Stroke (< 1 month) Elective arthroplasty Hip, pelvis, or leg fracture Acute spinal cord injury (< 1 month) Prophylaxis Regimen Total Risk Factor Score Risk Level Prophylaxis Regimen 0-1 Low Early ambulation 2 Moderate Order ONE of the following: *Sequential Compression Device (SCD) *Heparin 5000 units SQ BID 3-4 Higher Order ONE of the following medications: *Heparin 5000 units SQ TID *Enoxaparin/Lovenox 40 mg SQ daily (WT < 150 kg, CrCl > 30 mL/min) *Enoxaparin/Lovenox 30 mg SQ daily (WT < 150 kg, CrCl > 10-29 mL/min) *Enoxaparin/Lovenox 30 mg SQ BID (WT < 150 kg, CrCl > 30 mL/min) AND/OR *Sequential Compression Device (SCD) 5 or more Highest Order ONE of the following medications: *Heparin 5000 units SQ TID (Preferred with Epidurals) *Enoxaparin/Lovenox 40 mg SQ daily (WT < 150 kg, CrCl > 30 mL/min) *Enoxaparin/Lovenox 30 mg SQ daily (WT < 150 kg, CrCl > 10-29 mL/min) *Enoxaparin/Lovenox 30 mg SQ BID (WT < 150 kg, CrCl > 30 mL/min) AND *Sequential Compression Device (SCD) Assessment and Plan Assessment and Plan Respiratory failure - Allergic reaction -Monitor in the ICU for airway patency -ENT consultation Allergic reaction - IV steroids - H1 H2 antagonists Asthma - Continue LABA Anxiety -Precedex drip as needed -Resume home meds when indicated GERD - IV Pepcid DVT GI prophylax - Teds SCDs - Lovenox - Pepcid Critical Care: The total critical care time was 35 minutes. Time to perform other separately billable procedures was not included in the critical care time. Rory Talley MD March 01, 2018 9:00 pm
[2018-03-01 22:00] VITALS: PULSE 114
[2018-03-01] MEDS: MONTELUKAST SODIUM 10 MG TAB PO SCH (22:20)
[2018-03-01] MEDS: DEXAMETHASONE SOD PHOS 4 MG/ML VIAL IV PUSH SCH (22:20)
[2018-03-01] MEDS: FAMOTIDINE 20 MG/2 ML VIAL IV PUSH SCH (22:20)
[2018-03-01] MEDS: SODIUM CHLOR 0.9% 1000 ML INJ 1,000 ML IV SCH (22:20)
[2018-03-01] MEDS: HEPARIN SODIUM - SQ 10,000 UNITS/ML VIAL SQ SCH (22:21)
[2018-03-01] MEDS: MORPHINE SULFATE 4 MG/ML INJ IV PUSH PRN (22:23)
[2018-03-01] MEDS: ONDANSETRON HCL 4 MG/2 ML VIAL IV PUSH PRN (23:02)
[2018-03-01] MEDS: DEXMEDETOMIDINE INJ 200 MCG in SODIUM CHLORIDE 0.9% INJ 50 ML IV PRN (23:02)
[2018-03-01] MEDS: diphenhydrAMINE HCL 50 MG/ML VIAL IV SCH (23:04)
[2018-03-02] VITALS (15 sets, daily range): BP systolic 97–117; BP diastolic 52–61; PULSE 84–104; RESP 12–22; TEMP 97.9–98.8; O2SAT 93–100
[2018-03-02] MEDS: diphenhydrAMINE HCL 50 MG/ML VIAL IV SCH ×5 (03:00→19:01)
[2018-03-02] MEDS: MORPHINE SULFATE 4 MG/ML INJ IV PUSH PRN ×5 (03:00→19:01)
[2018-03-02] MEDS: DEXAMETHASONE SOD PHOS 4 MG/ML VIAL IV PUSH SCH ×4 (03:01→19:47)
[2018-03-02] MEDS: RESP: ALBUTEROL 2.5 MG/IPRATROPIUM 0.5 MG NEB (SCH) INH ×6 (04:00→20:00)
[2018-03-02] MEDS: CHLORHEXIDINE GLUCONATE 2 % 1 PACK (2 CLOTHS) TOP SCH (04:00)
[2018-03-02] MEDS: HEPARIN SODIUM - SQ 10,000 UNITS/ML VIAL SQ SCH ×2 (05:58→15:33)
[2018-03-02] MEDS: DEXMEDETOMIDINE INJ 200 MCG in SODIUM CHLORIDE 0.9% INJ 50 ML IV PRN ×2 (05:58→14:45)
[2018-03-02 06:09] LABS: BASOPHIL % 0.1 % (0.0-2.0); HEMATOCRIT 26.9 % (35.0-46.0); HEMOGLOBIN 8.5 GM/DL (11.6-15.3); LYMPH % 6.5 % (9.0-44.0); LYMPHOCYTE # 0.8 TH/MM3 (1.0-4.8); MEAN CELL VOLUME 75.8 FL (80.0-100.0); MEAN CORPUSCULAR HEMOGLOBIN 23.9 PG (27.0-34.0); MEAN CORPUSCULAR HGB CONC 31.5 % (32.0-36.0); MEAN PLATELET VOLUME 7.9 FL (7.0-11.0); MONOCYTE # 0.1 TH/MM3 (0-0.9); NEUT % 92.4 % (16.0-70.0); PLATELET COUNT 261 TH/MM3 (150-450); RED BLOOD COUNT 3.55 MIL/MM3 (4.00-5.30); RED CELL DISTRIBUTION WIDTH 17.7 % (11.6-17.2)
[2018-03-02 06:20] LABS: INTERNATIONAL NORMALIZED RATIO 1.1 RATIO; PROTHROMBIN TIME - PATIENT 10.9 SEC (9.8-11.6)
[2018-03-02 06:34] LABS: ALBUMIN 3.3 GM/DL (3.4-5.0); AST (GOT) 26 U/L (15-37); BICARBONATE 22.7 MEQ/L (21.0-32.0); BLOOD UREA NITROGEN 18 MG/DL (7-18); CALCIUM 9.3 MG/DL (8.5-10.1); CHLORIDE 111 MEQ/L (98-107); CREATININE 0.92 MG/DL (0.50-1.00); GLOMERULAR FILTRATION RATE 72 ML/MIN (>89); GLUCOSE,RANDOM 146 MG/DL (74-106); MAGNESIUM 2.3 MG/DL (1.5-2.5); SODIUM (NA) 144 MEQ/L (136-145)
[2018-03-02 06:37] LABS: ALKALINE PHOSPHATASE 75 U/L (45-117); ALT (GPT) 48 U/L (10-53); PHOSPHORUS 3.5 MG/DL (2.5-4.9); TOTAL BILIRUBIN ADULT 0.5 MG/DL (0.2-1.0); TOTAL PROTEIN 7.6 GM/DL (6.4-8.2)
[2018-03-02] MEDS: RESP: LEVALBUTEROL HYDROCHLORIDE 0.63 MG/3 ML NEB (SCH) NEB ×4 (08:00→20:14)
[2018-03-02] MEDS: DIGOXIN 0.25 MG TAB PO SCH (08:31)
[2018-03-02] MEDS: DILTIAZEM-CD 180 MG CAP ER PO SCH (08:31)
[2018-03-02] MEDS: predniSONE 5 MG TAB PO SCH (08:31)
[2018-03-02] MEDS: DOCUSATE SODIUM 50 MG/SENNA 8.6 MG TAB PO SCH ×2 (08:32→20:02)
[2018-03-02] MEDS: SODIUM CHLORIDE 0.9% FLUSH 10 ML FLUSH IV FLUSH SCH ×2 (08:33→20:02)
[2018-03-02] MEDS: FAMOTIDINE 20 MG/2 ML VIAL IV PUSH SCH (08:33)
[2018-03-02] MEDS: ONDANSETRON HCL 4 MG/2 ML VIAL IV PUSH PRN ×2 (09:00→15:33)
[2018-03-02 09:16] LABS: AUTOMATED NEUTROPHIL # 13.6 TH/MM3 (1.8-7.7); BASOPHIL % 0.1 % (0.0-2.0); HEMATOCRIT 26.5 % (35.0-46.0); HEMOGLOBIN 8.2 GM/DL (11.6-15.3); LYMPH % 6.4 % (9.0-44.0); LYMPHOCYTE # 0.9 TH/MM3 (1.0-4.8); MEAN CORPUSCULAR HEMOGLOBIN 23.4 PG (27.0-34.0); MEAN CORPUSCULAR HGB CONC 30.8 % (32.0-36.0); MEAN PLATELET VOLUME 8.2 FL (7.0-11.0); MONO % 1.4 % (0.0-8.0); MONOCYTE # 0.2 TH/MM3 (0-0.9); NEUT % 92.1 % (16.0-70.0); PLATELET COUNT 252 TH/MM3 (150-450); RED BLOOD COUNT 3.48 MIL/MM3 (4.00-5.30); WHITE BLOOD COUNT 14.7 TH/MM3 (4.0-11.0)
[2018-03-02 09:35] LABS: ALBUMIN 3.1 GM/DL (3.4-5.0); AST (GOT) 26 U/L (15-37); BICARBONATE 20.2 MEQ/L (21.0-32.0); BLOOD UREA NITROGEN 17 MG/DL (7-18); CALCIUM 9.2 MG/DL (8.5-10.1); CHLORIDE 112 MEQ/L (98-107); CREATININE 0.96 MG/DL (0.50-1.00); GLOMERULAR FILTRATION RATE 68 ML/MIN (>89); GLUCOSE,RANDOM 139 MG/DL (74-106); MAGNESIUM 2.1 MG/DL (1.5-2.5); SODIUM (NA) 144 MEQ/L (136-145)
[2018-03-02] MEDS: SODIUM CHLOR 0.9% 1000 ML INJ 1,000 ML IV SCH ×2 (09:37→20:50)
[2018-03-02 09:45] LABS: ALKALINE PHOSPHATASE 69 U/L (45-117); ALT (GPT) 50 U/L (10-53); FREE T4 1.13 NG/DL (0.76-1.46); PHOSPHORUS 4.2 MG/DL (2.5-4.9); TOTAL BILIRUBIN ADULT 0.5 MG/DL (0.2-1.0); TOTAL PROTEIN 8.5 GM/DL (6.4-8.2)
--- NOTE | 2018-03-02 10:45 | PD.CONS ---
History of Present Illness Service ENT Consult Requested By [facility] Reason for Consult Airway obstruction Primary Care Physician Non-Staff Diagnoses: History of Present Illness 32 year old female has a recent history of several bouts of acute airway edema anaphylaxis. She was last at this institution last month. She was intubated and required a tracheostomy. 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 She was decannulated. She has seen Dr Nelsy Azevedo D.O, filler picker at the [facility] in [place]. She had a Botox injection apparently for vocal cord dysfunction last week. She was to follow with [facility] Speech therapy. she developed acute obstruction in the interim and was transferred here to [facility]. She has received medical therapy over night. She sounds much less stridorous, but does not feel well and feels she need the tracheostomy back. Review of Systems Ears, nose, mouth, throat: COMPLAINS OF: Hoarseness, DENIES: Nasal discharge, Oral lesions, Throat pain Past Family Social History Allergies: Coded Allergies: diatrizoate meglumine (Unverified Allergy, Severe, Anaphylaxis, 06/02/17) gadobenic acid (Unverified Allergy, Severe, 06/02/17) Per patient when given MRI contrast it becomes hard to swallow and she feels burning in her throat. EG 01/28/2017 gadodiamide (Unverified Allergy, Severe, 06/02/17) Per patient when given MRI contrast it becomes hard to swallow and she feels burning in her throat. EG 01/28/2017 gadoteridol (Unverified Allergy, Severe, 06/02/17) Per patient when given MRI contrast it becomes hard to swallow and she feels burning in her throat. EG 01/28/2017 hydromorphone (Unverified Allergy, Severe, Itching, 06/02/17) ibuprofen (Verified Allergy, Severe, Anaphylaxis, 01/09/18) iodixanol (Unverified Allergy, Severe, Anaphylaxis, 06/02/17) iohexol (Unverified Allergy, Severe, Anaphylaxis, 06/02/17) latex (Unverified Allergy, Severe, Anaphylaxis, 06/02/17) metoclopramide (Unverified Allergy, Severe, Shortness of Breath, 06/02/17) prochlorperazine (Unverified Allergy, Severe, Shortness of Breath, 06/02/17 ) succinylcholine (Unverified Allergy, Severe, 06/02/17) cefepime (Unverified Allergy, Mild, HIVES, 06/02/17) ceftaroline fosamil (Unverified Allergy, Mild, HIVES, 06/02/17) Physical Exam Vital Signs Vital Signs Date Time Temp Pulse Resp B/P (MAP) Pulse Ox O2 Delivery O2 Flow Rate FiO2 03/02/18 10:00 87 03/02/18 08:28 96 Nasal Cannula 2.00 03/02/18 08:00 90 03/02/18 08:00 97.9 90 13 97/52 (67) 98 03/02/18 07:00 100 Nasal Cannula 2.00 03/02/18 06:00 98 03/02/18 05:06 98 Nasal Cannula 2.00 03/02/18 04:00 98.4 88 12 102/58 (73) 97 03/02/18 04:00 88 03/02/18 02:00 104 03/02/18 00:00 104 03/02/18 00:00 98.4 104 15 110/57 (74) 100 03/01/18 22:00 114 03/01/18 20:30 118 03/01/18 20:30 98.6 118 26 124/66 (85) 98 Physical Exam GENERAL: This is a well-nourished, well-developed patient, in no apparent distress. SKIN: No rashes, ecchymoses or lesions. Cool and dry. HEAD: Atraumatic. Normocephalic. No temporal or scalp tenderness. EYES: Pupils equal round and reactive. Extraocular motions intact. No scleral icterus. No injection or drainage. ENT: Nose without bleeding, purulent drainage or septal hematoma. Throat without erythema, tonsillar hypertrophy or exudate. Uvula midline. Airway patent. NECK: Trachea midline. No JVD or lymphadenopathy. Supple, nontender, no meningeal signs. NEUROLOGICAL: Awake and alert. Normal speech. Fiberoptic laryngoscopy deferred due to patient's anxiety. She is moving air better at the moment. Laboratory Laboratory Tests Test 03/01/18 22:00 03/02/18 05:45 03/02/18 08:50 Nasal Screen MRSA (PCR) MRSA NOT DETECTED White Blood Count 13.0 14.7 Red Blood Count 3.55 3.48 Hemoglobin 8.5 8.2 Hematocrit 26.9 26.5 Mean Corpuscular Volume 75.8 76.0 Mean Corpuscular Hemoglobin 23.9 23.4 Mean Corpuscular Hemoglobin Concent 31.5 30.8 Red Cell Distribution Width 17.7 18.0 Platelet Count 261 252 Mean Platelet Volume 7.9 8.2 Neutrophils (%) (Auto) 92.4 92.1 Lymphocytes (%) (Auto) 6.5 6.4 Monocytes (%) (Auto) 1.0 1.4 Eosinophils (%) (Auto) 0.0 0.0 Basophils (%) (Auto) 0.1 0.1 Neutrophils # (Auto) 12.0 13.6 Lymphocytes # (Auto) 0.8 0.9 Monocytes # (Auto) 0.1 0.2 Eosinophils # (Auto) 0.0 0.0 Basophils # (Auto) 0.0 0.0 CBC Comment DIFF FINAL DIFF FINAL Differential Comment Prothrombin Time 10.9 Prothromb Time International Ratio 1.1 Activated Partial Thromboplast Time 24.5 Blood Urea Nitrogen 18 17 Creatinine 0.92 0.96 Random Glucose 146 139 Total Protein 7.6 8.5 Albumin 3.3 3.1 Calcium Level 9.3 9.2 Phosphorus Level 3.5 4.2 Magnesium Level 2.3 2.1 Alkaline Phosphatase 75 69 Aspartate Amino Transf (AST/SGOT) 26 26 Alanine Aminotransferase (ALT/SGPT) 48 50 Total Bilirubin 0.5 0.5 Sodium Level 144 144 Potassium Level 3.6 3.4 Chloride Level 111 112 Carbon Dioxide Level 22.7 20.2 Anion Gap 10 12 Estimat Glomerular Filtration Rate 72 68 Free Thyroxine 1.13 Thyroid Stimulating Hormone 3rd Gen 0.183 Result Diagram: 03/02/18 0850 03/02/18 0850 Assessment and Plan Assessment and Plan 32 year old female, complicated airway issues, reported anaphylaxis and vocal cord dysfunction. She is being followed her her local ENT, Dr Qureshi and referred to Academic Bl[employer] Pack Operator at [facility] in [place], Dr Nelsy Azevedo D.O. The patient appears to have responded somewhat to medical therapy, but she still reports air hunger and feels she will need an airway. Ideally it would be best to transfer her to [place] and Dr Azevedo's care. she may require a surgical airway to safely go to [place], however. Bautista Oviedo MD March 02, 2018 10:45
[2018-03-02] MEDS ORDERED: POTASSIUM CHLOR 20 MEQ PREMIX 100 ML IV PRN (16:45)
[2018-03-02] MEDS ORDERED: MAGNESIUM SULFATE INJ 4 GM in SODIUM CHLORIDE 0.9% INJ 92 ML IV PRN (16:45)
[2018-03-02] MEDS ORDERED: POTASSIUM PHOSPHATE INJ 30 MMOL in SODIUM CHLOR 0.9% 250 ML INJ 250 ML IV PRN (16:45)
[2018-03-02] MEDS ORDERED: POTASSIUM CHLORIDE 25 MEQ EFFERVESCENT TAB PO PRN (16:45)
[2018-03-02] MEDS ORDERED: POTASSIUM PHOSPHATE MONOBASIC 500 MG TAB PO PRN (16:45)
[2018-03-02] MEDS ORDERED: POTASSIUM PHOSPHATE MONOBASIC 500 MG TAB PO/TUBE PRN (16:45)
[2018-03-02] MEDS ORDERED: MAGNESIUM OXIDE 400 MG TAB PO PRN (16:45)
[2018-03-02] MEDS ORDERED: POTASSIUM CHLOR 40 MEQ PREMIX 100 ML IV PRN ×2 (16:45)
[2018-03-02] MEDS ORDERED: MAGNESIUM SULFATE INJ 2 GM in SODIUM CHLORIDE 0.9% INJ 96 ML IV PRN (16:45)
[2018-03-02] MEDS ORDERED: SODIUM PHOSPHATE INJ 30 MMOL in SODIUM CHLOR 0.9% 250 ML INJ 240 ML IV PRN (16:45)
--- NOTE | 2018-03-02 16:51 | HHI.PR ---
Subjective Remarks 32-year-old very pleasant but very anxious female presented to emergency department at [facility] via EMS complaining of allergic reaction. The patient reports shortness of breath. She stated that she is allergic to multiple medications and substances including sulfites. Per EMS patient received albuterol, Benadryl, received epinephrine and Versed. The patient reports she has recently had a tracheostomy tube removed. She denies any other symptoms. 03-02 patient has been transferred to our service Remains on Benadryl and Precedex and morphine Has been seen by ENT who recommended she go back to [facility] for any procedures patient states she has had 4 tracheostomies within the last year Patient states that her local ENT recommended that her tracheostomy to be removed a Dr. Qureshi Objective Vitals Vital Signs Date Time Temp Pulse Resp B/P (MAP) Pulse Ox O2 Delivery O2 Flow Rate FiO2 03/02/18 16:00 85 03/02/18 14:00 89 03/02/18 12:00 93 03/02/18 12:00 98.1 93 15 111/57 (75) 96 03/02/18 10:00 87 03/02/18 08:28 96 Nasal Cannula 2.00 03/02/18 08:00 90 03/02/18 08:00 97.9 90 13 97/52 (67) 98 03/02/18 07:00 100 Nasal Cannula 2.00 03/02/18 06:00 98 03/02/18 05:06 98 Nasal Cannula 2.00 03/02/18 04:00 98.4 88 12 102/58 (73) 97 03/02/18 04:00 88 03/02/18 02:00 104 03/02/18 00:00 104 03/02/18 00:00 98.4 104 15 110/57 (74) 100 03/01/18 22:00 114 03/01/18 20:30 118 03/01/18 20:30 98.6 118 26 124/66 (85) 98 I/O 03/01/18 03/01/18 03/01/18 03/02/18 03/02/18 03/02/18 07:00 15:00 23:00 07:00 15:00 23:00 Intake Total 1000 ml Output Total 825 ml Balance -825 ml 1000 ml Intake IV Total 1000 ml Output Urine Total 825 ml # Voids 1 # Bowel Movements 1 Result Diagram: 03/02/18 0850 03/02/18 0850 Other Results Laboratory Tests Test 03/01/18 22:00 03/02/18 05:45 03/02/18 08:50 Nasal Screen MRSA (PCR) MRSA NOT DETECTED White Blood Count 13.0 TH/MM3 14.7 TH/MM3 Red Blood Count 3.55 MIL/MM3 3.48 MIL/MM3 Hemoglobin 8.5 GM/DL 8.2 GM/DL Hematocrit 26.9 % 26.5 % Mean Corpuscular Volume 75.8 FL 76.0 FL Mean Corpuscular Hemoglobin 23.9 PG 23.4 PG Mean Corpuscular Hemoglobin Concent 31.5 % 30.8 % Red Cell Distribution Width 17.7 % 18.0 % Platelet Count 261 TH/MM3 252 TH/MM3 Mean Platelet Volume 7.9 FL 8.2 FL Neutrophils (%) (Auto) 92.4 % 92.1 % Lymphocytes (%) (Auto) 6.5 % 6.4 % Monocytes (%) (Auto) 1.0 % 1.4 % Eosinophils (%) (Auto) 0.0 % 0.0 % Basophils (%) (Auto) 0.1 % 0.1 % Neutrophils # (Auto) 12.0 TH/MM3 13.6 TH/MM3 Lymphocytes # (Auto) 0.8 TH/MM3 0.9 TH/MM3 Monocytes # (Auto) 0.1 TH/MM3 0.2 TH/MM3 Eosinophils # (Auto) 0.0 TH/MM3 0.0 TH/MM3 Basophils # (Auto) 0.0 TH/MM3 0.0 TH/MM3 CBC Comment DIFF FINAL DIFF FINAL Differential Comment Prothrombin Time 10.9 SEC Prothromb Time International Ratio 1.1 RATIO Activated Partial Thromboplast Time 24.5 SEC Blood Urea Nitrogen 18 MG/DL 17 MG/DL Creatinine 0.92 MG/DL 0.96 MG/DL Random Glucose 146 MG/DL 139 MG/DL Total Protein 7.6 GM/DL 8.5 GM/DL Albumin 3.3 GM/DL 3.1 GM/DL Calcium Level 9.3 MG/DL 9.2 MG/DL Phosphorus Level 3.5 MG/DL 4.2 MG/DL Magnesium Level 2.3 MG/DL 2.1 MG/DL Alkaline Phosphatase 75 U/L 69 U/L Aspartate Amino Transf (AST/SGOT) 26 U/L 26 U/L Alanine Aminotransferase (ALT/SGPT) 48 U/L 50 U/L Total Bilirubin 0.5 MG/DL 0.5 MG/DL Sodium Level 144 MEQ/L 144 MEQ/L Potassium Level 3.6 MEQ/L 3.4 MEQ/L Chloride Level 111 MEQ/L 112 MEQ/L Carbon Dioxide Level 22.7 MEQ/L 20.2 MEQ/L Anion Gap 10 MEQ/L 12 MEQ/L Estimat Glomerular Filtration Rate 72 ML/MIN 68 ML/MIN Free Thyroxine 1.13 NG/DL Thyroid Stimulating Hormone 3rd Gen 0.183 uIU/ML Objective Remarks GENERAL: Awake alert and oriented 3 talkative and cooperative very anxious remains on Precedex SKIN: Warm and dry. HEAD: Atraumatic. Normocephalic. EYES: Pupils equal and round. No scleral icterus. No injection or drainage. Extraocular muscles intact ENT: No nasal bleeding or discharge. Mucous membranes pink and moist. Tongue is midline NECK: Trachea midline. No JVD. Old tracheostomy site barely closed CARDIOVASCULAR: Regular rate and rhythm. S1-S2 no S3 or S4 RESPIRATORY: No accessory muscle use. Clear to auscultation. Breath sounds equal bilaterally. Decreased breath sounds bilaterally obese GASTROINTESTINAL: Abdomen soft, non-tender, nondistended. Hepatic and splenic margins not palpable. MUSCULOSKELETAL: Extremities without clubbing, cyanosis, or edema. No obvious deformities. NEUROLOGICAL: Awake and alert. No obvious cranial nerve deficits. Motor grossly within normal limits. 4 out of 5 muscle strength in the arms and legs. Normal speech. PSYCHIATRIC: INAppropriate mood and affect; insight and judgment ABnormal. Procedures None Medications and IVs Current Medications Sodium Chloride 1,000 ml @ 84 mls/hr [id number] IV Last administered on at 09:37; Start 03/01/18 at 21:00 Sodium Chloride (NS Flush) 2 ml UNSCH PRN IV FLUSH FLUSH AFTER USING IV ACCESS ; Start 03/01/18 at 20:45 Sodium Chloride (NS Flush) 2 ml BID IV FLUSH Last administered on 03/02/18at 08: 33; Start 03/01/18 at 21:00 Acetaminophen (Tylenol) 650 mg Q6H PRN PO PAIN 1-5 AND/OR FEVER >101F; Start at 20:45 Morphine Sulfate (Morphine Inj) 2 mg Q2H PRN IV PUSH PAIN SCALE 6 TO 10 Last administered on 03/02/18at 15:34; Start 03/01/18 at 20:45 Famotidine (Pepcid Inj) 20 mg Q12HR IV PUSH Last administered on 03/02/18at 08: 33; Start 03/01/18 at 21:00; Stop 03/02/18 at 09:07; Status DC Ondansetron HCl (Zofran Inj) 4 mg Q6H PRN IV PUSH NAUSEA OR VOMITING Last administered on 03/02/18at 15:33; Start 03/01/18 at 20:45 Temazepam (Restoril) 15 mg HS PRN PO INSOMNIA; Start 03/01/18 at 20:45 Albuterol/ Ipratropium (Duoneb Neb) 1 ampule Q4HR NEB INH Last administered on 03/02/18at 05:01; Start 03/02/18 at 00:00 Albuterol/ Ipratropium (Duoneb Neb) 1 ampule Q2HR NEB PRN INH WHEEZING; Start 03/01/18 at 20:45 Heparin Sodium (Porcine) (Heparin Inj) 5,000 units Q8H SQ Last administered on 03/02/18at 15:33; Start 03/01/18 at 22:00 Miscellaneous Information ([facility] Nursing Information) 1 [id number] Last administered on 03/01/18at 20:45; Start 03/01/18 at 20:45 Chlorhexidine Gluconate (Chlorhexidine 2% Cloth) 3 pack Taper DAILY@04 TOP ; Start 03/02/18 at 04:00; Stop 02/26/19 at 03:59 Chlorhexidine Gluconate (Chlorhexidine 2% Cloth) 3 pack UNSCH PRN TOP HYGIENIC CARE; Start 03/01/18 at 20:45 Senna/Docusate Sodium (Annette-Colace) 1 tab BID PO Last administered on at 08:32; Start 03/01/18 at 21:00 Magnesium Hydroxide (Milk Of Magnesia Liq) 30 ml Q12H PRN PO Mild constipation ; Start 03/01/18 at 20:45 Sennosides (Senokot) 17.2 mg Q12H PRN PO Moderate constipation; Start 03/01/18 at 20:45 Bisacodyl (Dulcolax Supp) 10 mg DAILY PRN RECTAL SEVERE CONSITIPATION; Start at 20:45 Lactulose (Lactulose Liq) 30 ml DAILY PRN PO SEVERE CONSITIPATION; Start at 20:45 Dexmedetomidine HCl 200 mcg/ Sodium Chloride 52 ml @ 0 mls/hr TITRATE PRN IV SEDATION; Start 03/01/18 at 21:00; Stop 03/01/18 at 21:29; Status DC Dexamethasone Sodium Phosphate (Decadron Inj) 8 mg Q6H IV PUSH Last administered on 03/02/18at 15:33; Start 03/01/18 at 21:00 Racepinephrine (Racepinephrine 2.25% Neb) 0.5 ml Q3HR NEB PRN NEB stridor; Start 03/01/18 at 21:00 Digoxin (Lanoxin) 0.25 mg DAILY PO Last administered on 03/02/18at 08:31; Start 03/02/18 at 09:00 Diltiazem HCl (Cardizem Cd) 180 mg DAILY PO Last administered on 03/02/18at 08: 31; Start 03/02/18 at 09:00 Montelukast Sodium (Singulair) 10 mg HS PO Last administered on 03/01/18at 22:20 ; Start 03/01/18 at 21:00 Oxycodone HCl (Roxicodone) 10 mg Q4H PRN PO PAIN 6 TO 10; Start 03/01/18 at 21: 00 Prednisone (Deltasone) 5 mg DAILY PO Last administered on 03/02/18at 08:31; Start 03/02/18 at 09:00 Promethazine HCl (Phenergan) 25 mg Q6H PRN PO Nausea/Vomiting; Start 03/01/18 at 21:00 Non-Formulary Medication 1 puff Q4HR PRN INH SHORTNESS OF BREATH; Start at 21:00; Status UNV Non-Formulary Medication 0.63 mg QID NEB ; Start 03/01/18 at 21:00; Status UNV Dexmedetomidine HCl 200 mcg/ Sodium Chloride 52 ml @ 4.19 mls/hr TITRATE PRN IV SEDATION Last administered on 03/02/18at 05:58; Start 03/01/18 at 21:30 Patient Own Medication PT OWN MED: XOPE... Q4H PRN INH SHORTNESS OF BREATH; Start 03/01/18 at 21:45; Status Future Hold Levalbuterol HCl (Xopenex Neb) 0.63 mg QID NEB NEB ; Start 03/02/18 at 08:00 Diphenhydramine HCl (Benadryl Inj) 25 mg Q4H IV Last administered on 03/02/18at 15:33; Start 03/01/18 at 23:00; Stop 03/05/18 at 22:59 Famotidine (Pepcid) 20 mg BID PO ; Start 03/02/18 at 21:00 A/P Assessment and Plan Respiratory failure - Allergic reaction -Monitor in the ICU for airway patency -ENT consultation- THEY RECOMMEND TRANSFER TO [facility]- AIRWAY HERE ONLY IF NEEDED Allergic reaction - IV steroids - H1 H2 antagonists Asthma - Continue LABA Anxiety -Precedex drip as needed -Resume home meds when indicated -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
[2018-03-02] MEDS: GABAPENTIN 300 MG CAP PO SCH ×2 (17:32→18:00)
[2018-03-02] MEDS: POTASSIUM CHLOR 20 MEQ PREMIX 100 ML IV PRN ×2 (17:45→19:47)
[2018-03-02] MEDS: FAMOTIDINE 20 MG TAB PO SCH (20:02)
[2018-03-02] MEDS: AMITRIPTYLINE HCL 10 MG TAB PO SCH (20:02)
[2018-03-02] MEDS: PANTOPRAZOLE SOD 40 MG DELAYED RELEASE TAB PO SCH (20:03)
[2018-03-02] MEDS: MONTELUKAST SODIUM 10 MG TAB PO SCH (20:03)
[2018-03-03] VITALS (14 sets, daily range): BP systolic 106–143; BP diastolic 54–63; PULSE 76–106; RESP 14–22; TEMP 97.7–98.4; O2SAT 92–96
[2018-03-03] MEDS: MORPHINE SULFATE 4 MG/ML INJ IV PUSH PRN ×4 (00:13→12:54)
[2018-03-03] MEDS: diphenhydrAMINE HCL 50 MG/ML VIAL IV SCH ×7 (00:13→23:18)
[2018-03-03] MEDS: HEPARIN SODIUM - SQ 10,000 UNITS/ML VIAL SQ SCH ×4 (00:16→20:42)
[2018-03-03] MEDS: ONDANSETRON HCL 4 MG/2 ML VIAL IV PUSH PRN ×3 (00:26→23:18)
[2018-03-03] MEDS: RESP: ALBUTEROL 2.5 MG/IPRATROPIUM 0.5 MG NEB (SCH) INH ×8 (00:30→23:29)
[2018-03-03] MEDS: DEXMEDETOMIDINE INJ 200 MCG in SODIUM CHLORIDE 0.9% INJ 50 ML IV PRN ×2 (03:11→18:51)
[2018-03-03] MEDS: DEXAMETHASONE SOD PHOS 4 MG/ML VIAL IV PUSH SCH ×4 (03:11→20:42)
[2018-03-03] MEDS: CHLORHEXIDINE GLUCONATE 2 % 1 PACK (2 CLOTHS) TOP SCH (04:00)
[2018-03-03 06:04] LABS: BASOPHIL % 0.1 % (0.0-2.0); HEMATOCRIT 25.1 % (35.0-46.0); HEMOGLOBIN 7.9 GM/DL (11.6-15.3); LYMPH % 6.1 % (9.0-44.0); LYMPHOCYTE # 0.9 TH/MM3 (1.0-4.8); MEAN CORPUSCULAR HEMOGLOBIN 23.9 PG (27.0-34.0); MEAN CORPUSCULAR HGB CONC 31.5 % (32.0-36.0); MEAN PLATELET VOLUME 8.1 FL (7.0-11.0); MONO % 1.2 % (0.0-8.0); MONOCYTE # 0.2 TH/MM3 (0-0.9); NEUT % 92.6 % (16.0-70.0); PLATELET COUNT 279 TH/MM3 (150-450); RED CELL DISTRIBUTION WIDTH 18.1 % (11.6-17.2); WHITE BLOOD COUNT 15.1 TH/MM3 (4.0-11.0)
[2018-03-03 06:33] LABS: ALBUMIN 3.3 GM/DL (3.4-5.0); AST (GOT) 21 U/L (15-37); BICARBONATE 22.7 MEQ/L (21.0-32.0); CALCIUM 9.2 MG/DL (8.5-10.1); CHLORIDE 110 MEQ/L (98-107); CREATININE 1.19 MG/DL (0.50-1.00); GLOMERULAR FILTRATION RATE 53 ML/MIN (>89); GLUCOSE,RANDOM 131 MG/DL (74-106); MAGNESIUM 2.4 MG/DL (1.5-2.5); SODIUM (NA) 143 MEQ/L (136-145)
[2018-03-03 06:35] LABS: ALT (GPT) 49 U/L (10-53); BLOOD UREA NITROGEN 21 MG/DL (7-18); PHOSPHORUS 4.1 MG/DL (2.5-4.9); TOTAL BILIRUBIN ADULT 0.5 MG/DL (0.2-1.0); TOTAL PROTEIN 7.3 GM/DL (6.4-8.2)
[2018-03-03 06:47] LABS: ALKALINE PHOSPHATASE 68 U/L (45-117); DIGOXIN 0.5 NG/ML (0.8-2.0)
[2018-03-03] MEDS: RESP: LEVALBUTEROL HYDROCHLORIDE 0.63 MG/3 ML NEB (SCH) NEB ×4 (08:00→20:00)
[2018-03-03] MEDS: SODIUM CHLOR 0.9% 1000 ML INJ 1,000 ML IV SCH ×2 (08:45→20:40)
[2018-03-03] MEDS: DOCUSATE SODIUM 50 MG/SENNA 8.6 MG TAB PO SCH ×2 (09:00→21:00)
[2018-03-03] MEDS: SODIUM CHLORIDE 0.9% FLUSH 10 ML FLUSH IV FLUSH SCH ×2 (09:00→20:42)
[2018-03-03] MEDS: GABAPENTIN 300 MG CAP PO SCH ×3 (09:00→17:09)
[2018-03-03] MEDS: FAMOTIDINE 20 MG TAB PO SCH ×2 (09:00→21:00)
[2018-03-03] MEDS: DIGOXIN 0.25 MG TAB PO SCH (09:00)
[2018-03-03] MEDS: PANTOPRAZOLE SOD 40 MG DELAYED RELEASE TAB PO SCH ×2 (09:00→21:00)
[2018-03-03] MEDS: DILTIAZEM-CD 180 MG CAP ER PO SCH (09:00)
[2018-03-03] MEDS: predniSONE 5 MG TAB PO SCH (09:00)
--- NOTE | 2018-03-03 11:36 | HHI.PR ---
Subjective Remarks 32-year-old very pleasant but very anxious female presented to emergency department at [facility] via EMS complaining of allergic reaction. The patient reports shortness of breath. She stated that she is allergic to multiple medications and substances including sulfites. Per EMS patient received albuterol, Benadryl, received epinephrine and Versed. The patient reports she has recently had a tracheostomy tube removed. She denies any other symptoms. 03-02 patient has been transferred to our service Remains on Benadryl and Precedex and morphine Has been seen by ENT who recommended she go back to [facility] for any procedures patient states she has had 4 tracheostomies within the last year Patient states that her local ENT recommended that her tracheostomy to be removed a Dr. Qureshi 03-03 REFUSING TO TAKE PO MEDS AND EAT AT THIS TIME SWALLOW EVAL MBS WITH SPEECH AND RADIOLOGY DW RN AND PATIENT AND CASE MANAGEMENT- DW PSYCHIATRY THEY WILL NOT INCREASE HER ANXIOLYTICS IF PASSES SWALLOW EVAL MAY NEED TRANSFER BACK TO [facility] SO THEY CAN TRANSFER TO [place] IF THEY WANT PATIENT SEEMS TO WANT TO HAVE ANOTHER TRACHEOSTOMY STATES SHE IS SOB AND VERY ANXIOUS WHEN I COME IN THE ROOM Objective Vitals Vital Signs Date Time Temp Pulse Resp B/P (MAP) Pulse Ox O2 Delivery O2 Flow Rate FiO2 03/03/18 10:00 85 03/03/18 08:22 92 Nasal Cannula 2.00 03/03/18 08:00 98.2 85 14 108/61 (77) 95 03/03/18 08:00 86 03/03/18 07:00 93 Room Air 03/03/18 06:00 76 03/03/18 04:00 96 03/03/18 04:00 98.0 96 15 106/57 (73) 96 03/03/18 03:55 20 03/03/18 02:00 98 03/03/18 00:00 98 03/03/18 00:00 98.1 98 14 112/54 (73) 92 03/02/18 22:00 90 03/02/18 20:14 93 Nasal Cannula 2.00 03/02/18 20:00 92 03/02/18 20:00 98.4 84 22 113/55 (74) 95 03/02/18 19:00 93 Room Air 03/02/18 18:00 92 03/02/18 16:00 98.8 85 14 117/61 (79) 97 03/02/18 16:00 85 03/02/18 14:00 89 03/02/18 12:00 93 03/02/18 12:00 98.1 93 15 111/57 (75) 96 I/O 03/02/18 03/02/18 03/02/18 03/03/18 03/03/18 03/03/18 07:00 15:00 23:00 07:00 15:00 23:00 Intake Total 1052 ml 30 ml Output Total 825 ml 1150 ml 1350 ml Balance -825 ml 1052 ml -1120 ml -1350 ml Intake Oral 30 ml IV Total 1052 ml Output Urine Total 825 ml 1150 ml 1350 ml # Voids 1 # Bowel Movements 1 0 0 Result Diagram: 03/03/18 0540 03/03/18 0540 Other Results Laboratory Tests Test 03/01/18 22:00 03/02/18 05:45 03/02/18 08:50 03/02/18 17:33 Nasal Screen MRSA (PCR) MRSA NOT DETECTED White Blood Count 13.0 TH/MM3 14.7 TH/MM3 Red Blood Count 3.55 MIL/MM3 3.48 MIL/MM3 Hemoglobin 8.5 GM/DL 8.2 GM/DL Hematocrit 26.9 % 26.5 % Mean Corpuscular Volume 75.8 FL 76.0 FL Mean Corpuscular Hemoglobin 23.9 PG 23.4 PG Mean Corpuscular Hemoglobin Concent 31.5 % 30.8 % Red Cell Distribution Width 17.7 % 18.0 % Platelet Count 261 TH/MM3 252 TH/MM3 Mean Platelet Volume 7.9 FL 8.2 FL Neutrophils (%) (Auto) 92.4 % 92.1 % Lymphocytes (%) (Auto) 6.5 % 6.4 % Monocytes (%) (Auto) 1.0 % 1.4 % Eosinophils (%) (Auto) 0.0 % 0.0 % Basophils (%) (Auto) 0.1 % 0.1 % Neutrophils # (Auto) 12.0 TH/MM3 13.6 TH/MM3 Lymphocytes # (Auto) 0.8 TH/MM3 0.9 TH/MM3 Monocytes # (Auto) 0.1 TH/MM3 0.2 TH/MM3 Eosinophils # (Auto) 0.0 TH/MM3 0.0 TH/MM3 Basophils # (Auto) 0.0 TH/MM3 0.0 TH/MM3 CBC Comment DIFF FINAL DIFF FINAL Differential Comment Prothrombin Time 10.9 SEC Prothromb Time International Ratio 1.1 RATIO Activated Partial Thromboplast Time 24.5 SEC Blood Urea Nitrogen 18 MG/DL 17 MG/DL Creatinine 0.92 MG/DL 0.96 MG/DL Random Glucose 146 MG/DL 139 MG/DL Total Protein 7.6 GM/DL 8.5 GM/DL Albumin 3.3 GM/DL 3.1 GM/DL Calcium Level 9.3 MG/DL 9.2 MG/DL Phosphorus Level 3.5 MG/DL 4.2 MG/DL 3.8 MG/DL Magnesium Level 2.3 MG/DL 2.1 MG/DL Alkaline Phosphatase 75 U/L 69 U/L Aspartate Amino Transf (AST/SGOT) 26 U/L 26 U/L Alanine Aminotransferase (ALT/SGPT) 48 U/L 50 U/L Total Bilirubin 0.5 MG/DL 0.5 MG/DL Sodium Level 144 MEQ/L 144 MEQ/L Potassium Level 3.6 MEQ/L 3.4 MEQ/L Chloride Level 111 MEQ/L 112 MEQ/L Carbon Dioxide Level 22.7 MEQ/L 20.2 MEQ/L Anion Gap 10 MEQ/L 12 MEQ/L Estimat Glomerular Filtration Rate 72 ML/MIN 68 ML/MIN Hemoglobin A1c 6.0 % Free Thyroxine 1.13 NG/DL Thyroid Stimulating Hormone 3rd Gen 0.183 uIU/ML Test 03/03/18 05:40 White Blood Count 15.1 TH/MM3 Red Blood Count 3.30 MIL/MM3 Hemoglobin 7.9 GM/DL Hematocrit 25.1 % Mean Corpuscular Volume 76.0 FL Mean Corpuscular Hemoglobin 23.9 PG Mean Corpuscular Hemoglobin Concent 31.5 % Red Cell Distribution Width 18.1 % Platelet Count 279 TH/MM3 Mean Platelet Volume 8.1 FL Neutrophils (%) (Auto) 92.6 % Lymphocytes (%) (Auto) 6.1 % Monocytes (%) (Auto) 1.2 % Eosinophils (%) (Auto) 0.0 % Basophils (%) (Auto) 0.1 % Neutrophils # (Auto) 14.0 TH/MM3 Lymphocytes # (Auto) 0.9 TH/MM3 Monocytes # (Auto) 0.2 TH/MM3 Eosinophils # (Auto) 0.0 TH/MM3 Basophils # (Auto) 0.0 TH/MM3 CBC Comment DIFF FINAL Differential Comment Blood Urea Nitrogen 21 MG/DL Creatinine 1.19 MG/DL Random Glucose 131 MG/DL Total Protein 7.3 GM/DL Albumin 3.3 GM/DL Calcium Level 9.2 MG/DL Phosphorus Level 4.1 MG/DL Magnesium Level 2.4 MG/DL Alkaline Phosphatase 68 U/L Aspartate Amino Transf (AST/SGOT) 21 U/L Alanine Aminotransferase (ALT/SGPT) 49 U/L Total Bilirubin 0.5 MG/DL Sodium Level 143 MEQ/L Potassium Level 4.0 MEQ/L Chloride Level 110 MEQ/L Carbon Dioxide Level 22.7 MEQ/L Anion Gap 10 MEQ/L Estimat Glomerular Filtration Rate 53 ML/MIN Digoxin Level 0.5 NG/ML Objective Remarks GENERAL: Awake alert and oriented 3 talkative and cooperative very anxious remains on Precedex SKIN: Warm and dry. HEAD: Atraumatic. Normocephalic. EYES: Pupils equal and round. No scleral icterus. No injection or drainage. Extraocular muscles intact ENT: No nasal bleeding or discharge. Mucous membranes pink and moist. Tongue is midline NECK: Trachea midline. No JVD. Old tracheostomy site barely closed CARDIOVASCULAR: Regular rate and rhythm. S1-S2 no S3 or S4 RESPIRATORY: No accessory muscle use. Clear to auscultation. Breath sounds equal bilaterally. Decreased breath sounds bilaterally obese GASTROINTESTINAL: Abdomen soft, non-tender, nondistended. Hepatic and splenic margins not palpable. MUSCULOSKELETAL: Extremities without clubbing, cyanosis, or edema. No obvious deformities. NEUROLOGICAL: Awake and alert. No obvious cranial nerve deficits. Motor grossly within normal limits. 4 out of 5 muscle strength in the arms and legs. Normal speech. PSYCHIATRIC: INAppropriate mood and affect; insight and judgment ABnormal. Procedures None Medications and IVs Current Medications Sodium Chloride 1,000 ml @ 84 mls/hr [id number] IV Last administered on at 08:45; Start 03/01/18 at 21:00 Sodium Chloride (NS Flush) 2 ml UNSCH PRN IV FLUSH FLUSH AFTER USING IV ACCESS ; Start 03/01/18 at 20:45 Sodium Chloride (NS Flush) 2 ml BID IV FLUSH Last administered on 03/02/18at 20: 02; Start 03/01/18 at 21:00 Acetaminophen (Tylenol) 650 mg Q6H PRN PO PAIN 1-5 AND/OR FEVER >101F; Start at 20:45 Morphine Sulfate (Morphine Inj) 2 mg Q2H PRN IV PUSH PAIN SCALE 6 TO 10 Last administered on 03/03/18at 09:36; Start 03/01/18 at 20:45 Famotidine (Pepcid Inj) 20 mg Q12HR IV PUSH Last administered on 03/02/18at 08: 33; Start 03/01/18 at 21:00; Stop 03/02/18 at 09:07; Status DC Ondansetron HCl (Zofran Inj) 4 mg Q6H PRN IV PUSH NAUSEA OR VOMITING Last administered on 03/03/18at 00:26; Start 03/01/18 at 20:45 Temazepam (Restoril) 15 mg HS PRN PO INSOMNIA; Start 03/01/18 at 20:45 Albuterol/ Ipratropium (Duoneb Neb) 1 ampule Q4HR NEB INH Last administered on 03/03/18at 00:30; Start 03/02/18 at 00:00 Albuterol/ Ipratropium (Duoneb Neb) 1 ampule Q2HR NEB PRN INH WHEEZING; Start 03/01/18 at 20:45 Heparin Sodium (Porcine) (Heparin Inj) 5,000 units Q8H SQ Last administered on 03/03/18at 00:16; Start 03/01/18 at 22:00 Miscellaneous Information ([facility] Nursing Information) 1 [id number] Last administered on 03/01/18at 20:45; Start 03/01/18 at 20:45 Chlorhexidine Gluconate (Chlorhexidine 2% Cloth) 3 pack Taper DAILY@04 TOP ; Start 03/02/18 at 04:00; Stop 02/26/19 at 03:59 Chlorhexidine Gluconate (Chlorhexidine 2% Cloth) 3 pack UNSCH PRN TOP HYGIENIC CARE; Start 03/01/18 at 20:45 Senna/Docusate Sodium (Annette-Colace) 1 tab BID PO Last administered on at 08:32; Start 03/01/18 at 21:00 Magnesium Hydroxide (Milk Of Magnesia Liq) 30 ml Q12H PRN PO Mild constipation ; Start 03/01/18 at 20:45 Sennosides (Senokot) 17.2 mg Q12H PRN PO Moderate constipation; Start 03/01/18 at 20:45 Bisacodyl (Dulcolax Supp) 10 mg DAILY PRN RECTAL SEVERE CONSITIPATION; Start at 20:45 Lactulose (Lactulose Liq) 30 ml DAILY PRN PO SEVERE CONSITIPATION; Start at 20:45 Dexmedetomidine HCl 200 mcg/ Sodium Chloride 52 ml @ 0 mls/hr TITRATE PRN IV SEDATION; Start 03/01/18 at 21:00; Stop 03/01/18 at 21:29; Status DC Dexamethasone Sodium Phosphate (Decadron Inj) 8 mg Q6H IV PUSH Last administered on 03/03/18at 09:36; Start 03/01/18 at 21:00 Racepinephrine (Racepinephrine 2.25% Neb) 0.5 ml Q3HR NEB PRN NEB stridor; Start 03/01/18 at 21:00 Digoxin (Lanoxin) 0.25 mg DAILY PO Last administered on 03/02/18at 08:31; Start 03/02/18 at 09:00 Diltiazem HCl (Cardizem Cd) 180 mg DAILY PO Last administered on 03/02/18at 08: 31; Start 03/02/18 at 09:00 Montelukast Sodium (Singulair) 10 mg HS PO Last administered on 03/01/18at 22:20 ; Start 03/01/18 at 21:00 Oxycodone HCl (Roxicodone) 10 mg Q4H PRN PO PAIN 6 TO 10; Start 03/01/18 at 21: 00 Prednisone (Deltasone) 5 mg DAILY PO Last administered on 03/02/18at 08:31; Start 03/02/18 at 09:00 Promethazine HCl (Phenergan) 25 mg Q6H PRN PO Nausea/Vomiting; Start 03/01/18 at 21:00 Non-Formulary Medication 1 puff Q4HR PRN INH SHORTNESS OF BREATH; Start at 21:00; Status UNV Non-Formulary Medication 0.63 mg QID NEB ; Start 03/01/18 at 21:00; Status UNV Dexmedetomidine HCl 200 mcg/ Sodium Chloride 52 ml @ 4.19 mls/hr TITRATE PRN IV SEDATION Last administered on 03/03/18at 03:11; Start 03/01/18 at 21:30 Patient Own Medication PT OWN MED: XOPE... Q4H PRN INH SHORTNESS OF BREATH; Start 03/01/18 at 21:45; Status Future Hold Levalbuterol HCl (Xopenex Neb) 0.63 mg QID NEB NEB Last administered on at 08:00; Start 03/02/18 at 08:00 Diphenhydramine HCl (Benadryl Inj) 25 mg Q4H IV Last administered on 03/03/18at 09:36; Start 03/01/18 at 23:00; Stop 03/05/18 at 22:59 Famotidine (Pepcid) 20 mg BID PO ; Start 03/02/18 at 21:00 Amitriptyline HCl (Elavil) 30 mg HS PO ; Start 03/02/18 at 21:00 Gabapentin (Neurontin) 300 mg TID PO ; Start 03/02/18 at 18:00 Lorazepam (Ativan) 1 mg Q6H PRN PO ANXIETY AND/OR AGITATION; Start 03/02/18 at 16:45 Pantoprazole Sodium (Protonix) 40 mg BID PO ; Start 03/02/18 at 21:00 Tizanidine HCl (Zanaflex) 4 mg HS PO ; Start 03/02/18 at 21:00 Potassium Chloride 100 ml @ 50 mls/hr Q2H PRN IV For Potassium 2.8 - 3.2 mEq/L ; Start 03/02/18 at 16:45 Potassium Chloride 100 ml @ 50 mls/hr Q2H PRN IV For Potassium 2.8 - 3.2 mEq/L ; Start 03/02/18 at 16:45 Potassium Bicarb/ Potassium Chloride (K-Lyte Cl Eff) 50 meq UNSCH PRN PO For Potassium 3.3 - 3.5 mEq/L; Start 03/02/18 at 16:45 Potassium Chloride 100 ml @ 25 mls/hr UNSCH PRN IV For Potassium 3.3 - 3.5 mEq /L; Start 03/02/18 at 16:45 Potassium Chloride 100 ml @ 50 mls/hr Q2H PRN IV For Potassium 3.3 - 3.5 mEq/ L Last administered on 03/02/18at 19:47; Start 03/02/18 at 16:45 Magnesium Sulfate 4 gm/Sodium Chloride 100 ml @ 50 mls/hr UNSCH PRN IV For Magnesium 0.9 - 1.1 mg/dL; Start 03/02/18 at 16:45; Status UNV Magnesium Oxide (Mag-Ox) 800 mg UNSCH PRN PO For Magnesium 1.2 - 1.6 mg/dL; Start 03/02/18 at 16:45 Magnesium Sulfate 2 gm/Sodium Chloride 100 ml @ 50 mls/hr UNSCH PRN IV For Magnesium 1.2 - 1.6 mg/dL; Start 03/02/18 at 16:45; Status UNV Potassium Phosphate (K-Phos) 2,000 mg Q4H PRN PO For Phosphorus < 2.5 mg/dL; Start 03/02/18 at 16:45 Sodium Phosphate 30 mmol/Sodium Chloride 250 ml @ 42 mls/hr UNSCH PRN IV For Phosphorus < 2.5 mg/dL; Start 03/02/18 at 16:45 Potassium Phosphate (K-Phos) 2,000 mg UNSCH PRN PO/TUBE SEE LABEL COMMENTS; Start 03/02/18 at 16:45 Potassium Phosphate 30 mmol/ Sodium Chloride 260 ml @ 42 mls/hr UNSCH PRN IV SEE LABEL COMMENTS; Start 03/02/18 at 16:45 A/P Assessment and Plan Respiratory failure - Allergic reaction -Monitor in the ICU for airway patency -ENT consultation- THEY RECOMMEND TRANSFER TO [facility]- [facility] HERE ONLY IF NEEDED Allergic reaction - IV steroids - H1 H2 antagonists Asthma - Continue LABA Anxiety -Precedex drip as needed -Resume home meds when indicated -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
--- NOTE | 2018-03-03 13:59 | PD.PSY.CON ---
Provisional Diagnosis Admission Date March 01, 2018 at 20:24 [place] I. Panic disorder, PTSD, history of depression, R/O factitious disorder [place] II. Deferred [place] III. asthma, anxiety, SVT, TIA, hyperparathyroid, GERD, endometriosis, migraines, History of Present Illness Service Psychiatry Consult Requested By Medicine Reason for Consult Anxiety Primary Care Physician Non-Staff HPI The patient is a 32-year-old woman, domiciled with her parents, single , no kids, employed, with self-reported psychiatric history of PTSD, anxiety, depression, no previous psychiatric hospitalizations, no previous suicide attempts, she was Jose acted once but released from the ER, she is on Ativan 1 mg 3 times daily, Lexapro 20 mg, amitriptyline 30 mg at bedtime prescribed by PCP, she says that she has an outpatient counselor and she has an appointment to see a psychiatrist actually next week, patient has a very extensive medical history of f asthma, anxiety, SVT, TIA, hyperparathyroid, GERD, endometriosis, migraines, who presented to emergency department at [facility] via EMS complaining of allergic reaction. The patient reports shortness of breath. She stated that she is allergic to multiple medications and substances including sulfites. Per EMS patient received albuterol, Benadryl, received epinephrine and Versed. The patient reports she has recently had a tracheostomy tube removed. She denies any other symptoms. story of 5-16 patient has been transferred to our service Remains on Benadryl and Precedex and morphine. Has been seen by ENT who recommended she go back to [facility] for any procedures patient states she has had 4 tracheostomies within the last year. Patient states that her local ENT recommended that her tracheostomy to be removed a Dr. Qureshi. The patient has been refusing to take medication p.o. as well as eating. Patient seems to be focused in getting another tracheostomy. Consulted to psychiatry for anxiety. Psychiatric evaluation the patient is calm, cooperative, but with intermittent speech due to difficulty breathing. Patient reports that her anxiety is high to the roof "due to my respiratory problems". Patient reports that she feels out of breath. She also reports that she has not been sleeping since she is in the hospital. She denies symptoms of depression, she states that she is not depressed, "I am fighting for my life, I want to cooperate, but I cannot swallow". Patient denies suicidal enemas ideation, he denies visual and auditory hallucinations. Patient denies having any acute or chronic stressor bothering her life at this moment other than her medical situation. She is oriented 3. She denies the use of alcohol and illegal drugs. Review of Systems Endocrine: DENIES: Abnorml menstrual pattern, Heat/cold intolerance, Polydipsia , Polyuria, Polyphagia Eyes: DENIES: Blurred vision, Diplopia, Eye inflammation, Eye pain, Vision loss , Photosensitivity, Double Vision Ears, nose, mouth, throat: DENIES: Tinnitus, Hearing loss, Vertigo, Nasal discharge, Oral lesions, Throat pain, Hoarseness, Ear Pain, Running Nose, Epistaxis, Sinus Pain, Toothache, Odynophagia Respiratory: COMPLAINS OF: Shortness of breath, DENIES: Apneas, Cough, Snoring , Wheezing, Hemoptysis, Sputum production Cardiovascular: DENIES: Chest pain, Palpitations, Syncope, Dyspnea on Exertion , PND, Lower Extremity Edema, Orthopnea, Claudication Gastrointestinal: COMPLAINS OF: Difficulty Swallowing Genitourinary: DENIES: Abnormal vaginal bleeding, Dysmenorrhea, Dyspareunia, Sexual dysfunction, Urinary frequency, Urinary incontinence, Urgency, Hematuria , Dysuria, Nocturia, Vaginal discharge Musculoskeletal: DENIES: Joint pain, Muscle aches, Stiffness, Joint Swelling, Back pain, Neck pain Integumentary: DENIES: Abnormal pigmentation, Pruritus, Rash, Nail changes, Breast masses, Breast skin changes, Nipple discharge Hematologic/lymphatic: DENIES: Bruising, Lymphadenopathy Immunologic/allergic: DENIES: Eczema, Urticaria Neurologic: DENIES: Abnormal gait, Headache, Localized weakness, Paresthesias, Seizures, Speech Problems, Tremor, Poor Balance Psychiatric: COMPLAINS OF: Anxiety, DENIES: Confusion, Mood changes, Depression , Hallucinations, Agitation, Suicidal Ideation, Homicidal Ideation, Delusions Past Family Social History Coded Allergies: diatrizoate meglumine (Unverified Allergy, Severe, Anaphylaxis, 06/02/17) gadobenic acid (Unverified Allergy, Severe, 06/02/17) Per patient when given MRI contrast it becomes hard to swallow and she feels burning in her throat. EG 01/28/2017 gadodiamide (Unverified Allergy, Severe, 06/02/17) Per patient when given MRI contrast it becomes hard to swallow and she feels burning in her throat. EG 01/28/2017 gadoteridol (Unverified Allergy, Severe, 06/02/17) Per patient when given MRI contrast it becomes hard to swallow and she feels burning in her throat. EG 01/28/2017 hydromorphone (Unverified Allergy, Severe, Itching, 06/02/17) ibuprofen (Verified Allergy, Severe, Anaphylaxis, 01/09/18) iodixanol (Unverified Allergy, Severe, Anaphylaxis, 06/02/17) iohexol (Unverified Allergy, Severe, Anaphylaxis, 06/02/17) latex (Unverified Allergy, Severe, Anaphylaxis, 06/02/17) metoclopramide (Unverified Allergy, Severe, Shortness of Breath, 06/02/17) prochlorperazine (Unverified Allergy, Severe, Shortness of Breath, 06/02/17 ) succinylcholine (Unverified Allergy, Severe, 06/02/17) cefepime (Unverified Allergy, Mild, HIVES, 06/02/17) ceftaroline fosamil (Unverified Allergy, Mild, HIVES, 06/02/17) Active Scripts Famotidine (Famotidine) 20 Mg Tab, 40 MG NG BID for antihistamine for 10 Days, # 40 TAB 0 Refills Prov:Glenna Reid MD 01/13/18 Prednisone (Prednisone) 5 Mg Tab, 5 MG PO DIRECTED for inflammation for 10 Days, TAB 0 Refills 40 mg po daily for two days then 30 mg po daily for two days then 20 mg po daily for two days then 10 mg po daily for two days then 5 mg po daily for two days then stop. Prov:Glenna Reid MD 01/13/18 Diltiazem CD 24 HR (Cardizem CD 24 HR) 180 Mg Caper, 180 MG PO DAILY for hypertension for 30 Days, #30 CAP 0 Refills Prov:Glenna Reid MD 01/13/18 Oxycodone (Oxycodone) 10 Mg Tab, 10 MG PO Q4H Y for pain, #15 TAB 0 Refills Prov:Glenna Reid MD 01/13/18 Nitrofurantoin Monohydrate Macrocrystals (Macrobid) 100 Mg Cap, 100 MG PO BID for Infection for 10 Days, CAP 0 Refills Prov:Angie Guillen 02/14/17 Promethazine (Phenergan) 25 Mg Tab, 25 MG PO Q6H Y for Nausea/Vomiting, #10 TAB 0 Refills Prov:Willard Cotto MD 10/18/16 Reported Medications Oxycodone (Oxycodone) 15 Mg Tab, 15 MG PO Q6H Y for PAIN, TAB 0 Refills 03/01/18 Amitriptyline (Amitriptyline) 10 Mg Tab, 30 MG PO HS for Control Depression, # 30 TAB 0 Refills 03/01/18 Levalbuterol Neb (Xopenex Neb) 0.63 Mg/3 Ml Neb, 0.63 MG NEB QID for Breathing Treatment, #120 NEBULE 0 Refills 03/01/18 Tizanidine (Zanaflex) 4 Mg Tab, 4 MG PO HS for Muscle Spasm, TAB 0 Refills 03/01/18 Gabapentin (Gabapentin) 300 Mg Cap, 300 MG PO TID, #90 CAP 0 Refills 03/01/18 Pantoprazole (Protonix) 40 Mg Tab, 40 MG PO BID for Ulcer Prevention, #30 TAB 0 Refills 03/01/18 Lorazepam (Ativan) 1 Mg Tab, 1 MG PO Q6H Y for ANXIETY AND/OR AGITATION, TAB 0 Refills 03/01/18 Levalbuterol Neb (Xopenex Neb) 0.63 Mg/3 Ml Neb, 0.63 MG NEB QID for Breathing Treatment, #120 NEBULE 0 Refills 11/12/16 Levalbuterol 15 GM Inh (Xopenex Hfa 15 GM Inh) 45 Mcg/Act Aer, 1 PUFF INH Q4HR Y for SHORTNESS OF BREATH, #1 INHALER 0 Refills Shake well before using. (1 puff = 45 mcg) 11/12/16 Montelukast (Singulair) 10 Mg Tab, 10 MG PO HS, #30 TAB 0 Refills 10/17/16 Digoxin (Digoxin) 0.25 Mg Tab, 0.25 MG PO DAILY for Regulate Heart Beat, #30 TAB 0 Refills 09/03/16 Omeprazole (Omeprazole) 20 Mg Tab, 20 MG PO BID for gerd, #30 TAB 0 Refills 09/03/16 Current Medications Medications (Trade) Dose Ordered Sig/Toshia Route Start Time Stop Time Status Last Admin Sodium Chloride 1,000 ml @ 84 mls/hr [id number] IV 03/01/18 21:00 03/03/18 08:45 (NS Flush) 2 ml UNSCH PRN IV FLUSH 03/01/18 20:45 (NS Flush) 2 ml BID IV FLUSH 03/01/18 21:00 03/02/18 20:02 (Tylenol) 650 mg Q6H PRN PO 03/01/18 20:45 (Morphine Inj) 2 mg Q2H PRN IV PUSH 03/01/18 20:45 03/03/18 12:54 (Zofran Inj) 4 mg Q6H PRN IV PUSH 03/01/18 20:45 03/03/18 00:26 (Restoril) 15 mg HS PRN PO 03/01/18 20:45 (Duoneb Neb) 1 ampule Q4HR NEB INH 03/02/18 00:00 03/03/18 00:30 (Duoneb Neb) 1 ampule Q2HR NEB PRN INH 03/01/18 20:45 (Heparin Inj) 5,000 units Q8H SQ 03/01/18 22:00 03/03/18 00:16 ([facility] Nursing Information) 1 [id number] XX 03/01/18 20:45 03/01/18 20:45 (Chlorhexidine 2% Cloth) 3 pack Taper DAILY@04 TOP 03/02/18 04:00 02/26/19 03:59 (Chlorhexidine 2% Cloth) 3 pack UNSCH PRN TOP 03/01/18 20:45 (Annette-Colace) 1 tab BID PO 03/01/18 21:00 03/02/18 08:32 (Milk Of Magnesia Liq) 30 ml Q12H PRN PO 03/01/18 20:45 (Senokot) 17.2 mg Q12H PRN PO 03/01/18 20:45 (Dulcolax Supp) 10 mg DAILY PRN RECTAL 03/01/18 20:45 (Lactulose Liq) 30 ml DAILY PRN PO 03/01/18 20:45 (Decadron Inj) 8 mg Q6H IV PUSH 03/01/18 21:00 03/03/18 09:36 (Racepinephrine 2.25% Neb) 0.5 ml Q3HR NEB PRN NEB 03/01/18 21:00 (Lanoxin) 0.25 mg DAILY PO 03/02/18 09:00 03/02/18 08:31 (Cardizem Cd) 180 mg DAILY PO 03/02/18 09:00 03/02/18 08:31 (Singulair) 10 mg HS PO 03/01/18 21:00 03/01/18 22:20 (Roxicodone) 10 mg Q4H PRN PO 03/01/18 21:00 (Deltasone) 5 mg DAILY PO 03/02/18 09:00 03/02/18 08:31 (Phenergan) 25 mg Q6H PRN PO 03/01/18 21:00 Dexmedetomidine HCl 200 mcg/ Sodium Chloride 52 ml @ 4.19 mls/hr TITRATE PRN IV 03/01/18 21:30 03/03/18 03:11 Patient Own Medication PT OWN MED: XOPE... Q4H PRN INH 03/01/18 21:45 Future Hold (Xopenex Neb) 0.63 mg QID NEB NEB 03/02/18 08:00 03/03/18 12:00 (Benadryl Inj) 25 mg Q4H IV 03/01/18 23:00 03/05/18 22:59 03/03/18 12:52 (Pepcid) 20 mg BID PO 03/02/18 21:00 (Elavil) 30 mg HS PO 03/02/18 21:00 (Neurontin) 300 mg TID PO 03/02/18 18:00 (Ativan) 1 mg Q6H PRN PO 03/02/18 16:45 (Protonix) 40 mg BID PO 03/02/18 21:00 (Zanaflex) 4 mg HS PO 03/02/18 21:00 Potassium Chloride 100 ml @ 50 mls/hr Q2H PRN IV 03/02/18 16:45 Potassium Chloride 100 ml @ 50 mls/hr Q2H PRN IV 03/02/18 16:45 (K-Lyte Cl Eff) 50 meq UNSCH PRN PO 03/02/18 16:45 Potassium Chloride 100 ml @ 25 mls/hr UNSCH PRN IV 03/02/18 16:45 Potassium Chloride 100 ml @ 50 mls/hr Q2H PRN IV 03/02/18 16:45 03/02/18 19:47 Magnesium Sulfate 4 gm/Sodium Chloride 100 ml @ 50 mls/hr UNSCH PRN IV 03/02/18 16:45 UNV (Mag-Ox) 800 mg UNSCH PRN PO 03/02/18 16:45 Magnesium Sulfate 2 gm/Sodium Chloride 100 ml @ 50 mls/hr UNSCH PRN IV 03/02/18 16:45 UNV (K-Phos) 2,000 mg Q4H PRN PO 03/02/18 16:45 Sodium Phosphate 30 mmol/Sodium Chloride 250 ml @ 42 mls/hr UNSCH PRN IV 03/02/18 16:45 (K-Phos) 2,000 mg UNSCH PRN PO/TUBE 03/02/18 16:45 Potassium Phosphate 30 mmol/ Sodium Chloride 260 ml @ 42 mls/hr UNSCH PRN IV 03/02/18 16:45 Family Psych History No family psychiatric history Social History Patient was born and raised in [place], she lives with her parents, she is single, no kids and unemployed Patient's Strengths (min. 2) Patient has outpatient psychiatric Physical Exam Vital Signs Vital Signs Date Time Temp Pulse Resp B/P (MAP) Pulse Ox O2 Delivery O2 Flow Rate FiO2 03/03/18 12:00 77 03/03/18 12:00 97.9 18 120/62 (81) 95 03/03/18 08:22 Nasal Cannula 2.00 I/O 03/03/18 03/03/18 03/04/18 08:00 16:00 00:00 Output Total 1350 ml Balance -1350 ml Lab Results Test 03/02/18 17:33 03/03/18 05:40 Phosphorus Level 3.8 MG/DL 4.1 MG/DL White Blood Count 15.1 TH/MM3 Red Blood Count 3.30 MIL/MM3 Hemoglobin 7.9 GM/DL Hematocrit 25.1 % Mean Corpuscular Volume 76.0 FL Mean Corpuscular Hemoglobin 23.9 PG Mean Corpuscular Hemoglobin Concent 31.5 % Red Cell Distribution Width 18.1 % Platelet Count 279 TH/MM3 Mean Platelet Volume 8.1 FL Neutrophils (%) (Auto) 92.6 % Lymphocytes (%) (Auto) 6.1 % Monocytes (%) (Auto) 1.2 % Eosinophils (%) (Auto) 0.0 % Basophils (%) (Auto) 0.1 % Neutrophils # (Auto) 14.0 TH/MM3 Lymphocytes # (Auto) 0.9 TH/MM3 Monocytes # (Auto) 0.2 TH/MM3 Eosinophils # (Auto) 0.0 TH/MM3 Basophils # (Auto) 0.0 TH/MM3 CBC Comment DIFF FINAL Differential Comment Blood Urea Nitrogen 21 MG/DL Creatinine 1.19 MG/DL Random Glucose 131 MG/DL Total Protein 7.3 GM/DL Albumin 3.3 GM/DL Calcium Level 9.2 MG/DL Magnesium Level 2.4 MG/DL Alkaline Phosphatase 68 U/L Aspartate Amino Transf (AST/SGOT) 21 U/L Alanine Aminotransferase (ALT/SGPT) 49 U/L Total Bilirubin 0.5 MG/DL Sodium Level 143 MEQ/L Potassium Level 4.0 MEQ/L Chloride Level 110 MEQ/L Carbon Dioxide Level 22.7 MEQ/L Anion Gap 10 MEQ/L Estimat Glomerular Filtration Rate 53 ML/MIN Digoxin Level 0.5 NG/ML Mental Status Examination Appearance: Appropriate Consciousness: Alert Orientation: x4 Motor Activity: Normal gait Speech: Unremarkable Language: Adequate Fund of Knowledge: Adequate Attention and Concentration: Adequate Memory: Unremarkable Mood: Appropriate Affect: Appropriate Thought Process & Associations: Intact Thought Content: Appropriate Hallucination Type: None Delusion Type: None Suicidal Ideation: No Suicidal Plan: No Suicidal Intention: No Homicidal Ideation: No Homicidal Plan: No Homicidal Intention: No Insight: Fair Judgment: Impulsive Assessment & Plan Problem List: (1) Adjustment disorder with anxiety ICD Codes: F43.22 - Adjustment disorder with anxiety Assessment & Plan: Psychiatric evaluation today the patient is calm, cooperative, even pleasant. Indication a little bit limited due to intermittent speech related with shortness of breath. She reports having increased anxiety due to her impossibility to breathe well, lack of air, and possibility to swallow. She denies anhedonia, denies hopelessness, denies helplessness, denies worthlessness, she denies suicidal enemas ideation, she denies visual and auditory hallucinations. The patient seems to be logical, coherent and goal oriented. Patient is very focused in getting a tracheostomy and not contemplating alternatives. The patient is already in Ativan 1 mg IV every 6 as needed anxiety, amitriptyline 25 mg at night as well as temazepam 50 mg at bedtime. I would not recommend to increase benzodiazepines more than this given her respiratory problems. I have been asked to consider primary versus secondary gain in patient's presentation, factitious versus conscious simulation. Unfortunately I do not have sufficient elements at this moment to define one of these diagnoses, but given her multiple hospitalizations, ER visits, multiple unrelated diagnosis, her focus in am specific treatment/ procedures (tracheostomy) and not a more less invasive alternatives, her negative to swallow without necessary organic causes to explain this, at least raise the concern of a potential primary gain. More collateral information, longitudinal observation, previous records from other hospitals, will be necessary to make this diagnosis. He does not meet criteria for involuntary psychiatric admission. Supportive psychotherapy provided. Continue psychiatric care as an outpatient. Assessment & Plan Estimated LOS: days Eleno Garcia MD March 03, 2018 13:59
--- NOTE | 2018-03-03 15:20 | RADRPT ---
EXAM DATE/TIME: 03/03/2018 14:47 [place] COMPARISON: No previous studies available for comparison. INDICATIONS : Dysphagia. FLUORO TIME: 3.4 minutes IMAGE COUNT: 3 CONTRAST: Dose as prescribed by speech pathologist. MEDICAL HISTORY : Munchausens syndrome. SURGICAL HISTORY : Tracheostomy. ENCOUNTER: Initial ACUITY: 7 - 11 months PAIN SCORE: 0/10 LOCATION: esophagus. FINDINGS: A modified barium swallow was performed with speech pathology. Patient was given a variety of liquids to swallow. Penetration and some aspiration was noted during the exam. For a full detailed report, see report by the speech pathologist. CONCLUSION: Penetration and some aspiration was noted during the exam. See speech pathology report. Matthew Osman MD on March 03, 2018 at 15:18 Board Certified Radiologist. This report was verified electronically.
[2018-03-03] MEDS: AMITRIPTYLINE HCL 10 MG TAB PO SCH (20:42)
[2018-03-03] MEDS: LORazepam 1 MG TAB PO PRN (20:42)
[2018-03-03] MEDS: MONTELUKAST SODIUM 10 MG TAB PO SCH (21:00)
[2018-03-04] VITALS (11 sets, daily range): BP systolic 90–142; BP diastolic 53–64; PULSE 68–107; RESP 11–18; TEMP 97.7–98.6; O2SAT 94–98
[2018-03-04] MEDS: RESP: ALBUTEROL 2.5 MG/IPRATROPIUM 0.5 MG NEB (SCH) INH ×2 (04:00→07:48)
[2018-03-04] MEDS: CHLORHEXIDINE GLUCONATE 2 % 1 PACK (2 CLOTHS) TOP SCH (04:00)
[2018-03-04] MEDS: diphenhydrAMINE HCL 50 MG/ML VIAL IV SCH ×4 (04:20→14:28)
[2018-03-04] MEDS: DEXAMETHASONE SOD PHOS 4 MG/ML VIAL IV PUSH SCH ×4 (04:21→21:12)
[2018-03-04] MEDS: LORazepam 1 MG TAB PO PRN (06:00)
[2018-03-04] MEDS: HEPARIN SODIUM - SQ 10,000 UNITS/ML VIAL SQ SCH ×3 (06:00→21:22)
[2018-03-04] MEDS: RESP: LEVALBUTEROL HYDROCHLORIDE 0.63 MG/3 ML NEB (SCH) NEB ×2 (07:48→11:59)
[2018-03-04] MEDS: SODIUM CHLOR 0.9% 1000 ML INJ 1,000 ML IV SCH ×2 (08:19→20:30)
[2018-03-04] MEDS: predniSONE 5 MG TAB PO SCH (08:20)
[2018-03-04] MEDS: PANTOPRAZOLE SOD 40 MG DELAYED RELEASE TAB PO SCH ×2 (08:20→21:13)
[2018-03-04] MEDS: SODIUM CHLORIDE 0.9% FLUSH 10 ML FLUSH IV FLUSH SCH ×2 (08:20→21:14)
[2018-03-04] MEDS: FAMOTIDINE 20 MG TAB PO SCH ×2 (08:20→21:13)
[2018-03-04] MEDS: GABAPENTIN 300 MG CAP PO SCH ×3 (08:20→16:39)
[2018-03-04] MEDS: DILTIAZEM-CD 180 MG CAP ER PO SCH (08:20)
[2018-03-04] MEDS: DOCUSATE SODIUM 50 MG/SENNA 8.6 MG TAB PO SCH ×2 (08:20→21:13)
[2018-03-04] MEDS: DIGOXIN 0.25 MG TAB PO SCH (09:37)
[2018-03-04] MEDS ORDERED: diphenhydrAMINE INJ IV (10:57)
[2018-03-04] MEDS ORDERED: FAMO20TA2 PO (10:57)
--- NOTE | 2018-03-04 10:58 | HHI.PR ---
Subjective Remarks 32-year-old very pleasant but very anxious female presented to emergency department at [facility] via EMS complaining of allergic reaction. The patient reports shortness of breath. She stated that she is allergic to multiple medications and substances including sulfites. Per EMS patient received albuterol, Benadryl, received epinephrine and Versed. The patient reports she has recently had a tracheostomy tube removed. She denies any other symptoms. 5-16 patient has been transferred to our service Remains on Benadryl and Precedex and morphine Has been seen by ENT who recommended she go back to [facility] for any procedures patient states she has had 4 tracheostomies within the last year Patient states that her local ENT recommended that her tracheostomy to be removed a Dr. Qureshi 03-03 REFUSING TO TAKE PO MEDS AND EAT AT THIS TIME SWALLOW EVAL MBS WITH SPEECH AND RADIOLOGY [facility]E RN AND PATIENT AND CASE MANAGEMENT- [facility] PSYCHIATRY THEY WILL NOT INCREASE HER ANXIOLYTICS IF PASSES SWALLOW EVAL MAY NEED TRANSFER BACK TO [place] SO THEY CAN TRANSFER TO [place] IF THEY WANT PATIENT SEEMS TO WANT TO HAVE ANOTHER TRACHEOSTOMY STATES SHE IS SOB AND VERY ANXIOUS WHEN I COME IN THE ROOM 03-04 PASSED SWALLOW EVALUATION YESTERDAY [facility]E RN AND PT AND CM TRANSFER BACK TO [place] NO NEED FOR TRACHEOSTOMY AT THIS TIME GETS VERY ANXIOUS WHEN I COME IN THE ROOM TAKING MEDICATIONS NOW PUREED DIET HONEY THICKENED LIQUIDS Objective Vitals Vital Signs Date Time Temp Pulse Resp B/P (MAP) Pulse Ox O2 Delivery O2 Flow Rate FiO2 03/04/18 08:00 89 03/04/18 08:00 97.9 89 17 111/63 (79) 95 03/04/18 07:49 95 21 03/04/18 07:00 95 Room Air 03/04/18 06:00 68 03/04/18 04:00 68 03/04/18 04:00 98.3 68 18 103/56 (72) 94 03/04/18 02:00 68 03/04/18 00:19 11 03/04/18 00:00 98.4 76 11 90/53 (65) 94 03/04/18 00:00 70 03/03/18 22:00 78 03/03/18 20:40 94 21 03/03/18 20:00 84 03/03/18 20:00 98.4 106 22 143/63 (89) 94 03/03/18 19:00 93 Room Air 03/03/18 18:00 96 03/03/18 16:00 76 03/03/18 16:00 97.7 76 15 111/58 (75) 94 03/03/18 14:00 83 03/03/18 12:00 77 03/03/18 12:00 97.9 77 18 120/62 (81) 95 I/O 03/03/18 03/03/18 03/03/18 03/04/18 03/04/18 03/04/18 07:00 15:00 23:00 07:00 15:00 23:00 Intake Total 1093 ml Output Total 1350 ml 1375 ml 1000 ml Balance -1350 ml -1375 ml 93 ml Intake Oral 120 ml IV Total 973 ml Output Urine Total 1350 ml 1375 ml 1000 ml # Bowel Movements 0 0 0 Result Diagram: 03/03/18 0540 03/03/18 0540 Other Results Laboratory Tests Test 03/01/18 22:00 03/02/18 05:45 03/02/18 08:50 03/02/18 17:33 Nasal Screen MRSA (PCR) MRSA NOT DETECTED White Blood Count 13.0 TH/MM3 14.7 TH/MM3 Red Blood Count 3.55 MIL/MM3 3.48 MIL/MM3 Hemoglobin 8.5 GM/DL 8.2 GM/DL Hematocrit 26.9 % 26.5 % Mean Corpuscular Volume 75.8 FL 76.0 FL Mean Corpuscular Hemoglobin 23.9 PG 23.4 PG Mean Corpuscular Hemoglobin Concent 31.5 % 30.8 % Red Cell Distribution Width 17.7 % 18.0 % Platelet Count 261 TH/MM3 252 TH/MM3 Mean Platelet Volume 7.9 FL 8.2 FL Neutrophils (%) (Auto) 92.4 % 92.1 % Lymphocytes (%) (Auto) 6.5 % 6.4 % Monocytes (%) (Auto) 1.0 % 1.4 % Eosinophils (%) (Auto) 0.0 % 0.0 % Basophils (%) (Auto) 0.1 % 0.1 % Neutrophils # (Auto) 12.0 TH/MM3 13.6 TH/MM3 Lymphocytes # (Auto) 0.8 TH/MM3 0.9 TH/MM3 Monocytes # (Auto) 0.1 TH/MM3 0.2 TH/MM3 Eosinophils # (Auto) 0.0 TH/MM3 0.0 TH/MM3 Basophils # (Auto) 0.0 TH/MM3 0.0 TH/MM3 CBC Comment DIFF FINAL DIFF FINAL Differential Comment Prothrombin Time 10.9 SEC Prothromb Time International Ratio 1.1 RATIO Activated Partial Thromboplast Time 24.5 SEC Blood Urea Nitrogen 18 MG/DL 17 MG/DL Creatinine 0.92 MG/DL 0.96 MG/DL Random Glucose 146 MG/DL 139 MG/DL Total Protein 7.6 GM/DL 8.5 GM/DL Albumin 3.3 GM/DL 3.1 GM/DL Calcium Level 9.3 MG/DL 9.2 MG/DL Phosphorus Level 3.5 MG/DL 4.2 MG/DL 3.8 MG/DL Magnesium Level 2.3 MG/DL 2.1 MG/DL Alkaline Phosphatase 75 U/L 69 U/L Aspartate Amino Transf (AST/SGOT) 26 U/L 26 U/L Alanine Aminotransferase (ALT/SGPT) 48 U/L 50 U/L Total Bilirubin 0.5 MG/DL 0.5 MG/DL Sodium Level 144 MEQ/L 144 MEQ/L Potassium Level 3.6 MEQ/L 3.4 MEQ/L Chloride Level 111 MEQ/L 112 MEQ/L Carbon Dioxide Level 22.7 MEQ/L 20.2 MEQ/L Anion Gap 10 MEQ/L 12 MEQ/L Estimat Glomerular Filtration Rate 72 ML/MIN 68 ML/MIN Hemoglobin A1c 6.0 % Free Thyroxine 1.13 NG/DL Thyroid Stimulating Hormone 3rd Gen 0.183 uIU/ML Test 03/03/18 05:40 White Blood Count 15.1 TH/MM3 Red Blood Count 3.30 MIL/MM3 Hemoglobin 7.9 GM/DL Hematocrit 25.1 % Mean Corpuscular Volume 76.0 FL Mean Corpuscular Hemoglobin 23.9 PG Mean Corpuscular Hemoglobin Concent 31.5 % Red Cell Distribution Width 18.1 % Platelet Count 279 TH/MM3 Mean Platelet Volume 8.1 FL Neutrophils (%) (Auto) 92.6 % Lymphocytes (%) (Auto) 6.1 % Monocytes (%) (Auto) 1.2 % Eosinophils (%) (Auto) 0.0 % Basophils (%) (Auto) 0.1 % Neutrophils # (Auto) 14.0 TH/MM3 Lymphocytes # (Auto) 0.9 TH/MM3 Monocytes # (Auto) 0.2 TH/MM3 Eosinophils # (Auto) 0.0 TH/MM3 Basophils # (Auto) 0.0 TH/MM3 CBC Comment DIFF FINAL Differential Comment Blood Urea Nitrogen 21 MG/DL Creatinine 1.19 MG/DL Random Glucose 131 MG/DL Total Protein 7.3 GM/DL Albumin 3.3 GM/DL Calcium Level 9.2 MG/DL Phosphorus Level 4.1 MG/DL Magnesium Level 2.4 MG/DL Alkaline Phosphatase 68 U/L Aspartate Amino Transf (AST/SGOT) 21 U/L Alanine Aminotransferase (ALT/SGPT) 49 U/L Total Bilirubin 0.5 MG/DL Sodium Level 143 MEQ/L Potassium Level 4.0 MEQ/L Chloride Level 110 MEQ/L Carbon Dioxide Level 22.7 MEQ/L Anion Gap 10 MEQ/L Estimat Glomerular Filtration Rate 53 ML/MIN Digoxin Level 0.5 NG/ML Imaging Last Impressions Modified Barium Swallow 03/03/18 0000 Signed Impressions: Service Date/Time: February 14:47 - CONCLUSION: Penetration and some aspiration was noted during the exam. See speech pathology report. Matthew Osman MD Objective Remarks GENERAL: Awake alert and oriented 3 talkative and cooperative very anxious remains on Precedex SKIN: Warm and dry. HEAD: Atraumatic. Normocephalic. EYES: Pupils equal and round. No scleral icterus. No injection or drainage. Extraocular muscles intact ENT: No nasal bleeding or discharge. Mucous membranes pink and moist. Tongue is midline NECK: Trachea midline. No JVD. Old tracheostomy site barely closed CARDIOVASCULAR: Regular rate and rhythm. S1-S2 no S3 or S4 RESPIRATORY: No accessory muscle use. Clear to auscultation. Breath sounds equal bilaterally. Decreased breath sounds bilaterally obese GASTROINTESTINAL: Abdomen soft, non-tender, nondistended. Hepatic and splenic margins not palpable. MUSCULOSKELETAL: Extremities without clubbing, cyanosis, or edema. No obvious deformities. NEUROLOGICAL: Awake and alert. No obvious cranial nerve deficits. Motor grossly within normal limits. 4 out of 5 muscle strength in the arms and legs. Normal speech. PSYCHIATRIC: INAppropriate mood and affect; insight and judgment ABnormal. Procedures None Medications and IVs Current Medications Sodium Chloride 1,000 ml @ 84 mls/hr [id number] IV Last administered on at 20:40; Start 03/01/18 at 21:00 Sodium Chloride (NS Flush) 2 ml UNSCH PRN IV FLUSH FLUSH AFTER USING IV ACCESS ; Start 03/01/18 at 20:45 Sodium Chloride (NS Flush) 2 ml BID IV FLUSH Last administered on 03/03/18at 20: 42; Start 03/01/18 at 21:00 Acetaminophen (Tylenol) 650 mg Q6H PRN PO PAIN 1-5 AND/OR FEVER >101F; Start at 20:45 Morphine Sulfate (Morphine Inj) 2 mg Q2H PRN IV PUSH PAIN SCALE 6 TO 10 Last administered on 03/03/18at 12:54; Start 03/01/18 at 20:45 Famotidine (Pepcid Inj) 20 mg Q12HR IV PUSH Last administered on 03/02/18at 08: 33; Start 03/01/18 at 21:00; Stop 03/02/18 at 09:07; Status DC Ondansetron HCl (Zofran Inj) 4 mg Q6H PRN IV PUSH NAUSEA OR VOMITING Last administered on 03/03/18at 23:18; Start 03/01/18 at 20:45 Temazepam (Restoril) 15 mg HS PRN PO INSOMNIA Last administered on 03/03/18at 23 :19; Start 03/01/18 at 20:45 Albuterol/ Ipratropium (Duoneb Neb) 1 ampule Q4HR NEB INH Last administered on 03/03/18at 00:30; Start 03/02/18 at 00:00 Albuterol/ Ipratropium (Duoneb Neb) 1 ampule Q2HR NEB PRN INH WHEEZING; Start 03/01/18 at 20:45 Heparin Sodium (Porcine) (Heparin Inj) 5,000 units Q8H SQ Last administered on 03/04/18at 06:00; Start 03/01/18 at 22:00 Miscellaneous Information ([facility] [place] [facility]) 1 [id number] Last administered on 03/01/18at 20:45; Start 03/01/18 at 20:45 Chlorhexidine Gluconate (Chlorhexidine 2% Cloth) 3 pack Taper DAILY@04 TOP ; Start 03/02/18 at 04:00; Stop 02/26/19 at 03:59 Chlorhexidine Gluconate (Chlorhexidine 2% Cloth) 3 pack UNSCH PRN TOP HYGIENIC CARE; Start 03/01/18 at 20:45 Senna/Docusate Sodium (Annette-Colace) 1 tab BID PO Last administered on at 08:20; Start 03/01/18 at 21:00 Magnesium Hydroxide (Milk Of Magnesia Liq) 30 ml Q12H PRN PO Mild constipation ; Start 03/01/18 at 20:45 Sennosides (Senokot) 17.2 mg Q12H PRN PO Moderate constipation; Start 03/01/18 at 20:45 Bisacodyl (Dulcolax Supp) 10 mg DAILY PRN RECTAL SEVERE CONSITIPATION; Start at 20:45 Lactulose (Lactulose Liq) 30 ml DAILY PRN PO SEVERE CONSITIPATION; Start at 20:45 Dexmedetomidine HCl 200 mcg/ Sodium Chloride 52 ml @ 0 mls/hr TITRATE PRN IV SEDATION; Start 03/01/18 at 21:00; Stop 03/01/18 at 21:29; Status DC Dexamethasone Sodium Phosphate (Decadron Inj) 8 mg Q6H IV PUSH Last administered on 03/04/18at 08:19; Start 03/01/18 at 21:00 Racepinephrine (Racepinephrine 2.25% Neb) 0.5 ml Q3HR NEB PRN NEB stridor; Start 03/01/18 at 21:00 Digoxin (Lanoxin) 0.25 mg DAILY PO Last administered on 03/04/18at 09:37; Start 03/02/18 at 09:00 Diltiazem HCl (Cardizem Cd) 180 mg DAILY PO Last administered on 03/02/18at 08: 31; Start 03/02/18 at 09:00 Montelukast Sodium (Singulair) 10 mg HS PO Last administered on 03/01/18at 22:20 ; Start 03/01/18 at 21:00 Oxycodone HCl (Roxicodone) 10 mg Q4H PRN PO PAIN 6 TO 10 Last administered on at 06:00; Start 03/01/18 at 21:00 Prednisone (Deltasone) 5 mg DAILY PO Last administered on 03/04/18at 08:20; Start 03/02/18 at 09:00 Promethazine HCl (Phenergan) 25 mg Q6H PRN PO Nausea/Vomiting; Start 03/01/18 at 21:00 Non-Formulary Medication 1 puff Q4HR PRN INH SHORTNESS OF BREATH; Start at 21:00; Status UNV Non-Formulary Medication 0.63 mg QID NEB ; Start 03/01/18 at 21:00; Status UNV Dexmedetomidine HCl 200 mcg/ Sodium Chloride 52 ml @ 4.19 mls/hr TITRATE PRN IV SEDATION Last administered on 03/03/18at 18:51; Start 03/01/18 at 21:30 Patient Own Medication PT OWN MED: XOPE... Q4H PRN INH SHORTNESS OF BREATH; Start 03/01/18 at 21:45; Status Future Hold Levalbuterol HCl (Xopenex Neb) 0.63 mg QID NEB NEB Last administered on at 07:48; Start 03/02/18 at 08:00 Diphenhydramine HCl (Benadryl Inj) 25 mg Q4H IV Last administered on 03/04/18at 08:19; Start 03/01/18 at 23:00; Stop 03/05/18 at 22:59 Famotidine (Pepcid) 20 mg BID PO Last administered on 03/04/18at 08:20; Start at 21:00 Amitriptyline HCl (Elavil) 30 mg HS PO Last administered on 03/03/18at 20:42; Start 03/02/18 at 21:00 Gabapentin (Neurontin) 300 mg TID PO Last administered on 03/04/18at 08:20; Start 03/02/18 at 18:00 Lorazepam (Ativan) 1 mg Q6H PRN PO ANXIETY AND/OR AGITATION Last administered on 03/04/18at 06:00; Start 03/02/18 at 16:45 Pantoprazole Sodium (Protonix) 40 mg BID PO ; Start 03/02/18 at 21:00 Tizanidine HCl (Zanaflex) 4 mg HS PO Last administered on 03/03/18at 20:42; Start 03/02/18 at 21:00 Potassium Chloride 100 ml @ 50 mls/hr Q2H PRN IV For Potassium 2.8 - 3.2 mEq/L ; Start 03/02/18 at 16:45 Potassium Chloride 100 ml @ 50 mls/hr Q2H PRN IV For Potassium 2.8 - 3.2 mEq/L ; Start 03/02/18 at 16:45 Potassium Bicarb/ Potassium Chloride (K-Lyte Cl Eff) 50 meq UNSCH PRN PO For Potassium 3.3 - 3.5 mEq/L; Start 03/02/18 at 16:45 Potassium Chloride 100 ml @ 25 mls/hr UNSCH PRN IV For Potassium 3.3 - 3.5 mEq /L; Start 03/02/18 at 16:45 Potassium Chloride 100 ml @ 50 mls/hr Q2H PRN IV For Potassium 3.3 - 3.5 mEq/ L Last administered on 03/02/18at 19:47; Start 03/02/18 at 16:45 Magnesium Sulfate 4 gm/Sodium Chloride 100 ml @ 50 mls/hr UNSCH PRN IV For Magnesium 0.9 - 1.1 mg/dL; Start 03/02/18 at 16:45; Status UNV Magnesium Oxide (Mag-Ox) 800 mg UNSCH PRN PO For Magnesium 1.2 - 1.6 mg/dL; Start 03/02/18 at 16:45 Magnesium Sulfate 2 gm/Sodium Chloride 100 ml @ 50 mls/hr UNSCH PRN IV For Magnesium 1.2 - 1.6 mg/dL; Start 03/02/18 at 16:45; Status UNV Potassium Phosphate (K-Phos) 2,000 mg Q4H PRN PO For Phosphorus < 2.5 mg/dL; Start 03/02/18 at 16:45 Sodium Phosphate 30 mmol/Sodium Chloride 250 ml @ 42 mls/hr UNSCH PRN IV For Phosphorus < 2.5 mg/dL; Start 03/02/18 at 16:45 Potassium Phosphate (K-Phos) 2,000 mg UNSCH PRN PO/TUBE SEE LABEL COMMENTS; Start 03/02/18 at 16:45 Potassium Phosphate 30 mmol/ Sodium Chloride 260 ml @ 42 mls/hr UNSCH PRN IV SEE LABEL COMMENTS; Start 03/02/18 at 16:45 A/P Assessment and Plan Respiratory failure - Allergic reaction -Monitor in the ICU for airway patency -ENT consultation- THEY RECOMMEND TRANSFER TO [facility]- AIRWAY HERE ONLY IF NEEDED IS STABLE Allergic reaction - IV steroids - H1 H2 antagonists Asthma - Continue LABA Anxiety -Precedex drip as needed -Resume home meds when indicated -Possible Munchausen disorder- DW PSYCHIATRY GERD - IV Pepcid DVT GI prophylax - Teds SCDs - Lovenox - Pepcid HYPERTENSION - HOME MEDS HX CVA/TIA MONITOR Hypokalemia replaced by electrolyte port protocol VERY ANXIOUS PASSED SWALLOW EVAL WITH PUREED DIET AND HONEY THICK LIQUIDS TRANSFER TO [place] Discharge Planning PT AND OT WILL NEED TO BE MORE ACTIVE MAY NEED TRANSFER BACK TO [place] IF PASSES SWALLOW EVAL Nael Rothman DO March 04, 2018 10:57
--- NOTE | 2018-03-04 11:01 | HHI.DS ---
Discharge Summary Admission Date March 01, 2018 at 20:24 Discharge Date: March 04, 2018 Admitting Diagnosis ANXIETY DYSPHAGIA (1) H/O tracheostomy ICD Code: Z98.890 - Other specified postprocedural states Diagnosis: Secondary (2) Adjustment disorder with anxiety ICD Code: F43.22 - Adjustment disorder with anxiety Diagnosis: Principal (3) Panic attacks ICD Code: F41.0 - Panic disorder [episodic paroxysmal anxiety] without agoraphobia Diagnosis: Principal Status: Resolved (4) Munchausen syndrome ICD Code: F68.10 - Factitious disorder, unspecified Diagnosis: Principal (5) Morbid obesity ICD Code: E66.01 - Morbid (severe) obesity due to excess calories Diagnosis: Secondary (6) Hypertension ICD Code: I10 - Essential (primary) hypertension Diagnosis: Secondary Status: Chronic (7) Leukocytosis ICD Code: D72.829 - Elevated white blood cell count, unspecified Diagnosis: Secondary Status: Acute (8) Gastroesophageal reflux disease ICD Code: K21.9 - Gastro-esophageal reflux disease without esophagitis Diagnosis: Secondary Status: Chronic (9) Noncompliance ICD Code: Z91.19 - Patient's noncompliance with other medical treatment and regimen Diagnosis: Principal Procedures None Brief History - From Admission 32-year-old very pleasant but very anxious female presented to emergency department at [facility] via EMS complaining of allergic reaction. The patient reports shortness of breath. She stated that she is allergic to multiple medications and substances including sulfites. Per EMS patient received albuterol, Benadryl, received epinephrine and Versed. The patient reports she has recently had a tracheostomy tube removed. She denies any other symptoms. CBC/BMP: 03/03/18 0540 03/03/18 0540 Significant Findings Laboratory Tests Test 03/01/18 22:00 03/02/18 05:45 03/02/18 08:50 03/02/18 17:33 White Blood Count 13.0 TH/MM3 (4.0-11.0) 14.7 TH/MM3 (4.0-11.0) Red Blood Count 3.55 MIL/MM3 (4.00-5.30) 3.48 MIL/MM3 (4.00-5.30) Hemoglobin 8.5 GM/DL (11.6-15.3) 8.2 GM/DL (11.6-15.3) Hematocrit 26.9 % (35.0-46.0) 26.5 % (35.0-46.0) Mean Corpuscular Volume 75.8 FL (80.0-100.0) 76.0 FL (80.0-100.0) Mean Corpuscular Hemoglobin 23.9 PG (27.0-34.0) 23.4 PG (27.0-34.0) Mean Corpuscular Hemoglobin Concent 31.5 % (32.0-36.0) 30.8 % (32.0-36.0) Red Cell Distribution Width 17.7 % (11.6-17.2) 18.0 % (11.6-17.2) Neutrophils (%) (Auto) 92.4 % (16.0-70.0) 92.1 % (16.0-70.0) Lymphocytes (%) (Auto) 6.5 % (9.0-44.0) 6.4 % (9.0-44.0) Neutrophils # (Auto) 12.0 TH/MM3 (1.8-7.7) 13.6 TH/MM3 (1.8-7.7) Lymphocytes # (Auto) 0.8 TH/MM3 (1.0-4.8) 0.9 TH/MM3 (1.0-4.8) Random Glucose 146 MG/DL (74-106) 139 MG/DL (74-106) Albumin 3.3 GM/DL (3.4-5.0) 3.1 GM/DL (3.4-5.0) Chloride Level 111 MEQ/L (98-107) 112 MEQ/L (98-107) Estimat Glomerular Filtration Rate 72 ML/MIN (>89) 68 ML/MIN (>89) Total Protein 8.5 GM/DL (6.4-8.2) Potassium Level 3.4 MEQ/L (3.5-5.1) Carbon Dioxide Level 20.2 MEQ/L (21.0-32.0) Thyroid Stimulating Hormone 3rd Gen 0.183 uIU/ML (0.358-3.740) Test 03/03/18 05:40 White Blood Count 15.1 TH/MM3 (4.0-11.0) Red Blood Count 3.30 MIL/MM3 (4.00-5.30) Hemoglobin 7.9 GM/DL (11.6-15.3) Hematocrit 25.1 % (35.0-46.0) Mean Corpuscular Volume 76.0 FL (80.0-100.0) Mean Corpuscular Hemoglobin 23.9 PG (27.0-34.0) Mean Corpuscular Hemoglobin Concent 31.5 % (32.0-36.0) Red Cell Distribution Width 18.1 % (11.6-17.2) Neutrophils (%) (Auto) 92.6 % (16.0-70.0) Lymphocytes (%) (Auto) 6.1 % (9.0-44.0) Neutrophils # (Auto) 14.0 TH/MM3 (1.8-7.7) Lymphocytes # (Auto) 0.9 TH/MM3 (1.0-4.8) Blood Urea Nitrogen 21 MG/DL (7-18) Creatinine 1.19 MG/DL (0.50-1.00) Random Glucose 131 MG/DL (74-106) Albumin 3.3 GM/DL (3.4-5.0) Chloride Level 110 MEQ/L (98-107) Estimat Glomerular Filtration Rate 53 ML/MIN (>89) Digoxin Level 0.5 NG/ML (0.8-2.0) Imaging Last Impressions Modified Barium Swallow 03/03/18 0000 Signed Impressions: Service Date/Time: February 14:47 - CONCLUSION: Penetration and some aspiration was noted during the exam. See speech pathology report. Matthew Osman MD PE at Discharge GENERAL: Awake alert and oriented 3 talkative and cooperative very anxious remains on Precedex SKIN: Warm and dry. HEAD: Atraumatic. Normocephalic. EYES: Pupils equal and round. No scleral icterus. No injection or drainage. Extraocular muscles intact ENT: No nasal bleeding or discharge. Mucous membranes pink and moist. Tongue is midline NECK: Trachea midline. No JVD. Old tracheostomy site barely closed CARDIOVASCULAR: Regular rate and rhythm. S1-S2 no S3 or S4 RESPIRATORY: No accessory muscle use. Clear to auscultation. Breath sounds equal bilaterally. Decreased breath sounds bilaterally obese GASTROINTESTINAL: Abdomen soft, non-tender, nondistended. Hepatic and splenic margins not palpable. MUSCULOSKELETAL: Extremities without clubbing, cyanosis, or edema. No obvious deformities. NEUROLOGICAL: Awake and alert. No obvious cranial nerve deficits. Motor grossly within normal limits. 4 out of 5 muscle strength in the arms and legs. Normal speech. PSYCHIATRIC: INAppropriate mood and affect; insight and judgment ABnormal. Hospital Course 32-year-old very pleasant but very anxious female presented to emergency department at [facility] via EMS complaining of allergic reaction. The patient reports shortness of breath. She stated that she is allergic to multiple medications and substances including sulfites. Per EMS patient received albuterol, Benadryl, received epinephrine and Versed. The patient reports she has recently had a tracheostomy tube removed. She denies any other symptoms. 5-16 patient has been transferred to our service Remains on Benadryl and Precedex and morphine Has been seen by ENT who recommended she go back to [facility] for any procedures patient states she has had 4 tracheostomies within the last year Patient states that her local ENT recommended that her tracheostomy to be removed a Dr. Qureshi 5-17 REFUSING TO TAKE PO MEDS AND EAT AT THIS TIME SWALLOW EVAL MBS WITH SPEECH AND RADIOLOGY [facility] RN AND PATIENT AND CASE MANAGEMENT- PSYCHIATRY THEY WILL NOT INCREASE HER ANXIOLYTICS IF PASSES SWALLOW EVAL MAY NEED TRANSFER BACK TO [place] SO THEY CAN TRANSFER TO [place] IF THEY WANT PATIENT SEEMS TO WANT TO HAVE ANOTHER TRACHEOSTOMY STATES SHE IS SOB AND VERY ANXIOUS WHEN I COME IN THE ROOM 5-18 PASSED SWALLOW EVALUATION YESTERDAY [facility] SANDHU AND PT AND CM TRANSFER BACK TO [place] NO NEED FOR TRACHEOSTOMY AT THIS TIME GETS VERY ANXIOUS WHEN I COME IN THE ROOM TAKING MEDICATIONS NOW PUREED DIET HONEY THICKENED LIQUIDS Pt Condition on Discharge: Good Discharge Disposition: Disch to Another Hospital Discharge Time: > 30 minutes Discharge Instructions DIET: Follow Instructions for: Pureed Diet Speech Therapy-Diet Recommends: Honey Thickened Liquids, Pureed Additional Diet Instructions: PUREED WITH HONEY THICKENED LIQUIDS Activities you can perform: Regular-No Restrictions New Medications: Famotidine (Famotidine) 20 Mg Tab 20 MG PO BID for Heartburn Management, #60 TAB [diphenhydrAMINE INJ] () 50 MG/ML INJ 25 MG IV Q4H for Anxiety, #120 EACH Continued Medications: Amitriptyline (Amitriptyline) 10 Mg Tab 30 MG PO HS for Control Depression, #30 TAB 0 Refills Digoxin (Digoxin) 0.25 Mg Tab 0.25 MG PO DAILY for Regulate Heart Beat, #30 TAB 0 Refills Diltiazem CD 24 HR (Cardizem CD 24 HR) 180 Mg Caper 180 MG PO DAILY for hypertension for 30 Days, #30 CAP 0 Refills Gabapentin (Gabapentin) 300 Mg Cap 300 MG PO TID, #90 CAP 0 Refills Levalbuterol 15 GM Inh (Xopenex Hfa 15 GM Inh) 45 Mcg/Act Aer 1 PUFF INH Q4HR PRN for SHORTNESS OF BREATH, #1 INHALER 0 Refills Shake well before using. (1 puff = 45 mcg) Levalbuterol Neb (Xopenex Neb) 0.63 Mg/3 Ml Neb 0.63 MG NEB QID for Breathing Treatment, #120 NEBULE 0 Refills Lorazepam (Ativan) 1 Mg Tab 1 MG PO Q6H PRN for ANXIETY AND/OR AGITATION, TAB 0 Refills Montelukast (Singulair) 10 Mg Tab 10 MG PO HS, #30 TAB 0 Refills Oxycodone (Oxycodone) 10 Mg Tab 10 MG PO Q4H PRN for pain, #15 TAB 0 Refills Pantoprazole (Protonix) 40 Mg Tab 40 MG PO BID for Ulcer Prevention, #30 TAB 0 Refills Prednisone (Prednisone) 5 Mg Tab 5 MG PO DIRECTED for inflammation for 10 Days, TAB 0 Refills 40 mg po daily for two days then 30 mg po daily for two days then 20 mg po daily for two days then 10 mg po daily for two days then 5 mg po daily for two days then stop. Promethazine (Phenergan) 25 Mg Tab 25 MG PO Q6H PRN for Nausea/Vomiting, #10 TAB 0 Refills Tizanidine (Zanaflex) 4 Mg Tab 4 MG PO HS for Muscle Spasm, TAB 0 Refills Discontinued Medications: Famotidine (Famotidine) 20 Mg Tab 40 MG NG BID for antihistamine for 10 Days, #40 TAB 0 Refills Levalbuterol Neb (Xopenex Neb) 0.63 Mg/3 Ml Neb 0.63 MG NEB QID for Breathing Treatment, #120 NEBULE 0 Refills Nitrofurantoin Monohydrate Macrocrystals (Macrobid) 100 Mg Cap 100 MG PO BID for Infection for 10 Days, CAP 0 Refills Omeprazole (Omeprazole) 20 Mg Tab 20 MG PO BID for gerd, #30 TAB 0 Refills Oxycodone (Oxycodone) 15 Mg Tab 15 MG PO Q6H PRN for PAIN, TAB 0 Refills Additional Information PROBABLE FOLLOW UP WITH [facility] AN OUTPATIENT Nael Rothman DO March 04, 2018 11:01
[2018-03-04 12:05] LABS: AUTOMATED NEUTROPHIL # 11.5 TH/MM3 (1.8-7.7); BASOPHIL % 0.1 % (0.0-2.0); HEMATOCRIT 28.8 % (35.0-46.0); HEMOGLOBIN 8.9 GM/DL (11.6-15.3); LYMPH % 6.4 % (9.0-44.0); LYMPHOCYTE # 0.8 TH/MM3 (1.0-4.8); MEAN CELL VOLUME 75.2 FL (80.0-100.0); MEAN CORPUSCULAR HEMOGLOBIN 23.3 PG (27.0-34.0); MONOCYTE # 0.2 TH/MM3 (0-0.9); NEUT % 91.5 % (16.0-70.0); PLATELET COUNT 320 TH/MM3 (150-450); RED BLOOD COUNT 3.83 MIL/MM3 (4.00-5.30); RED CELL DISTRIBUTION WIDTH 18.1 % (11.6-17.2); WHITE BLOOD COUNT 12.5 TH/MM3 (4.0-11.0)
[2018-03-04 12:52] LABS: BLOOD UREA NITROGEN 26 MG/DL (7-18); CREATININE 1.18 MG/DL (0.50-1.00); GLOMERULAR FILTRATION RATE 54 ML/MIN (>89); GLUCOSE,RANDOM 128 MG/DL (74-106)
[2018-03-04 12:53] LABS: ALBUMIN 3.4 GM/DL (3.4-5.0); ALKALINE PHOSPHATASE 65 U/L (45-117); ALT (GPT) 39 U/L (10-53); AST (GOT) 11 U/L (15-37); BICARBONATE 25.3 MEQ/L (21.0-32.0); CALCIUM 9.2 MG/DL (8.5-10.1); CHLORIDE 108 MEQ/L (98-107); MAGNESIUM 2.5 MG/DL (1.5-2.5); PHOSPHORUS 3.1 MG/DL (2.5-4.9); SODIUM (NA) 143 MEQ/L (136-145); TOTAL BILIRUBIN ADULT 0.4 MG/DL (0.2-1.0); TOTAL PROTEIN 7.6 GM/DL (6.4-8.2)
[2018-03-04] MEDS: MORPHINE SULFATE 4 MG/ML INJ IV PUSH PRN ×3 (13:24→22:49)
[2018-03-04] MEDS: diphenhydrAMINE HCL 50 MG CAP PO PRN (16:46)
[2018-03-04] MEDS: AMITRIPTYLINE HCL 10 MG TAB PO SCH (21:13)
[2018-03-04] MEDS: MONTELUKAST SODIUM 10 MG TAB PO SCH (21:13)
[2018-03-05] VITALS (8 sets, daily range): BP systolic 92–118; BP diastolic 53–65; PULSE 68–103; RESP 17–18; TEMP 97.2–98; O2SAT 94–100
[2018-03-05] MEDS: CHLORHEXIDINE GLUCONATE 2 % 1 PACK (2 CLOTHS) TOP SCH (04:00)
[2018-03-05] MEDS: DEXAMETHASONE SOD PHOS 4 MG/ML VIAL IV PUSH SCH ×4 (04:25→21:10)
[2018-03-05] MEDS: HEPARIN SODIUM - SQ 10,000 UNITS/ML VIAL SQ SCH ×3 (06:38→21:09)
[2018-03-05] MEDS: RESP: LEVALBUTEROL HYDROCHLORIDE 0.63 MG/3 ML NEB (SCH) NEB ×4 (07:47→19:50)
[2018-03-05] MEDS: PANTOPRAZOLE SOD 40 MG DELAYED RELEASE TAB PO SCH ×2 (08:19→21:10)
[2018-03-05] MEDS: DOCUSATE SODIUM 50 MG/SENNA 8.6 MG TAB PO SCH ×2 (08:19→21:10)
[2018-03-05] MEDS: predniSONE 5 MG TAB PO SCH (08:19)
[2018-03-05] MEDS: DIGOXIN 0.25 MG TAB PO SCH (08:19)
[2018-03-05] MEDS: SODIUM CHLOR 0.9% 1000 ML INJ 1,000 ML IV SCH ×2 (08:20→20:20)
[2018-03-05] MEDS: GABAPENTIN 300 MG CAP PO SCH ×3 (08:20→17:17)
[2018-03-05] MEDS: SODIUM CHLORIDE 0.9% FLUSH 10 ML FLUSH IV FLUSH SCH ×2 (08:20→21:11)
[2018-03-05] MEDS: FAMOTIDINE 20 MG TAB PO SCH ×2 (08:20→21:10)
[2018-03-05] MEDS: DILTIAZEM-CD 180 MG CAP ER PO SCH (08:20)
[2018-03-05] MEDS: ACETAMINOPHEN 325 MG TAB PO PRN ×2 (11:03→17:20)
[2018-03-05] MEDS: LORazepam 1 MG TAB PO PRN ×2 (11:07→17:20)
[2018-03-05] MEDS: diphenhydrAMINE HCL 50 MG CAP PO PRN (11:07)
--- NOTE | 2018-03-05 13:41 | EKG ---
Date Performed: 03/05/2018 Time Performed: 12:47:09 PTAGE: 32 years EKG: SINUS TACHYCARDIA ABNORMAL RHYTHM ECG PREVIOUS TRACING : 01/09/2018 11.08 Since the previous tracing, no significant change noted DOCTOR: Jose Odom Interpretating Date/Time 03/05/2018 13:39:31
[2018-03-05] MEDS ORDERED: GLUCAGON 1 MG/ML VIAL OTHER PRN (13:45)
[2018-03-05] MEDS ORDERED: DEXTROSE 50% IN WATER 50 ML VIAL(D50) IV PUSH PRN (13:45)
[2018-03-05] MEDS ORDERED: MORPHINE SULFATE 2 MG/ML SYRINGE IV PUSH ONE (13:45)
--- NOTE | 2018-03-05 13:46 | RADRPT ---
EXAM DATE/TIME: 03/05/2018 12:11 [facility] COMPARISON: CHEST SINGLE AP, January 12, 2018, 12:24. The patient's name on prior chest x-ray was Krissy Alfaro (Eze eaton is a middle name). Double verification was performed to assure that present on prior examinati on are the same patient. INDICATIONS : Chest pain. MEDICAL HISTORY : Hyperparathyroidism. SURGICAL HISTORY : Appendectomy. Cholecystectomy. Atrial septal defect repair. ENCOUNTER: Subsequent ACUITY: 4 - 6 days PAIN SCORE: 7/10 LOCATION: Bilateral chest FINDINGS: Interval removal of tracheostomy. Stable configuration to the sternal wire sutures with displacement of the inferior wire suture. The lungs are symmetrically aerated. There are some linear opacities at the left base suggesting atelectasis or scarring; this has improved when compared to prior chest x -ray. Stable mild blunting of left costophrenic angle. The right lung is clear. The heart is rodger l in size. CONCLUSION: Mild scarring or atelectasis left base, improved from 01/12/18. No acute findings. Ector Valdez MD on March 05, 2018 at 13:42 Board Certified Radiologist. This report was verified electronically.
[2018-03-05] MEDS: diphenhydrAMINE HCL 50 MG/ML VIAL IV PUSH PRN ×2 (13:56→21:09)
[2018-03-05] MEDS ORDERED: MORPHINE SULFATE 4 MG/ML INJ IV PUSH ONE (14:00)
[2018-03-05] MEDS: INSULIN ASPART SUPPLEMENTAL SCALE SQ SCH ×2 (16:27→21:11)
--- NOTE | 2018-03-05 18:27 | HHI.PR ---
Subjective Remarks Patient c/o itching, "all over," and chest pain. Chest pain described as midsternal pressure. Without associated SOB, diaphoresis, N/V or radiation Objective Vitals Vital Signs Date Time Temp Pulse Resp B/P (MAP) Pulse Ox O2 Delivery O2 Flow Rate FiO2 03/05/18 12:00 97.3 103 18 118/59 (78) 97 03/05/18 09:10 Nasal Cannula 2.00 03/05/18 08:00 98.0 78 18 108/54 (72) 94 03/05/18 07:59 90 03/05/18 07:47 98 Nasal Cannula 2.00 03/05/18 04:00 97.3 68 17 106/55 (72) 99 03/05/18 00:01 97.2 69 18 92/53 (66) 98 03/04/18 20:00 97.7 107 18 142/64 (90) 97 I/O 03/04/18 03/04/18 03/04/18 03/05/18 03/05/18 03/05/18 07:00 15:00 23:00 07:00 15:00 23:00 Intake Total 1093 ml 240 ml 480 ml Output Total 1000 ml Balance 93 ml 240 ml 480 ml Intake Oral 120 ml 240 ml 480 ml IV Total 973 ml Output Urine Total 1000 ml # Voids 1 # Bowel Movements 0 0 Result Diagram: 03/04/18 1143 03/04/18 1143 Other Results Laboratory Tests Test 03/03/18 05:40 03/04/18 11:43 03/05/18 14:12 White Blood Count 15.1 TH/MM3 12.5 TH/MM3 Red Blood Count 3.30 MIL/MM3 3.83 MIL/MM3 Hemoglobin 7.9 GM/DL 8.9 GM/DL Hematocrit 25.1 % 28.8 % Mean Corpuscular Volume 76.0 FL 75.2 FL Mean Corpuscular Hemoglobin 23.9 PG 23.3 PG Mean Corpuscular Hemoglobin Concent 31.5 % 31.0 % Red Cell Distribution Width 18.1 % 18.1 % Platelet Count 279 TH/MM3 320 TH/MM3 Mean Platelet Volume 8.1 FL 8.0 FL Neutrophils (%) (Auto) 92.6 % 91.5 % Lymphocytes (%) (Auto) 6.1 % 6.4 % Monocytes (%) (Auto) 1.2 % 2.0 % Eosinophils (%) (Auto) 0.0 % 0.0 % Basophils (%) (Auto) 0.1 % 0.1 % Neutrophils # (Auto) 14.0 TH/MM3 11.5 TH/MM3 Lymphocytes # (Auto) 0.9 TH/MM3 0.8 TH/MM3 Monocytes # (Auto) 0.2 TH/MM3 0.2 TH/MM3 Eosinophils # (Auto) 0.0 TH/MM3 0.0 TH/MM3 Basophils # (Auto) 0.0 TH/MM3 0.0 TH/MM3 CBC Comment DIFF FINAL DIFF FINAL Differential Comment Blood Urea Nitrogen 21 MG/DL 26 MG/DL Creatinine 1.19 MG/DL 1.18 MG/DL Random Glucose 131 MG/DL 128 MG/DL Total Protein 7.3 GM/DL 7.6 GM/DL Albumin 3.3 GM/DL 3.4 GM/DL Calcium Level 9.2 MG/DL 9.2 MG/DL Phosphorus Level 4.1 MG/DL 3.1 MG/DL Magnesium Level 2.4 MG/DL 2.5 MG/DL Alkaline Phosphatase 68 U/L 65 U/L Aspartate Amino Transf (AST/SGOT) 21 U/L 11 U/L Alanine Aminotransferase (ALT/SGPT) 49 U/L 39 U/L Total Bilirubin 0.5 MG/DL 0.4 MG/DL Sodium Level 143 MEQ/L 143 MEQ/L Potassium Level 4.0 MEQ/L 3.8 MEQ/L Chloride Level 110 MEQ/L 108 MEQ/L Carbon Dioxide Level 22.7 MEQ/L 25.3 MEQ/L Anion Gap 10 MEQ/L 10 MEQ/L Estimat Glomerular Filtration Rate 53 ML/MIN 54 ML/MIN Digoxin Level 0.5 NG/ML Troponin I LESS THAN 0.02 NG/ML Imaging Last Impressions Chest X-Ray 03/05/18 0000 Signed Impressions: Service Date/Time: Monday, March 05, 2018 12:11 - CONCLUSION: Mild scarring or atelectasis left base, improved from 01/12/18. No acute findings. Ector Valdez MD Modified Barium Swallow 03/03/18 0000 Signed Impressions: Service Date/Time: February 14:47 - CONCLUSION: Penetration and some aspiration was noted during the exam. See speech pathology report. Matthew Osman MD Objective Remarks GENERAL: This is a well-nourished, well-developed patient, appears anxious but in no apparent distress. CARDIOVASCULAR: Regular rate and rhythm RESPIRATORY: Clear to auscultation. Breath sounds equal bilaterally. GASTROINTESTINAL: Abdomen soft, non-tender, nondistended. Normal active bowel sounds MUSCULOSKELETAL: Extremities without clubbing, cyanosis, or edema. NEURO: Alert & Oriented x4 to person, place, time, situation. Moves all ext x4 Procedures None A/P Problem List: (1) H/O tracheostomy ICD Code: Z98.890 - Other specified postprocedural states (2) Adjustment disorder with anxiety ICD Code: F43.22 - Adjustment disorder with anxiety (3) Panic attacks ICD Code: F41.0 - Panic disorder [episodic paroxysmal anxiety] without agoraphobia Status: Resolved (4) Munchausen syndrome ICD Code: F68.10 - Factitious disorder, unspecified (5) Morbid obesity ICD Code: E66.01 - Morbid (severe) obesity due to excess calories (6) Hypertension ICD Code: I10 - Essential (primary) hypertension Status: Chronic (7) Leukocytosis ICD Code: D72.829 - Elevated white blood cell count, unspecified Status: Acute (8) Gastroesophageal reflux disease ICD Code: K21.9 - Gastro-esophageal reflux disease without esophagitis Status: Chronic (9) Noncompliance ICD Code: Z91.19 - Patient's noncompliance with other medical treatment and regimen Assessment and Plan Respiratory failure - Allergic reaction -Monitored in the ICU for airway patency -ENT consultation- Per ENT Dr. Oviedo 03/02/18 She is being followed her her local ENT, Dr Qureshi and referred to Academic Sales Service Supervisor at [facility] in [place], Dr Nelsy Azevedo, D.O. The patient appears to have responded somewhat to medical therapy, but she still reports air hunger and feels she will need an airway. Ideally it would be best to transfer her to [place] and Dr Azevedo's care. she may require a surgical airway to safely go to [place], however. Chest pain (03/05) -serial EKG and troponin -Morphine 2 mg x1 -Discussed with Dr. Young who recommends cardiology consult -cardiology consult placed Allergic reaction - Dexamethasone 8 mg IV Q6H - Pepcid and Protonix - passed swallow evaluation pureed diet with honey thickened liquid Anxiety -Resume home meds when indicated -Possible Munchausen disorder- DW PSYCHIATRY GERD - IV Pepcid DVT GI prophylax - Teds SCDs - Lovenox - Pepcid Supervising physician Oanh Car March 05, 2018 18:27
[2018-03-05] MEDS ORDERED: MORPHINE SULFATE 4 MG/ML INJ IV ONE (21:00)
[2018-03-05] MEDS: AMITRIPTYLINE HCL 10 MG TAB PO SCH (21:10)
[2018-03-05] MEDS: MONTELUKAST SODIUM 10 MG TAB PO SCH (21:11)
[2018-03-06] VITALS: BP 99/55; PULSE 68; RESP 18; TEMP 97.4; O2SAT 97
[2018-03-06] MEDS: CHLORHEXIDINE GLUCONATE 2 % 1 PACK (2 CLOTHS) TOP SCH ×2 (00:07→21:16)
[2018-03-06] MEDS: ACETAMINOPHEN 325 MG TAB PO PRN (00:14)
[2018-03-06] MEDS: LORazepam 1 MG TAB PO PRN ×2 (00:14→17:30)
[2018-03-06] MEDS: ONDANSETRON HCL 4 MG/2 ML VIAL IV PUSH PRN ×2 (00:15→14:11)
--- NOTE | 2018-03-06 02:33 | RADRPT ---
EXAM DATE/TIME: 03/06/2018 00:58 [facility] COMPARISON: LUNG VENTILATION & PERFUSION SCAN, February 14, 2017, 20:41. INDICATIONS : Chest pain and dyspnea. DOSE: 1.13 mCi Tc99m DTPA 8.8 mCi Tc99m MAA MEDICAL HISTORY : Hypertension. Munchausen syndrome. SURGICAL HISTORY : Cholecystectomy. Hysterectomy. Appendectomy. Tracheostomy. ENCOUNTER: Initial ACUITY: 1 day PAIN SCALE: 0/10 LOCATION: Bilateral chest TECHNIQUE: Following five minutes of tidal breathing of DTPA aerosol, planar images of the lungs were performed in eight projections. The patient was then injected with MAA, and eight-view perfusion scan was perf ormed. FINDINGS: There is a homogeneous pattern of aerosol delivery to the periphery of both lungs. No focal ventilat ory defects are seen. The perfusion lung scan demonstrates a homogenous pattern of uptake in both lungs. No segmental or s ubsegmental defects are seen. CONCLUSION: Normal examination. Bautista Jackson MD on March 06, 2018 at 2:00 Board Certified Radiologist. This report was verified electronically.
[2018-03-06] MEDS: DEXAMETHASONE SOD PHOS 4 MG/ML VIAL IV PUSH SCH ×4 (02:45→21:16)
[2018-03-06 04:00] VITALS: BP 93/54; PULSE 62; RESP 18; TEMP 97.3; O2SAT 98
[2018-03-06] MEDS: HEPARIN SODIUM - SQ 10,000 UNITS/ML VIAL SQ SCH ×3 (06:13→21:16)
[2018-03-06] MEDS: diphenhydrAMINE HCL 50 MG/ML VIAL IV PUSH PRN ×3 (06:13→17:30)
[2018-03-06] MEDS: INSULIN ASPART SUPPLEMENTAL SCALE SQ SCH ×4 (07:28→21:14)
[2018-03-06 07:45] VITALS: O2SAT 98
[2018-03-06] MEDS: RESP: LEVALBUTEROL HYDROCHLORIDE 0.63 MG/3 ML NEB (SCH) NEB (07:45)
[2018-03-06] MEDS: SODIUM CHLOR 0.9% 1000 ML INJ 1,000 ML IV SCH ×2 (07:58→20:10)
[2018-03-06] MEDS: DILTIAZEM-CD 180 MG CAP ER PO SCH (07:58)
[2018-03-06 08:00] VITALS: BP 102/58; PULSE 81; RESP 16; TEMP 98; O2SAT 97
[2018-03-06] MEDS: PANTOPRAZOLE SOD 40 MG DELAYED RELEASE TAB PO SCH ×2 (08:23→21:15)
[2018-03-06] MEDS: FAMOTIDINE 20 MG TAB PO SCH ×2 (08:23→21:15)
[2018-03-06] MEDS: DIGOXIN 0.25 MG TAB PO SCH (08:23)
[2018-03-06] MEDS: predniSONE 5 MG TAB PO SCH (08:24)
[2018-03-06] MEDS: DOCUSATE SODIUM 50 MG/SENNA 8.6 MG TAB PO SCH ×2 (08:24→21:15)
[2018-03-06] MEDS: SODIUM CHLORIDE 0.9% FLUSH 10 ML FLUSH IV FLUSH SCH ×2 (08:24→21:15)
[2018-03-06] MEDS: GABAPENTIN 300 MG CAP PO SCH ×3 (08:24→17:30)
--- NOTE | 2018-03-06 08:30 | MB ---
cc: Ronnell Cotto DO DATE: 03/06/2018 REASON FOR CONSULTATION: Chest pain, abnormal EKG. HISTORY OF PRESENT ILLNESS: Iris Alfaro is a 32-year-old female who originally presented to [facility] via EMS from [facility] due to allergic reaction. The patient reports shortness of breath and STATES THAT SHE IS ALLERGIC TO MULTIPLE MEDICATIONS and substances including sulfates. Per EMS, she received albuterol, Benadryl, epinephrine and Versed. She has since been admitted and was being evaluated for discharge when she found out that she was being discharged and she started panicking and having chest pain and shortness of breath. She states that the shortness of breath has been chronic in nature for some time. She also states that she had significant chest pain, which is like a pressure or stabbing in the middle of her chest. It does not hurt with movement. It does not hurt with palpation of it. PAST MEDICAL HISTORY: 1. Asthma. 2. Multiple episodes of respiratory failure requiring intubation and multiple tracheostomy. 3. Anxiety. 4. Supraventricular tachycardia, which per the patient, she sees an EP metal window screen assembler in [place] who has diagnosed her with inappropriate sinus tachycardia. 5. History of transient ischemic attack. 6. Hyperparathyroid. 7. Gastroesophageal reflux disease. 8. Endometriosis. 9. Migraines. PAST SURGICAL HISTORY: 1. Atrial septal defect repair. 2. Appendectomy. 3. Cholecystectomy. 4. Endometriosis ablation x 3. 5. Left first rib resection secondary to thoracic outlet syndrome (2012). 6. Emergent tracheostomy (12/2017). ALLERGIES: DIATRIZOATE MEGLUMINE, GADOBENIC ACID, GADODIAMIDE, GADOTERIDOL, HYDROMORPHONE, IBUPROFEN, IODIXANOL, IOHEXOL, LASIX, REGLAN, PROCHLORPERAZINE, SUCCINYLCHOLINE, CEFEPIME, CEFTAROLINE FOSAMIL. MEDICATIONS: 1. Promethazine 25 mg every 6 hours as needed for nausea or vomiting. 2. Macrobid 100 mg b.i.d. 3. Xopenex 1 puff every 4 hours as needed for shortness of breath. 4. Xopenex 0.63 mg nebulizer 4 times a day. 5. Zanaflex 4 mg every night. 6. Digoxin 0.25 mg daily. 7. Cardizem-CD 180 mg daily. 8. Oxycodone 10 mg every 4 hours as needed for pain, 15 mg every 6 hours as needed for pain. 9. Gabapentin 300 mg t.i.d. 10. Amitriptyline 30 mg every night. 11. Ativan 1 mg every 6 hours as needed for anxiety/agitation. 12. Singulair 10 mg every night. 13. Pepcid 40 mg b.i.d. 14. Omeprazole 20 mg b.i.d. 15. Protonix 40 mg b.i.d. 16. Prednisone 5 mg as directed. FAMILY HISTORY: Mother has hypertension. Father is fairly healthy. SOCIAL HISTORY: Denies tobacco or drug abuse. Does drink socially. REVIEW OF SYSTEMS: Fourteen systems were reviewed including osteopathic. Pertinent positives and negatives above, otherwise negative. PHYSICAL EXAMINATION: VITAL SIGNS: Temperature 97.6, heart rate 95, blood pressure 109/59, respirations 18, pulse oximetry 97% on 2 liters. GENERAL: The patient appears overly anxious, in no acute distress. Alert, awake and oriented x 3. HEENT: Extraocular muscles intact. Mucous membranes moist. NECK: Supple. No JVD at 45 degrees. No carotid bruits heard bilaterally. Carotid upstroke is brisk in nature. HEART: Regular rate and rhythm. Positive first and second heart sounds with no noted murmurs, gallops or rubs. LUNGS: Clear to auscultation bilaterally. No wheezes, rales or rhonchi. ABDOMEN: Soft, nontender, nondistended. No organomegaly noted. EXTREMITIES: Show no clubbing, cyanosis or edema. NEUROLOGIC: No focal deficits. SKIN: Warm, dry and intact. OSTEOPATHIC: No kyphoscoliosis, lordosis or paraspinal tender points. LABORATORY DATA: Hemoglobin 8.9, hematocrit 28.8, platelets 320. Potassium 3.8, BUN 26, creatinine 1.18. Troponin negative x 3. Electrocardiogram (03/05/2018 at 1846): Sinus rhythm, nonspecific interventricular conduction delay. IMPRESSION: 1. Chest pain, atypical for coronary insufficiency. 2. Chronic shortness of breath. 3. Significant anxiety. 4. History of MULTIPLE ALLERGIC REACTIONS with asthma leading to tracheostomy placement multiple times. 5. Anxiety, possibly as a cause of chest pain. 6. History of inappropriate sinus tachycardia. RECOMMENDATIONS: 1. Ms. Alfaro appears to have chest pain and shortness of breath and overall does not sound cardiac. Her troponins are negative, EKG shows no acute ST-T wave changes, and overall her story does not sound very convincing for coronary artery disease. 2. I feel that we should attempt to rule out a pulmonary embolus. As the patient has significant ALLERGY TO CONTRAST OUR CONTRAST DYE, she will be evaluated with a V/Q scan. We will plan on checking a 2-D echo to look at her overall left ventricular function, cardiac structure and possible valvulopathies. 3. Before testing can be done, we will need to check to make sure she is not . 4. If this fails for a cause, consideration would be made for a nuclear stress test, although she would have to wait 48 hours post V/Q scan. Thank you for allowing me to see Iris Alfaro. If there are any questions, please do not hesitate to call. Ronnell Cotto, VGP/TL , 12:20 AM , 08:29 AM
[2018-03-06 12:00] VITALS: BP 119/58; PULSE 86; RESP 16; TEMP 97.4; O2SAT 98
--- NOTE | 2018-03-06 14:13 | PD.CARD.PN ---
Subjective Subjective Remarks Still complaining of chest pain/SOB Objective Medications Current Medications Medications (Trade) Dose Ordered Sig/Toshia Route Start Time Stop Time Status Last Admin Sodium Chloride 1,000 ml @ 84 mls/hr [id number] IV 03/01/18 21:00 03/03/18 20:40 (NS Flush) 2 ml UNSCH PRN IV FLUSH 03/01/18 20:45 (NS Flush) 2 ml BID IV FLUSH 03/01/18 21:00 03/06/18 08:24 (Tylenol) 650 mg Q6H PRN PO 03/01/18 20:45 03/06/18 00:14 (Morphine Inj) 2 mg Q2H PRN IV PUSH 03/01/18 20:45 03/04/18 22:49 (Zofran Inj) 4 mg Q6H PRN IV PUSH 03/01/18 20:45 03/06/18 00:15 (Restoril) 15 mg HS PRN PO 03/01/18 20:45 03/03/18 23:19 (Heparin Inj) 5,000 units Q8H SQ 03/01/18 22:00 03/06/18 06:13 ([facility] Nursing Information) 1 Q361D XX 03/01/18 20:45 03/01/18 20:45 (Chlorhexidine 2% Cloth) 3 pack Taper DAILY@04 TOP 03/02/18 04:00 02/26/19 03:59 (Chlorhexidine 2% Cloth) 3 pack UNSCH PRN TOP 03/01/18 20:45 (Annette-Colace) 1 tab BID PO 03/01/18 21:00 03/06/18 08:24 (Milk Of Magnesia Liq) 30 ml Q12H PRN PO 03/01/18 20:45 (Senokot) 17.2 mg Q12H PRN PO 03/01/18 20:45 (Dulcolax Supp) 10 mg DAILY PRN RECTAL 03/01/18 20:45 (Lactulose Liq) 30 ml DAILY PRN PO 03/01/18 20:45 (Decadron Inj) 8 mg Q6H IV PUSH 03/01/18 21:00 03/06/18 08:24 (Racepinephrine 2.25% Neb) 0.5 ml Q3HR NEB PRN NEB 03/01/18 21:00 (Lanoxin) 0.25 mg DAILY PO 03/02/18 09:00 03/06/18 08:23 (Cardizem Cd) 180 mg DAILY PO 03/02/18 09:00 03/02/18 08:31 (Singulair) 10 mg HS PO 03/01/18 21:00 03/05/18 21:11 (Roxicodone) 10 mg Q4H PRN PO 03/01/18 21:00 03/06/18 12:02 (Deltasone) 5 mg DAILY PO 03/02/18 09:00 03/06/18 08:24 (Phenergan) 25 mg Q6H PRN PO 03/01/18 21:00 03/05/18 11:03 Dexmedetomidine HCl 200 mcg/ Sodium Chloride 52 ml @ 4.19 mls/hr TITRATE PRN IV 03/01/18 21:30 03/03/18 18:51 Patient Own Medication PT OWN MED: XOPE... Q4H PRN INH 03/01/18 21:45 Future Hold (Pepcid) 20 mg BID PO 03/02/18 21:00 03/06/18 08:23 (Elavil) 30 mg HS PO 03/02/18 21:00 03/05/18 21:10 (Neurontin) 300 mg TID PO 03/02/18 18:00 03/06/18 12:02 (Ativan) 1 mg Q6H PRN PO 03/02/18 16:45 03/06/18 00:14 (Protonix) 40 mg BID PO 03/02/18 21:00 03/06/18 08:23 (Zanaflex) 4 mg HS PO 03/02/18 21:00 03/05/18 21:10 (Benadryl Inj) 25 mg Q6H PRN IV PUSH 03/05/18 13:45 03/06/18 12:02 (D50w (Vial) Inj) 50 ml UNSCH PRN IV PUSH 03/05/18 13:45 (Glucagon Inj) 1 mg UNSCH PRN OTHER 03/05/18 13:45 (NovoLOG SUPPLEMENTAL SCALE) 1 ACHS SLIDING SCALE SQ 03/05/18 17:00 03/06/18 11:33 Vital Signs / I&O Vital Signs Date Time Temp Pulse Resp B/P (MAP) Pulse Ox O2 Delivery O2 Flow Rate FiO2 03/06/18 08:00 98.0 81 16 102/58 (73) 97 03/06/18 07:45 98 Nasal Cannula 2.00 03/06/18 07:28 Room Air 03/06/18 04:00 97.3 62 18 93/54 (67) 98 03/06/18 00:00 97.4 68 18 99/55 (70) 97 03/05/18 20:00 97.3 98 18 113/65 (81) 100 03/05/18 16:00 97.6 95 18 109/59 (76) 97 I/O 03/05/18 03/05/18 03/05/18 03/06/18 03/06/18 03/06/18 07:00 15:00 23:00 07:00 15:00 23:00 Intake Total 480 ml 700 ml 600 ml Balance 480 ml 700 ml 600 ml Intake Oral 480 ml 700 ml 600 ml # Voids 1 3 2 # Bowel Movements 0 1 Physical Exam GENERAL: NAD, AAOx3 SKIN: Warm and dry. HEAD: Atraumatic. Normocephalic. EYES: Pupils equal and round. No scleral icterus. No injection or drainage. ENT: No nasal bleeding or discharge. Mucous membranes pink and moist. NECK: Trachea midline. No JVD. CARDIOVASCULAR: Regular rate and rhythm. RESPIRATORY: No accessory muscle use. Clear to auscultation. Breath sounds equal bilaterally. GASTROINTESTINAL: Abdomen soft, non-tender, nondistended. Hepatic and splenic margins not palpable. MUSCULOSKELETAL: Extremities without clubbing, cyanosis, or edema. No obvious deformities. NEUROLOGICAL: Awake and alert. No obvious cranial nerve deficits. Motor grossly within normal limits. Five out of 5 muscle strength in the arms and legs. Normal speech. PSYCHIATRIC: Appropriate mood and affect; insight and judgment normal. Laboratory Laboratory Tests Test 03/05/18 14:12 03/05/18 18:25 03/06/18 00:53 Troponin I LESS THAN 0.02 NG/ML LESS THAN 0.02 NG/ML LESS THAN 0.02 NG/ML Human Chorionic Gonadotropin, Quant LESS THAN 1 MIU/ML Assessment and Plan Problem List: (1) Panic attacks ICD Codes: F41.0 - Panic disorder [episodic paroxysmal anxiety] without agoraphobia Status: Resolved (2) Hypertension ICD Codes: I10 - Essential (primary) hypertension Status: Chronic (3) H/O tracheostomy ICD Codes: Z98.890 - Other specified postprocedural states (4) Morbid obesity ICD Codes: E66.01 - Morbid (severe) obesity due to excess calories (5) Adjustment disorder with anxiety ICD Codes: F43.22 - Adjustment disorder with anxiety (6) Chest pain ICD Codes: R07.9 - Chest pain, unspecified Status: Resolved Assessment and Plan 1) Chest pain/SOB Atypical for CAD V/Q negative Discussed doing stress test, plan tomorrow or Wednesday 2) Hx of inappropriate sinus tachycardia Follow up with her EP solar project manager in [place] 3) Anxiety Ronnell Cotto DO March 06, 2018 14:13
[2018-03-06] MEDS ORDERED: LEXA20TA PO (16:03)
--- NOTE | 2018-03-06 16:03 | HHI.PR ---
Subjective Remarks Patient reports continued chest pain - cardiology following denies SOB denies itching Objective Vitals Vital Signs Date Time Temp Pulse Resp B/P (MAP) Pulse Ox O2 Delivery O2 Flow Rate FiO2 03/06/18 12:00 97.4 86 16 119/58 (78) 98 03/06/18 08:00 98.0 81 16 102/58 (73) 97 03/06/18 07:45 98 Nasal Cannula 2.00 03/06/18 07:28 Room Air 03/06/18 04:00 97.3 62 18 93/54 (67) 98 03/06/18 00:00 97.4 68 18 99/55 (70) 97 03/05/18 20:00 97.3 98 18 113/65 (81) 100 I/O 03/05/18 03/05/18 03/05/18 03/06/18 03/06/18 03/06/18 07:00 15:00 23:00 07:00 15:00 23:00 Intake Total 480 ml 700 ml 600 ml Balance 480 ml 700 ml 600 ml Intake Oral 480 ml 700 ml 600 ml # Voids 1 3 2 # Bowel Movements 0 1 Result Diagram: 03/04/18 1143 03/04/18 1143 Other Results Laboratory Tests Test 03/04/18 11:43 03/05/18 14:12 03/05/18 18:25 03/06/18 00:53 White Blood Count 12.5 TH/MM3 Red Blood Count 3.83 MIL/MM3 Hemoglobin 8.9 GM/DL Hematocrit 28.8 % Mean Corpuscular Volume 75.2 FL Mean Corpuscular Hemoglobin 23.3 PG Mean Corpuscular Hemoglobin Concent 31.0 % Red Cell Distribution Width 18.1 % Platelet Count 320 TH/MM3 Mean Platelet Volume 8.0 FL Neutrophils (%) (Auto) 91.5 % Lymphocytes (%) (Auto) 6.4 % Monocytes (%) (Auto) 2.0 % Eosinophils (%) (Auto) 0.0 % Basophils (%) (Auto) 0.1 % Neutrophils # (Auto) 11.5 TH/MM3 Lymphocytes # (Auto) 0.8 TH/MM3 Monocytes # (Auto) 0.2 TH/MM3 Eosinophils # (Auto) 0.0 TH/MM3 Basophils # (Auto) 0.0 TH/MM3 CBC Comment DIFF FINAL Differential Comment Blood Urea Nitrogen 26 MG/DL Creatinine 1.18 MG/DL Random Glucose 128 MG/DL Total Protein 7.6 GM/DL Albumin 3.4 GM/DL Calcium Level 9.2 MG/DL Phosphorus Level 3.1 MG/DL Magnesium Level 2.5 MG/DL Alkaline Phosphatase 65 U/L Aspartate Amino Transf (AST/SGOT) 11 U/L Alanine Aminotransferase (ALT/SGPT) 39 U/L Total Bilirubin 0.4 MG/DL Sodium Level 143 MEQ/L Potassium Level 3.8 MEQ/L Chloride Level 108 MEQ/L Carbon Dioxide Level 25.3 MEQ/L Anion Gap 10 MEQ/L Estimat Glomerular Filtration Rate 54 ML/MIN Troponin I LESS THAN 0.02 NG/ML LESS THAN 0.02 NG/ML LESS THAN 0.02 NG/ML Human Chorionic Gonadotropin, Quant LESS THAN 1 MIU/ML Imaging Last Impressions Lung Scan-VQ Nuclear Medicine 03/05/18 0000 Signed Impressions: Service Date/Time: Tuesday, March 06, 2018 00:58 - CONCLUSION: Normal examination. Bautista Jackson MD Chest X-Ray 03/05/18 0000 Signed Impressions: Service Date/Time: Monday, March 05, 2018 12:11 - CONCLUSION: Mild scarring or atelectasis left base, improved from 01/12/18. No acute findings. Ector Valdez MD Modified Barium Swallow 03/03/18 0000 Signed Impressions: Service Date/Time: February 14:47 - CONCLUSION: Penetration and some aspiration was noted during the exam. See speech pathology report. Matthew Osman MD Objective Remarks GENERAL: This is a well-nourished, well-developed patient, appears anxious but in no apparent distress. CARDIOVASCULAR: Regular rate and rhythm RESPIRATORY: Clear to auscultation. Breath sounds equal bilaterally. GASTROINTESTINAL: Abdomen soft, non-tender, nondistended. Normal active bowel sounds MUSCULOSKELETAL: Extremities without clubbing, cyanosis, or edema. NEURO: Alert & Oriented x4 to person, place, time, situation. Moves all ext x4 Procedures None A/P Problem List: (1) H/O tracheostomy ICD Code: Z98.890 - Other specified postprocedural states (2) Adjustment disorder with anxiety ICD Code: F43.22 - Adjustment disorder with anxiety (3) Panic attacks ICD Code: F41.0 - Panic disorder [episodic paroxysmal anxiety] without agoraphobia Status: Resolved (4) Munchausen syndrome ICD Code: F68.10 - Factitious disorder, unspecified (5) Morbid obesity ICD Code: E66.01 - Morbid (severe) obesity due to excess calories (6) Hypertension ICD Code: I10 - Essential (primary) hypertension Status: Chronic (7) Leukocytosis ICD Code: D72.829 - Elevated white blood cell count, unspecified Status: Acute (8) Gastroesophageal reflux disease ICD Code: K21.9 - Gastro-esophageal reflux disease without esophagitis Status: Chronic (9) Noncompliance ICD Code: Z91.19 - Patient's noncompliance with other medical treatment and regimen Assessment and Plan Respiratory failure - Allergic reaction -Monitored in the ICU for airway patency -ENT consultation- Per ENT Dr. Oviedo 03/02/18 She is being followed her her local ENT, Dr Qureshi and referred to Academic Light Oil Operator at [facility] in [place], Dr Nelsy Azevedo, D.O. The patient appears to have responded somewhat to medical therapy, but she still reports air hunger and feels she will need an airway. Ideally it would be best to transfer her to [place] and Dr Azevedo's care. she may require a surgical airway to safely go to [place], however. Chest pain (03/05) -serial EKG with no acute ST changes and troponin < 0.02 x 3 -CXR Mild scarring or atelectasis left base, improved from 01/12/2018. No acute findings -Discussed with Dr. Young who recommends cardiology consult -cardiology consult placed, discussed the case with Dr. Cotto plans nuclear stress test Wednesday or Wednesday - VQ scan normal exam Allergic reaction - Dexamethasone 8 mg IV Q6H - Pepcid and Protonix - passed swallow evaluation pureed diet with honey thickened liquid Anxiety -Resume home meds when indicated -Possible Munchausen disorder- DW PSYCHIATRY GERD - IV Pepcid DVT GI prophylax - Teds SCDs - Lovenox - Pepcid Supervising physician Oanh Car March 06, 2018 16:03
[2018-03-06] MEDS: ESCITALOPRAM OXALATE 20 MG TAB PO SCH (17:30)
[2018-03-06 19:40] VITALS: BP 120/57; PULSE 96; RESP 18; TEMP 97.9; O2SAT 99
--- NOTE | 2018-03-06 20:52 | EKG ---
Date Performed: 03/05/2018 Time Performed: 23:51:52 PTAGE: 32 years EKG: Sinus rhythm . Anteroseptal T wave changes are nonspecific Borderline ECG PREVIOUS TRACING : 03/05/2018 18.46 Since the previous tracing, no significant change noted DOCTOR: Jose Odom Interpretating Date/Time 03/06/2018 20:50:37
--- NOTE | 2018-03-06 21:11 | EKG ---
Date Performed: 03/05/2018 Time Performed: 18:46:52 PTAGE: 32 years EKG: Sinus rhythm MODERATE INTRAVENTRICULAR CONDUCTION DELAY BORDERLINE ECG PREVIOUS TRACING : 03/05/2018 12.47 Since the previous tracing, no significant change noted DOCTOR: Jose Odom Interpretating Date/Time 03/06/2018 21:11:06
[2018-03-06] MEDS: MONTELUKAST SODIUM 10 MG TAB PO SCH (21:15)
[2018-03-06] MEDS: AMITRIPTYLINE HCL 10 MG TAB PO SCH (21:15)
[2018-03-07] VITALS: BP 114/60; PULSE 68; RESP 18; TEMP 97.1; O2SAT 93
[2018-03-07] MEDS: diphenhydrAMINE HCL 50 MG/ML VIAL IV PUSH PRN ×3 (01:30→14:15)
[2018-03-07] MEDS: DEXAMETHASONE SOD PHOS 4 MG/ML VIAL IV PUSH SCH ×3 (02:56→14:15)
[2018-03-07] MEDS: HEPARIN SODIUM - SQ 10,000 UNITS/ML VIAL SQ SCH ×2 (06:02→14:16)
[2018-03-07 08:00] VITALS: BP 136/65; PULSE 56; PULSE 67; RESP 16; TEMP 97.9; O2SAT 98
[2018-03-07] MEDS: INSULIN ASPART SUPPLEMENTAL SCALE SQ SCH ×2 (08:00→12:00)
[2018-03-07] MEDS: SODIUM CHLOR 0.9% 1000 ML INJ 1,000 ML IV SCH (08:05)
[2018-03-07] MEDS: GABAPENTIN 300 MG CAP PO SCH ×2 (08:22→14:16)
[2018-03-07] MEDS: DIGOXIN 0.25 MG TAB PO SCH (08:22)
[2018-03-07] MEDS: DOCUSATE SODIUM 50 MG/SENNA 8.6 MG TAB PO SCH (08:22)
[2018-03-07] MEDS: PANTOPRAZOLE SOD 40 MG DELAYED RELEASE TAB PO SCH (08:22)
[2018-03-07] MEDS: FAMOTIDINE 20 MG TAB PO SCH (08:22)
[2018-03-07] MEDS: ESCITALOPRAM OXALATE 20 MG TAB PO SCH (08:22)
[2018-03-07] MEDS: DILTIAZEM-CD 180 MG CAP ER PO SCH (08:22)
[2018-03-07] MEDS: SODIUM CHLORIDE 0.9% FLUSH 10 ML FLUSH IV FLUSH SCH (09:00)
[2018-03-07] MEDS ORDERED: REGADENOSON INJ 0.4 MG/5 ML SYR ONE (10:06)
[2018-03-07 12:00] VITALS: BP 131/63; PULSE 83; RESP 16; TEMP 98.4; O2SAT 99
[2018-03-07] MEDS: ONDANSETRON HCL 4 MG/2 ML VIAL IV PUSH PRN (12:13)
--- NOTE | 2018-03-07 12:13 | RADRPT ---
EXAM DATE/TIME: 03/07/2018 09:54 [place] COMPARISON: No previous studies available for comparison. INDICATIONS : Mid chest pain with shortness of breath for two days. Angina. DOSE: 25.8 mCi Tc99m Myoview at stress. 8.5 mCi Tc99m Myoview at rest. 0.4 mg Lexiscan STRESS SYMPTOMS: Shortness of breath with chest pressure. EJECTION FRACTION: > 70% MEDICAL HISTORY : Hypertension. Gastroesophageal reflux disease. Stroke. SURGICAL HISTORY : Hysterectomy. Cholecystectomy. Appendectomy. ENCOUNTER: Initial ACUITY: 2 days PAIN SCALE: 5/10 LOCATION: Midsternal chest TECHNIQUE: The patient underwent pharmacologic stress with infusion of prescribed dose. Continuous ECG tracing was monitored during stress. Gated SPECT imaging was performed after stress and conventional SPECT i maging was performed at rest. The examination was performed on a SPECT/CT scanner, both attenuation and non-corrected datasets were reviewed. FINDINGS: DISTRIBUTION: The maximum perfused segment at stress is in the septal and inferior garcia. PERFUSION STUDY: The pattern of perfusion at stress is within normal limits with the exception of a small matched defe ct towards the apex. GATED STUDY: There is intact wall motion and thickening without hypokinetic or dyskinetic segments. CONCLUSION: 1. No reversible perfusion defects to suggest ischemia. 2. Normal ejection fraction. RISK CATEGORY: Low (<1% Annual Mortality Rate) Dean Crowley MD on March 07, 2018 at 12:10 Board Certified Radiologist. This report was verified electronically.
--- NOTE | 2018-03-07 13:52 | HHI.PR ---
Subjective Remarks 32-year-old very pleasant but very anxious female presented to emergency department at [facility] via EMS complaining of allergic reaction. The patient reports shortness of breath. She stated that she is allergic to multiple medications and substances including sulfites. Per EMS patient received albuterol, Benadryl, received epinephrine and Versed. The patient reports she has recently had a tracheostomy tube removed. She denies any other symptoms. 5-16 patient has been transferred to our service Remains on Benadryl and Precedex and morphine Has been seen by ENT who recommended she go back to [facility] for any procedures patient states she has had 4 tracheostomies within the last year Patient states that her local ENT recommended that her tracheostomy to be removed a Dr. Qureshi 5-17 REFUSING TO TAKE PO MEDS AND EAT AT THIS TIME SWALLOW EVAL MBS WITH SPEECH AND RADIOLOGY HAILEE RN AND PATIENT AND CASE MANAGEMENT- [facility] THEY WILL NOT INCREASE HER ANXIOLYTICS IF PASSES SWALLOW EVAL MAY NEED TRANSFER BACK TO [place] SO THEY CAN TRANSFER TO [place] IF THEY WANT PATIENT SEEMS TO WANT TO HAVE ANOTHER TRACHEOSTOMY STATES SHE IS SOB AND VERY ANXIOUS WHEN I COME IN THE ROOM 518 PASSED SWALLOW EVALUATION YESTERDAY HAILEE RN AND PT AND CM TRANSFER BACK TO [place] NO NEED FOR TRACHEOSTOMY AT THIS TIME GETS VERY ANXIOUS WHEN I COME IN THE ROOM TAKING MEDICATIONS NOW PUREED DIET HONEY THICKENED LIQUIDS 5-19 Patient c/o itching, "all over," and chest pain. Chest pain described as midsternal pressure. Without associated SOB, diaphoresis, N/V or radiation 5-20 Patient reports continued chest pain - cardiology following denies SOB denies itching 03-07 V/Q IS NEGATIVE LEXISCAN IS NEGATIVE DC TO HOME TODAY HAILEE RN AND PATIENT DC HOME FOLLOW UP WITH PCP FOLLOW UP WITH [place] IF ENT ISSUES HAILEE RN AND PT AND CM Objective Vitals Vital Signs Date Time Temp Pulse Resp B/P (MAP) Pulse Ox O2 Delivery O2 Flow Rate FiO2 03/07/18 08:00 97.9 67 16 136/65 (88) 98 03/07/18 00:00 97.1 68 18 114/60 (78) 93 03/06/18 20:00 Nasal Cannula 2.00 03/06/18 19:40 97.9 96 18 120/57 (78) 99 I/O 5/20/18 503/06/18 03/07/18 03/07/18 03/07/18 07:00 15:00 23:00 07:00 15:00 23:00 Intake Total 600 ml 700 ml 300 ml Balance 600 ml 700 ml 300 ml Intake Oral 600 ml 700 ml 300 ml # Voids 2 2 # Bowel Movements 0 Result Diagram: 03/04/18 1143 03/04/18 1143 Other Results Laboratory Tests Test 03/05/18 14:12 03/05/18 18:25 03/06/18 00:53 Troponin I LESS THAN 0.02 NG/ML LESS THAN 0.02 NG/ML LESS THAN 0.02 NG/ML Human Chorionic Gonadotropin, Quant LESS THAN 1 MIU/ML Imaging Last Impressions Myocardial Perfusion Scan Nuc Med 03/07/18 0000 Signed Impressions: Service Date/Time: Wednesday, March 07, 2018 09:54 - CONCLUSION: 1. No reversible perfusion defects to suggest ischemia. 2. Normal ejection fraction. RISK CATEGORY: Low (<1%% Annual Mortality Rate) Dean Crowley MD Lung Scan-VQ Nuclear Medicine 03/05/18 0000 Signed Impressions: Service Date/Time: Tuesday, March 06, 2018 00:58 - CONCLUSION: Normal examination. Bautista Jackson MD Chest X-Ray 03/05/18 0000 Signed Impressions: Service Date/Time: Monday, March 05, 2018 12:11 - CONCLUSION: Mild scarring or atelectasis left base, improved from 01/12/18. No acute findings. Ector Valdez MD Modified Barium Swallow 03/03/18 0000 Signed Impressions: Service Date/Time: February 14:47 - CONCLUSION: Penetration and some aspiration was noted during the exam. See speech pathology report. Matthew Osman MD Objective Remarks GENERAL: Awake alert and oriented 3 talkative and cooperative very anxious remains on Precedex SKIN: Warm and dry. HEAD: Atraumatic. Normocephalic. EYES: Pupils equal and round. No scleral icterus. No injection or drainage. Extraocular muscles intact ENT: No nasal bleeding or discharge. Mucous membranes pink and moist. Tongue is midline NECK: Trachea midline. No JVD. Old tracheostomy site barely closed CARDIOVASCULAR: Regular rate and rhythm. S1-S2 no S3 or S4 RESPIRATORY: No accessory muscle use. Clear to auscultation. Breath sounds equal bilaterally. Decreased breath sounds bilaterally obese GASTROINTESTINAL: Abdomen soft, non-tender, nondistended. Hepatic and splenic margins not palpable. MUSCULOSKELETAL: Extremities without clubbing, cyanosis, or edema. No obvious deformities. NEUROLOGICAL: Awake and alert. No obvious cranial nerve deficits. Motor grossly within normal limits. 4 out of 5 muscle strength in the arms and legs. Normal speech. PSYCHIATRIC: INAppropriate mood and affect; insight and judgment ABnormal. Procedures None Medications and IVs Current Medications Sodium Chloride 1,000 ml @ 84 mls/hr [id number] IV Last administered on 08:05; Start 03/01/18 at 21:00 Sodium Chloride (NS Flush) 2 ml UNSCH PRN IV FLUSH FLUSH AFTER USING IV ACCESS ; Start 03/01/18 at 20:45 Sodium Chloride (NS Flush) 2 ml BID IV FLUSH Last administered on 03/07/18 09: 00; Start 03/01/18 at 21:00 Acetaminophen (Tylenol) 650 mg Q6H PRN PO PAIN 1-5 AND/OR FEVER >101F Last administered on 03/06/18 00:14; Start 03/01/18 at 20:45 Morphine Sulfate (Morphine Inj) 2 mg Q2H PRN IV PUSH PAIN SCALE 6 TO 10 Last administered on 03/04/18 22:49; Start 03/01/18 at 20:45 Famotidine (Pepcid Inj) 20 mg Q12HR IV PUSH Last administered on 03/02/18 08: 33; Start 03/01/18 at 21:00; Stop 03/02/18 at 09:07; Status DC Ondansetron HCl (Zofran Inj) 4 mg Q6H PRN IV PUSH NAUSEA OR VOMITING Last administered on 03/07/18 12:13; Start 03/01/18 at 20:45 Temazepam (Restoril) 15 mg HS PRN PO INSOMNIA Last administered on 03/03/18 23 :19; Start 03/01/18 at 20:45 Albuterol/ Ipratropium (Duoneb Neb) 1 ampule Q4HR NEB INH Last administered on 03/03/18 00:30; Start 03/02/18 at 00:00; Stop 03/04/18 at 10:49; Status DC Albuterol/ Ipratropium (Duoneb Neb) 1 ampule Q2HR NEB PRN INH WHEEZING; Start 03/01/18 at 20:45; Stop 03/04/18 at 10:49; Status DC Heparin Sodium (Porcine) (Heparin Inj) 5,000 units Q8H SQ Last administered on 03/07/18at 06:02; Start 03/01/18 at 22:00 Miscellaneous Information ([facility] Information) 1 Q361D XX Last administered on 03/01/18at 20:45; Start 03/01/18 at 20:45 Chlorhexidine Gluconate (Chlorhexidine 2% Cloth) Taper DAILY@04 TOP ; Start at 04:00; Stop 02/26/19 at 03:59 Chlorhexidine Gluconate (Chlorhexidine 2% Cloth) 3 pack UNSCH PRN TOP HYGIENIC CARE; Start 03/01/18 at 20:45 Senna/Docusate Sodium (Annette-Colace) 1 tab BID PO Last administered on at 08:22; Start 03/01/18 at 21:00 Magnesium Hydroxide (Milk Of Magnesia Liq) 30 ml Q12H PRN PO Mild constipation ; Start 03/01/18 at 20:45 Sennosides (Senokot) 17.2 mg Q12H PRN PO Moderate constipation Last administered on 03/06/18at 21:15; Start 03/01/18 at 20:45 Bisacodyl (Dulcolax Supp) 10 mg DAILY PRN RECTAL SEVERE CONSITIPATION; Start at 20:45 Lactulose (Lactulose Liq) 30 ml DAILY PRN PO SEVERE CONSITIPATION; Start at 20:45 Dexmedetomidine HCl 200 mcg/ Sodium Chloride 52 ml @ 0 mls/hr TITRATE PRN IV SEDATION; Start 03/01/18 at 21:00; Stop 03/01/18 at 21:29; Status DC Dexamethasone Sodium Phosphate (Decadron Inj) 8 mg Q6H IV PUSH Last administered on 03/07/18at 08:21; Start 03/01/18 at 21:00 Racepinephrine (Racepinephrine 2.25% Neb) 0.5 ml Q3HR NEB PRN NEB stridor; Start 03/01/18 at 21:00 Digoxin (Lanoxin) 0.25 mg DAILY PO Last administered on 03/07/18 08:22; Start 03/02/18 at 09:00 Diltiazem HCl (Cardizem Cd) 180 mg DAILY PO Last administered on 03/07/18 08: 22; Start 03/02/18 at 09:00 Montelukast Sodium (Singulair) 10 mg HS PO Last administered on 03/06/18at 21:15 ; Start 03/01/18 at 21:00 Oxycodone HCl (Roxicodone) 10 mg Q4H PRN PO PAIN 6 TO 10 Last administered on 12:13; Start 03/01/18 at 21:00 Prednisone (Deltasone) 5 mg DAILY PO Last administered on 03/06/18 08:24; Start 03/02/18 at 09:00; Stop 03/06/18 at 15:47; Status DC Promethazine HCl (Phenergan) 25 mg Q6H PRN PO Nausea/Vomiting Last administered on 03/05/18at 11:03; Start 03/01/18 at 21:00 Non-Formulary Medication 1 puff Q4HR PRN INH SHORTNESS OF BREATH; Start at 21:00; Status UNV Non-Formulary Medication 0.63 mg QID NEB ; Start 03/01/18 at 21:00; Status UNV Dexmedetomidine HCl 200 mcg/ Sodium Chloride 52 ml @ 4.19 mls/hr TITRATE PRN IV SEDATION Last administered on 03/03/18at 18:51; Start 03/01/18 at 21:30 Patient Own Medication PT OWN MED: XOPE... Q4H PRN INH SHORTNESS OF BREATH; Start 03/01/18 at 21:45; Status Future Hold Levalbuterol HCl (Xopenex Neb) 0.63 mg QID NEB NEB Last administered on at 07:45; Start 03/02/18 at 08:00; Stop 03/06/18 at 07:59; Status DC Diphenhydramine HCl (Benadryl Inj) 25 mg Q4H IV Last administered on 03/04/18at 14:28; Start 03/01/18 at 23:00; Stop 03/04/18 at 16:26; Status DC Famotidine (Pepcid) 20 mg BID PO Last administered on 03/07/18at 08:22; Start at 21:00 Amitriptyline HCl (Elavil) 30 mg HS PO Last administered on 03/06/18at 21:15; Start 03/02/18 at 21:00 Gabapentin (Neurontin) 300 mg TID PO Last administered on 03/07/18at 08:22; Start 03/02/18 at 18:00 Lorazepam (Ativan) 1 mg Q6H PRN PO ANXIETY AND/OR AGITATION Last administered on 03/06/18at 17:30; Start 03/02/18 at 16:45 Pantoprazole Sodium (Protonix) 40 mg BID PO Last administered on 03/07/18at 08: 22; Start 03/02/18 at 21:00 Tizanidine HCl (Zanaflex) 4 mg HS PO Last administered on 03/06/18at 21:15; Start 03/02/18 at 21:00 Potassium Chloride 100 ml @ 50 mls/hr Q2H PRN IV For Potassium 2.8 - 3.2 mEq/L ; Start 03/02/18 at 16:45; Stop 03/04/18 at 16:00; Status DC Potassium Chloride 100 ml @ 50 mls/hr Q2H PRN IV For Potassium 2.8 - 3.2 mEq/L ; Start 03/02/18 at 16:45; Stop 03/04/18 at 16:00; Status DC Potassium Bicarb/ Potassium Chloride (K-Lyte Cl Eff) 50 meq UNSCH PRN PO For Potassium 3.3 - 3.5 mEq/L; Start 03/02/18 at 16:45; Stop 03/04/18 at 16:00; Status DC Potassium Chloride 100 ml @ 25 mls/hr UNSCH PRN IV For Potassium 3.3 - 3.5 mEq /L; Start 03/02/18 at 16:45; Stop 03/04/18 at 16:00; Status DC Potassium Chloride 100 ml @ 50 mls/hr Q2H PRN IV For Potassium 3.3 - 3.5 mEq/ L Last administered on 03/02/18at 19:47; Start 03/02/18 at 16:45; Stop 03/04/18 at 16:00; Status DC Magnesium Sulfate 4 gm/Sodium Chloride 100 ml @ 50 mls/hr UNSCH PRN IV For Magnesium 0.9 - 1.1 mg/dL; Start 03/02/18 at 16:45; Stop 03/04/18 at 16:00; Status DC Magnesium Oxide (Mag-Ox) 800 mg UNSCH PRN PO For Magnesium 1.2 - 1.6 mg/dL; Start 03/02/18 at 16:45; Stop 03/04/18 at 16:00; Status DC Magnesium Sulfate 2 gm/Sodium Chloride 100 ml @ 50 mls/hr UNSCH PRN IV For Magnesium 1.2 - 1.6 mg/dL; Start 03/02/18 at 16:45; Stop 03/04/18 at 16:00; Status DC Potassium Phosphate (K-Phos) 2,000 mg Q4H PRN PO For Phosphorus < 2.5 mg/dL; Start 03/02/18 at 16:45; Stop 03/04/18 at 16:00; Status DC Sodium Phosphate 30 mmol/Sodium Chloride 250 ml @ 42 mls/hr UNSCH PRN IV For Phosphorus < 2.5 mg/dL; Start 03/02/18 at 16:45; Stop 03/04/18 at 16:00; Status DC Potassium Phosphate (K-Phos) 2,000 mg UNSCH PRN PO/TUBE SEE LABEL COMMENTS; Start 03/02/18 at 16:45; Stop 03/04/18 at 16:00; Status DC Potassium Phosphate 30 mmol/ Sodium Chloride 260 ml @ 42 mls/hr UNSCH PRN IV SEE LABEL COMMENTS; Start 03/02/18 at 16:45; Stop 03/04/18 at 16:00; Status DC Diphenhydramine HCl (Benadryl) 50 mg Q6H PRN PO anxiety/allergy Last administered on 03/05/18at 11:07; Start 03/04/18 at 16:30; Stop 03/05/18 at 13:34 ; Status DC Hydroxyzine HCl (Vistaril Inj) 25 mg ONCE ONCE IM Last administered on at 22:39; Start 03/04/18 at 21:45; Stop 03/04/18 at 21:46; Status DC Diphenhydramine HCl (Benadryl Inj) 25 mg Q6H PRN IV PUSH ITCHING Last administered on 03/07/18at 08:21; Start 03/05/18 at 13:45 Morphine Sulfate (Morphine Inj) 2 mg ONCE ONCE IV PUSH ; Start 03/05/18 at 13: 45; Stop 03/05/18 at 13:46; Status DC Dextrose (D50w (Vial) Inj) 50 ml UNSCH PRN IV PUSH HYPOGLYCEMIA-SEE COMMENTS; Start 03/05/18 at 13:45 Glucagon (Glucagon Inj) 1 mg UNSCH PRN OTHER HYPOGLYCEMIA-SEE COMMENTS; Start 03/05/18 at 13:45 Insulin Aspart (NovoLOG SUPPLEMENTAL SCALE) 1 ACHS SLIDING SCALE SQ Last administered on 03/06/18at 21:14; Start 03/05/18 at 17:00 Morphine Sulfate (Morphine Inj) 2 mg ONCE ONCE IV PUSH Last administered on at 13:56; Start 03/05/18 at 14:00; Stop 03/05/18 at 14:01; Status DC Morphine Sulfate (Morphine Inj) 2 mg ONCE ONCE IV Last administered on at 21:19; Start 03/05/18 at 21:00; Stop 03/05/18 at 21:01; Status DC Escitalopram Oxalate (Lexapro) 20 mg DAILY PO Last administered on 03/07/18at 08 :22; Start 03/06/18 at 16:15 Regadenoson (Lexiscan Inj) 0.4 mg STK-MED ONCE .ROUTE Last administered on 03/07at 10:06; Start 03/07/18 at 10:06; Stop 03/07/18 at 10:07; Status DC A/P Problem List: (1) H/O tracheostomy ICD Code: Z98.890 - Other specified postprocedural states (2) Adjustment disorder with anxiety ICD Code: F43.22 - Adjustment disorder with anxiety (3) Panic attacks ICD Code: F41.0 - Panic disorder [episodic paroxysmal anxiety] without agoraphobia Status: Resolved (4) Munchausen syndrome ICD Code: F68.10 - Factitious disorder, unspecified (5) Morbid obesity ICD Code: E66.01 - Morbid (severe) obesity due to excess calories (6) Hypertension ICD Code: I10 - Essential (primary) hypertension Status: Chronic (7) Leukocytosis ICD Code: D72.829 - Elevated white blood cell count, unspecified Status: Acute (8) Gastroesophageal reflux disease ICD Code: K21.9 - Gastro-esophageal reflux disease without esophagitis Status: Chronic (9) Noncompliance ICD Code: Z91.19 - Patient's noncompliance with other medical treatment and regimen Assessment and Plan Assessment and Plan Respiratory failure - Allergic reaction -Monitored in the ICU for airway patency -ENT consultation- Per ENT Dr. Oviedo 03/02/18 She is being followed her her local ENT, Dr Qureshi and referred to Academic Underwriting Account Representative at [facility] in [place], Dr Nelsy Azevedo, D.[place]. The patient appears to have responded somewhat to medical therapy, but she still reports air hunger and feels she will need an airway. Ideally it would be best to transfer her to [place] and Dr Azevedo's care. she may require a surgical airway to safely go to [place], however. Chest pain (03/05) -serial EKG with no acute ST changes and troponin < 0.02 x 3 -CXR Mild scarring or atelectasis left base, improved from 01/12/2018. No acute findings -Discussed with Dr. Young who recommends cardiology consult -cardiology consult placed, discussed the case with Dr. Cotto plans nuclear stress test Wednesday or Wednesday - VQ scan normal exam Allergic reaction - Dexamethasone 8 mg IV Q6H - Pepcid and Protonix - passed swallow evaluation pureed diet with honey thickened liquid Anxiety -Resume home meds when indicated -Possible Munchausen disorder- DW PSYCHIATRY GERD - IV Pepcid DVT GI prophylax - Teds SCDs - Lovenox - Pepcid Discharge Planning DC TO HOME TODAY Nael Rothman DO March 07, 2018 13:52
--- NOTE | 2018-03-07 13:56 | PD.CARD.PN ---
Subjective Subjective Remarks Stress test today Objective Medications Current Medications Medications (Trade) Dose Ordered Sig/Toshia Route Start Time Stop Time Status Last Admin Sodium Chloride 1,000 ml @ 84 mls/hr [id number] IV 03/01/18 21:00 03/07/18 08:05 (NS Flush) 2 ml UNSCH PRN IV FLUSH 03/01/18 20:45 (NS Flush) 2 ml BID IV FLUSH 03/01/18 21:00 03/07/18 09:00 (Tylenol) 650 mg Q6H PRN PO 03/01/18 20:45 03/06/18 00:14 (Morphine Inj) 2 mg Q2H PRN IV PUSH 03/01/18 20:45 03/04/18 22:49 (Zofran Inj) 4 mg Q6H PRN IV PUSH 03/01/18 20:45 03/07/18 12:13 (Restoril) 15 mg HS PRN PO 03/01/18 20:45 03/03/18 23:19 (Heparin Inj) 5,000 units Q8H SQ 03/01/18 22:00 03/07/18 06:02 ([facility] Nursing Information) 1 Q361D XX 03/01/18 20:45 03/01/18 20:45 (Chlorhexidine 2% Cloth) Taper DAILY@04 TOP 03/02/18 04:00 02/26/19 03:59 (Chlorhexidine 2% Cloth) 3 pack UNSCH PRN TOP 03/01/18 20:45 (Annette-Colace) 1 tab BID PO 03/01/18 21:00 03/07/18 08:22 (Milk Of Magnesia Liq) 30 ml Q12H PRN PO 03/01/18 20:45 (Senokot) 17.2 mg Q12H PRN PO 03/01/18 20:45 03/06/18 21:15 (Dulcolax Supp) 10 mg DAILY PRN RECTAL 03/01/18 20:45 (Lactulose Liq) 30 ml DAILY PRN PO 03/01/18 20:45 (Decadron Inj) 8 mg Q6H IV PUSH 03/01/18 21:00 03/07/18 08:21 (Racepinephrine 2.25% Neb) 0.5 ml Q3HR NEB PRN NEB 03/01/18 21:00 (Lanoxin) 0.25 mg DAILY PO 03/02/18 09:00 03/07/18 08:22 (Cardizem Cd) 180 mg DAILY PO 03/02/18 09:00 03/07/18 08:22 (Singulair) 10 mg HS PO 03/01/18 21:00 03/06/18 21:15 (Roxicodone) 10 mg Q4H PRN PO 03/01/18 21:00 03/07/18 12:13 (Phenergan) 25 mg Q6H PRN PO 03/01/18 21:00 03/05/18 11:03 Dexmedetomidine HCl 200 mcg/ Sodium Chloride 52 ml @ 4.19 mls/hr TITRATE PRN IV 03/01/18 21:30 03/03/18 18:51 Patient Own Medication PT OWN MED: XOPE... Q4H PRN INH 03/01/18 21:45 Future Hold (Pepcid) 20 mg BID PO 03/02/18 21:00 03/07/18 08:22 (Elavil) 30 mg HS PO 03/02/18 21:00 03/06/18 21:15 (Neurontin) 300 mg TID PO 03/02/18 18:00 03/07/18 08:22 (Ativan) 1 mg Q6H PRN PO 03/02/18 16:45 03/06/18 17:30 (Protonix) 40 mg BID PO 03/02/18 21:00 03/07/18 08:22 (Zanaflex) 4 mg HS PO 03/02/18 21:00 03/06/18 21:15 (Benadryl Inj) 25 mg Q6H PRN IV PUSH 03/05/18 13:45 03/07/18 08:21 (D50w (Vial) Inj) 50 ml UNSCH PRN IV PUSH 03/05/18 13:45 (Glucagon Inj) 1 mg UNSCH PRN OTHER 03/05/18 13:45 (NovoLOG SUPPLEMENTAL SCALE) 1 ACHS SLIDING SCALE SQ 03/05/18 17:00 03/06/18 21:14 (Lexapro) 20 mg DAILY PO 03/06/18 16:15 03/07/18 08:22 Vital Signs / I&O Vital Signs Date Time Temp Pulse Resp B/P (MAP) Pulse Ox O2 Delivery O2 Flow Rate FiO2 03/07/18 08:00 97.9 67 16 136/65 (88) 98 03/07/18 00:00 97.1 68 18 114/60 (78) 93 03/06/18 20:00 Nasal Cannula 2.00 03/06/18 19:40 97.9 96 18 120/57 (78) 99 I/O 03/06/18 03/06/18 03/06/18 03/07/18 03/07/18 03/07/18 07:00 15:00 23:00 07:00 15:00 23:00 Intake Total 600 ml 700 ml 300 ml Balance 600 ml 700 ml 300 ml Intake Oral 600 ml 700 ml 300 ml # Voids 2 2 # Bowel Movements 0 Physical Exam GENERAL: NAD, AAOx3 SKIN: Warm and dry. HEAD: Atraumatic. Normocephalic. EYES: Pupils equal and round. No scleral icterus. No injection or drainage. ENT: No nasal bleeding or discharge. Mucous membranes pink and moist. NECK: Trachea midline. No JVD. CARDIOVASCULAR: Regular rate and rhythm. RESPIRATORY: No accessory muscle use. Clear to auscultation. Breath sounds equal bilaterally. GASTROINTESTINAL: Abdomen soft, non-tender, nondistended. Hepatic and splenic margins not palpable. MUSCULOSKELETAL: Extremities without clubbing, cyanosis, or edema. No obvious deformities. NEUROLOGICAL: Awake and alert. No obvious cranial nerve deficits. Motor grossly within normal limits. Five out of 5 muscle strength in the arms and legs. Normal speech. PSYCHIATRIC: Appropriate mood and affect; insight and judgment normal. Imaging Last 24 hours Impressions Myocardial Perfusion Scan Nuc Med 03/07/18 0000 Signed Impressions: Service Date/Time: Wednesday, March 07, 2018 09:54 - CONCLUSION: 1. No reversible perfusion defects to suggest ischemia. 2. Normal ejection fraction. RISK CATEGORY: Low (<1%% Annual Mortality Rate) Dean Crowley MD Assessment and Plan Problem List: (1) Panic attacks ICD Codes: F41.0 - Panic disorder [episodic paroxysmal anxiety] without agoraphobia Status: Resolved (2) Hypertension ICD Codes: I10 - Essential (primary) hypertension Status: Chronic (3) H/O tracheostomy ICD Codes: Z98.890 - Other specified postprocedural states (4) Morbid obesity ICD Codes: E66.01 - Morbid (severe) obesity due to excess calories (5) Adjustment disorder with anxiety ICD Codes: F43.22 - Adjustment disorder with anxiety (6) Chest pain ICD Codes: R07.9 - Chest pain, unspecified Status: Resolved Assessment and Plan 1) Chest pain/SOB Atypical for CAD V/Q negative Stress test negative for ischemia No further work up 2) Hx of inappropriate sinus tachycardia Follow up with her EP salary manager in [place] 3) Anxiety Ronnell Cotto DO March 07, 2018 13:56
[2018-03-07] MEDS ORDERED: MONT10TA2 PO (13:59)
[2018-03-07] MEDS ORDERED: PROM25TA10 PO (13:59)
[2018-03-07] MEDS ORDERED: XOPEAER4 INH (13:59)
[2018-03-07] MEDS ORDERED: OXYC-395 PO (13:59)
[2018-03-07] MEDS ORDERED: AMIT10TA6 PO (13:59)
[2018-03-07] MEDS ORDERED: DIGO0.25 PO (13:59)
[2018-03-07] MEDS ORDERED: GABA300C5 PO (13:59)
[2018-03-07] MEDS ORDERED: LEXA20TA PO (13:59)
[2018-03-07] MEDS ORDERED: PROT40TA PO (13:59)
[2018-03-07] MEDS ORDERED: LEVA.63I NEB (13:59)
[2018-03-07] MEDS ORDERED: CARD180C5 PO (13:59)
[2018-03-07] MEDS ORDERED: LORA-474 PO (13:59)
[2018-03-07] MEDS ORDERED: TIZA4 PO (13:59)
[2018-03-07] MEDS ORDERED: NEBULIZER1 MI1 (14:03)
[2018-03-07] MEDS ORDERED: PRED10PA2 PO (14:04)
--- NOTE | 2018-03-07 14:07 | HHI.DS ---
Discharge Summary Admission Date March 01, 2018 at 20:24 Discharge Date: March 07, 2018 Admitting Diagnosis ANXIETY DYSPHAGIA (1) H/O tracheostomy ICD Code: Z98.890 - Other specified postprocedural states Diagnosis: Principal (2) Adjustment disorder with anxiety ICD Code: F43.22 - Adjustment disorder with anxiety Diagnosis: Principal (3) Panic attacks ICD Code: F41.0 - Panic disorder [episodic paroxysmal anxiety] without agoraphobia Diagnosis: Principal Status: Resolved (4) Munchausen syndrome ICD Code: F68.10 - Factitious disorder, unspecified Diagnosis: Principal (5) Morbid obesity ICD Code: E66.01 - Morbid (severe) obesity due to excess calories Diagnosis: Secondary (6) Hypertension ICD Code: I10 - Essential (primary) hypertension Diagnosis: Secondary Status: Chronic (7) Leukocytosis ICD Code: D72.829 - Elevated white blood cell count, unspecified Diagnosis: Secondary Status: Acute (8) Gastroesophageal reflux disease ICD Code: K21.9 - Gastro-esophageal reflux disease without esophagitis Diagnosis: Secondary Status: Chronic (9) Noncompliance ICD Code: Z91.19 - Patient's noncompliance with other medical treatment and regimen Diagnosis: Principal Procedures None Brief History - From Admission 32-year-old very pleasant but very anxious female presented to emergency department at [facility] via EMS complaining of allergic reaction. The patient reports shortness of breath. She stated that she is allergic to multiple medications and substances including sulfites. Per EMS patient received albuterol, Benadryl, received epinephrine and Versed. The patient reports she has recently had a tracheostomy tube removed. She denies any other symptoms. CBC/BMP: 03/04/18 1143 03/04/18 1143 Significant Findings Laboratory Tests Test 03/05/18 14:12 03/05/18 18:25 03/06/18 00:53 Troponin I LESS THAN 0.02 NG/ML LESS THAN 0.02 NG/ML LESS THAN 0.02 NG/ML Imaging Last Impressions Myocardial Perfusion Scan Nuc Med 03/07/18 0000 Signed Impressions: Service Date/Time: Wednesday, March 07, 2018 09:54 - CONCLUSION: 1. No reversible perfusion defects to suggest ischemia. 2. Normal ejection fraction. RISK CATEGORY: Low (<1%% Annual Mortality Rate) Dean Crowley MD Lung Scan-VQ Nuclear Medicine 03/05/18 0000 Signed Impressions: Service Date/Time: Tuesday, March 06, 2018 00:58 - CONCLUSION: Normal examination. Bautista Jackson MD Chest X-Ray 03/05/18 0000 Signed Impressions: Service Date/Time: Monday, March 05, 2018 12:11 - CONCLUSION: Mild scarring or atelectasis left base, improved from 01/12/18. No acute findings. Ector Valdez MD Modified Barium Swallow 03/03/18 0000 Signed Impressions: Service Date/Time: February 14:47 - CONCLUSION: Penetration and some aspiration was noted during the exam. See speech pathology report. Matthew Osman MD PE at Discharge GENERAL: This is a well-nourished, well-developed patient, appears anxious but in no apparent distress. CARDIOVASCULAR: Regular rate and rhythm RESPIRATORY: Clear to auscultation. Breath sounds equal bilaterally. GASTROINTESTINAL: Abdomen soft, non-tender, nondistended. Normal active bowel sounds MUSCULOSKELETAL: Extremities without clubbing, cyanosis, or edema. NEURO: Alert & Oriented x4 to person, place, time, situation. Moves all ext x4 Hospital Course 32-year-old very pleasant but very anxious female presented to emergency department at [facility] via EMS complaining of allergic reaction. The patient reports shortness of breath. She stated that she is allergic to multiple medications and substances including sulfites. Per EMS patient received albuterol, Benadryl, received epinephrine and Versed. The patient reports she has recently had a tracheostomy tube removed. She denies any other symptoms. 5-16 patient has been transferred to our service Remains on Benadryl and Precedex and morphine Has been seen by ENT who recommended she go back to [facility] for any procedures patient states she has had 4 tracheostomies within the last year Patient states that her local ENT recommended that her tracheostomy to be removed a Dr. Qureshi 5-17 REFUSING TO TAKE PO MEDS AND EAT AT THIS TIME SWALLOW EVAL MBS WITH SPEECH AND RADIOLOGY [facility] RN AND PATIENT AND CASE MANAGEMENT- [facility] THEY WILL NOT INCREASE HER ANXIOLYTICS IF PASSES SWALLOW EVAL MAY NEED TRANSFER BACK TO [place] SO THEY CAN TRANSFER TO [place] IF THEY WANT PATIENT SEEMS TO WANT TO HAVE ANOTHER TRACHEOSTOMY STATES SHE IS SOB AND VERY ANXIOUS WHEN I COME IN THE ROOM - PASSED SWALLOW EVALUATION YESTERDAY [facility] RN AND PT AND CM TRANSFER BACK TO [place] NO NEED FOR TRACHEOSTOMY AT THIS TIME GETS VERY ANXIOUS WHEN I COME IN THE ROOM TAKING MEDICATIONS NOW PUREED DIET HONEY THICKENED LIQUIDS 03-05 Patient c/o itching, "all over," and chest pain. Chest pain described as midsternal pressure. Without associated SOB, diaphoresis, N/V or radiation 03-06 Patient reports continued chest pain - cardiology following denies SOB denies itching 03-07 V/Q IS NEGATIVE LEXISCAN IS NEGATIVE DC TO HOME TODAY DW RN AND PATIENT DC HOME FOLLOW UP WITH PCP FOLLOW UP WITH [place] IF ENT ISSUES [facility] RN AND PT AND CM Pt Condition on Discharge: Good Discharge Disposition: Discharge Home Discharge Time: > 30 minutes Discharge Instructions DIET: Follow Instructions for: Pureed Diet Speech Therapy-Diet Recommends: Honey Thickened Liquids, Pureed Additional Diet Instructions: PUREED WITH HONEY THICKENED LIQUIDS Activities you can perform: Regular-No Restrictions Follow up Referrals: Ear Nose Throat - 1 Week with [facility] PCP Follow-up - 2-3 Days Psychiatry Adult - 1 Week New Medications: Nebulizer (Nebulizer) 1 Mis Mis EA .XX DIRECTED for Breathing Treatment, #1 0 Refills Prednisone (48) 10 mg tab Dose Pack (Prednisone (48) 10 mg tab Dose Pack) 10 Mg Dspk 10 MG PO DIRECTED for Inflammation, #1 DSPK 0 Refills TAKE WITH FOOD Famotidine (Famotidine) 20 Mg Tab 20 MG PO BID for Heartburn Management, #60 TAB Promethazine (Phenergan) 25 Mg Tablet 25 MG PO Q6H PRN for Nausea/Vomiting, #120 TAB [diphenhydrAMINE INJ] () 50 MG/ML INJ 25 MG IV Q4H for Anxiety, #120 EACH Continued Medications: Amitriptyline (Amitriptyline) 10 Mg Tab 30 MG PO HS for Control Depression, #30 TAB 0 Refills (This prescription has been renewed) Digoxin (Digoxin) 0.25 Mg Tab 0.25 MG PO DAILY for Regulate Heart Beat, #30 TAB 0 Refills (This prescription has been renewed) Diltiazem CD 24 HR (Cardizem CD 24 HR) 180 Mg Caper 180 MG PO DAILY for hypertension for 30 Days, #30 CAP 0 Refills (This prescription has been renewed) Escitalopram (Lexapro) 20 Mg Tab 20 MG PO DAILY for Depression Control, #30 TAB 0 Refills (This prescription has been renewed) Gabapentin (Gabapentin) 300 Mg Cap 300 MG PO TID for Pain Management, #90 CAP 0 Refills (This prescription has been renewed) Levalbuterol 15 GM Inh (Xopenex Hfa 15 GM Inh) 45 Mcg/Act Aer 1 PUFF INH Q4HR PRN for SHORTNESS OF BREATH, #1 INHALER 0 Refills (This prescription has been renewed) Shake well before using. (1 puff = 45 mcg) Levalbuterol Neb (Xopenex Neb) 0.63 Mg/3 Ml Neb 0.63 MG NEB QID for Breathing Treatment, #120 NEBULE 0 Refills Levalbuterol Neb (Xopenex Neb) 0.63 Mg/3 Ml Neb 0.63 MG NEB QID for Breathing Treatment, #120 NEBULE 0 Refills (This prescription has been renewed) Lorazepam (Ativan) 1 Mg Tab 1 MG PO Q6H PRN for ANXIETY AND/OR AGITATION, #20 TAB 0 Refills (This prescription has been renewed) Montelukast (Singulair) 10 Mg Tab 10 MG PO HS for Allergies, #30 TAB 0 Refills (This prescription has been renewed ) Oxycodone (Oxycodone) 10 Mg Tab 10 MG PO Q4H PRN for pain, #15 TAB 0 Refills (This prescription has been renewed ) Pantoprazole (Protonix) 40 Mg Tab 40 MG PO BID for Ulcer Prevention, #60 TAB 0 Refills (This prescription has been renewed) Tizanidine (Zanaflex) 4 Mg Tab 4 MG PO HS for Muscle Spasm, #30 TAB 0 Refills (This prescription has been renewed) Discontinued Medications: Famotidine (Famotidine) 20 Mg Tab 40 MG NG BID for antihistamine for 10 Days, #40 TAB 0 Refills Nitrofurantoin Monohydrate Macrocrystals (Macrobid) 100 Mg Cap 100 MG PO BID for Infection for 10 Days, CAP 0 Refills Omeprazole (Omeprazole) 20 Mg Tab 20 MG PO BID for gerd, #30 TAB 0 Refills Oxycodone (Oxycodone) 15 Mg Tab 15 MG PO Q6H PRN for PAIN, TAB 0 Refills Prednisone (Prednisone) 5 Mg Tab 5 MG PO DIRECTED for inflammation for 10 Days, TAB 0 Refills 40 mg po daily for two days then 30 mg po daily for two days then 20 mg po daily for two days then 10 mg po daily for two days then 5 mg po daily for two days then stop. Promethazine (Phenergan) 25 Mg Tab 25 MG PO Q6H PRN for Nausea/Vomiting, #10 TAB 0 Refills Nael Rothman DO March 07, 2018 14:07
[2018-03-07] MEDS: LORazepam 1 MG TAB PO PRN (14:16)
== END 2018-03-07 16:02 | disposition home or self-care (01) | DRG 189 ==
LOC: EDBD 20:24 → N03A 20:24 → N06A 03-04 15:45
PROVIDERS: ADMIT Hospitalist; ATTEND Hospitalist
DX: J96.90 Respiratory failure, unspecified, unspecified whether with hypoxia or hypercapnia (principal); E66.01 Morbid (severe) obesity due to excess calories; I10 Essential (primary) hypertension; F68.10 Factitious disorder imposed on self, unspecified; K21.9 Gastro-esophageal reflux disease without esophagitis; E21.3 Hyperparathyroidism, unspecified; E87.6 Hypokalemia; N80.9 Endometriosis, unspecified; G43.909 Migraine, unspecified, not intractable, without status migrainosus; F43.10 Post-traumatic stress disorder, unspecified; J45.909 Unspecified asthma, uncomplicated; F43.22 Adjustment disorder with anxiety; F41.0 Panic disorder [episodic paroxysmal anxiety]; T50.905A Adverse effect of unspecified drugs, medicaments and biological substances, initial encounter; Z79.2 Long term (current) use of antibiotics; Z79.891 Long term (current) use of opiate analgesic; Z79.52 Long term (current) use of systemic steroids; Z79.899 Other long term (current) drug therapy; Z88.8 Allergy status to other drugs, medicaments and biological substances; Z86.73 Personal history of transient ischemic attack (TIA), and cerebral infarction without residual deficits; Z91.19 Patient's noncompliance with other medical treatment and regimen; Z68.29 Body mass index [BMI] 29.0-29.9, adult
CPT/HCPCS: 71045; 74230; 78452; 78582; 80053; 80162; 82948; 83036; 83735; 84100; 84439; 84443; 84484; 84702; 85025; 85610; 85730; 87641; 93005; 93017; 94640; 94664; A9502; A9540; A9567; J1100; J1200; J1644; J1815; J2270; J2405; J2785; J3410; J3480; J7030; J7512; J7614; Q0163; Q0169